=== PATIENT | male | born 1960 | race Caucasian/White ===

== ENCOUNTER 2016-01-12 11:00 | Inpatient (IN) | payer BC ==
[2015-12-30 11:18] VITALS: BP 154/82
--- NOTE | 2016-01-07 15:38 | HPE ---
DATE OF ADMISSION: 01/12/2016 CHIEF COMPLAINT: Left hip pain. HISTORY OF PRESENT ILLNESS: This is a pleasant 55-year-old male with progressively worsening left hip pain and stiffness. He has failed to improve with conservative treatment. He has elected for surgery for his continued symptoms. He has pain with weightbearing activities and his activities of daily living. X-rays of his hip are notable for advanced osteoarthritis of the left hip joint. He has consented for a left total hip arthroplasty by Dr. Macho Acosta. Medical optimization was performed by Dr. Wooten. ALLERGIES: No known allergies. CURRENT MEDICATIONS: Metformin, duloxetine, atorvastatin, bisoprolol, chlorthalidone, telmisartan, omeprazole, and Lantus. PAST MEDICAL HISTORY: Includes: 1. Diabetes. 2. Hypertension. 3. High cholesterol. 4. History of a heart attack. 5. Anxiety and depression. PAST SURGICAL HISTORY: Includes a right total hip arthroplasty with revision in 2014. 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 He does not smoke or drink alcohol. FAMILY HISTORY: Noncontributory. REVIEW OF SYSTEMS: This patient denies chest pain, heart palpitations, cough, wheezing, difficulty breathing or shortness of breath. He denies abdominal pain, nausea, vomiting, diarrhea or constipation. He denies recent upper respiratory infection or urinary tract infection symptoms. He does complain of persistent pain in his left hip and pain with weightbearing activities in his left hip. PHYSICAL EXAMINATION: GENERAL: He is a well-nourished, well-developed, in no acute distress, adult male. He walks with a moderate limp favoring the left lower extremity. He is not using assistive devices. VITAL SIGNS: He is 5 feet, 10 inches tall, weighs 292 pounds with a temperature of 98.9, blood pressure of 144/76, pulse of 78, and respirations of 20. NECK: Supple without adenopathy or jugular venous distension. There were no carotid bruits appreciated upon auscultation. LUNGS: Clear to auscultation without rales or wheeze. HEART: Regular rate and rhythm. ABDOMEN: Bowel sounds were present. EXTREMITIES: Examination of the hip revealed intact skin. He had decreased range of motion with internal and external rotation on examination secondary to pain and stiffness. The limb was neurovascularly intact. Chest x-ray showed mild cardiomegaly with a stable calcified granuloma, otherwise no acute cardiopulmonary disease processes. EKG showed normal sinus rhythm at 75 beats per minute. LABORATORY DATA: Nasal and sinus culture showed normal brianne. Urine culture showed no growth. CBC showed a red count of 4.22, hemoglobin of 13.0, hematocrit of 36.3, otherwise within normal limits. Sedimentation rate was 18, glucose 153, BUN 27, creatinine 1.44 for a GFR of 53.8. Prothrombin time 12.1, INR 0.89. UA showed 2+ blood and 4 red blood cells, otherwise within normal limits with a specific gravity of 1.017. IMPRESSION: Symptomatic osteoarthritis of the left hip. PLAN: Consented for a left total hip arthroplasty by Dr. Macho Acosta.
[~2016-01-12] VITALS: Ht 177.8 cm; Wt 135.0 kg
[~2016-01-12 11:00] MED LIST: /AMLO25TA PO; /HCTZ25TA PO; /PRAV20TA PO; AMIODIPINE PO; ASPI325T PO; BISO5TAB5 PO; CARV6.25 PO; CHLO25TA PO; COLA100C PO; CORE25TA PO; CYMB1CAP PO; CYMB1CAP4 PO; GLUC500T PO; HYDR50TA2 PO; Hygroton PO; INSUDET SC; INSULANT SC; INSULANT SQ; LIPI80TA PO; METF1000 PO; MICA40TA PO; MICA80TA PO; MILKSUS PO; PERC5TAB6 PO; PRAV80TA2 PO; PRIL40CA PO; SENO8.6T2 PO; TYLE167L PO; TYLE650T30 PO; ZEBE5TAB PO; ZITH500T PO
[2016-02-26] MEDS ORDERED: CHLO25TA PO (14:04)
[2016-02-26] MEDS ORDERED: JANU100T PO (14:04)
[2016-02-26] MEDS ORDERED: GLIP5TAB8 PO (14:04)
--- NOTE | 2016-02-26 16:17 | HPE ---
DATE OF SCHEDULED ADMISSION: 03/01/2016 CHIEF COMPLAINT: Left hip pain. HISTORY OF PRESENT ILLNESS: This is a pleasant 55-year-old male with progressively worsening left hip pain and stiffness. He has failed to improve with conservative treatment. He has elected for surgery for his continued symptoms. He has pain with weightbearing activities and his activities of daily living. X-rays of his hip are notable for advanced osteoarthritis of the left hip joint. He has consented for a left total hip arthroplasty by Dr. Macho Acosta. Medical optimization was performed by Dr. Wooten. ALLERGIES: None. CURRENT MEDICATIONS: - metformin - chlorthalidone - duloxetine - telmisartan - atorvastatin - omeprazole - bisoprolol - Lantus - daily aspirin PAST MEDICAL HISTORY: Includes diabetes, hypertension, high cholesterol, history of heart attack and anxiety or depression. PAST SURGICAL HISTORY: Includes a right total hip arthroplasty. 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 FAMILY HISTORY: Noncontributory. REVIEW OF SYSTEMS: This patient denies chest pain, heart palpitations, cough, wheezing, difficulty breathing and shortness of breath. He denies abdominal pain, nausea, vomiting, diarrhea or constipation. He denies recent upper respiratory infection or urinary tract infection symptoms. He does complain of persistent pain in his left hip and pain with weightbearing activities in his left hip. PHYSICAL EXAMINATION: General: He is a well-nourished, well-developed, in no acute distress, adult male. He walks with a moderate limp favoring his left lower extremity. He is not using assistive devices. Vital signs: He is 69-3/4 inches tall, weighs 291 pounds with a temperature of 98.3, blood pressure 152/78, pulse 66, respirations of 14. Neck was supple without adenopathy or jugular venous distension. There were no carotid bruits appreciated upon auscultation. Lungs were clear to auscultation without rales or wheeze throughout. Heart: Regular rate and rhythm. Abdomen: Bowel sounds were present. Extremities: Examination of the hip revealed intact skin without erythema, edema or ecchymosis. Decreased range of motion with internal and external rotation on exam today secondary to pain and stiffness. The limb is neurovascularly intact. LABORATORY DATA: Chest x-ray showed stable calcified granuloma in the right mid lung field, mild cardiomegaly with left ventricular prominence, unchanged from previous x-ray; otherwise no acute cardiopulmonary disease processes. EKG showed normal sinus rhythm at 75 beats per minute. Nasal and sinus culture showed normal brianne. Urine culture showed no growth. CBC showed a red count of 4.22, hemoglobin of 13.0, hematocrit of 36.3, otherwise within normal limits. Sedimentation rate was 18, glucose 153, BUN 27, creatinine 1.44, GFR of 53.8. Sodium 137, potassium 4.3. Pro time 12.1, INR 0.89. UA showed 2+ blood and 4 red blood cells, otherwise within normal limits with a specific gravity of 1.017. IMPRESSION: Symptomatic osteoarthritis of the left hip joint. PLAN: Consented for a left total hip arthroplasty by Dr. Macho Acosta.
[2016-03-01] MEDS ORDERED: ceFAZolin 2 GM/D5W 50 ML IV BAG (J0690) As Ordered ONE (11:31)
[2016-03-01] MEDS ORDERED: LR 1,000 ML IV SCH ×4 (11:45→16:30)
[2016-03-01] MEDS ORDERED: COUM1TAB17 PO (12:00)
[2016-03-01] MEDS ORDERED: BENZ100C5 PO (12:03)
[2016-03-01] MEDS ORDERED: ASPIRIN 325 MG TAB As Ordered ONE (12:26)
[2016-03-01] MEDS ORDERED: ASPIRIN 325 MG TAB PO ONE (12:45)
[2016-03-01] MEDS ORDERED: HumaLOG INSULIN (NovoLOG) PER UNIT As Ordered ONE (13:13)
[2016-03-01] MEDS ORDERED: TRANEXAMIC ACID 100 MG/ML 10ML VIAL As Ordered ONE (13:23)
[2016-03-01] MEDS ORDERED: ceFAZolin 1GM INJ (J0690) As Ordered ONE (13:23)
[2016-03-01] MEDS ORDERED: BUPIVACAINE HCL 0.25% 30 ML VIAL As Ordered ONE (13:23)
[2016-03-01] MEDS ORDERED: BUPIVACAINE HCL 0.5% 10 ML VIAL As Ordered ONE (13:23)
[2016-03-01] MEDS ORDERED: EPINEPHrine INJ 1 MG/ML 1ML VIAL/AMP As Ordered ONE (13:24)
[2016-03-01] MEDS ORDERED: HumaLOG INSULIN (NovoLOG) PER UNIT SC ONE (13:30)
[2016-03-01] MEDS ORDERED: fentaNYL 100 MCG/2 ML INJECTION (J3010) As Ordered ONE ×2 (13:35→14:02)
[2016-03-01] MEDS ORDERED: LIDOCAINE 2% INJ 100 MG/5 ML SDV (FOR ANES.) As Ordered ONE (14:02)
[2016-03-01] MEDS ORDERED: PHENYLephrine HCL 500 MCG/5 ML (100MCG/ML) SYRINGE (J2370) As Ordered ONE ×2 (14:02→15:41)
[2016-03-01] MEDS ORDERED: MIDAZOLAM INJ 2 MG/2 ML VIAL (J2250) As Ordered ONE (14:02)
[2016-03-01] MEDS ORDERED: PROPOFOL 200 MG/20 ML VIAL As Ordered ONE (14:02)
[2016-03-01] MEDS ORDERED: fentaNYL 100 MCG/2 ML INJECTION (J3010) XX ONE (14:27)
[2016-03-01] MEDS ORDERED: ceFAZolin 1GM INJ (J0690) IR ONE (14:27)
[2016-03-01] MEDS ORDERED: TRANEXAMIC ACID 100 MG/ML 10ML VIAL XX ONE (14:27)
[2016-03-01] MEDS ORDERED: BUPIVACAINE HCL 0.25% 30 ML VIAL XX ONE (14:27)
[2016-03-01] MEDS ORDERED: BUPIVACAINE HCL 0.5% 10 ML VIAL XX ONE (14:27)
[2016-03-01] MEDS ORDERED: EPINEPHrine INJ 1 MG/ML 1ML VIAL/AMP XX ONE (14:27)
[2016-03-01] MEDS ORDERED: MORPHINE PCA 1MG/ML 100ML CADD As Ordered ONE (15:22)
[2016-03-01] MEDS ORDERED: GLUCOSE 4 GM CHEW TABLET PO PRN (16:30)
[2016-03-01] MEDS ORDERED: DEXTROSE 50% 50 ML SYRINGE IV PRN (16:30)
[2016-03-01] MEDS ORDERED: fentaNYL 100 MCG/2 ML INJECTION (J3010) IV PRN (16:30)
[2016-03-01] MEDS ORDERED: PERCOCET 5MG/325MG TAB PO PRN (16:30)
[2016-03-01] MEDS ORDERED: PHENYLEPHRINE HCL INJ 10 MG in D5W 100 ML IV SCH (16:30)
[2016-03-01] MEDS ORDERED: GLUCAGON FOR INJ 1 MG VIAL (J1610) SC PRN (16:30)
[2016-03-01] MEDS ORDERED: METOCLOPRAMIDE INJ 10MG/2ML VIAL (J2765) IV PRN (16:30)
[2016-03-01] MEDS ORDERED: ONDANSETRON 4MG/2ML VIAL (J2405) IV PRN ×2 (16:30→16:45)
[2016-03-01] MEDS: NS 0.45% 1,000 ML IV SCH ×2 (16:42→22:50)
[2016-03-01] MEDS ORDERED: PATIENT IS CURRENTLY ON AN ON-Q PAIN BUSTER PAIN RELIEF SYSTEM XX SCH (16:45)
[2016-03-01] MEDS ORDERED: EPIDURAL/PCA KEYS XX PRN (16:45)
[2016-03-01] MEDS ORDERED: FLEET ENEMA PR PRN (16:45)
[2016-03-01] MEDS ORDERED: MORPHINE PCA 1MG/ML 100ML CADD IV PRN (16:45)
[2016-03-01] MEDS ORDERED: ACETAMINOPHEN TAB 650MG DOSE (2X325MG) PO PRN (16:45)
[2016-03-01] MEDS ORDERED: NALBUPHINE HCL 10 MG/ML AMP (J2300) IV PRN (16:45)
[2016-03-01] MEDS ORDERED: diphenhydrAMINE INJ 50MG/ML VIAL (J1200) IV PRN (16:45)
[2016-03-01] MEDS ORDERED: NALOXONE INJ 0.4 MG/1 ML VIAL (J2310) IV PRN (16:45)
[2016-03-01] MEDS ORDERED: WARFARIN SOD 5 MG TAB PO SCH (17:00)
[2016-03-01] MEDS: HumaLOG INSULIN (NovoLOG) PER UNIT SC SCH (17:30)
[2016-03-01 18:00] VITALS: BP 125/59
[2016-03-01 18:45] VITALS: BP 134/78
[2016-03-01 19:45] VITALS: BP 143/64
[2016-03-01] MEDS: ATORVASTATIN 20 MG TAB PO SCH (20:43)
[2016-03-01] MEDS: OMEPRAZOLE 20 MG CAP PO SCH (20:43)
--- NOTE | 2016-03-01 20:43 | RO ---
DATE OF PROCEDURE: 03/01/2016 PREOPERATIVE DIAGNOSIS: Left hip osteoarthritis, morbid obesity, diabetes. POSTOPERATIVE DIAGNOSIS: Left hip osteoarthritis, morbid obesity, diabetes. OPERATION PERFORMED: Left total hip replacement. SURGEON: Dr. Macho Acosta OFFICE SERVICE COORDINATOR: EUN Galloway ANESTHESIA: HISTORY: A 55-year-old male who presents with significant arthritis in his hip. The patient understands that he is at increased risk for postoperative complications due to his size and other medical problems. FINDINGS AT SURGERY: Extremely difficult procedure. A very muscular obese man that required a lot of extra effort to manipulate his leg and expose things. The stem was a #7 [place] with an 8.5 head neck combination and the cup was a 60 with a 36 mm head. No intraoperative complications. Blood loss around 150 mL. DESCRIPTION OF PROCEDURE: After spinal anesthetic, a Jim catheter was placed, IV antibiotics were administered. The patient was turned left side up in the [place] and padded appropriately, then prepped and draped. Anterolateral incision utilized on the left hip. IT band divided in line with its fibers. The patient had a large hypertrophied tensor band with very little fascia posteriorly to it. The abductors were reflected anteriorly. The labrum was incised and the hip dislocated. Intramedullary canal reamed for a #7 [place], the neck divided. The acetabulum was exposed, and we reamed up to a 59. At that point, we were at the cotyloid fossa. Bleeders were coagulated. The area was thoroughly irrigated and the cup was inserted. We did have some anterior osteophyte that was trimmed with a rongeur. A 36 plastic cup was installed. Following this, the wound was thoroughly irrigated, the stem was exposed and the broaches utilized in the femoral canal. A 7 trial was performed. Then all trial components were removed. The permanent stem malleted into place and the Sidhu taper engaged with an 8.5 neck on a 36 head and it was reduced. The labrum was closed. The PainBuster catheter was threaded in, the abductors repaired back to the trochanter. The IT band was repaired. Following this, the subcu was closed in layers due to its depth, skin clips were utilized, a dry dressing applied. The PainBuster was primed with 10 mL and the patient was rolled flat. Sequential compression stockings were applied to his operative leg. They had been operating on the down leg during the procedure.
[2016-03-01 20:45] VITALS: BP 164/70
[2016-03-01] MEDS: LEVEMIR (INSULIN DETEMIR) 1 UNITS/0.01ML SC SCH (21:05)
[2016-03-01 21:45] VITALS: BP 173/85
[2016-03-01 22:45] VITALS: BP 178/81
[2016-03-02 02:00] VITALS: BP 146/88
[2016-03-02 06:00] VITALS: BP 150/73
[2016-03-02] MEDS ORDERED: PERCOCET 5MG/325MG TAB PO PRN (06:45)
[2016-03-02 07:01] LABS: MEAN CORPUSCULAR HEMOGLOBIN 30.2 pg (27.0-33.0); MEAN CORPUSCULAR HGB CONC 35.2 g/dl (32.0-36.5); MEAN CORPUSCULAR VOLUME 85.7 fl (80.0-96.0); RED CELL DISTRIBUTION WIDTH 13.4 % (11.5-14.5); WHITE BLOOD COUNT 15.8 K/mm3 (4.0-10.0)
[2016-03-02 07:02] LABS: INR 1.11
--- NOTE | 2016-03-02 07:52 | IPNPDOC ---
Assessment/Plan Date Seen The patient was seen on 03/02/16. Problems Problems: (1) HTN (hypertension) Status: Chronic Problem Text: restart Micardis and Chlorthalidone gradually Continue Bisoprolol (2) Diabetes mellitus type 2, uncontrolled Status: Chronic Problem Text: Continue Insulin and SSI Restart oral agents once eating normally (3) CAD (coronary artery disease) Status: Chronic Response to Treatment: Stable Problem Text: Continue Lipitor Aspirin on hold currently for hip surgery- restart once stable (4) Aftercare following left hip joint replacement surgery Status: Acute Problem Text: PEr ortho Plan / VTE VTE Prophylaxis Ordered?: Yes (Coumadin per Ortho) Disposition Home once stable Subjective Review of Systems CC/HPI The patient is a 55-year-old male admitted with a reason for visit of Arthritis Left Hip. Events since last encounter Nausea and vomiting after taking Percocet this am. Pain poorly controlled. Constitutional: Denies: Chills, Fever Pulmonary: Denies: Cough, Dyspnea Gastrointestinal: Reports: Nausea, Vomiting, Denies: Abdominal Pain, Constipation, Diarrhea Musculoskeletal: Reports: Joint Pain (post-op hip pain) Objective Physical Examination General Exam: Positive: Alert, No Acute Distress Chest Exam: Positive: Clear to auscultation, Normal air movement Heart Exam: Positive: Rate Normal, Negative: Murmurs Abdomen Exam: Positive: Normal bowel sounds, Soft, Negative: Tenderness Extremity Exam: Negative: Edema Vital Signs/I&O Vital Signs Date Time Temp Pulse Resp B/P Pulse Ox O2 Delivery O2 Flow Rate FiO2 03/02/16 06:00 97.3 112 18 150/73 97 Nasal Cannula 2.0 I&O- Last 24 Hours up to 6 AM 03/02/16 06:00 Intake Total 2600 ml Output Total 1075 ml Balance 1525 ml Laboratory Data Labs 24H Laboratory Tests 2 03/01/16 12:38: Bedside Glucose (Misc Panel) 183H 03/01/16 16:20: Bedside Glucose (Misc Panel) 129H 03/01/16 20:27: Bedside Glucose (Misc Panel) 167H 03/02/16 06:18: Bedside Glucose (Misc Panel) 238H 03/02/16 06:44: Prothromb Time International Ratio 1.11, Prothrombin Time 14.4 CBC/BMP Laboratory Tests 03/01/16 11:18 03/02/16 06:44 Red Blood Count 4.05 L, Mean Corpuscular Volume 85.7, Mean Corpuscular Hemoglobin 30.2, Mean Corpuscular Hemoglobin Concent 35.2, Red Cell Distribution Width 13.4 FSBS Laboratory Tests Test 03/01/16 12:38 03/01/16 16:20 03/01/16 20:27 03/02/16 06:18 Range/Units Bedside Glucose (Misc Panel) 183 129 167 238 70-105 MG/DL BAO BECKER PA-C Mar 02, 2016 07:52
[2016-03-02] MEDS: HumaLOG INSULIN (NovoLOG) PER UNIT SC SCH ×3 (08:10→17:33)
[2016-03-02] MEDS: MIRALAX *UNIT DOSE* 17GM PACKET PO SCH (08:11)
[2016-03-02] MEDS: MOM 30ML SUSPENSION UDC PO SCH (08:11)
[2016-03-02] MEDS: NS 0.45% 1,000 ML IV SCH ×2 (08:11→15:09)
[2016-03-02] MEDS: DULoxetine 20 MG CAP (CYMBALTA) PO SCH (08:12)
[2016-03-02] MEDS: OMEPRAZOLE 20 MG CAP PO SCH ×2 (08:12→21:30)
[2016-03-02] MEDS: BISOPROLOL FUMARATE 5 MG TAB PO SCH (08:12)
[2016-03-02] MEDS: PERCOCET 5MG/325MG TAB PO PRN ×4 (08:12→21:50)
[2016-03-02] MEDS: SENOKOT S TAB PO SCH ×2 (08:13→21:30)
[2016-03-02] MEDS: LEVEMIR (INSULIN DETEMIR) 1 UNITS/0.01ML SC SCH ×2 (08:13→21:29)
[2016-03-02] MEDS: ONDANSETRON 4 MG TAB (S0181) PO PRN ×3 (08:15→21:49)
[2016-03-02 08:20] LABS: ALBUMIN 3.2 GM/DL (3.2-5.2); ALBUMIN/GLOBULIN RATIO 0.86 (1.00-1.93); BILIRUBIN,TOTAL 0.3 MG/DL (0.2-1.0); CALCIUM LEVEL 8.4 MG/DL (8.5-10.1); CREATININE FOR GFR 2.04 MG/DL (0.70-1.30); POTASSIUM SERUM 5.1 MEQ/L (3.5-5.1); TOTAL PROTEIN 6.9 GM/DL (6.4-8.2)
[2016-03-02] MEDS ORDERED: TELMISARTAN 20 MG TAB PO SCH (09:00)
[2016-03-02 10:00] VITALS: BP 143/88
[2016-03-02 14:00] VITALS: BP 146/65
--- NOTE | 2016-03-02 15:24 | REP ---
Left hip series to include AP and 2 cross table lateral views of left hip Indication re check prosthesis placement Comparison made with prior CT abdomen pelvis 07/02/2013 performed at [facility] only Findings: The patient is status post left total hip arthroplasty with acetabular, femoral head, neck, and proximal femoral shaft prosthetic components. The alignment is anatomic. There is no visualized fracture. Visualized portions of the left rah pelvis are intact. Impression : Status post left total hip arthroplasty with normal appearance of the prosthesis and the left hip. There is no fracture or displacement. Signed by Roselyn Chavarria MD 03/02/2016 03:16 P
[2016-03-02] MEDS ORDERED: WARFARIN SOD 5 MG TAB PO ONE (17:00)
[2016-03-02] MEDS: ATORVASTATIN 20 MG TAB PO SCH (21:30)
[2016-03-02 22:00] VITALS: BP 137/65
[2016-03-03] MEDS: NS 0.45% 1,000 ML IV SCH (00:45)
[2016-03-03 06:00] VITALS: BP 144/81
[2016-03-03] MEDS: PERCOCET 5MG/325MG TAB PO PRN ×4 (06:31→21:59)
[2016-03-03 06:47] LABS: MEAN CORPUSCULAR HEMOGLOBIN 30.1 pg (27.0-33.0); MEAN CORPUSCULAR HGB CONC 34.5 g/dl (32.0-36.5); MEAN CORPUSCULAR VOLUME 87.2 fl (80.0-96.0); RED CELL DISTRIBUTION WIDTH 12.4 % (11.5-14.5); WHITE BLOOD COUNT 12.9 K/mm3 (4.0-10.0)
[2016-03-03 06:49] LABS: INR 1.23
[2016-03-03 06:58] LABS: ALBUMIN 2.8 GM/DL (3.2-5.2); ALBUMIN/GLOBULIN RATIO 0.72 (1.00-1.93); BILIRUBIN,TOTAL 0.6 MG/DL (0.2-1.0); CALCIUM LEVEL 8.7 MG/DL (8.5-10.1); CREATININE FOR GFR 2.15 MG/DL (0.70-1.30); GLOMERULAR FILTRATION RATE 33.9 (>56); POTASSIUM SERUM 4.4 MEQ/L (3.5-5.1); TOTAL PROTEIN 6.7 GM/DL (6.4-8.2)
[2016-03-03] MEDS ORDERED: NS 0.45% 1,000 ML IV SCH (07:45)
--- NOTE | 2016-03-03 08:20 | IPN ---
DATE: 03/03/2016 Marco Antonio is seen in [address] [place] [address]. He is two days postoperative from left total hip replacement. He feels well. No chest pain, shortness of breath. He has not had a bowel movement yet. He has developed some acute renal failure, which will be addressed below. PHYSICAL EXAMINATION: 144/81, pulse is 70, respiratory rate 15, 99% oxygen saturation. He is resting comfortably, no distress. No jugular venous distention (JVD). LUNGS: Expiratory wheezes but at the bases. HEART: Regular rate and rhythm. No murmur. ABDOMEN: Soft, obese, nontender. NEUROLOGIC: Exam nonfocal. LABORATORY DATA: BUN is 41 and creatinine is 2.1. Glucose 218, sodium 135, potassium 4.4, hemoglobin is 10.9. IMPRESSION: 1. Acute kidney injury. I think he is still a bit volume depleted. I am going to increase his intravenous rate. I am stopping his Micardis. His chlorthalidone is on hold. 2. Hypertension. Stop Micardis in the face of acute renal failure. Continue bisoprolol. 3. Hyperlipidemia. Continue atorvastatin 80 mg daily. 4. Diabetes type 2. He is on Levemir and sliding scale. Based upon fingerstick blood sugars and blood sugars are acceptable in the 200 range. Restart some of his oral agents once he is taking orally better. 5. Coronary artery disease. Aspirin is on hold. Continue beta dequan. Continue atorvastatin. If his renal function does not improve with increasing the IV rate and holding the Micardis, I will get a renal ultrasound tomorrow and consider renal consultation.
[2016-03-03] MEDS: MOM 30ML SUSPENSION UDC PO SCH (08:41)
[2016-03-03] MEDS: BISOPROLOL FUMARATE 5 MG TAB PO SCH (08:42)
[2016-03-03] MEDS: DULoxetine 20 MG CAP (CYMBALTA) PO SCH (08:42)
[2016-03-03] MEDS: OMEPRAZOLE 20 MG CAP PO SCH ×2 (08:42→22:00)
[2016-03-03] MEDS: SENOKOT S TAB PO SCH ×2 (08:42→21:59)
[2016-03-03] MEDS: HumaLOG INSULIN (NovoLOG) PER UNIT SC SCH ×3 (08:43→17:22)
[2016-03-03] MEDS: LEVEMIR (INSULIN DETEMIR) 1 UNITS/0.01ML SC SCH ×2 (08:43→21:58)
[2016-03-03] MEDS: MIRALAX *UNIT DOSE* 17GM PACKET PO SCH (08:43)
[2016-03-03 14:00] VITALS: BP 136/63
[2016-03-03] MEDS ORDERED: WARFARIN SOD 10 MG TAB PO ONE (17:00)
[2016-03-03] MEDS: ATORVASTATIN 20 MG TAB PO SCH (21:59)
[2016-03-03 22:00] VITALS: BP 135/60
[2016-03-04] MEDS: PERCOCET 5MG/325MG TAB PO PRN ×2 (05:27→10:19)
[2016-03-04 06:00] VITALS: BP 149/66
[2016-03-04 07:10] LABS: INR 1.3
[2016-03-04] MEDS ORDERED: MAGNESIUM CITRATE 300 ML BTL PO ONE (07:30)
[2016-03-04] MEDS ORDERED: COUM2.5T11 PO (08:00)
[2016-03-04] MEDS ORDERED: PERC5TAB6 PO (08:00)
[2016-03-04] MEDS: MIRALAX *UNIT DOSE* 17GM PACKET PO SCH (08:19)
[2016-03-04] MEDS: SENOKOT S TAB PO SCH (08:19)
[2016-03-04] MEDS: MOM 30ML SUSPENSION UDC PO SCH (08:19)
[2016-03-04] MEDS: OMEPRAZOLE 20 MG CAP PO SCH (08:19)
[2016-03-04 08:20] VITALS: BP 149/66
[2016-03-04] MEDS: DULoxetine 20 MG CAP (CYMBALTA) PO SCH (08:20)
[2016-03-04] MEDS: BISOPROLOL FUMARATE 5 MG TAB PO SCH (08:20)
[2016-03-04] MEDS: LEVEMIR (INSULIN DETEMIR) 1 UNITS/0.01ML SC SCH (08:21)
[2016-03-04] MEDS: HumaLOG INSULIN (NovoLOG) PER UNIT SC SCH ×2 (08:21→12:26)
[2016-03-04] MEDS ORDERED: ENOXAPARIN 40 MG/0.4 ML SYRINGE (J1650) SC SCH (09:00)
[2016-03-04] MEDS ORDERED: MAGNESIUM CITRATE 300 ML BTL PO PRN (10:00)
--- NOTE | 2016-03-04 10:50 | IPN ---
DATE OF SERVICE: 03/04/2016 Marco Antonio is seen in 5 rm. I had ordered some intravenous (IV) fluids yesterday, but apparently they were not hung. He is being discharged by orthopedics. His blood pressure remains well controlled. I stopped his Micardis yesterday. He has developed some mild renal insufficiency. Nursing staff notes that his urine output has been very good today, and I think he is probably recovering from some mild acute kidney injury. Apparently, he did not have any laboratories ordered for today. He is already set to go. I think with his good urine output, we can safely discharge him with plans to see him in the office next week. Will get a med profile at that time. His medications on discharge are: - aspirin 325 mg daily - atorvastatin 80 mg daily - Zebeta 5 mg daily - chlortalidone 25 mg daily - Cymbalta 20 mg daily - glipizide 5 mg daily - Lantus insulin 65 units twice a day - metformin 1000 mg twice a day - omeprazole 40 mg twice a day - Januvia 100 mg daily - warfarin 2.5 mg daily or as directed by orthopedics - We are holding his Micardis. Orthopedics has ordered Percocet 5/325 one to two every 4 hours as needed, warfarin actually 2.5 mg tablets three tablets daily or as directed by orthopedics. Activity per orthopedics. He will followup in our office in a week. He will need a basic metabolic profile (BMP) at that time.
== END 2016-03-04 13:35 | disposition home or self-care (01) | DRG 301 ==
LOC: M OR 03-01 11:07 → M MS5PR 03-01 18:05
PROVIDERS: ADMIT Orthopaedic Surgery; ATTEND Orthopaedic Surgery
PROC: 0SRB0JA Replacement of Left Hip Joint with Synthetic Substitute, Uncemented, Open Approach (ICD-10-PCS; principal; 2016-03-01 13:00)
DX: M16.12 Unilateral primary osteoarthritis, left hip (principal); N17.9 Acute kidney failure, unspecified; Z96.641 Presence of right artificial hip joint; E11.9 Type 2 diabetes mellitus without complications; I10 Essential (primary) hypertension; I25.2 Old myocardial infarction; Z79.82 Long term (current) use of aspirin; Z79.4 Long term (current) use of insulin; E78.5 Hyperlipidemia, unspecified; Z79.899 Other long term (current) drug therapy

== ENCOUNTER → 2016-03-09 | Outpatient (REF) | payer BC ==
[~2016-03-09] MED LIST changes: +BENZ100C5 PO; +COUM1TAB17 PO; +COUM2.5T11 PO; +GLIP5TAB8 PO; +JANU100T PO
[2016-03-09 13:12] LABS: ALBUMIN 3.1 GM/DL (3.2-5.2); ALBUMIN/GLOBULIN RATIO 0.78 (1.00-1.93); BILIRUBIN,TOTAL 0.6 MG/DL (0.2-1.0); CALCIUM LEVEL 9.2 MG/DL (8.5-10.1); CREATININE FOR GFR 1.35 MG/DL (0.70-1.30); POTASSIUM SERUM 4.4 MEQ/L (3.5-5.1); TOTAL PROTEIN 7.1 GM/DL (6.4-8.2); URIC ACID 5.4 MG/DL (3.5-7.2)
== END ==
LOC: M SFHCADAM 09:34
PROVIDERS: ATTEND Family Medicine
DX: E11.65 Type 2 diabetes mellitus with hyperglycemia (principal); M10.9 Gout, unspecified; E55.9 Vitamin D deficiency, unspecified

== ENCOUNTER → 2016-03-09 | Outpatient (REF) | payer BC ==
[2016-03-09 12:44] LABS: INR 1.54
== END ==
LOC: M SHH 12:10
PROVIDERS: ATTEND Nurse Practitioner Family
DX: Z51.81 Encounter for therapeutic drug level monitoring (principal); Z79.01 Long term (current) use of anticoagulants

== ENCOUNTER → 2016-03-11 | Outpatient (REF) | payer BC ==
[2016-03-11 10:19] LABS: INR 1.6
== END ==
LOC: M LAB REF 09:58
PROVIDERS: ATTEND Nurse Practitioner Family
DX: Z51.81 Encounter for therapeutic drug level monitoring (principal); Z79.01 Long term (current) use of anticoagulants

== ENCOUNTER 2016-03-15 19:32 | Emergency (ER) | payer BC ==
[2016-03-15 21:17] LABS: BASO % 0.3 % (0.0-1.0); EOS # 0.3 K/mm3 (0.0-0.50); EOS % 3.5 % (0.0-3.0); LARGE UNSTAINED CELL # 0.1 K/mm3 (0.0-0.4); LARGE UNSTAINED CELL % 0.6 % (0.0-4.0); LYMPH # 1.9 K/mm3 (1.5-4.5); LYMPH % 19.5 % (24.0-44.0); MEAN CORPUSCULAR HEMOGLOBIN 29.4 pg (27.0-33.0); MEAN CORPUSCULAR HGB CONC 34.7 g/dl (32.0-36.5); MEAN CORPUSCULAR VOLUME 84.9 fl (80.0-96.0); MONO # 0.4 K/mm3 (0.0-0.8); MONO % 3.7 % (0.0-5.0); NEUTROPHILS # 6.9 K/mm3 (1.8-7.7); NEUTROPHILS % 72.4 % (36.0-66.0); PLATELET COUNT, AUTOMATED 398 k/mm3 (150-450); RED CELL DISTRIBUTION WIDTH 12.8 % (11.5-14.5); WHITE BLOOD COUNT 9.5 K/mm3 (4.0-10.0)
[2016-03-15 21:29] LABS: INR 2.43
[2016-03-15 21:42] LABS: ALBUMIN 2.9 GM/DL (3.2-5.2); ALBUMIN/GLOBULIN RATIO 0.76 (1.00-1.93); ALKALINE PHOSPHATASE 116 U/L (45-117); ALT/SGPT 19 U/L (12-78); ANION GAP 9 MEQ/L (8-16); AST/SGOT 15 U/L (15-37); BILIRUBIN,DIRECT < 0.1 MG/DL (0.0-0.2); BILIRUBIN,TOTAL 0.2 MG/DL (0.2-1.0); BLOOD UREA NITROGEN 34 MG/DL (7-18); CARBON DIOXIDE LEVEL 27 MEQ/L (21-32); CHLORIDE LEVEL 102 MEQ/L (98-107); CREATININE FOR GFR 1.61 MG/DL (0.70-1.30); GLOMERULAR FILTRATION RATE 47.3 (>56); GLUCOSE, FASTING 225 MG/DL (70-105); POTASSIUM SERUM 4.4 MEQ/L (3.5-5.1); SODIUM LEVEL 138 MEQ/L (136-145); TOTAL PROTEIN 6.7 GM/DL (6.4-8.2)
[2016-03-15] MEDS ORDERED: GASTROGRAFIN SOLUTION 30ML (Q9963) As Ordered ONE (22:42)
--- NOTE | 2016-03-16 00:50 | REPUSA ---
CT of the abdomen and pelvis without contrast Clinical statement: Pain. Technique: Multiple axial CT images were obtained from the base of the lungs to the floor of the pelv is utilizing 5 mm axial slices following administration of oral contrast. Coronal and sagittal recons tructions were also obtained. Comparison: 07/02/2013. Findings: Chest: The visualized lung bases are clear. Abdomen: The kidneys are normal in size bilaterally. There is no evidence of hydronephrosis. There is a 1 cm stone in the inferior left renal collecting system. Layering densities are seen in the gallbl adder. The liver, spleen, pancreas, and adrenal glands are unremarkable. The aorta demonstrates noe l caliber and contour. There is no abdominal lymphadenopathy or ascites. Pelvis: The bowel is unremarkable, with no obstructive or inflammatory changes. The appendix is noe l. The urinary bladder is within normal limits. There is no pelvic lymphadenopathy or ascites. The ot her pelvic structures appear unremarkable. Bones: There are no suspicious osseous abnormalities seen. Moderate degenerative disc disease at L5/S 1 is appreciated. Bilateral hip arthroplasties are intact. Impression: 1. Stable 1 cm nonobstructing stone in the inferior left renal collecting system. No evidence of hydr onephrosis. 2. No obstructive or inflammatory bowel changes. 3. Densities in the gallbladder either represent small gallstones or gallbladder sludge. No evidence of acute cholecystitis.
[2016-03-16] MEDS ORDERED: DERMABOND TOPICAL SKIN ADHESIVE As Ordered ONE (01:41)
--- NOTE | 2016-03-16 02:04 | EDDOCDS ---
Nurse's Notes [facility] Name: Kyle Alva Age: 55 yrs Sex: Male : 1960 Arrival Date: 03/15/2016 Time: 19:32 Bed 10 Private MD: Hemant Wooten MD Diagnosis: Other specified noninfective gastroenteritis and colitis Presentation: 03/15 19:37 Presenting complaint: Patient states: that he had a stomachache today, which lead to ms18 diarrhea, and then bright red blood appeared when he used the rest room. Pt was able to eat dinner at approx 1800. Pt also states that he had nicky removed from a L hip surgery today and that was bleeding as well. Adult Sepsis Screening: The patient does not have new or worsening altered mentation. Patient's respiratory rate is less than 22. Systolic blood pressure is greater than 100. Patient has a qSOFA score of 0- Negative Sepsis Screen. Suicide/Homicide risk assessment- the patient denies having any suicidal and/or homicidal ideations and does not present with any other emotional, behavioral or mental health complaints. Status: Patient is not a sales service assistant or dependent. Transition of care: patient was not received from another setting of care. 19:37 Acuity: LISA Level 3 ms18 19:37 Method Of Arrival: Walkin/Carried/Asstd ms18 Triage Assessment: 19:42 General: Appears in no apparent distress, comfortable, Behavior is appropriate for age, ms18 cooperative. Pain: Location: epigastric area Pain currently is 4 out of 10 on a pain scale. HIV screening NA for this visit Offered previously. Neurological: Level of Consciousness is awake, alert, obeys commands, Oriented to person, place, time. Respiratory: Airway is patent Respiratory effort is even, unlabored. Derm: Skin is pink, warm & dry. Historical: - Allergies: no known allergies; - Home Meds: 1. atorvastatin 80 mg oral tab 1 tab nightly 2. chlorthalidone 25 mg Oral tab 0.5 tabs nightly 3. bisoprolol fumarate 5 mg oral tab 1 tab nightly 4. omeprazole 40 mg Oral cpDR 1 cap 2 times per day 5. Januvia 100 mg oral tab 1 tab once daily 6. duloxetine 20 mg oral cpDR 1 cap 7. metformin 1,000 mg Oral tab 1 tab 2 times per day pt's doctor currently has stopped pt from taking this med 8. warfarin 2.5 mg Oral tab 1 tab once daily amount varies upon lab work (Last dose: 03/14/2016) 9. Lantus 100 unit/mL Sub-Q soln 60 unit twice a day - PMHx: Diabetes - IDDM: controlled; GERD; Hypercholesterolemia; Hypertension; - PSHx: Hip Arthroplasty, Left; - Social history: Smoking status: Patient states was never smoker of tobacco. No barriers to communication noted, The patient speaks fluent Tongan. - Family history: Not pertinent. - : The pt / caregiver states he / she is on anticoagulants: coumadin. Home medication list is obtained from the patient. - Exposure Risk Screening:: None identified. Screenin:38 Screening information is obtained from the patient. Fall risk: At risk due to recent js15 hip surgery. The following interventions are performed due to a positive Fall Risk Screen: side rails up x2, bed in low postion, call light in reach, family at bedside. Assistance ADL's: requires no assistance with activities of daily living. Abuse/DV Screen: The patient / caregiver reports he/she is: not in a situation that causes fear, pain or injury. Nutritional screening: No deficits noted. Advance Directives: There is no active DNR order. home support is adequate. Assessment: 21:00 General: Appears in no apparent distress, comfortable, Behavior is appropriate for age, js15 cooperative. Pain: Denies pain. Neurological: Level of Consciousness is awake, alert, obeys commands, Oriented to person, place, time. Cardiovascular: Capillary refill < 3 seconds. Respiratory: Airway is patent Respiratory effort is even, unlabored, Respiratory pattern is regular, symmetrical, Breath sounds are clear bilaterally. GI: Abdomen is obese, Bowel sounds present X 4 quads. : Reports bloody stools. Derm: Skin is. 22:00 Reassessment: Patient appears in no apparent distress at this time. Pt resting on js15 stretcher, respirations even and unlabored; skin pink, warm, dry. 23:00 Reassessment: Patient appears in no apparent distress at this time. Pt resting js15 comfortably on stretcher, respirations even and unlabored; skin pink, warm, dry. 23:48 General: Patient received from previous shift alert and oriented, resting comfortably, cf2 consumed all oral contrast and awaiting transport to CT scan. Vital Signs: 19:33 BP 185 / 74; Pulse 94; Resp 18 S; Temp 98.3(O); Pulse Ox 100% on R/A; Weight 129.27 kg dd6 (R); Height 5 ft. 10 in. (177.80 cm) (R); 03/16 01:07 BP 148 / 78; Pulse 73; Resp 18; Temp 97.8(O); Pulse Ox 97% on R/A; Pain 0/10; fei 02:02 BP 132 / 78; Pulse 76; Resp 16; Temp 98.0; Pulse Ox 98% on R/A; Pain 3/10; cf2 03/15 19:33 Body Mass Index 40.89 (129.27 kg, 177.80 cm) dd6 Vitals: 03/15 19:33 Log In Time: March 15, 2016 at 19:31. dd6 ED Course: 19:33 Patient visited by Artur Machado PCA. dd6 19:33 Hemant Wooten is Private Physician. dd6 19:33 Patient moved to Waiting dd6 19:34 Patient moved to Pre RCE dd6 19:39 Triage Initiated ms18 20:06 Jadyn Davenport,INGA is Primary Nurse. sls1 20:06 Patient moved to 10 sls1 20:41 [facility] le 20:47 Patient visited by Odette Camacho FNP. le 20:47 Patient visited by Odette Camacho FNP. le 21:09 PTT Sent. js15 21:09 PT/INR Sent. js15 21:10 Basic Metabolic Profile Sent. js15 21:10 CBC with Diff Sent. js15 21:10 Lipase Sent. js15 21:10 Liver Profile Sent. js15 21:28 Inserted saline lock: 20 gauge in left antecubital area and blood collected. The af2 patient tolerated the procedure well. 21:45 Primary Nurse role handed off by Jadyn Davenport,INAG fei 21:50 [facility] Payment Agreement was scanned into [employer] and attached to record. zo 22:32 Patient visited by Pita Baird PCA. fei 23:25 Mavis Chapman,RN is Primary Nurse. cf2 23:25 Patient visited by Mavis Chapman RN. cf2 23:47 Patient visited by Mavis Chapman RN. cf2 03/16 00:09 Patient visited by Mavis Chapman RN. cf2 00:54 Patient visited by Mavis Chapman RN. cf2 00:58 Hemant Wooten is Referral Physician. cs11 00:58 Eliezer Morrow DO is Attending Physician. cs11 01:08 Patient visited by Pita Baird PCA. fei 01:08 CT ABD & PELVIS: Oral Contrast Only Returned. EDMS 01:54 Patient visited by Mavis Chapman RN. cf2 01:55 The patient / caregiver is instructed regarding the plan of care and ED course. Patient cf2 has correct armband on for positive identification. Placed in gown. Bed in low position. Call light in reach. Side rails up X 1. Side rails up X2. Adult w/ patient. Door closed. Noise minimized. Visitors limited. Lights dimmed. Moved to private room. Verbal reassurance given. Warm blanket given. Pillow given. Head of bed elevated. Diet: Patient is NPO. 01:55 Assisted Provider with Wound care with Dermabond and steri-strips to left hip. cf2 Dressings: ABD pad X 3; Steri strips 1/2 " X 1; 4X4s X 2;. Wound care to Surgical incision. Well approximated with moderate amount of serosang drainage noted located on left hip was cleaned with dressed with 4X4s, ABD pads. 02:03 Discontinued lock bleeding controlled, pressure dressing applied, No redness/swelling cf2 at site. Administered Medications: 03/15 21:09 Drug: NS 0.9% 1000 ml [sodium chloride 0.9 % intravenous solution] Route: IV; Rate: js15 bolus; Site: left antecubital; 22:45 Drug: Diatrizoate Meglumine & Sodium 10 ml [diatrizoate meglumine and diat.sodium 66 js15 %-10 % oral solution (10 mL)] Route: PO; 22:56 Drug: NS 0.9% 1000 ml [sodium chloride 0.9 % intravenous solution] Route: IV; Rate: 100 js15 mL/hr; Site: left antecubital; 23:41 Drug: Diatrizoate Meglumine & Sodium 10 ml [diatrizoate meglumine and diat.sodium 66 cf2 %-10 % oral solution (10 mL)] Route: PO; Order Results: Lab Order: Basic Metabolic Profile; SPEC'M 03/15/16 21:09 Test: GLUCOSE, FASTING; Value: 225; Range: 70-105; Abnormal: Above high normal; Units: MG/DL; Status: F Test: BLOOD UREA NITROGEN; Value: 34; Range: 7-18; Abnormal: Above high normal; Units: MG/DL; Status: F Test: CREATININE FOR GFR; Value: 1.61; Range: 0.70-1.30; Abnormal: Above high normal; Units: MG/DL; Status: F Test: GLOMERULAR FILTRATION RATE; Value: 47.3; Range: >56; Abnormal: Below low normal; Status: F Test: SODIUM LEVEL; Value: 138; Range: 136-145; Units: MEQ/L; Status: F Test: POTASSIUM SERUM; Value: 4.4; Range: 3.5-5.1; Units: MEQ/L; Status: F Test: CHLORIDE LEVEL; Value: 102; Range: 98-107; Units: MEQ/L; Status: F Test: CARBON DIOXIDE LEVEL; Value: 27; Range: 21-32; Units: MEQ/L; Status: F Test: ANION GAP; Value: 9; Range: 8-16; Units: MEQ/L; Status: F Test: CALCIUM LEVEL; Value: 9.0; Range: 8.5-10.1; Units: MG/DL; Status: F Test Note: ; Units are mL/min/1.73 m2 Chronic Kidney Disease Staging per NKF: Stage I & II GFR >=60 Normal to Mildly Decreased Stage III GFR 30-59 Moderately Decreased Stage IV GFR 15-29 Severely Decreased Stage V GFR <15 Very Little GFR Left ESRD GFR <15 on BODY BUMPER Lab Order: CBC with Diff; SPEC'03/15/16 21:09 Test: WHITE BLOOD COUNT; Value: 9.5; Range: 4.0-10.0; Units: K/mm3; Status: F Test: RED BLOOD COUNT; Value: 3.67; Range: 4.30-6.10; Abnormal: Below low normal; Units: M/mm3; Status: F Test: HEMOGLOBIN; Value: 10.8; Range: 14.0-18.0; Abnormal: Below low normal; Units: g/dl; Status: F Test: HEMATOCRIT; Value: 31.1; Range: 42.0-52.0; Abnormal: Below low normal; Units: %; Status: F Test: MEAN CORPUSCULAR VOLUME; Value: 84.9; Range: 80.0-96.0; Units: fl; Status: F Test: MEAN CORPUSCULAR HEMOGLOBIN; Value: 29.4; Range: 27.0-33.0; Units: pg; Status: F Test: MEAN CORPUSCULAR HGB CONC; Value: 34.7; Range: 32.0-36.5; Units: g/dl; Status: F Test: RED CELL DISTRIBUTION WIDTH; Value: 12.8; Range: 11.5-14.5; Units: %; Status: F Test: PLATELET COUNT, AUTOMATED; Value: 398; Range: 150-450; Units: k/mm3; Status: F Test: NEUTROPHILS %; Value: 72.4; Range: 36.0-66.0; Abnormal: Above high normal; Units: %; Status: F Test: LYMPH %; Value: 19.5; Range: 24.0-44.0; Abnormal: Below low normal; Units: %; Status: F Test: MONO %; Value: 3.7; Range: 0.0-5.0; Units: %; Status: F Test: EOS %; Value: 3.5; Range: 0.0-3.0; Abnormal: Above high normal; Units: %; Status: F Test: BASO %; Value: 0.3; Range: 0.0-1.0; Units: %; Status: F Test: LARGE UNSTAINED CELL %; Value: 0.6; Range: 0.0-4.0; Units: %; Status: F Test: NEUTROPHILS #; Value: 6.9; Range: 1.8-7.7; Units: K/mm3; Status: F Test: LYMPH #; Value: 1.9; Range: 1.5-4.5; Units: K/mm3; Status: F Test: MONO #; Value: 0.4; Range: 0.0-0.8; Units: K/mm3; Status: F Test: EOS #; Value: 0.3; Range: 0.0-0.50; Units: K/mm3; Status: F Test: BASO #; Value: 0.0; Range: 0.0-0.2; Units: K/mm3; Status: F Test: LARGE UNSTAINED CELL #; Value: 0.1; Range: 0.0-0.4; Units: K/mm3; Status: F Lab Order: Lipase; SPEC'M 03/15/16 21:09 Test: LIPASE; Value: 504; Range: 73-393; Abnormal: Above high normal; Units: U/L; Status: F Lab Order: Liver Profile; SPEC03/15/16 21:09 Test: AST/SGOT; Value: 15; Range: 15-37; Units: U/L; Status: F Test: ALT/SGPT; Value: 19; Range: 12-78; Units: U/L; Status: F Test: ALKALINE PHOSPHATASE; Value: 116; Range: 45-117; Units: U/L; Status: F Test: BILIRUBIN,TOTAL; Value: 0.2; Range: 0.2-1.0; Units: MG/DL; Status: F Test: BILIRUBIN,DIRECT; Value: < 0.1; Range: 0.0-0.2; Units: MG/DL; Status: F Test: TOTAL PROTEIN; Value: 6.7; Range: 6.4-8.2; Units: GM/DL; Status: F Test: ALBUMIN; Value: 2.9; Range: 3.2-5.2; Abnormal: Below low normal; Units: GM/DL; Status: F Test: ALBUMIN/GLOBULIN RATIO; Value: 0.76; Range: 1.00-1.93; Abnormal: Below low normal; Status: F Lab Order: PT/INR; SPEC'03/15/16 21:09 Test: PROTHROMBIN TIME; Value: 26.5; Range: 12.3-14.5; Abnormal: Above high normal; Units: SECONDS; Status: F Test: INR; Value: 2.43; Status: F Test Note: ; THERAPUTIC HUMAN INR VALUES INDICATIONS NORMAL RANGES PROPHYLAXIS/TREATMENT OF: VENOUS THROMBOSIS 2.0-3.0 PULMONARY EMBOLISM 2.0-3.0 PREVENTION OF SYSTEMIC EMBOLISM FROM: TISSUE HEART VALVES 2.0-3.0 ACUTE MYOCARDIAL INFARCTION 2.0-3.0 VALVULAR HEART DISEASE 2.0-3.0 ATRIAL FIBRILLATION 2.0-3.0 MECHANICAL VALVES(HIGH RISK) 2.5-3.5 RECURRENT MYOCARDIAL INFARCTION 2.5-3.5 Lab Order: PTT; SPEC'M 03/15/16 21:09 Test: PARTIAL THROMBOPLASTIN TIME; Value: 36.9; Range: 26.6-37.1; Units: SECONDS; Status: F Lab Order: HEMOGLOBIN; SPEC'M 03/15/16 23:59 Test: HEMOGLOBIN; Value: 10.4; Range: 14.0-18.0; Abnormal: Below low normal; Units: g/dl; Status: F Lab Order: HEMATOCRIT; SPEC'M 03/15/16 23:59 Test: HEMATOCRIT; Value: 29.9; Range: 42.0-52.0; Abnormal: Below low normal; Units: %; Status: F Radiology Order: CT ABD & PELVIS: Oral Contrast Only Test: CT ABD & PELVIS: Oral Contrast Only REASON FOR EXAMINATION: abd pain with BRBPR; ; CT of the abdomen and pelvis without contrast; Clinical statement: Pain.; Technique: Multiple axial CT images were obtained from the base of the lungs to the floor of the pelv; is utilizing 5 mm axial slices following administration of oral contrast. Coronal and sagittal recons; tructions were also obtained.; Comparison: 07/02/2013.; Findings:; Chest: The visualized lung bases are clear.; Abdomen: The kidneys are normal in size bilaterally. There is no evidence of hydronephrosis. There is; a 1 cm stone in the inferior left renal collecting system. Layering densities are seen in the gallbl; adder. The liver, spleen, pancreas, and adrenal glands are unremarkable. The aorta demonstrates noe; l caliber and contour. There is no abdominal lymphadenopathy or ascites.; Pelvis: The bowel is unremarkable, with no obstructive or inflammatory changes. The appendix is noe; l. The urinary bladder is within normal limits. There is no pelvic lymphadenopathy or ascites. The ot; her pelvic structures appear unremarkable.; Bones: There are no suspicious osseous abnormalities seen. Moderate degenerative disc disease at L5/S; 1 is appreciated. Bilateral hip arthroplasties are intact.; Impression:; 1. Stable 1 cm nonobstructing stone in the inferior left renal collecting system. No evidence of hydr; onephrosis.; 2. No obstructive or inflammatory bowel changes.; 3. Densities in the gallbladder either represent small gallstones or gallbladder sludge. No evidence; of acute cholecystitis.; ; Outcome: 03/16 00:58 Discharge ordered by Provider. cs11 01:55 Discharge Assessment: Patient awake, alert and oriented x 3. No cognitive and/or cf2 functional deficits noted. Patient verbalized understanding of disposition instructions. Patient awake and alert. Oriented to person, place and time. Patient verbalized understanding of disposition instructions. Patient has no functional deficits. patient administered narcotics - no. The following High Risk Discharge criteria are identified: None. Discharged to home ambulatory, with significant other, with walker. Condition: stable Condition: improved. Discharge instructions given to patient, significant other, Instructed on discharge instructions, follow up and referral plans. wound care, Demonstrated understanding of instructions, Dressing and wound care. CT Study completed. Property :Personal belongings accompany Pt. 02:03 Patient left the ED. cf2 Signatures: Dispatcher [employer] EDMS Polo Myrick Lisa, ARTIFICIAL INSEMINATION TECHNICIAN ARTIFICIAL INSEMINATION TECHNICIAN Artur Young, DESIGNER/WRITER DESIGNER/WRITER dd6 Pita Baird, DESIGNER/WRITER DESIGNER/WRITER fei Mirian Cardozo, RN RN sls1 Eliezer Morrow, DO cs11 Shirin Goldberg RN RN ms18 Jennifer Caba,RN RN af2 Bekah Murray,RN RN js15 Mavis Chapman,RN RN cf2 MTDD
--- NOTE | 2016-03-16 02:04 | EDDOCDS ---
Physician Documentation [facility] Name: Kyle Alva Age: 55 yrs Sex: Male : 1960 Arrival Date: 03/15/2016 Time: 19:32 Bed 10 Private MD: Hemant Wooten MD Disposition: 03/16/16 00:58 Discharged to Home/Self Care. Impression: Other specified noninfective gastroenteritis and colitis. - Condition is Stable. - Discharge Instructions: Clear Liquid Diet. - Medication Reconciliation, Local Pharmacy Hours form. - Follow up: Hemant Wooten; When: 1 - 2 days; Reason: Recheck today's complaints. - Problem is new. - Symptoms have improved. Historical: - Allergies: no known allergies; - Home Meds: 1. atorvastatin 80 mg oral tab 1 tab nightly 2. chlorthalidone 25 mg Oral tab 0.5 tabs nightly 3. bisoprolol fumarate 5 mg oral tab 1 tab nightly 4. omeprazole 40 mg Oral cpDR 1 cap 2 times per day 5. Januvia 100 mg oral tab 1 tab once daily 6. duloxetine 20 mg oral cpDR 1 cap 7. metformin 1,000 mg Oral tab 1 tab 2 times per day pt's doctor currently has stopped pt from taking this med 8. warfarin 2.5 mg Oral tab 1 tab once daily amount varies upon lab work (Last dose: 03/14/2016) 9. Lantus 100 unit/mL Sub-Q soln 60 unit twice a day - PMHx: Diabetes - IDDM: controlled; GERD; Hypercholesterolemia; Hypertension; - PSHx: Hip Arthroplasty, Left; - Social history: Smoking status: Patient states was never smoker of tobacco. No barriers to communication noted, The patient speaks fluent Palauan. - Family history: Not pertinent. - : The pt / caregiver states he / she is on anticoagulants: coumadin. Home medication list is obtained from the patient. - Exposure Risk Screening:: None identified. Vital Signs: 03/15 19:33 BP 185 / 74; Pulse 94; Resp 18 S; Temp 98.3(O); Pulse Ox 100% on R/A; Weight 129.27 kg dd6 / 284.99 lbs (R); Height 5 ft. 10 in. (177.80 cm) (R); 03/16 01:07 BP 148 / 78; Pulse 73; Resp 18; Temp 97.8(O); Pulse Ox 97% on R/A; Pain 0/10; fei 02:02 BP 132 / 78; Pulse 76; Resp 16; Temp 98.0; Pulse Ox 98% on R/A; Pain 3/10; cf2 03/15 19:33 Body Mass Index 40.89 (129.27 kg, 177.80 cm) dd6 MDM: 03/15 20:46 NS 0.9% 1000 ml IV at bolus once ordered. le 20:46 NS 0.9% 1000 ml IV at 100 mL/hr continuous ordered. le 20:46 IV Saline Lock ordered. le 20:46 Undress patient appropriately for examination ordered. le 20:47 Basic Metabolic Profile Ordered. EDMS 20:47 CBC with Diff Ordered. EDMS 20:47 Lipase Ordered. EDMS 20:47 Liver Profile Ordered. EDMS 20:47 PT/INR Ordered. EDMS 20:47 PTT Ordered. EDMS 20:47 NOTHING BY MOUTH+DIET ordered. EDMS 21:50 Financial registration complete. zo 21:50 [facility] [place] was scanned into [employer] and attached to record. zo 22:01 Basic Metabolic Profile Reviewed. le 22:01 CBC with Diff Reviewed. le 22:01 Lipase Reviewed. le 22:01 Liver Profile Reviewed. le 22:01 PT/INR Reviewed. le 22:01 PTT Reviewed. le 22:50 CT ABD & PELVIS: Oral Contrast Only Ordered. EDMS 22:56 Diatrizoate Meglumine & Sodium Liquid 10 ml PO once; mix in 290cc of water ordered. js15 22:56 Diatrizoate Meglumine & Sodium Liquid 10 ml PO once; mix in 290cc of water ordered. js15 23:45 Redraw Labs ordered. le 23:47 Redraw Labs complete. cf2 23:51 HEMOGLOBIN Ordered. EDMS 23:51 HEMATOCRIT Ordered. EDMS 03/16 00:55 HEMOGLOBIN Reviewed. cs11 00:55 HEMATOCRIT Reviewed. cs11 Administered Medications: 03/15 21:09 Drug: NS 0.9% 1000 ml [sodium chloride 0.9 % intravenous solution] Route: IV; Rate: js15 bolus; Site: left antecubital; 22:45 Drug: Diatrizoate Meglumine & Sodium 10 ml [diatrizoate meglumine and diat.sodium 66 js15 %-10 % oral solution (10 mL)] Route: PO; 22:56 Drug: NS 0.9% 1000 ml [sodium chloride 0.9 % intravenous solution] Route: IV; Rate: 100 js15 mL/hr; Site: left antecubital; 23:41 Drug: Diatrizoate Meglumine & Sodium 10 ml [diatrizoate meglumine and diat.sodium 66 cf2 %-10 % oral solution (10 mL)] Route: PO; Signatures: Dispatcher [employer] EDMS Polo Myrick Lisa, PAPER CONE MACHINE TENDER PAPER CONE MACHINE TENDER Eliezer Clark DO DO cs11 Shirin Goldberg RN RN ms18 Bekah Murray,RN RN js15 Mavis Chapman,RN RN cf2 The chart was reviewed and I authenticate all verbal orders and agree with the evaluation and treatment provided.Corrections: (The following items were deleted from the chart) 23:07 22:07 CT ABD & PELVIS WITH CONTRAST+CT ordered. EDMS EDMS Attachments: 21:50 [facility] [place] zo MTDD
--- NOTE | 2016-03-18 03:05 | EDDOCDS ---
Physician Documentation [facility] Name: Kyle Alva Age: 55 yrs Sex: Male : 1960 Arrival Date: 03/15/2016 Time: 19:32 Bed 10 Private MD: Hemant Wooten MD Disposition: 03/16/16 00:58 Discharged to Home/Self Care. Impression: Other specified noninfective gastroenteritis and colitis. - Condition is Stable. - Discharge Instructions: Clear Liquid Diet. - Medication Reconciliation, Local Pharmacy Hours form. - Follow up: Hemant Wooten; When: 1 - 2 days; Reason: Recheck today's complaints. - Problem is new. - Symptoms have improved. Historical: - Allergies: no known allergies; - Home Meds: 1. atorvastatin 80 mg oral tab 1 tab nightly 2. chlorthalidone 25 mg Oral tab 0.5 tabs nightly 3. bisoprolol fumarate 5 mg oral tab 1 tab nightly 4. omeprazole 40 mg Oral cpDR 1 cap 2 times per day 5. Januvia 100 mg oral tab 1 tab once daily 6. duloxetine 20 mg oral cpDR 1 cap 7. metformin 1,000 mg Oral tab 1 tab 2 times per day pt's doctor currently has stopped pt from taking this med 8. warfarin 2.5 mg Oral tab 1 tab once daily amount varies upon lab work (Last dose: 03/14/2016) 9. Lantus 100 unit/mL Sub-Q soln 60 unit twice a day - PMHx: Diabetes - IDDM: controlled; GERD; Hypercholesterolemia; Hypertension; - PSHx: Hip Arthroplasty, Left; - Social history: Smoking status: Patient states was never smoker of tobacco. No barriers to communication noted, The patient speaks fluent Urdu. - Family history: Not pertinent. - : The pt / caregiver states he / she is on anticoagulants: coumadin. Home medication list is obtained from the patient. - Exposure Risk Screening:: None identified. Vital Signs: 03/15 19:33 BP 185 / 74; Pulse 94; Resp 18 S; Temp 98.3(O); Pulse Ox 100% on R/A; Weight 129.27 kg dd6 / 284.99 lbs (R); Height 5 ft. 10 in. (177.80 cm) (R); 03/16 01:07 BP 148 / 78; Pulse 73; Resp 18; Temp 97.8(O); Pulse Ox 97% on R/A; Pain 0/10; fei 02:02 BP 132 / 78; Pulse 76; Resp 16; Temp 98.0; Pulse Ox 98% on R/A; Pain 3/10; cf2 03/15 19:33 Body Mass Index 40.89 (129.27 kg, 177.80 cm) dd6 MDM: 03/15 20:46 NS 0.9% 1000 ml IV at bolus once ordered. le 20:46 NS 0.9% 1000 ml IV at 100 mL/hr continuous ordered. le 20:46 IV Saline Lock ordered. le 20:46 Undress patient appropriately for examination ordered. le 20:47 Basic Metabolic Profile Ordered. EDMS 20:47 CBC with Diff Ordered. EDMS 20:47 Lipase Ordered. EDMS 20:47 Liver Profile Ordered. EDMS 20:47 PT/INR Ordered. EDMS 20:47 PTT Ordered. EDMS 20:47 NOTHING BY MOUTH+DIET ordered. EDMS 21:50 Financial registration complete. zo 21:50 [facility] [place] Payment Agreement was scanned into [employer] and attached to record. zo 22:01 Basic Metabolic Profile Reviewed. le 22:01 CBC with Diff Reviewed. le 22:01 Lipase Reviewed. le 22:01 Liver Profile Reviewed. le 22:01 PT/INR Reviewed. le 22:01 PTT Reviewed. le 22:50 CT ABD & PELVIS: Oral Contrast Only Ordered. EDMS 22:56 Diatrizoate Meglumine & Sodium Liquid 10 ml PO once; mix in 290cc of water ordered. js15 22:56 Diatrizoate Meglumine & Sodium Liquid 10 ml PO once; mix in 290cc of water ordered. js15 23:45 Redraw Labs ordered. le 23:47 Redraw Labs complete. cf2 23:51 HEMOGLOBIN Ordered. EDMS 23:51 HEMATOCRIT Ordered. EDMS 03/16 00:55 HEMOGLOBIN Reviewed. cs11 00:55 HEMATOCRIT Reviewed. cs11 11:50 T-Sheet-- Draft Copy was scanned into [employer] and attached to record. gb 11:50 Radiology Report was scanned into [employer] and attached to record. gb Administered Medications: 03/15 21:09 Drug: NS 0.9% 1000 ml [sodium chloride 0.9 % intravenous solution] Route: IV; Rate: js15 bolus; Site: left antecubital; 22:45 Drug: Diatrizoate Meglumine & Sodium 10 ml [diatrizoate meglumine and diat.sodium 66 js15 %-10 % oral solution (10 mL)] Route: PO; 22:56 Drug: NS 0.9% 1000 ml [sodium chloride 0.9 % intravenous solution] Route: IV; Rate: 100 js15 mL/hr; Site: left antecubital; 23:41 Drug: Diatrizoate Meglumine & Sodium 10 ml [diatrizoate meglumine and diat.sodium 66 cf2 %-10 % oral solution (10 mL)] Route: PO; Signatures: Dispatcher [employer] EDMS Brandi Wagner, Reg Reg gb Polo Myrick Lisa, WELT BEATER WELT BEATER Eliezer Clark, DO cs11 Shirin Goldberg RN RN ms18 Bekah Murray,RN RN js15 Mavis Chapman,RN RN cf2 The chart was reviewed and I authenticate all verbal orders and agree with the evaluation and treatment provided.Corrections: (The following items were deleted from the chart) 23:07 22:07 CT ABD & PELVIS WITH CONTRAST+CT ordered. EDMS EDMS Attachments: 21:50 [facility] Payment Agreement zo 03/16 11:50 T-Sheet-- Draft Copy gb Chart Complete MTDD
--- NOTE | 2016-03-18 03:05 | EDDOCDS ---
Physician Documentation [facility] Name: Kyle Alva Age: 55 yrs Sex: Male : 1960 Arrival Date: 03/15/2016 Time: 19:32 Bed 10 Private MD: Hemant Wooten MD Disposition: 03/16/16 00:58 Discharged to Home/Self Care. Impression: Other specified noninfective gastroenteritis and colitis. - Condition is Stable. - Discharge Instructions: Clear Liquid Diet. - Medication Reconciliation, Local Pharmacy Hours form. - Follow up: Hemant Wooten; When: 1 - 2 days; Reason: Recheck today's complaints. - Problem is new. - Symptoms have improved. Historical: - Allergies: no known allergies; - Home Meds: 1. atorvastatin 80 mg oral tab 1 tab nightly 2. chlorthalidone 25 mg Oral tab 0.5 tabs nightly 3. bisoprolol fumarate 5 mg oral tab 1 tab nightly 4. omeprazole 40 mg Oral cpDR 1 cap 2 times per day 5. Januvia 100 mg oral tab 1 tab once daily 6. duloxetine 20 mg oral cpDR 1 cap 7. metformin 1,000 mg Oral tab 1 tab 2 times per day pt's doctor currently has stopped pt from taking this med 8. warfarin 2.5 mg Oral tab 1 tab once daily amount varies upon lab work (Last dose: 03/14/2016) 9. Lantus 100 unit/mL Sub-Q soln 60 unit twice a day - PMHx: Diabetes - IDDM: controlled; GERD; Hypercholesterolemia; Hypertension; - PSHx: Hip Arthroplasty, Left; - Social history: Smoking status: Patient states was never smoker of tobacco. No barriers to communication noted, The patient speaks fluent Georgian. - Family history: Not pertinent. - : The pt / caregiver states he / she is on anticoagulants: coumadin. Home medication list is obtained from the patient. - Exposure Risk Screening:: None identified. Vital Signs: 03/15 19:33 BP 185 / 74; Pulse 94; Resp 18 S; Temp 98.3(O); Pulse Ox 100% on R/A; Weight 129.27 kg dd6 / 284.99 lbs (R); Height 5 ft. 10 in. (177.80 cm) (R); 03/16 01:07 BP 148 / 78; Pulse 73; Resp 18; Temp 97.8(O); Pulse Ox 97% on R/A; Pain 0/10; fei 02:02 BP 132 / 78; Pulse 76; Resp 16; Temp 98.0; Pulse Ox 98% on R/A; Pain 3/10; cf2 03/15 19:33 Body Mass Index 40.89 (129.27 kg, 177.80 cm) dd6 MDM: 03/15 20:46 NS 0.9% 1000 ml IV at bolus once ordered. le 20:46 NS 0.9% 1000 ml IV at 100 mL/hr continuous ordered. le 20:46 IV Saline Lock ordered. le 20:46 Undress patient appropriately for examination ordered. le 20:47 Basic Metabolic Profile Ordered. EDMS 20:47 CBC with Diff Ordered. EDMS 20:47 Lipase Ordered. EDMS 20:47 Liver Profile Ordered. EDMS 20:47 PT/INR Ordered. EDMS 20:47 PTT Ordered. EDMS 20:47 NOTHING BY MOUTH+DIET ordered. EDMS 21:50 Financial registration complete. zo 21:50 [facility] Agreement was scanned into [employer] and attached to record. zo 22:01 Basic Metabolic Profile Reviewed. le 22:01 CBC with Diff Reviewed. le 22:01 Lipase Reviewed. le 22:01 Liver Profile Reviewed. le 22:01 PT/INR Reviewed. le 22:01 PTT Reviewed. le 22:50 CT ABD & PELVIS: Oral Contrast Only Ordered. EDMS 22:56 Diatrizoate Meglumine & Sodium Liquid 10 ml PO once; mix in 290cc of water ordered. js15 22:56 Diatrizoate Meglumine & Sodium Liquid 10 ml PO once; mix in 290cc of water ordered. js15 23:45 Redraw Labs ordered. le 23:47 Redraw Labs complete. cf2 23:51 HEMOGLOBIN Ordered. EDMS 23:51 HEMATOCRIT Ordered. EDMS 03/16 00:55 HEMOGLOBIN Reviewed. cs11 00:55 HEMATOCRIT Reviewed. cs11 11:50 T-Sheet-- Draft Copy was scanned into [employer] and attached to record. gb 11:50 Radiology Report was scanned into [employer] and attached to record. gb Administered Medications: 03/15 21:09 Drug: NS 0.9% 1000 ml [sodium chloride 0.9 % intravenous solution] Route: IV; Rate: js15 bolus; Site: left antecubital; 22:45 Drug: Diatrizoate Meglumine & Sodium 10 ml [diatrizoate meglumine and diat.sodium 66 js15 %-10 % oral solution (10 mL)] Route: PO; 22:56 Drug: NS 0.9% 1000 ml [sodium chloride 0.9 % intravenous solution] Route: IV; Rate: 100 js15 mL/hr; Site: left antecubital; 23:41 Drug: Diatrizoate Meglumine & Sodium 10 ml [diatrizoate meglumine and diat.sodium 66 cf2 %-10 % oral solution (10 mL)] Route: PO; Signatures: Dispatcher [employer] EDMS Brandi Wagner, Reg Reg gb Polo Myrick Lisa, ENGINEER SYSTEM ADMINISTRATOR ENGINEER SYSTEM ADMINISTRATOR Eliezer Clark, DO cs11 Shirin Goldberg RN RN ms18 Bekah Murray,RN RN js15 Mavis Chapman,RN RN cf2 The chart was reviewed and I authenticate all verbal orders and agree with the evaluation and treatment provided.Corrections: (The following items were deleted from the chart) 23:07 22:07 CT ABD & PELVIS WITH CONTRAST+CT ordered. EDMS EDMS Attachments: 21:50 [facility] [place] Agreement zo 03/16 11:50 T-Sheet-- Draft Copy gb Chart Complete MTDD
--- NOTE | 2016-03-18 03:05 | EDDOCDS ---
Nurse's Notes [facility] Name: Kyle Alva Age: 55 yrs Sex: Male : 1960 Arrival Date: 03/15/2016 Time: 19:32 Bed 10 Private MD: Hemant Wooten MD Diagnosis: Other specified noninfective gastroenteritis and colitis Presentation: 03/15 19:37 Presenting complaint: Patient states: that he had a stomachache today, which lead to ms18 diarrhea, and then bright red blood appeared when he used the rest room. Pt was able to eat dinner at approx 1800. Pt also states that he had nicky removed from a L hip surgery today and that was bleeding as well. Adult Sepsis Screening: The patient does not have new or worsening altered mentation. Patient's respiratory rate is less than 22. Systolic blood pressure is greater than 100. Patient has a qSOFA score of 0- Negative Sepsis Screen. Suicide/Homicide risk assessment- the patient denies having any suicidal and/or homicidal ideations and does not present with any other emotional, behavioral or mental health complaints. Status: Patient is not a center customer service associate or dependent. Transition of care: patient was not received from another setting of care. 19:37 Acuity: LISA Level 3 ms18 19:37 Method Of Arrival: Walkin/Carried/Asstd ms18 Triage Assessment: 19:42 General: Appears in no apparent distress, comfortable, Behavior is appropriate for age, ms18 cooperative. Pain: Location: epigastric area Pain currently is 4 out of 10 on a pain scale. HIV screening NA for this visit Offered previously. Neurological: Level of Consciousness is awake, alert, obeys commands, Oriented to person, place, time. Respiratory: Airway is patent Respiratory effort is even, unlabored. Derm: Skin is pink, warm & dry. Historical: - Allergies: no known allergies; - Home Meds: 1. atorvastatin 80 mg oral tab 1 tab nightly 2. chlorthalidone 25 mg Oral tab 0.5 tabs nightly 3. bisoprolol fumarate 5 mg oral tab 1 tab nightly 4. omeprazole 40 mg Oral cpDR 1 cap 2 times per day 5. Januvia 100 mg oral tab 1 tab once daily 6. duloxetine 20 mg oral cpDR 1 cap 7. metformin 1,000 mg Oral tab 1 tab 2 times per day pt's doctor currently has stopped pt from taking this med 8. warfarin 2.5 mg Oral tab 1 tab once daily amount varies upon lab work (Last dose: 03/14/2016) 9. Lantus 100 unit/mL Sub-Q soln 60 unit twice a day - PMHx: Diabetes - IDDM: controlled; GERD; Hypercholesterolemia; Hypertension; - PSHx: Hip Arthroplasty, Left; - Social history: Smoking status: Patient states was never smoker of tobacco. No barriers to communication noted, The patient speaks fluent Nicaraguan. - Family history: Not pertinent. - : The pt / caregiver states he / she is on anticoagulants: coumadin. Home medication list is obtained from the patient. - Exposure Risk Screening:: None identified. Screenin:38 Screening information is obtained from the patient. Fall risk: At risk due to recent js15 hip surgery. The following interventions are performed due to a positive Fall Risk Screen: side rails up x2, bed in low postion, call light in reach, family at bedside. Assistance ADL's: requires no assistance with activities of daily living. Abuse/DV Screen: The patient / caregiver reports he/she is: not in a situation that causes fear, pain or injury. Nutritional screening: No deficits noted. Advance Directives: There is no active DNR order. home support is adequate. Assessment: 21:00 General: Appears in no apparent distress, comfortable, Behavior is appropriate for age, js15 cooperative. Pain: Denies pain. Neurological: Level of Consciousness is awake, alert, obeys commands, Oriented to person, place, time. Cardiovascular: Capillary refill < 3 seconds. Respiratory: Airway is patent Respiratory effort is even, unlabored, Respiratory pattern is regular, symmetrical, Breath sounds are clear bilaterally. GI: Abdomen is obese, Bowel sounds present X 4 quads. : Reports bloody stools. Derm: Skin is. 22:00 Reassessment: Patient appears in no apparent distress at this time. Pt resting on js15 stretcher, respirations even and unlabored; skin pink, warm, dry. 23:00 Reassessment: Patient appears in no apparent distress at this time. Pt resting js15 comfortably on stretcher, respirations even and unlabored; skin pink, warm, dry. 23:48 General: Patient received from previous shift alert and oriented, resting comfortably, cf2 consumed all oral contrast and awaiting transport to CT scan. Vital Signs: 19:33 BP 185 / 74; Pulse 94; Resp 18 S; Temp 98.3(O); Pulse Ox 100% on R/A; Weight 129.27 kg dd6 (R); Height 5 ft. 10 in. (177.80 cm) (R); 03/16 01:07 BP 148 / 78; Pulse 73; Resp 18; Temp 97.8(O); Pulse Ox 97% on R/A; Pain 0/10; fei 02:02 BP 132 / 78; Pulse 76; Resp 16; Temp 98.0; Pulse Ox 98% on R/A; Pain 3/10; cf2 03/15 19:33 Body Mass Index 40.89 (129.27 kg, 177.80 cm) dd6 Vitals: 03/15 19:33 Log In Time: March 15, 2016 at 19:31. dd6 ED Course: 19:33 Patient visited by Artur Machado PCA. dd6 19:33 Hemant Wooten is Private Physician. dd6 19:33 Patient moved to Waiting dd6 19:34 Patient moved to Pre RCE dd6 19:39 Triage Initiated ms18 20:06 Jadyn Davenport,INGA is Primary Nurse. sls1 20:06 Patient moved to 10 sls1 20:41 Odette Camacho FNP is [facility]. le 20:47 Patient visited by Odette Camacho FNP. le 20:47 Patient visited by Odette Camacho FNP. le 21:09 PTT Sent. js15 21:09 PT/INR Sent. js15 21:10 Basic Metabolic Profile Sent. js15 21:10 CBC with Diff Sent. js15 21:10 Lipase Sent. js15 21:10 Liver Profile Sent. js15 21:28 Inserted saline lock: 20 gauge in left antecubital area and blood collected. The af2 patient tolerated the procedure well. 21:45 Primary Nurse role handed off by Jadyn Davenport,INGA fei 21:50 [facility] Payment Agreement was scanned into [employer] and attached to record. zo 22:32 Patient visited by Pita Baird PCA. fei 23:25 Mavis Chapman,RN is Primary Nurse. cf2 23:25 Patient visited by Mavis Chapman RN. cf2 23:47 Patient visited by Mavis Chapman RN. cf2 03/16 00:09 Patient visited by Mavis Chapman RN. cf2 00:54 Patient visited by Mavis Chapman RN. cf2 00:58 Hemant Wooten is Referral Physician. cs11 00:58 Eliezer Morrow DO is Attending Physician. cs11 01:08 Patient visited by Pita Baird PCA. fei 01:08 CT ABD & PELVIS: Oral Contrast Only Returned. EDMS 01:54 Patient visited by Mavis Chapman RN. cf2 01:55 The patient / caregiver is instructed regarding the plan of care and ED course. Patient cf2 has correct armband on for positive identification. Placed in gown. Bed in low position. Call light in reach. Side rails up X 1. Side rails up X2. Adult w/ patient. Door closed. Noise minimized. Visitors limited. Lights dimmed. Moved to private room. Verbal reassurance given. Warm blanket given. Pillow given. Head of bed elevated. Diet: Patient is NPO. 01:55 Assisted Provider with Wound care with Dermabond and steri-strips to left hip. cf2 Dressings: ABD pad X 3; Steri strips 1/2 " X 1; 4X4s X 2;. Wound care to Surgical incision. Well approximated with moderate amount of serosang drainage noted located on left hip was cleaned with dressed with 4X4s, ABD pads. 02:03 Discontinued lock bleeding controlled, pressure dressing applied, No redness/swelling cf2 at site. 11:50 T-Sheet-- Draft Copy was scanned into [employer] and attached to record. gb 11:50 Radiology Report was scanned into [employer] and attached to record. gb Administered Medications: 03/15 21:09 Drug: NS 0.9% 1000 ml [sodium chloride 0.9 % intravenous solution] Route: IV; Rate: js15 bolus; Site: left antecubital; 22:45 Drug: Diatrizoate Meglumine & Sodium 10 ml [diatrizoate meglumine and diat.sodium 66 js15 %-10 % oral solution (10 mL)] Route: PO; 22:56 Drug: NS 0.9% 1000 ml [sodium chloride 0.9 % intravenous solution] Route: IV; Rate: 100 js15 mL/hr; Site: left antecubital; 23:41 Drug: Diatrizoate Meglumine & Sodium 10 ml [diatrizoate meglumine and diat.sodium 66 cf2 %-10 % oral solution (10 mL)] Route: PO; Order Results: Lab Order: Basic Metabolic Profile; SPEC'M 03/15/16 21:09 Test: GLUCOSE, FASTING; Value: 225; Range: 70-105; Abnormal: Above high normal; Units: MG/DL; Status: F Test: BLOOD UREA NITROGEN; Value: 34; Range: 7-18; Abnormal: Above high normal; Units: MG/DL; Status: F Test: CREATININE FOR GFR; Value: 1.61; Range: 0.70-1.30; Abnormal: Above high normal; Units: MG/DL; Status: F Test: GLOMERULAR FILTRATION RATE; Value: 47.3; Range: >56; Abnormal: Below low normal; Status: F Test: SODIUM LEVEL; Value: 138; Range: 136-145; Units: MEQ/L; Status: F Test: POTASSIUM SERUM; Value: 4.4; Range: 3.5-5.1; Units: MEQ/L; Status: F Test: CHLORIDE LEVEL; Value: 102; Range: 98-107; Units: MEQ/L; Status: F Test: CARBON DIOXIDE LEVEL; Value: 27; Range: 21-32; Units: MEQ/L; Status: F Test: ANION GAP; Value: 9; Range: 8-16; Units: MEQ/L; Status: F Test: CALCIUM LEVEL; Value: 9.0; Range: 8.5-10.1; Units: MG/DL; Status: F Test Note: ; Units are mL/min/1.73 m2 Chronic Kidney Disease Staging per NKF: Stage I & II GFR >=60 Normal to Mildly Decreased Stage III GFR 30-59 Moderately Decreased Stage IV GFR 15-29 Severely Decreased Stage V GFR <15 Very Little GFR Left ESRD GFR <15 on ASSOCIATE PROFESSOR OF [employer]IMINAL JUSTICE Lab Order: CBC with Diff; SPEC'M 03/15/16 21:09 Test: WHITE BLOOD COUNT; Value: 9.5; Range: 4.0-10.0; Units: K/mm3; Status: F Test: RED BLOOD COUNT; Value: 3.67; Range: 4.30-6.10; Abnormal: Below low normal; Units: M/mm3; Status: F Test: HEMOGLOBIN; Value: 10.8; Range: 14.0-18.0; Abnormal: Below low normal; Units: g/dl; Status: F Test: HEMATOCRIT; Value: 31.1; Range: 42.0-52.0; Abnormal: Below low normal; Units: %; Status: F Test: MEAN CORPUSCULAR VOLUME; Value: 84.9; Range: 80.0-96.0; Units: fl; Status: F Test: MEAN CORPUSCULAR HEMOGLOBIN; Value: 29.4; Range: 27.0-33.0; Units: pg; Status: F Test: MEAN CORPUSCULAR HGB CONC; Value: 34.7; Range: 32.0-36.5; Units: g/dl; Status: F Test: RED CELL DISTRIBUTION WIDTH; Value: 12.8; Range: 11.5-14.5; Units: %; Status: F Test: PLATELET COUNT, AUTOMATED; Value: 398; Range: 150-450; Units: k/mm3; Status: F Test: NEUTROPHILS %; Value: 72.4; Range: 36.0-66.0; Abnormal: Above high normal; Units: %; Status: F Test: LYMPH %; Value: 19.5; Range: 24.0-44.0; Abnormal: Below low normal; Units: %; Status: F Test: MONO %; Value: 3.7; Range: 0.0-5.0; Units: %; Status: F Test: EOS %; Value: 3.5; Range: 0.0-3.0; Abnormal: Above high normal; Units: %; Status: F Test: BASO %; Value: 0.3; Range: 0.0-1.0; Units: %; Status: F Test: LARGE UNSTAINED CELL %; Value: 0.6; Range: 0.0-4.0; Units: %; Status: F Test: NEUTROPHILS #; Value: 6.9; Range: 1.8-7.7; Units: K/mm3; Status: F Test: LYMPH #; Value: 1.9; Range: 1.5-4.5; Units: K/mm3; Status: F Test: MONO #; Value: 0.4; Range: 0.0-0.8; Units: K/mm3; Status: F Test: EOS #; Value: 0.3; Range: 0.0-0.50; Units: K/mm3; Status: F Test: BASO #; Value: 0.0; Range: 0.0-0.2; Units: K/mm3; Status: F Test: LARGE UNSTAINED CELL #; Value: 0.1; Range: 0.0-0.4; Units: K/mm3; Status: F Lab Order: Lipase; [facility]' 03/15/16 21:09 Test: LIPASE; Value: 504; Range: 73-393; Abnormal: Above high normal; Units: U/L; Status: F Lab Order: Liver Profile; [facility] 03/15/16 21:09 Test: AST/SGOT; Value: 15; Range: 15-37; Units: U/L; Status: F Test: ALT/SGPT; Value: 19; Range: 12-78; Units: U/L; Status: F Test: ALKALINE PHOSPHATASE; Value: 116; Range: 45-117; Units: U/L; Status: F Test: BILIRUBIN,TOTAL; Value: 0.2; Range: 0.2-1.0; Units: MG/DL; Status: F Test: BILIRUBIN,DIRECT; Value: < 0.1; Range: 0.0-0.2; Units: MG/DL; Status: F Test: TOTAL PROTEIN; Value: 6.7; Range: 6.4-8.2; Units: GM/DL; Status: F Test: ALBUMIN; Value: 2.9; Range: 3.2-5.2; Abnormal: Below low normal; Units: GM/DL; Status: F Test: ALBUMIN/GLOBULIN RATIO; Value: 0.76; Range: 1.00-1.93; Abnormal: Below low normal; Status: F Lab Order: PT/INR; [facility] 03/15/16 21:09 Test: PROTHROMBIN TIME; Value: 26.5; Range: 12.3-14.5; Abnormal: Above high normal; Units: SECONDS; Status: F Test: INR; Value: 2.43; Status: F Test Note: ; THERAPUTIC HUMAN INR VALUES INDICATIONS NORMAL RANGES PROPHYLAXIS/TREATMENT OF: VENOUS THROMBOSIS 2.0-3.0 PULMONARY EMBOLISM 2.0-3.0 PREVENTION OF SYSTEMIC EMBOLISM FROM: TISSUE HEART VALVES 2.0-3.0 ACUTE MYOCARDIAL INFARCTION 2.0-3.0 VALVULAR HEART DISEASE 2.0-3.0 ATRIAL FIBRILLATION 2.0-3.0 MECHANICAL VALVES(HIGH RISK) 2.5-3.5 RECURRENT MYOCARDIAL INFARCTION 2.5-3.5 Lab Order: PTT; SPEC'M 03/15/16 21:09 Test: PARTIAL THROMBOPLASTIN TIME; Value: 36.9; Range: 26.6-37.1; Units: SECONDS; Status: F Lab Order: HEMOGLOBIN; SPEC'M 03/15/16 23:59 Test: HEMOGLOBIN; Value: 10.4; Range: 14.0-18.0; Abnormal: Below low normal; Units: g/dl; Status: F Lab Order: HEMATOCRIT; SPEC' 03/15/16 23:59 Test: HEMATOCRIT; Value: 29.9; Range: 42.0-52.0; Abnormal: Below low normal; Units: %; Status: F Radiology Order: CT ABD & PELVIS: Oral Contrast Only Test: CT ABD & PELVIS: Oral Contrast Only REASON FOR EXAMINATION: abd pain with BRBPR; ; CT of the abdomen and pelvis without contrast; Clinical statement: Pain.; Technique: Multiple axial CT images were obtained from the base of the lungs to the floor of the pelv; is utilizing 5 mm axial slices following administration of oral contrast. Coronal and sagittal recons; tructions were also obtained.; Comparison: 07/02/2013.; Findings:; Chest: The visualized lung bases are clear.; Abdomen: The kidneys are normal in size bilaterally. There is no evidence of hydronephrosis. There is; a 1 cm stone in the inferior left renal collecting system. Layering densities are seen in the gallbl; adder. The liver, spleen, pancreas, and adrenal glands are unremarkable. The aorta demonstrates noe; l caliber and contour. There is no abdominal lymphadenopathy or ascites.; Pelvis: The bowel is unremarkable, with no obstructive or inflammatory changes. The appendix is noe; l. The urinary bladder is within normal limits. There is no pelvic lymphadenopathy or ascites. The ot; her pelvic structures appear unremarkable.; Bones: There are no suspicious osseous abnormalities seen. Moderate degenerative disc disease at L5/S; 1 is appreciated. Bilateral hip arthroplasties are intact.; Impression:; 1. Stable 1 cm nonobstructing stone in the inferior left renal collecting system. No evidence of hydr; onephrosis.; 2. No obstructive or inflammatory bowel changes.; 3. Densities in the gallbladder either represent small gallstones or gallbladder sludge. No evidence; of acute cholecystitis.; ; Outcome: 03/16 00:58 Discharge ordered by Provider. cs11 01:55 Discharge Assessment: Patient awake, alert and oriented x 3. No cognitive and/or cf2 functional deficits noted. Patient verbalized understanding of disposition instructions. Patient awake and alert. Oriented to person, place and time. Patient verbalized understanding of disposition instructions. Patient has no functional deficits. patient administered narcotics - no. The following High Risk Discharge criteria are identified: None. Discharged to home ambulatory, with significant other, with walker. Condition: stable Condition: improved. Discharge instructions given to patient, significant other, Instructed on discharge instructions, follow up and referral plans. wound care, Demonstrated understanding of instructions, Dressing and wound care. CT Study completed. Property :Personal belongings accompany Pt. 02:03 Patient left the ED. cf2 Signatures: Dispatcher [employer] EDMS Brandi Wagner, Holger Reg gb Polo Myrick Lisa, SHAREPOINT DEVELOPER SHAREPOINT DEVELOPER Artur Young, INSIGHTS ANALYST INSIGHTS ANALYST dd6 Pita Baird, INSIGHTS ANALYST INSIGHTS ANALYST Miiran Jones, RN RN sls1 Eliezer Morrow DO DO cs11 Shirin Goldberg RN RN ms18 Jennifer Caba,RN RN af2 Bekah Murray,RN RN js15 Mavis Chapman,RN RN cf2 Chart Complete MTDD
== END 2016-03-16 02:03 | disposition home or self-care (01) ==
LOC: M ED 19:32
DX: K52.9 Noninfective gastroenteritis and colitis, unspecified (principal); N20.0 Calculus of kidney; E11.9 Type 2 diabetes mellitus without complications; K21.9 Gastro-esophageal reflux disease without esophagitis; E78.00 Pure hypercholesterolemia, unspecified; I10 Essential (primary) hypertension; Z96.642 Presence of left artificial hip joint; Z79.01 Long term (current) use of anticoagulants; Z79.4 Long term (current) use of insulin; Z79.899 Other long term (current) drug therapy
CPT/HCPCS: 36415; 74176; 80048; 80076; 83690; 85014; 85018; 85025; 85610; 85730; 99284; Q9963

== ENCOUNTER → 2016-03-15 | Outpatient (REF) | payer BC ==
[2016-03-15 14:22] LABS: INR 2.15
== END ==
LOC: M LABDRAW1 13:05
PROVIDERS: ATTEND Orthopaedic Surgery
DX: Z47.1 Aftercare following joint replacement surgery (principal)

== ENCOUNTER → 2016-03-18 | Outpatient (REF) | payer BC ==
[2016-03-18 12:36] LABS: INR 1.42
== END ==
LOC: M SHH 12:09
PROVIDERS: ATTEND Nurse Practitioner Family
DX: Z51.81 Encounter for therapeutic drug level monitoring (principal); Z79.01 Long term (current) use of anticoagulants

== ENCOUNTER → 2016-03-22 | Outpatient (REF) | payer BC ==
[2016-03-22 14:00] LABS: INR 1.5
== END ==
LOC: M SHH 12:54
PROVIDERS: ATTEND Nurse Practitioner Family
DX: Z51.81 Encounter for therapeutic drug level monitoring (principal); Z79.01 Long term (current) use of anticoagulants

== ENCOUNTER → 2016-03-25 | Outpatient (REF) | payer BC ==
[2016-03-25 13:05] LABS: INR 1.69
== END ==
LOC: M SHH 12:46
PROVIDERS: ATTEND Nurse Practitioner Family
DX: Z51.81 Encounter for therapeutic drug level monitoring (principal); Z79.01 Long term (current) use of anticoagulants

== ENCOUNTER → 2016-03-26 | Outpatient (REF) | payer BC ==
[2016-03-26 16:25] LABS: ALBUMIN 3.4 GM/DL (3.2-5.2); ALBUMIN/GLOBULIN RATIO 0.85 (1.00-1.93); BILIRUBIN,TOTAL 0.2 MG/DL (0.2-1.0); CREATININE FOR GFR 1.56 MG/DL (0.70-1.30); GLOMERULAR FILTRATION RATE 49.1 (>56); POTASSIUM SERUM 4.5 MEQ/L (3.5-5.1); TOTAL PROTEIN 7.4 GM/DL (6.4-8.2)
== END ==
LOC: M SFHCPLAZ 12:50
PROVIDERS: ATTEND Nurse Practitioner Family
DX: E11.65 Type 2 diabetes mellitus with hyperglycemia (principal); N17.9 Acute kidney failure, unspecified

== ENCOUNTER → 2016-03-29 | Outpatient (REF) | payer BC ==
[2016-03-29 15:24] LABS: INR 2.25
== END ==
LOC: M SHH 15:02
PROVIDERS: ATTEND Nurse Practitioner Family
DX: Z51.81 Encounter for therapeutic drug level monitoring (principal); Z79.01 Long term (current) use of anticoagulants

== ENCOUNTER → 2016-05-25 | Outpatient (REF) | payer BC ==
[~2016-05-25] MED LIST changes: +ATOR1TAB18 PO; +CHLO125TA PO; -COLA100C PO; +COLA100C3 PO; +DULO1CAP PO; +FLUT1SPR2 INH; +IPRA6SP INH; +LANTINJ4 SC; +TELM1TAB2 PO
[2016-05-25 19:27] LABS: MEAN CORPUSCULAR HEMOGLOBIN 29.4 pg (27.0-33.0); MEAN CORPUSCULAR VOLUME 86.5 fl (80.0-96.0); RED CELL DISTRIBUTION WIDTH 14.3 % (11.5-14.5)
[2016-05-25 19:40] LABS: ALBUMIN 3.5 GM/DL (3.2-5.2); ALBUMIN/GLOBULIN RATIO 0.85 (1.00-1.93); BILIRUBIN,TOTAL 0.2 MG/DL (0.2-1.0); CALCIUM LEVEL 9.2 MG/DL (8.5-10.1); CREATININE FOR GFR 1.35 MG/DL (0.70-1.30); POTASSIUM SERUM 4.4 MEQ/L (3.5-5.1); TOTAL PROTEIN 7.6 GM/DL (6.4-8.2)
== END ==
LOC: M SFHCADAM 13:42
PROVIDERS: ATTEND Physician Assistant
DX: R06.09 Other forms of dyspnea (principal); R60.0 Localized edema

== ENCOUNTER → 2016-05-25 | Outpatient (CLI) | payer BC ==
--- NOTE | 2016-05-25 14:48 | REP ---
Chest two views HISTORY: Dyspnea Comparison: 12/30/2015 A calcified granuloma is present in the right lower lobe. The left lung is clear. The cardiac silhouette is enlarged. The pulmonary vasculature is normal in appearance. The bony structure is intact. IMPRESSION: 1. Old granulomatous disease. 2. Cardiomegaly. Signed by Shabbir Panda MD 05/25/2016 02:40 P
== END ==
LOC: M ADAMS 13:48
PROVIDERS: ATTEND Physician Assistant
DX: I51.7 Cardiomegaly (principal); D71 Functional disorders of polymorphonuclear neutrophils; R06.09 Other forms of dyspnea; R60.0 Localized edema

== ENCOUNTER → 2016-05-26 | Outpatient (CLI) | payer BC ==
--- NOTE | 2016-05-26 09:33 | REP ---
Duplex extremity venous ultrasound: Right lower extremity. History: Right leg swelling. Findings: The deep veins are anechoic and fully compressible from the groin to the popliteal fossa in the right lower extremity. Color flow imaging is homogeneous. Spectral Doppler interrogation demonstrates intact respiratory variation in flow and normal manual augmentation of flow. There is no evidence of deep vein thrombosis. Impression: Negative right lower extremity duplex venous ultrasound. No evidence of deep vein thrombosis. Signed by Frantz Pierce MD 05/26/2016 09:24 A
== END ==
LOC: M RAD 08:29
PROVIDERS: ATTEND Physician Assistant
DX: I35.0 Nonrheumatic aortic (valve) stenosis (principal)

== ENCOUNTER 2016-05-27 14:07 | Emergency (ER) | payer BC ==
[~2016-05-27] VITALS: Ht 177.8 cm; Wt 135.2 kg
[~2016-05-27 14:07] MED LIST changes: -ATOR1TAB18 PO; -CHLO125TA PO; -DULO1CAP PO; -FLUT1SPR2 INH; -IPRA6SP INH; -LANTINJ4 SC; -TELM1TAB2 PO
[2016-05-27] MEDS ORDERED: ATOR1TAB18 PO (14:21)
[2016-05-27] MEDS ORDERED: LANTINJ4 SC (14:21)
[2016-05-27] MEDS ORDERED: CHLO125TA PO (14:21)
[2016-05-27] MEDS ORDERED: IPRA6SP INH (14:21)
[2016-05-27] MEDS ORDERED: FLUT1SPR2 INH (14:21)
[2016-05-27] MEDS ORDERED: BISO5TAB5 PO (14:21)
[2016-05-27] MEDS ORDERED: TELM1TAB2 PO (14:21)
[2016-05-27] MEDS ORDERED: DULO1CAP PO (14:21)
[2016-05-27] MEDS ORDERED: NS 1,000 ML IV ONE (14:45)
[2016-05-27] MEDS ORDERED: ISOVUE-370 76% 100ML VIAL (Q9967) As Ordered ONE (14:55)
--- NOTE | 2016-05-27 15:33 | ECGEPIP ---
Stationary ECG Study 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 Cannot rule out INFERIOR MYOCARDIAL INFARCTION, OF INDETERMINATE AGE No significant change compared with 12/30/2015. Electronically Signed On 05-27-2016 15:32:52 EDT by Bobby Serra
--- NOTE | 2016-05-27 16:01 | REP ---
CT ANGIOGRAM OF THE CHEST: TECHNIQUE: Axial contrast enhanced images from the thoracic inlet to the upper abdomen using 100 mL Isovue 370 intravenous contrast material with multiplanar reformations. There is no evidence of pulmonary embolism. There is no thoracic aortic aneurysm or dissection. Heart is mildly enlarged. There is no adenopathy in the chest. There is no pleural or pericardial effusion. There is no acute infiltrate. Small calcified lymph node is seen in the right hilum. There is a calcified granuloma in the right lower lobe. There appear to be small stones or some sludge in the gallbladder. A few tiny calcified granulomas are seen in the spleen. IMPRESSION: Evidence of prior granulomatous disease, no evidence of pulmonary embolism. Signed by Silvano Arnett MD 05/27/2016 04:57 P
[2016-05-27 16:47] VITALS: BP 153/74
== END 2016-05-27 16:55 | disposition home or self-care (01) ==
LOC: M ED 15:04
DX: R06.02 Shortness of breath (principal); E11.9 Type 2 diabetes mellitus without complications; I10 Essential (primary) hypertension; E78.5 Hyperlipidemia, unspecified; Z79.82 Long term (current) use of aspirin; Z79.84 Long term (current) use of oral hypoglycemic drugs; Z79.4 Long term (current) use of insulin; Z79.899 Other long term (current) drug therapy; R07.9 Chest pain, unspecified; I25.2 Old myocardial infarction; K21.9 Gastro-esophageal reflux disease without esophagitis; M54.9 Dorsalgia, unspecified; F41.9 Anxiety disorder, unspecified; F32.9 Major depressive disorder, single episode, unspecified; M19.90 Unspecified osteoarthritis, unspecified site
CPT/HCPCS: 36415; 71275; 82550; 82553; 83880; 93005; 96360; 96361; 99283; Q9967

== ENCOUNTER → 2016-06-14 | Outpatient (CLI) | payer BC ==
[~2016-06-14] MED LIST changes: +ATOR1TAB18 PO; +CHLO125TA PO; +DULO1CAP PO; +FLUT1SPR2 INH; +IPRA6SP INH; +LANTINJ4 SC; +TELM1TAB2 PO
--- NOTE | 2016-06-14 20:07 | ECHO ---
DATE OF PROCEDURE: 06/14/2016 AGE: 55 GENDER: Male HEIGHT: 70 inches WEIGHT: 300 pounds BODY SURFACE AREA: 2.48 m2 PATIENT LOCATION: Outpatient. REFERRING PHYSICIAN: EUN Machado INDICATION: Aortic stenosis. 2-D MEASUREMENTS: RV: 4.3 cm LV: 5.0 cm Septum: 1.5 cm Posterior wall: 1.5 cm Aortic root: 3.9 cm LA: 4.2 cm LVEF: 65% DOPPLER MEASUREMENTS: AV: 2.7 m/s LVOT: 0.94 m/s Mean AV gradient: 17 mmHg LVOT diameter: 2.7 cm MV-E: 65, A: 77, EA ratio: 0.8 Early mitral deceleration time: 183 ms E prime: 6, A prime: 10, E/E prime ratio: 10.9 PV: 0.8 m/s Pulmonary artery acceleration time: 85 ms RVSP: 41 mmHg IVC: 1.7 cm COMMENTS: Normal sinus rhythm without intraventricular conduction disturbance. Somewhat technically challenging study in light of the patient's body habitus, but diagnostically useful information was still obtained. Mildly dilated left atrium, but normal left ventricular size. Mildly dilated right heart chambers, but normal inferior vena cava (IVC) size. Left ventricular wall thickness was moderately increased symmetrically, right ventricle (RV) free wall thickness was also increased at 0.8 cm. On real-time imaging from the parasternal and apical projections left ventricular and right ventricular wall motion was symmetrical and hyperkinetic. Slightly thickened mitral annulus, but normal leaflet thickness and excursion with no posterior systolic buckling. Appears to have a bicuspid aortic valve with marked asymmetrical thickening and reduced motion of the anterior cusp commissures, appeared to be at 5-o'clock and 11-o'clock. The posterior cusps still moved reasonably well. Mildly dilated aortic root. No separate intracardiac mass or pericardial effusion. Color flow Doppler study taken from the parasternal and apical projections showed moderate eccentrically directed aortic insufficiency with very mild mitral and mild tricuspid insufficiency. Guided continuous wave Doppler of his aortic valve and pulsed Doppler study of his LV outflow tract taken from the apical long axis and five chamber projection showed an increased peak systolic velocity and mean gradient with dimensionless index of 0.36 - in keeping with mild aortic stenosis. Pulsed and continuous wave Doppler of his LV inflow tract taken from the apical four-chamber projection showed normal diastolic filling velocities against mitral stenosis. There was more prominent late diastolic/atrial dependent filling pattern. A degree of LV diastolic dysfunction was confirmed by tissue Doppler of his mitral annulus. Current estimated mean left atrial pressure was upper limits of normal. Pulsed and continuous wave Doppler of his pulmonary trunk showed a normal peak systolic velocity against RV outflow tract obstruction. His pulmonary artery acceleration time was abbreviated consistent with an elevated pulmonary vascular resistance. Guided continuous wave Doppler of his tricuspid valve allowed our estimation of his right ventricular systolic pressure (moderately increased). His inferior vena cava was of normal size with normal respiratory collapse against an elevated central venous pressure at this time. CONCLUSIONS: Suspected bicuspid aortic valve with marked asymmetrical thickening of the anterior component with mild aortic stenosis and moderate eccentric insufficiency. Mildly dilated aortic root. Slightly thickened mitral annulus without functional valvular abnormality. Moderate concentric left ventricle hypertrophy with hyperkinetic wall motion. Mildly dilated left atrium with Doppler evidence of an impairment of LV diastolic function, but currently estimated mean left atrial pressure upper limits of normal. Mildly dilated right heart chambers with Doppler evidence of moderate pulmonary hypertension. Normal IVC size and collapse against an elevated central venous pressure at this time. A followup study would be suggested in 2 years time. MTDD
== END ==
LOC: M CARPUL 08:58
PROVIDERS: ATTEND Physician Assistant
DX: I35.0 Nonrheumatic aortic (valve) stenosis (principal)

== ENCOUNTER → 2016-06-22 | Outpatient (REF) | payer BC ==
[2016-06-22 14:10] LABS: ALBUMIN 3.5 GM/DL (3.2-5.2); ALBUMIN/GLOBULIN RATIO 0.9 (1.00-1.93); BILIRUBIN,TOTAL 0.4 MG/DL (0.2-1.0); CALCIUM LEVEL 8.9 MG/DL (8.5-10.1); CREATININE FOR GFR 1.47 MG/DL (0.70-1.30); GLOMERULAR FILTRATION RATE 52.6 (>56); POTASSIUM SERUM 4.2 MEQ/L (3.5-5.1); TOTAL PROTEIN 7.4 GM/DL (6.4-8.2)
== END ==
LOC: M SFHCADAM 07:56
PROVIDERS: ATTEND Nurse Practitioner Family
DX: E11.65 Type 2 diabetes mellitus with hyperglycemia (principal); E55.9 Vitamin D deficiency, unspecified

== ENCOUNTER 2016-08-03 18:17 | Emergency (ER) | payer BC ==
[~2016-08-03] VITALS: Ht 177.8 cm; Wt 136.7 kg
[2016-08-03] MEDS ORDERED: FURO10EL PO (18:32)
[2016-08-03] MEDS ORDERED: TELM1TAB2 PO (18:32)
[2016-08-03] MEDS ORDERED: ALLO15TA GT (18:32)
[2016-08-03] MEDS ORDERED: FUROSEMIDE 40 MG/4 ML VIAL (J1940) IV ONE (19:30)
[2016-08-03] MEDS ORDERED: IPRATROPIUM 0.5MG/ALBUTEROL 2.5MG INH SOL UD 3ML (DUONEB)(J7620) NEB ONE (19:30)
[2016-08-03 19:58] LABS: BASO % 0.3 % (0.0-1.0); EOS # 0.4 K/mm3 (0.0-0.50); EOS % 5.7 % (0.0-3.0); LARGE UNSTAINED CELL # 0.1 K/mm3 (0.0-0.4); LARGE UNSTAINED CELL % 1.5 % (0.0-4.0); LYMPH % 25.3 % (24.0-44.0); MEAN CORPUSCULAR HEMOGLOBIN 29.4 pg (27.0-33.0); MEAN CORPUSCULAR HGB CONC 34.4 g/dl (32.0-36.5); MEAN CORPUSCULAR VOLUME 85.5 fl (80.0-96.0); MONO # 0.4 K/mm3 (0.0-0.8); NEUTROPHILS # 4.7 K/mm3 (1.8-7.7); NEUTROPHILS % 62.2 % (36.0-66.0); PLATELET COUNT, AUTOMATED 183 k/mm3 (150-450); RED CELL DISTRIBUTION WIDTH 14.6 % (11.5-14.5); WHITE BLOOD COUNT 7.5 K/mm3 (4.0-10.0)
[2016-08-03 20:13] LABS: CALCIUM LEVEL 8.7 MG/DL (8.5-10.1); CREATININE FOR GFR 1.51 MG/DL (0.70-1.30); POTASSIUM SERUM 4.4 MEQ/L (3.5-5.1)
[2016-08-03] MEDS ORDERED: ASPIRIN 81 MG CHEW TABLET PO ONE (23:15)
[2016-08-03 23:16] VITALS: BP 146/74
--- NOTE | 2016-08-04 01:09 | REP ---
Clinical: Dyspnea and cough . Comparison: 05/25/2016 . Technique: PA and lateral. Findings: The mediastinum and cardiac silhouette are stable, and cardiomegaly is again suggested. Chronic stable interstitial changes noted. The lung faust are otherwise clear and without acute consolidation, effusion, or pneumothorax. The skeletal structures are intact and normal. Impression: 1. Cardiomegaly. 2. Chronic stable changes. Signed by Jose Armando Sanchez MD 08/04/2016 01:01 A
--- NOTE | 2016-08-04 16:18 | ECGEPIP ---
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
--- NOTE | 2016-08-04 16:23 | ECGEPIP ---
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
== END 2016-08-03 23:19 | disposition home or self-care (01) ==
LOC: M ED 18:46
DX: R06.02 Shortness of breath (principal); R07.9 Chest pain, unspecified; R22.41 Localized swelling, mass and lump, right lower limb; E11.9 Type 2 diabetes mellitus without complications; F41.9 Anxiety disorder, unspecified; F33.9 Major depressive disorder, recurrent, unspecified; I25.2 Old myocardial infarction; Z95.5 Presence of coronary angioplasty implant and graft; Z79.4 Long term (current) use of insulin; Z79.01 Long term (current) use of anticoagulants
CPT/HCPCS: 36415; 71020; 80048; 82550; 82553; 83880; 85025; 93005; 93041; 94640; 94760; 96374; 99285; J1940

== ENCOUNTER → 2016-08-18 | Outpatient (REF) | payer BC ==
[~2016-08-18] MED LIST changes: +ALLO15TA GT; -ATOR1TAB18 PO; +ATOR80TA59 PO; -COLA100C3 PO; +COLA100C5 PO; -COUM2.5T11 PO; +COUM2.5T17 PO; +FURO10EL PO; +METF10004 PO; +PERC5TAB12 PO; -PERC5TAB6 PO; -SENO8.6T2 PO; +SENO8.6T5 PO
[2016-08-18 14:03] LABS: CALCIUM LEVEL 9.1 MG/DL (8.5-10.1); CREATININE FOR GFR 1.68 MG/DL (0.70-1.30); FREE T4 1.03 NG/DL (0.76-1.46); GLOMERULAR FILTRATION RATE 45.1 (>56)
== END ==
LOC: M SFHCADAM 08:46
PROVIDERS: ATTEND Physician Assistant
DX: F41.9 Anxiety disorder, unspecified (principal); I50.32 Chronic diastolic (congestive) heart failure; Z12.5 Encounter for screening for malignant neoplasm of prostate
CPT/HCPCS: 80048; 84439; 84443; G0103

== ENCOUNTER → 2016-09-23 | Outpatient (REF) | payer BC ==
[2016-09-23 13:03] LABS: MEAN CORPUSCULAR HEMOGLOBIN 30.5 pg (27.0-33.0); MEAN CORPUSCULAR HGB CONC 35.1 g/dl (32.0-36.5); WHITE BLOOD COUNT 9.8 K/mm3 (4.0-10.0)
== END ==
LOC: M SFHCADAM 10:51
PROVIDERS: ATTEND Physician Assistant
DX: E11.65 Type 2 diabetes mellitus with hyperglycemia (principal); I50.32 Chronic diastolic (congestive) heart failure

== ENCOUNTER → 2016-12-30 | Outpatient (REF) | payer BC | LOC: M SFHCADAM 09:39 | PROVIDERS: ATTEND Family Medicine | DX: R06.09 Other forms of dyspnea (principal); R06.2 Wheezing; E11.65 Type 2 diabetes mellitus with hyperglycemia; E78.2 Mixed hyperlipidemia; M10.9 Gout, unspecified; Z68.41 Body mass index [BMI] 40.0-44.9, adult; I50.32 Chronic diastolic (congestive) heart failure ==

== ENCOUNTER → 2016-12-30 | Outpatient (REF) | payer BC ==
[2016-12-30 13:49] LABS: MEAN CORPUSCULAR HEMOGLOBIN 30.2 pg (27.0-33.0); MEAN CORPUSCULAR HGB CONC 33.4 g/dl (32.0-36.5); MEAN CORPUSCULAR VOLUME 90.5 fl (80.0-96.0); PLATELET COUNT, AUTOMATED 187 10^3/uL (150-450); RED CELL DISTRIBUTION WIDTH 13.6 % (11.5-14.5); WHITE BLOOD COUNT 7.9 10^3/uL (4.0-10.0)
[2016-12-30 14:06] LABS: ALBUMIN 3.6 GM/DL (3.2-5.2); ALBUMIN/GLOBULIN RATIO 0.97 (1.00-1.93); BILIRUBIN,TOTAL 0.4 MG/DL (0.2-1.0); CALCIUM LEVEL 9.5 MG/DL (8.5-10.1); CREATININE FOR GFR 1.42 MG/DL (0.70-1.30); FREE T4 1.04 NG/DL (0.76-1.46); GLOMERULAR FILTRATION RATE 54.5 (>56); POTASSIUM SERUM 4.7 MEQ/L (3.5-5.1); TOTAL PROTEIN 7.3 GM/DL (6.4-8.2); URIC ACID 5.8 MG/DL (3.5-7.2)
== END ==
LOC: M SFHCADAM 13:25
PROVIDERS: ATTEND Family Medicine
DX: R06.09 Other forms of dyspnea (principal); E11.65 Type 2 diabetes mellitus with hyperglycemia; E78.2 Mixed hyperlipidemia; M10.9 Gout, unspecified; Z68.41 Body mass index [BMI] 40.0-44.9, adult; I50.32 Chronic diastolic (congestive) heart failure

== ENCOUNTER 2017-01-30 16:54 | Observation (INO) | payer BC ==
[~2017-01-30] VITALS: Ht 177.8 cm; Wt 133.1 kg
[2017-01-30] MEDS ORDERED: duoneb INH (17:15)
[2017-01-30] MEDS ORDERED: methylPREDNISolone INJ 125 MG/2 ML VIAL (J2930) IV ONE (17:30)
[2017-01-30] MEDS ORDERED: IPRATROPIUM 0.5MG/ALBUTEROL 2.5MG INH SOL UD 3ML (DUONEB)(J7620) NEB ONE (17:30)
[2017-01-30] MEDS ORDERED: ALBUTEROL SULFATE 2.5 MG/0.5 ML INH NEB SOLN INH ONE (17:30)
[2017-01-30 17:53] LABS: BASO # 0.1 10^3/uL (0.0-0.2); BASO % 0.5 % (0.0-1.0); EOS # 0.6 10^3/uL (0.0-0.50); EOS % 5.3 % (0.0-3.0); IMMATURE GRANULOCYTE % 1.3 % (0-0); MEAN CORPUSCULAR HGB CONC 33.9 g/dl (32.0-36.5); MEAN CORPUSCULAR VOLUME 88.6 fl (80.0-96.0); MONO # 0.7 10^3/uL (0.0-0.8); MONO % 6.7 % (0.0-5.0); NEUTROPHILS # 7.5 10^3/uL (1.8-7.7); NEUTROPHILS % 68.2 % (36.0-66.0); PLATELET COUNT, AUTOMATED 235 10^3/uL (150-450); RED CELL DISTRIBUTION WIDTH 13.1 % (11.5-14.5)
[2017-01-30 18:47] LABS: ALBUMIN 3.3 GM/DL (3.2-5.2); ALKALINE PHOSPHATASE 126 U/L (45-117); ALT/SGPT 40 U/L (12-78); AST/SGOT 55 U/L (7-37); BILIRUBIN,DIRECT < 0.1 MG/DL (0.0-0.2); BILIRUBIN,TOTAL 0.2 MG/DL (0.2-1.0); BLOOD UREA NITROGEN 35 MG/DL (7-18); CALCIUM LEVEL 8.5 MG/DL (8.5-10.1); CARBON DIOXIDE LEVEL 24 MEQ/L (21-32); CHLORIDE LEVEL 104 MEQ/L (98-107); CREATININE FOR GFR 1.64 MG/DL (0.70-1.30); GLUCOSE, FASTING 209 MG/DL (70-105); POTASSIUM SERUM 4.4 MEQ/L (3.5-5.1); SODIUM LEVEL 140 MEQ/L (136-145); TOTAL PROTEIN 7.6 GM/DL (6.4-8.2)
[2017-01-30 19:03] LABS: ALBUMIN/GLOBULIN RATIO 0.77 (1.00-1.93); ANION GAP 12 MEQ/L (8-16)
[2017-01-30] MEDS ORDERED: IPRASOL4 INH (19:48)
[2017-01-30] MEDS ORDERED: FURO20TA2 PO (19:48)
[2017-01-30] MEDS ORDERED: LANTINJ4 SC (19:48)
[2017-01-30] MEDS ORDERED: ZYLO300T4 PO (19:48)
[2017-01-30] MEDS ORDERED: DEXTROSE 50% 50 ML SYRINGE IV PRN (20:45)
[2017-01-30] MEDS ORDERED: ONDANSETRON 4MG/2ML VIAL (J2405) IV PRN (20:45)
[2017-01-30] MEDS ORDERED: ACETAMINOPHEN TAB 650MG DOSE (2X325MG) PO PRN (20:45)
[2017-01-30] MEDS ORDERED: GLUCAGON FOR INJ 1 MG VIAL (J1610) SC PRN (20:45)
[2017-01-30] MEDS ORDERED: GLUCOSE 4 GM CHEW TABLET PO PRN (20:45)
[2017-01-30] MEDS ORDERED: OMEPRAZOLE 20 MG CAP PO SCH (21:00)
[2017-01-30] MEDS ORDERED: BISOPROLOL FUMARATE 5 MG TAB PO SCH (21:00)
[2017-01-30] MEDS ORDERED: DULoxetine 20 MG CAP (CYMBALTA) PO SCH (21:00)
[2017-01-30] MEDS ORDERED: IPRATROPIUM 0.5MG/ALBUTEROL 2.5MG INH SOL UD 3ML (DUONEB)(J7620) NEB PRN (21:00)
[2017-01-30] MEDS ORDERED: TELMISARTAN 20 MG TAB PO SCH (21:00)
[2017-01-30] MEDS ORDERED: ALLOPURINOL 300 MG TAB PO SCH (21:00)
[2017-01-30] MEDS ORDERED: AZITHROMYCIN INJ 500 MG, VIAL MATE ADAPTER 1 EACH in D5W 250 ML IV SCH (21:00)
[2017-01-30] MEDS ORDERED: HumaLOG INSULIN (NovoLOG) PER UNIT SC SCH (21:00)
[2017-01-30] MEDS ORDERED: ASPIRIN 325 MG TAB PO SCH (21:00)
[2017-01-30] MEDS ORDERED: ATORVASTATIN 20 MG TAB PO SCH (21:00)
--- NOTE | 2017-01-30 22:41 | HPE ---
DATE OF ADMISSION: 01/30/2017 PRIMARY CARE PROVIDER: Samantha Wooten. HISTORY OF PRESENT ILLNESS: This patient is a 56-year-old male with past medical history significant for diabetes, hypertension, hypercholesterolemia, coronary artery disease (CAD) status post stent in 2003, anxiety/depression, who presented to [facility] on 01/30/2017, for acute respiratory distress. The patient stated in the last day or so, the patient had worsening shortness of breath with wheeze, and patient also noted to have greenish and yellowish sputum production. Denies any fever or chills during the severe cough. The patient also notes did have a chest wall pressure type of discomfort and only present during severe cough. The patient also noted to have wheezes that started in the last few days, and the patient started on the nebulizer treatment previously. The patient does have significant recent sick contact. The patient's and the daughter have been coughing in the house, and the patient's daughter was recently diagnosed with bronchitis. PAST MEDICAL HISTORY: 1. Diabetes. 2. Hypertension. 3. Hypercholesterolemia. 4. CAD status post cardiac stent in 2003. 5. Anxiety/depression. PAST SURGICAL HISTORY: Right total knee replacement. SOCIAL HISTORY: The patient denies smoking, denies alcohol use, denies recreational drug use. 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 HOME MEDICATIONS: - allopurinol 300 mg by mouth at bedtime - aspirin 325 mg by mouth at bedtime - atorvastatin 80 mg by mouth at bedtime - bisoprolol 5 mg by mouth at bedtime - duloxetine 20 mg by mouth at bedtime - Lasix 60 mg by mouth daily - glipizide 5 mg by mouth daily - Lantus 60 units subcutaneous at bedtime - Lantus 66 units subcutaneous daily - metformin 1000 mg by mouth twice a day - omeprazole 40 mg by mouth at bedtime - Januvia 100 mg by mouth at bedtime - telmisartan 80 mg by mouth at bedtime REVIEW OF SYSTEMS: GENERAL: No fever, no chills. HEENT: No vision change. No auditory changes. CARDIOVASCULAR: There is chest kind of pressure discomfort during severe cough. Denied any palpitations. The patient does have a history of coronary artery disease status post stent in 2003. RESPIRATORY: The patient started to have wheezes approximately three days ago. Started having cough with yellowish and greenish sputum production in the last 24 hours. GASTROINTESTINAL (GI): No nausea, no vomiting, no abdominal pain, no diarrhea. MUSCULOSKELETAL: Denies any muscle pain or joint pain. NEUROLOGIC: Denies any numbness or tingling. PHYSICAL EXAMINATION: VITAL SIGNS: Temperature 98.2, pulse is 95, respirations 17, blood pressure 155/71, pulse oximetry 96% on room air. GENERAL: No sign of acute distress. Alert and oriented times three. HEENT: Normocephalic, atraumatic. Extraocular motor grossly intact. CARDIOVASCULAR: Positive systolic murmur throughout. Positive S1, S2. Regular rate. LUNGS: Positive wheezes bilaterally throughout. No significant crackles appreciated. ABDOMEN: Soft, nontender, nondistended. Bowel sounds present. EXTREMITIES: No edema. No cyanosis. NEUROLOGIC: Sensation to fine touch grossly intact. Muscle strength 5/5. LABORATORY DATA: WBC is 11, hemoglobin 12.6, hematocrit 37.2, platelet count 235. Sodium is 140, potassium 4.4, chloride 104, carbon dioxide 24, BUN is 35, creatinine 1.64, GFR is 209, calcium is 8.5. Total bilirubin 0.2, direct bilirubin less than 0.1, AST 55, ALT 40, alkaline phosphatase 126. Total CK is 1461, troponin I 0.03. Total protein is 7.6, albumin 3.3. TSH 1.76. ASSESSMENT AND PLAN: 1. Acute respiratory distress. The patient is admitted to the medical/surgical floor under inpatient status. Followup with respiratory panel and sputum cultures. The patient received high dose of Solu-Medrol in the emergency room. I will continue azithromycin. The patient will have DuoNeb breathing treatment every four hours as needed. 2. Hypertension. Continue home medications. 3. History of coronary artery disease status post stent. The patient is on aspirin, atorvastatin, beta dequan, and angiotensin receptor dequan (ARB). 4. Diabetes. Continue Levemir. Continue sliding scale. Continue consistent carbohydrate diet. Follow with A1c tomorrow. 5. Gout. Currently patient is on allopurinol. 6. Chronic kidney disease. Currently the patient's renal function is around his baseline. Will continue to monitor. 7. Anxiety/depression. Continue home medications. 8. Deep venous thrombosis (DVT) prophylaxis on heparin.
[2017-01-30 22:55] VITALS: BP 141/76
[2017-01-30] MEDS: LEVEMIR (INSULIN DETEMIR) 1 UNITS/0.01ML SC SCH (23:25)
[2017-01-30] MEDS: HEPARIN SOD (PORCINE) 5000 UNITS/ML VIAL SC SCH (23:25)
[2017-01-30 23:27] VITALS: BP 141/76
[2017-01-30] MEDS: NS 1,000 ML IV SCH (23:27)
[2017-01-31] MEDS: OSELTAMIVIR PHOSPHATE 30MG CAPSULE PO SCH ×2 (01:11→07:54)
[2017-01-31 06:00] VITALS: BP 127/54
[2017-01-31] MEDS: HEPARIN SOD (PORCINE) 5000 UNITS/ML VIAL SC SCH ×2 (06:02→14:11)
[2017-01-31] MEDS: NS 1,000 ML IV SCH (06:36)
[2017-01-31 06:40] LABS: MEAN CORPUSCULAR HEMOGLOBIN 29.5 pg (27.0-33.0); MEAN CORPUSCULAR HGB CONC 33.3 g/dl (32.0-36.5); MEAN CORPUSCULAR VOLUME 88.6 fl (80.0-96.0); PLATELET COUNT, AUTOMATED 219 10^3/uL (150-450); RED CELL DISTRIBUTION WIDTH 12.8 % (11.5-14.5); WHITE BLOOD COUNT 8.9 10^3/uL (4.0-10.0)
[2017-01-31 07:14] LABS: ALBUMIN/GLOBULIN RATIO 0.64 (1.00-1.93); BILIRUBIN,TOTAL 0.3 MG/DL (0.2-1.0); CALCIUM LEVEL 8.7 MG/DL (8.5-10.1); CREATININE FOR GFR 1.71 MG/DL (0.70-1.30); MAGNESIUM LEVEL 1.8 MG/DL (1.8-2.4); POTASSIUM SERUM 4.6 MEQ/L (3.5-5.1); TOTAL PROTEIN 7.7 GM/DL (6.4-8.2)
--- NOTE | 2017-01-31 07:17 | ECGEPIP ---
Stationary ECG Study [facility] - ED Test Date: 2017-01-30 Pat Name: FELICIA OLIVA Department: Room: - Gender: M Review Assistant: veronica : 1960 Requested By: TERELL MAHAN Order Number: [id number] Reading MD: Alexsander Dill Measurements Intervals [place] Rate: 88 P: -35 MT: 167 QRS: 41 QRSD: 103 T: -59 QT: 350 QTc: 426 Interpretive Statements SINUS RHYTHM LEFT VENTRICULAR HYPERTROPHY AND ST-T CHANGE POSSIBLE PRIOR INFERIOR INFARCT SIMILAR TO 08/03/16 Electronically Signed On 01-31-2017 7:17:17 EST by Alexsander Dill
--- NOTE | 2017-01-31 07:24 | REP ---
PA and lateral chest: Comparison is 2016. Lung faust are clear. Cardiac size is enlarged, unchanged. The yaakov, mediastinum, and bony thorax are unremarkable. Impression: Chronic cardiomegaly. Otherwise, negative PA and lateral chest. Sign taking Signed by Silvano Alexander MD 01/31/2017 07:15 A
[2017-01-31] MEDS: HumaLOG INSULIN (NovoLOG) PER UNIT SC SCH ×2 (07:52→12:35)
[2017-01-31] MEDS: LEVEMIR (INSULIN DETEMIR) 1 UNITS/0.01ML SC SCH (07:52)
[2017-01-31] MEDS ORDERED: OSEL30CA PO (08:59)
[2017-01-31] MEDS ORDERED: FUROSEMIDE 20 MG TAB PO SCH (09:00)
--- NOTE | 2017-01-31 16:04 | DSES ---
DATE OF ADMISSION: 01/30/2017 DATE OF DISCHARGE: 01/31/2017 PRIMARY CARE PROVIDER: Dr. Hemant Wooten ATTENDING PHYSICIAN TODAY: Dr. Wooten HISTORY: This is a 56-year-old morbidly obese, diabetic male who presented to [facility] Emergency Room with increasing shortness of breath, wheeze as well as failure to improve with nebulizer treatment. During his hospitalization, he has remained medically stable. His daughter and have been home sick as well with similar symptoms. He presented because he had some chest pain associated with his cough. His cardiac evaluation has been negative since his arrival to the hospital. He was admitted and given a dose of Solu-Medrol. Respiratory panel was obtained and tested positive for influenza. Overnight, he has remained medically stable. He is eager to return home today. He has not had any oxygen requirement since his stay as well. He was started on Tamiflu which is renally dosed. DISCHARGE DIAGNOSES: Include: 1. Influenza A. 2. Acute respiratory failure. 3. Hypertension. 4. Diabetes. 5. Chronic kidney disease. DISCHARGE MEDICATIONS: Include: - Tamiflu 30 mg by mouth twice a day times four additional days - albuterol ipratropium nebulizer every six hours as needed for shortness of breath - allopurinol 300 mg before bed - aspirin 325 mg daily - atorvastatin 80 mg daily - bisoprolol 5 mg daily - duloxetine 20 mg daily - furosemide 60 mg daily - glipizide 5 mg daily - Lantus 66 units daily and 60 units before bed - metformin 1000 mg by mouth twice a day - Prilosec 40 mg daily - Januvia 100 mg by mouth before bed - telmisartan 80 mg daily DISCHARGE PLAN: Followup up with EUN Machado as scheduled on 02/01/2017. His activity should be as tolerated. His diet should be no-added salt, consistent-carbohydrate.
== END 2017-01-31 14:35 | disposition home or self-care (01) ==
LOC: M ED 16:54 → M ED INP 20:36 → M MS5PR 22:40
PROVIDERS: ADMIT Internal Medicine; ATTEND Family Medicine
DX: J09.X2 Influenza due to identified novel influenza A virus with other respiratory manifestations (principal); J96.00 Acute respiratory failure, unspecified whether with hypoxia or hypercapnia; E11.22 Type 2 diabetes mellitus with diabetic chronic kidney disease; I12.9 Hypertensive chronic kidney disease with stage 1 through stage 4 chronic kidney disease, or unspecified chronic kidney disease; N18.9 Chronic kidney disease, unspecified; E78.00 Pure hypercholesterolemia, unspecified; I25.10 Atherosclerotic heart disease of native coronary artery without angina pectoris; M10.9 Gout, unspecified; F41.9 Anxiety disorder, unspecified; F32.9 Major depressive disorder, single episode, unspecified; Z98.61 Coronary angioplasty status; Z79.82 Long term (current) use of aspirin; Z79.899 Other long term (current) drug therapy; Z79.4 Long term (current) use of insulin; Z79.84 Long term (current) use of oral hypoglycemic drugs
CPT/HCPCS: 36415; 71020; 80048; 80053; 80076; 82550; 82553; 83036; 83735; 83880; 84443; 85025; 85027; 87486; 87581; 87633; 87798; 93005; 93041; 94640; 94760; 96365; 96366; 96375; 99285; J0456; J2930

== ENCOUNTER 2017-02-02 00:51 | Emergency (ER) | payer BC ==
[~2017-02-02] VITALS: Ht 177.8 cm; Wt 135.0 kg
[~2017-02-02 00:51] MED LIST changes: +FURO20TA2 PO; +IPRASOL4 INH; +OSEL30CA PO; +ZYLO300T4 PO; +duoneb INH
[2017-02-02] MEDS ORDERED: OSEL75CA PO (01:02)
[2017-02-02] MEDS ORDERED: methylPREDNISolone INJ 125 MG/2 ML VIAL (J2930) IV ONE (01:15)
[2017-02-02] MEDS: IPRATROPIUM 0.5MG/ALBUTEROL 2.5MG INH SOL UD 3ML (DUONEB)(J7620) NEB PRN ×3 (01:19→01:21)
[2017-02-02 01:24] LABS: BASO # 0.1 10^3/uL (0.0-0.2); BASO % 0.6 % (0.0-1.0); EOS # 0.7 10^3/uL (0.0-0.50); EOS % 5.6 % (0.0-3.0); IMMATURE GRANULOCYTE % 1.3 % (0-0); LYMPH % 32.3 % (24.0-44.0); MEAN CORPUSCULAR HGB CONC 33.8 g/dl (32.0-36.5); MEAN CORPUSCULAR VOLUME 88.7 fl (80.0-96.0); MONO # 0.9 10^3/uL (0.0-0.8); NEUTROPHILS # 6.6 10^3/uL (1.8-7.7); NEUTROPHILS % 53.2 % (36.0-66.0); PLATELET COUNT, AUTOMATED 283 10^3/uL (150-450); WHITE BLOOD COUNT 12.4 10^3/uL (4.0-10.0)
[2017-02-02 01:38] LABS: BLOOD UREA NITROGEN 36 MG/DL (7-18); CALCIUM LEVEL 9.3 MG/DL (8.5-10.1); CHLORIDE LEVEL 101 MEQ/L (98-107); CREATININE FOR GFR 1.39 MG/DL (0.70-1.30); GLUCOSE, FASTING 123 MG/DL (70-105); POTASSIUM SERUM 3.8 MEQ/L (3.5-5.1); SODIUM LEVEL 139 MEQ/L (136-145)
[2017-02-02 01:45] LABS: VENOUS BASE EXCESS -2.2 (-2.0-2.0); VENOUS O2 SATURATION 89.5 % (60.0-80.0); VENOUS PARTIAL PRESSURE CO2 45.6 mmHg (38.0-50.0); VENOUS PARTIAL PRESSURE O2 61.5 mmHg (30.0-50.0); VENOUS STANDARD HCO3 22.5 MEQ/L; VENOUS TOTAL CO2 25.2 MEQ/L (24.0-28.0)
[2017-02-02 02:13] LABS: ANION GAP 10 MEQ/L (8-16); CARBON DIOXIDE LEVEL 28 MEQ/L (21-32)
[2017-02-02] MEDS ORDERED: PRED20TA PO (05:03)
[2017-02-02 05:21] VITALS: BP 156/72
--- NOTE | 2017-02-02 07:54 | REP ---
PA and lateral chest: Is 01/30/2017. Lung faust are clear. Cardiac size is enlarged, unchanged. The yaakov, mediastinum, and bony thorax are unremarkable and unchanged. Impression: Cardiomegaly. Otherwise, negative chest. No interval change. No Signed by Silvano Alexander MD 02/02/2017 07:45 A
--- NOTE | 2017-02-03 04:31 | ECGEPIP ---
Stationary ECG Study [facility] - ED Test Date: 2017-02-02 Pat Name: FELICIA OLIVA Department: Room: - Gender: M Color Repairer: GUERLINE : 1960 Requested By: MARY Giron Order Number: [id number] Reading MD: Alexsander Dill Measurements Intervals [place] Rate: 88 P: -39 [place]: 170 QRS: 42 QRSD: 114 T: -18 QT: 355 QTc: 431 Interpretive Statements SINUS RHYTHM LEFT VENTRICULAR HYPERTROPHY AND ST-T CHANGE POSSIBLE PRIOR INFERIOR INFARCT SIMILAR TO 01/30/17 Electronically Signed On 02-03-2017 4:31:36 EST by Alexsander Dill
== END 2017-02-02 05:28 | disposition home or self-care (01) ==
LOC: M ED 00:51
DX: J09.X2 Influenza due to identified novel influenza A virus with other respiratory manifestations (principal); J45.909 Unspecified asthma, uncomplicated; R79.89 Other specified abnormal findings of blood chemistry; Z79.82 Long term (current) use of aspirin; Z79.4 Long term (current) use of insulin; Z79.899 Other long term (current) drug therapy
CPT/HCPCS: 36415; 71020; 80048; 82550; 82553; 82803; 83880; 85025; 87040; 93005; 93041; 94640; 96374; 99285; J2930

== ENCOUNTER 2017-02-12 18:13 | Emergency (ER) | payer BC ==
[~2017-02-12] VITALS: Ht 177.8 cm; Wt 135.0 kg
[~2017-02-12 18:13] MED LIST changes: +OSEL75CA PO; +PRED20TA PO
[2017-02-12] MEDS ORDERED: IPRATROPIUM 0.5MG/ALBUTEROL 2.5MG INH SOL UD 3ML (DUONEB)(J7620) NEB ONE (19:00)
[2017-02-12] MEDS ORDERED: ALBUTEROL SULFATE 2.5 MG/0.5 ML INH NEB SOLN NEB ONE (19:00)
[2017-02-12] MEDS ORDERED: predniSONE 20 MG TAB PO ONE (19:00)
--- NOTE | 2017-02-12 19:29 | REP ---
Clinical: Cough and shortness of breath. Technique: PA and lateral. Comparison: 02/02/2017. Findings: Mediastinum and cardiac silhouette are stable and mild cardiomegaly is again suggested. No focal consolidation, effusion, or pneumothorax. Evidence of prior granulomatous disease unchanged compared to 2013. Skeletal structures are intact. Impression: Chronic stable changes. No acute cardiopulmonary process appreciated. Signed by Jose Armando Sanchez MD 02/12/2017 07:20 P
[2017-02-12] MEDS ORDERED: PRED10TA2 PO (20:00)
[2017-02-12] MEDS ORDERED: ZITHTAB PO (20:00)
[2017-02-12 20:09] VITALS: BP 132/68
[2017-02-12] MEDS ORDERED: AZITHROMYCIN 250 MG TAB PO ONE (20:15)
== END 2017-02-12 20:11 | disposition home or self-care (01) ==
LOC: M ED 18:13
DX: J45.901 Unspecified asthma with (acute) exacerbation (principal); J20.9 Acute bronchitis, unspecified; I25.10 Atherosclerotic heart disease of native coronary artery without angina pectoris; I25.2 Old myocardial infarction; I10 Essential (primary) hypertension; E11.9 Type 2 diabetes mellitus without complications; K21.9 Gastro-esophageal reflux disease without esophagitis; Z79.82 Long term (current) use of aspirin; Z79.4 Long term (current) use of insulin; Z79.899 Other long term (current) drug therapy

== ENCOUNTER → 2017-05-16 | Outpatient (REF) | payer BC ==
[2017-05-16 12:35] LABS: HEMATOCRIT 35.4 % (42.0-52.0); HEMOGLOBIN 11.9 g/dl (14.0-18.0); MEAN CORPUSCULAR HEMOGLOBIN 29.8 pg (27.0-33.0); MEAN CORPUSCULAR HGB CONC 33.6 g/dl (32.0-36.5); MEAN CORPUSCULAR VOLUME 88.7 fl (80.0-96.0); PLATELET COUNT, AUTOMATED 175 10^3/uL (150-450); RED BLOOD COUNT 3.99 10^6/uL (4.30-6.10); RED CELL DISTRIBUTION WIDTH 13.9 % (11.5-14.5); WHITE BLOOD COUNT 8.1 10^3/uL (4.0-10.0)
[2017-05-16 13:04] LABS: ANION GAP 5 MEQ/L (8-16); BLOOD UREA NITROGEN 25 MG/DL (7-18); CARBON DIOXIDE LEVEL 30 MEQ/L (21-32); CHLORIDE LEVEL 104 MEQ/L (98-107); CREATININE FOR GFR 1.34 MG/DL (0.70-1.30); FERRITIN 125 NG/ML (26-388); GLOMERULAR FILTRATION RATE 58.3 (>56); GLUCOSE, FASTING 148 MG/DL (70-100); IRON (FE) 81 UG/DL (65-175); PERCENT SATURATION 29.8 % (19.7-50.0); POTASSIUM SERUM 4.3 MEQ/L (3.5-5.1); SODIUM LEVEL 139 MEQ/L (136-145); TOTAL IRON BINDING CAPACITY 272 UG/DL (250-450)
[2017-05-16 15:05] LABS: ESTIMATED AVERAGE GLUCOSE 212 MG/DL (60-110)
== END ==
LOC: M SFHCADAM 08:05
DX: D64.9 Anemia, unspecified (principal); E11.65 Type 2 diabetes mellitus with hyperglycemia; N18.3 Chronic kidney disease, stage 3 (moderate)
CPT/HCPCS: 83550

== ENCOUNTER → 2017-09-05 | Outpatient (REF) | payer BC, MEDICARE ==
[2017-09-05 17:37] LABS: INR 2.69; PROTHROMBIN TIME 29.1 SECONDS (12.1-14.4)
== END ==
LOC: M LAB REF 16:49
DX: I48.0 Paroxysmal atrial fibrillation (principal)
CPT/HCPCS: 85610

== ENCOUNTER → 2017-10-26 | Outpatient (CLI) | payer MEDICARE, BC | LOC: M ADAMS 14:55 | DX: R06.09 Other forms of dyspnea (principal); N18.3 Chronic kidney disease, stage 3 (moderate); E11.65 Type 2 diabetes mellitus with hyperglycemia; E11.22 Type 2 diabetes mellitus with diabetic chronic kidney disease; E78.2 Mixed hyperlipidemia; I48.0 Paroxysmal atrial fibrillation | CPT/HCPCS: 84443 ==

== ENCOUNTER → 2017-11-08 | Outpatient (REF) | payer BC, MEDICARE ==
[2017-11-08 19:40] LABS: HEMATOCRIT 38.6 % (42.0-52.0); HEMOGLOBIN 12.5 g/dl (13.5-17.5); MEAN CORPUSCULAR HEMOGLOBIN 28.2 pg (27.0-33.0); MEAN CORPUSCULAR HGB CONC 32.4 g/dl (32.0-36.5); MEAN CORPUSCULAR VOLUME 86.9 fl (80.0-96.0); PLATELET COUNT, AUTOMATED 262 10^3/uL (150-450); RED BLOOD COUNT 4.44 10^6/uL (4.30-6.10); RED CELL DISTRIBUTION WIDTH 13.9 % (11.5-14.5)
[2017-11-08 19:55] LABS: ANION GAP 11 MEQ/L (8-16); BLOOD UREA NITROGEN 31 MG/DL (7-18); CALCIUM LEVEL 9.5 MG/DL (8.5-10.1); CARBON DIOXIDE LEVEL 25 MEQ/L (21-32); CHLORIDE LEVEL 103 MEQ/L (98-107); CREATININE FOR GFR 1.64 MG/DL (0.70-1.30); GLOMERULAR FILTRATION RATE 46.2 (>56); GLUCOSE, FASTING 295 MG/DL (70-100); POTASSIUM SERUM 4.1 MEQ/L (3.5-5.1); SODIUM LEVEL 139 MEQ/L (136-145)
== END ==
LOC: M SFHCADAM 13:49
DX: D64.9 Anemia, unspecified (principal); E11.65 Type 2 diabetes mellitus with hyperglycemia
CPT/HCPCS: 80048

== ENCOUNTER 2017-11-13 16:04 | Emergency (ER) | payer MEDICARE, BC ==
[2017-11-13 16:35] LABS: VENOUS BASE EXCESS 0.9 (-2.0-2.0); VENOUS HCO3 27.3 MEQ/L (23.0-27.0); VENOUS PARTIAL PRESSURE O2 47.8 mmHg (30.0-50.0); VENOUS PH 7.355 UNITS (7.330-7.430); VENOUS STANDARD HCO3 24.9 MEQ/L; VENOUS TOTAL CO2 28.8 MEQ/L (24.0-28.0)
[2017-11-13 16:40] LABS: VENOUS O2 SATURATION 90.5 % (60.0-80.0)
[2017-11-13 16:42] LABS: BASO % 0.5 % (0.0-1.0); EOS # 0.2 10^3/uL (0.0-0.50); EOS % 3.7 % (0.0-3.0); HEMATOCRIT 36.1 % (42.0-52.0); HEMOGLOBIN 11.8 g/dl (13.5-17.5); IMMATURE GRANULOCYTE % 0.5 % (0-3.0); LYMPH # 1.4 10^3/uL (1.5-4.5); MEAN CORPUSCULAR HEMOGLOBIN 28.1 pg (27.0-33.0); MEAN CORPUSCULAR HGB CONC 32.7 g/dl (32.0-36.5); MONO # 0.5 10^3/uL (0.0-0.8); MONO % 7.6 % (0.0-5.0); NEUTROPHILS # 4.4 10^3/uL (1.8-7.7); NEUTROPHILS % 66.7 % (36.0-66.0); PLATELET COUNT, AUTOMATED 226 10^3/uL (150-450); RED CELL DISTRIBUTION WIDTH 13.6 % (11.5-14.5); WHITE BLOOD COUNT 6.6 10^3/uL (4.0-10.0)
[2017-11-13 17:02] LABS: LACTIC ACID SEPSIS PROTOCOL 1.4 MMOL/L (0.4-2.0)
[2017-11-13 17:10] LABS: ALBUMIN 3.4 GM/DL (3.2-5.2); ALBUMIN/GLOBULIN RATIO 0.79 (1.00-1.93); ALKALINE PHOSPHATASE 124 U/L (45-117); ALT/SGPT 35 U/L (12-78); ANION GAP 8 MEQ/L (8-16); AST/SGOT 32 U/L (7-37); BILIRUBIN,DIRECT < 0.1 MG/DL (0.0-0.2); BILIRUBIN,TOTAL 0.4 MG/DL (0.2-1.0); BLOOD UREA NITROGEN 29 MG/DL (7-18); CALCIUM LEVEL 8.6 MG/DL (8.5-10.1); CARBON DIOXIDE LEVEL 28 MEQ/L (21-32); CHLORIDE LEVEL 101 MEQ/L (98-107); CPK CREATINE PHOSPHOKINASE 644 U/L (39-308); CREATININE FOR GFR 1.79 MG/DL (0.70-1.30); GLOMERULAR FILTRATION RATE 41.6 (>56); GLUCOSE, FASTING 377 MG/DL (70-100); MB/CK RELATIVE INDEX 1.83 (< OR =4); NT-PRO BNP 416 PG/ML (<125); POTASSIUM SERUM 4.4 MEQ/L (3.5-5.1); SODIUM LEVEL 137 MEQ/L (136-145); TOTAL PROTEIN 7.7 GM/DL (6.4-8.2); TROPONIN I 0.03 NG/ML (< 0.10)
[2017-11-13 17:11] LABS: INR 1.84; PROTHROMBIN TIME 21.6 SECONDS (12.1-14.4)
[2017-11-13] MEDS: ALBUTEROL SULFATE 2.5 MG/0.5 ML INH NEB SOLN NEB (18:10)
[2017-11-13] MEDS ORDERED: CEFUROXIME 500 MG TAB PO (20:00)
[2017-11-13] MEDS: CEFDINIR 300 MG CAP (OMNICEF) PO (20:24)
== END 2017-11-13 20:40 | disposition home or self-care (01) ==
LOC: M ED 16:04
DX: J18.9 Pneumonia, unspecified organism (principal); I25.10 Atherosclerotic heart disease of native coronary artery without angina pectoris; I48.91 Unspecified atrial fibrillation; E78.5 Hyperlipidemia, unspecified; N18.9 Chronic kidney disease, unspecified; E11.22 Type 2 diabetes mellitus with diabetic chronic kidney disease; G47.30 Sleep apnea, unspecified; Z95.1 Presence of aortocoronary bypass graft; Z88.1 Allergy status to other antibiotic agents; Z79.899 Other long term (current) drug therapy; Z79.82 Long term (current) use of aspirin; Z79.4 Long term (current) use of insulin

== ENCOUNTER 2017-11-14 18:58 | Inpatient (IN) | payer MEDICARE, BC ==
[2017-11-14 19:46] LABS: BASO % 0.6 % (0.0-1.0); EOS # 0.4 10^3/uL (0.0-0.50); EOS % 4.9 % (0.0-3.0); HEMOGLOBIN 11.7 g/dl (13.5-17.5); IMMATURE GRANULOCYTE % 0.4 % (0-3.0); LYMPH # 1.5 10^3/uL (1.5-4.5); LYMPH % 20.7 % (24.0-44.0); MEAN CORPUSCULAR HEMOGLOBIN 28.4 pg (27.0-33.0); MEAN CORPUSCULAR HGB CONC 33.4 g/dl (32.0-36.5); MONO # 0.5 10^3/uL (0.0-0.8); MONO % 7.4 % (0.0-5.0); NEUTROPHILS # 4.8 10^3/uL (1.8-7.7); PLATELET COUNT, AUTOMATED 215 10^3/uL (150-450); RED BLOOD COUNT 4.12 10^6/uL (4.30-6.10); RED CELL DISTRIBUTION WIDTH 13.5 % (11.5-14.5); WHITE BLOOD COUNT 7.2 10^3/uL (4.0-10.0)
[2017-11-14 19:55] LABS: INR 1.42; PROTHROMBIN TIME 17.6 SECONDS (12.1-14.4)
[2017-11-14 19:56] LABS: PARTIAL THROMBOPLASTIN TIME 27.4 SECONDS (25.4-37.6)
[2017-11-14] MEDS: cefTRIAXone SOD 1 GM in D5W MINI-BAG PLUS 50 ML IV (19:56)
[2017-11-14] MEDS: methylPREDNISolone INJ 125 MG/2 ML VIAL (J2930) IV (19:58)
[2017-11-14] MEDS: IPRATROPIUM 0.5MG/ALBUTEROL 2.5MG INH SOL UD 3ML (DUONEB)(J7620) NEB ×3 (20:06→20:21)
[2017-11-14 20:25] LABS: ANION GAP 8 MEQ/L (8-16); BLOOD UREA NITROGEN 20 MG/DL (7-18); CALCIUM LEVEL 8.7 MG/DL (8.5-10.1); CARBON DIOXIDE LEVEL 26 MEQ/L (21-32); CHLORIDE LEVEL 101 MEQ/L (98-107); CPK CREATINE PHOSPHOKINASE 600 U/L (39-308); CREATININE FOR GFR 1.43 MG/DL (0.70-1.30); GLOMERULAR FILTRATION RATE 53.9 (>56); GLUCOSE, FASTING 382 MG/DL (70-100); MB/CK RELATIVE INDEX 1.87 (< OR =4); NT-PRO BNP 580 PG/ML (<125); POTASSIUM SERUM 4.2 MEQ/L (3.5-5.1); SODIUM LEVEL 135 MEQ/L (136-145); TROPONIN I 0.04 NG/ML (< 0.10)
[2017-11-14 20:27] LABS: ABG BASE EXCESS 2.3 (-2.0-2.0); ABG HCO3 27.4 MEQ/L (22.0-26.0); ABG O2 SATURATION 98.9 % (95.0-99.0); ABG PARTIAL PRESSURE CO2 44.3 mmHg (35.0-45.0); ABG PARTIAL PRESSURE O2 139.5 mmHg (75.0-100.0); ABG STANDARD HCO3 26.6 MEQ/L (22.0-26.0); ABG TOTAL CO2 28.7 MEQ/L (22.0-29.0); ABG pH (ARTERIAL) 7.409 UNITS (7.350-7.450)
[2017-11-14 22:13] LABS: LACTIC ACID SEPSIS PROTOCOL 1.7 MMOL/L (0.4-2.0)
[2017-11-14] MEDS ORDERED: GLUCAGON FOR INJ 1 MG VIAL (J1610) SC (22:45)
[2017-11-14] MEDS ORDERED: ACETAMINOPHEN TAB 650MG DOSE (2X325MG) PO (22:45)
[2017-11-14] MEDS ORDERED: IPRATROPIUM 0.5MG/ALBUTEROL 2.5MG INH SOL UD 3ML (DUONEB)(J7620) NEB (22:45)
[2017-11-14] MEDS ORDERED: GLUCOSE 4 GM CHEW TABLET PO (22:45)
[2017-11-14] MEDS ORDERED: DEXTROSE 50% 50 ML SYRINGE IV (22:45)
[2017-11-15] MEDS: METOPROLOL TART 50 MG TAB PO ×4 (00:14→20:50)
[2017-11-15] MEDS: AZITHROMYCIN INJ 500 MG, VIAL MATE ADAPTER 1 EACH in D5W 250 ML IV (00:15)
[2017-11-15] MEDS: OMEPRAZOLE 20 MG CAP PO ×2 (00:15→20:50)
[2017-11-15] MEDS: LEVEMIR (INSULIN DETEMIR) 1 UNITS/0.01ML SC ×3 (00:15→20:51)
[2017-11-15] MEDS: ATORVASTATIN 20 MG TAB PO ×2 (00:15→20:51)
[2017-11-15 00:29] LABS: BEDSIDE GLUCOSE 332 MG/DL (70-105)
[2017-11-15 01:52] LABS: TROPONIN I 0.02 NG/ML (< 0.10)
[2017-11-15] MEDS ORDERED: DEXTROSE 50% 50 ML SYRINGE IV (03:30)
[2017-11-15] MEDS ORDERED: GLUCAGON FOR INJ 1 MG VIAL (J1610) SC (03:30)
[2017-11-15] MEDS ORDERED: GLUCOSE 4 GM CHEW TABLET PO (03:30)
[2017-11-15 06:05] LABS: HEMATOCRIT 36.8 % (42.0-52.0); HEMOGLOBIN 12.2 g/dl (13.5-17.5); MEAN CORPUSCULAR HEMOGLOBIN 28.2 pg (27.0-33.0); MEAN CORPUSCULAR HGB CONC 33.2 g/dl (32.0-36.5); PLATELET COUNT, AUTOMATED 215 10^3/uL (150-450); RED BLOOD COUNT 4.33 10^6/uL (4.30-6.10); RED CELL DISTRIBUTION WIDTH 13.5 % (11.5-14.5); WHITE BLOOD COUNT 6.5 10^3/uL (4.0-10.0)
[2017-11-15 06:15] LABS: INR 1.36
[2017-11-15 06:19] LABS: ANION GAP 9 MEQ/L (8-16); BLOOD UREA NITROGEN 23 MG/DL (7-18); CALCIUM LEVEL 9.3 MG/DL (8.5-10.1); CARBON DIOXIDE LEVEL 27 MEQ/L (21-32); CHLORIDE LEVEL 101 MEQ/L (98-107); GLOMERULAR FILTRATION RATE 55.2 (>56); GLUCOSE, FASTING 301 MG/DL (70-100); POTASSIUM SERUM 4.5 MEQ/L (3.5-5.1); SODIUM LEVEL 137 MEQ/L (136-145)
[2017-11-15] MEDS ORDERED: HumaLOG INSULIN (NovoLOG) PER UNIT SC (07:30)
[2017-11-15] MEDS: DULoxetine 30 MG CAP (CYMBALTA) PO (07:57)
[2017-11-15] MEDS: LOSARTAN 50 MG TAB PO (07:57)
[2017-11-15] MEDS: ASPIRIN 81 MG ENTERIC TAB PO (07:57)
[2017-11-15] MEDS: HumaLOG INSULIN (NovoLOG) PER UNIT SC ×4 (07:57→20:52)
[2017-11-15] MEDS: FUROSEMIDE 40 MG TAB PO (07:57)
[2017-11-15] MEDS: amLODIPine 5 MG TAB PO (07:58)
[2017-11-15] MEDS ORDERED: WARFARIN SOD 2.5 MG TAB PO (09:00)
[2017-11-15 11:49] LABS: BEDSIDE GLUCOSE 321 MG/DL (70-105)
[2017-11-15] MEDS: methylPREDNISolone INJ 125 MG/2 ML VIAL (J2930) IV ×2 (11:57→20:50)
[2017-11-15] MEDS: PERCOCET 5MG/325MG TAB PO (14:39)
[2017-11-15 16:42] LABS: BEDSIDE GLUCOSE 428 MG/DL (70-105)
[2017-11-15] MEDS: WARFARIN SOD 5 MG TAB PO (17:27)
[2017-11-15] MEDS: CEFEPIME HCL 2 GM in D5W MINI-BAG PLUS 50 ML IV (17:29)
[2017-11-15] MEDS ORDERED: cefTRIAXone SOD 1 GM in D5W MINI-BAG PLUS 50 ML IV (20:00)
[2017-11-15 20:08] LABS: BEDSIDE GLUCOSE 367 MG/DL (70-105)
[2017-11-16] MEDS: CEFEPIME HCL 2 GM in D5W MINI-BAG PLUS 50 ML IV ×3 (01:12→17:13)
[2017-11-16] MEDS: methylPREDNISolone INJ 125 MG/2 ML VIAL (J2930) IV (03:59)
[2017-11-16 05:56] LABS: HEMATOCRIT 34.2 % (42.0-52.0); HEMOGLOBIN 11.3 g/dl (13.5-17.5); MEAN CORPUSCULAR HEMOGLOBIN 28.5 pg (27.0-33.0); MEAN CORPUSCULAR VOLUME 86.1 fl (80.0-96.0); PLATELET COUNT, AUTOMATED 217 10^3/uL (150-450); RED BLOOD COUNT 3.97 10^6/uL (4.30-6.10); RED CELL DISTRIBUTION WIDTH 13.6 % (11.5-14.5)
[2017-11-16 06:11] LABS: INR 1.45; PROTHROMBIN TIME 17.9 SECONDS (12.1-14.4)
[2017-11-16 06:29] LABS: ANION GAP 11 MEQ/L (8-16); BLOOD UREA NITROGEN 36 MG/DL (7-18); CARBON DIOXIDE LEVEL 26 MEQ/L (21-32); CHLORIDE LEVEL 100 MEQ/L (98-107); CREATININE FOR GFR 1.42 MG/DL (0.70-1.30); GLOMERULAR FILTRATION RATE 54.3 (>56); GLUCOSE, FASTING 343 MG/DL (70-100); POTASSIUM SERUM 4.5 MEQ/L (3.5-5.1); SODIUM LEVEL 137 MEQ/L (136-145)
[2017-11-16] MEDS: LOSARTAN 50 MG TAB PO (08:02)
[2017-11-16] MEDS: ASPIRIN 81 MG ENTERIC TAB PO (08:03)
[2017-11-16] MEDS: METOPROLOL TART 50 MG TAB PO ×3 (08:03→21:18)
[2017-11-16] MEDS: amLODIPine 5 MG TAB PO (08:03)
[2017-11-16] MEDS: predniSONE 20 MG TAB PO (08:04)
[2017-11-16] MEDS: LEVEMIR (INSULIN DETEMIR) 1 UNITS/0.01ML SC ×2 (08:04→21:15)
[2017-11-16] MEDS: DULoxetine 30 MG CAP (CYMBALTA) PO (08:04)
[2017-11-16] MEDS: FUROSEMIDE 40 MG TAB PO (08:04)
[2017-11-16] MEDS: AMIODARONE 200 MG TAB (PACERONE) PO (08:04)
[2017-11-16] MEDS: HumaLOG INSULIN (NovoLOG) PER UNIT SC ×4 (08:05→21:16)
[2017-11-16 11:36] LABS: BEDSIDE GLUCOSE 411 MG/DL (70-105)
[2017-11-16 16:51] LABS: BEDSIDE GLUCOSE 403 MG/DL (70-105)
[2017-11-16] MEDS: WARFARIN SOD 5 MG TAB PO (17:15)
[2017-11-16 21:15] LABS: BEDSIDE GLUCOSE 401 MG/DL (70-105)
[2017-11-16] MEDS: ATORVASTATIN 20 MG TAB PO (21:16)
[2017-11-16] MEDS: OMEPRAZOLE 20 MG CAP PO (21:16)
[2017-11-17] MEDS: CEFEPIME HCL 2 GM in D5W MINI-BAG PLUS 50 ML IV ×2 (01:11→08:08)
[2017-11-17 06:02] LABS: HEMATOCRIT 34.6 % (42.0-52.0); HEMOGLOBIN 11.6 g/dl (13.5-17.5); MEAN CORPUSCULAR HEMOGLOBIN 28.6 pg (27.0-33.0); MEAN CORPUSCULAR HGB CONC 33.5 g/dl (32.0-36.5); MEAN CORPUSCULAR VOLUME 85.4 fl (80.0-96.0); PLATELET COUNT, AUTOMATED 203 10^3/uL (150-450); RED BLOOD COUNT 4.05 10^6/uL (4.30-6.10); RED CELL DISTRIBUTION WIDTH 13.7 % (11.5-14.5)
[2017-11-17 06:12] LABS: INR 1.61; PROTHROMBIN TIME 19.4 SECONDS (12.1-14.4)
[2017-11-17 06:26] LABS: ANION GAP 6 MEQ/L (8-16); BLOOD UREA NITROGEN 35 MG/DL (7-18); CALCIUM LEVEL 8.4 MG/DL (8.5-10.1); CARBON DIOXIDE LEVEL 29 MEQ/L (21-32); CHLORIDE LEVEL 102 MEQ/L (98-107); CREATININE FOR GFR 1.34 MG/DL (0.70-1.30); GLOMERULAR FILTRATION RATE 58.1 (>56); GLUCOSE, FASTING 204 MG/DL (70-100); POTASSIUM SERUM 3.8 MEQ/L (3.5-5.1); SODIUM LEVEL 137 MEQ/L (136-145)
[2017-11-17] MEDS: HumaLOG INSULIN (NovoLOG) PER UNIT SC (08:09)
[2017-11-17] MEDS: DULoxetine 30 MG CAP (CYMBALTA) PO (08:10)
[2017-11-17] MEDS: amLODIPine 5 MG TAB PO (08:12)
[2017-11-17] MEDS: predniSONE 20 MG TAB PO (08:12)
[2017-11-17] MEDS: FUROSEMIDE 40 MG TAB PO (08:13)
[2017-11-17] MEDS: LOSARTAN 50 MG TAB PO (08:13)
[2017-11-17] MEDS: METOPROLOL TART 50 MG TAB PO (08:13)
[2017-11-17] MEDS: ASPIRIN 81 MG ENTERIC TAB PO (08:13)
[2017-11-17] MEDS: LEVEMIR (INSULIN DETEMIR) 1 UNITS/0.01ML SC (08:14)
== END 2017-11-17 10:17 | disposition home or self-care (01) | DRG 193 ==
LOC: M ED 18:58 → M ED INP 22:46 → M MSPAV 11-15 12:45
DX: J18.9 Pneumonia, unspecified organism (principal); J96.01 Acute respiratory failure with hypoxia; E11.22 Type 2 diabetes mellitus with diabetic chronic kidney disease; I12.9 Hypertensive chronic kidney disease with stage 1 through stage 4 chronic kidney disease, or unspecified chronic kidney disease; E78.5 Hyperlipidemia, unspecified; M54.9 Dorsalgia, unspecified; K21.9 Gastro-esophageal reflux disease without esophagitis; G89.29 Other chronic pain; M25.569 Pain in unspecified knee; N18.2 Chronic kidney disease, stage 2 (mild); I25.10 Atherosclerotic heart disease of native coronary artery without angina pectoris; F41.9 Anxiety disorder, unspecified; F32.9 Major depressive disorder, single episode, unspecified; I48.0 Paroxysmal atrial fibrillation; Z79.82 Long term (current) use of aspirin; Z95.1 Presence of aortocoronary bypass graft; Z79.4 Long term (current) use of insulin; Z79.01 Long term (current) use of anticoagulants; Z88.1 Allergy status to other antibiotic agents; Z79.899 Other long term (current) drug therapy

== ENCOUNTER 2017-11-30 13:10 | Emergency (ER) | payer BC, MEDICARE ==
[2017-11-30 14:16] LABS: BASO % 0.4 % (0.0-1.0); EOS # 0.5 10^3/uL (0.0-0.50); EOS % 5.6 % (0.0-3.0); HEMATOCRIT 38.1 % (42.0-52.0); HEMOGLOBIN 12.6 g/dl (13.5-17.5); LYMPH # 2.1 10^3/uL (1.5-4.5); LYMPH % 22.6 % (24.0-44.0); MEAN CORPUSCULAR HEMOGLOBIN 28.3 pg (27.0-33.0); MEAN CORPUSCULAR HGB CONC 33.1 g/dl (32.0-36.5); MEAN CORPUSCULAR VOLUME 85.6 fl (80.0-96.0); MONO # 0.7 10^3/uL (0.0-0.8); MONO % 7.3 % (0.0-5.0); NEUTROPHILS # 5.9 10^3/uL (1.8-7.7); NEUTROPHILS % 63.1 % (36.0-66.0); PLATELET COUNT, AUTOMATED 145 10^3/uL (150-450); RED BLOOD COUNT 4.45 10^6/uL (4.30-6.10); WHITE BLOOD COUNT 9.3 10^3/uL (4.0-10.0)
[2017-11-30 14:32] LABS: INR 2.75; PARTIAL THROMBOPLASTIN TIME 32.5 SECONDS (25.4-37.6); PROTHROMBIN TIME 29.7 SECONDS (12.1-14.4)
[2017-11-30 14:51] LABS: LACTIC ACID SEPSIS PROTOCOL 1.8 MMOL/L (0.4-2.0)
[2017-11-30 14:53] LABS: ALBUMIN 3.2 GM/DL (3.2-5.2); ALBUMIN/GLOBULIN RATIO 0.86 (1.00-1.93); ALKALINE PHOSPHATASE 108 U/L (45-117); ALT/SGPT 29 U/L (12-78); ANION GAP 11 MEQ/L (8-16); AST/SGOT 26 U/L (7-37); BILIRUBIN,DIRECT < 0.1 MG/DL (0.0-0.2); BILIRUBIN,TOTAL 0.3 MG/DL (0.2-1.0); BLOOD UREA NITROGEN 33 MG/DL (7-18); CALCIUM LEVEL 8.1 MG/DL (8.5-10.1); CARBON DIOXIDE LEVEL 27 MEQ/L (21-32); CHLORIDE LEVEL 101 MEQ/L (98-107); CPK CREATINE PHOSPHOKINASE 503 U/L (39-308); CREATININE FOR GFR 1.83 MG/DL (0.70-1.30); GLOMERULAR FILTRATION RATE 40.5 (>56); GLUCOSE, FASTING 133 MG/DL (70-100); MB/CK RELATIVE INDEX 2.05 (< OR =4); NT-PRO BNP 127 PG/ML (<125); POTASSIUM SERUM 3.8 MEQ/L (3.5-5.1); SODIUM LEVEL 139 MEQ/L (136-145); TOTAL PROTEIN 6.9 GM/DL (6.4-8.2); TROPONIN I < 0.02 NG/ML (< 0.10)
[2017-11-30] MEDS: METOCLOPRAMIDE INJ 10MG/2ML VIAL (J2765) IV ×2 (19:30)
== END 2017-11-30 20:27 | disposition home or self-care (01) ==
LOC: M ED 13:10
DX: E11.43 Type 2 diabetes mellitus with diabetic autonomic (poly)neuropathy (principal); I12.9 Hypertensive chronic kidney disease with stage 1 through stage 4 chronic kidney disease, or unspecified chronic kidney disease; N18.3 Chronic kidney disease, stage 3 (moderate); M10.9 Gout, unspecified; I48.91 Unspecified atrial fibrillation; K21.9 Gastro-esophageal reflux disease without esophagitis; Z95.1 Presence of aortocoronary bypass graft; Z79.899 Other long term (current) drug therapy; Z79.84 Long term (current) use of oral hypoglycemic drugs; Z79.82 Long term (current) use of aspirin; Z79.01 Long term (current) use of anticoagulants; Z88.0 Allergy status to penicillin; Z88.8 Allergy status to other drugs, medicaments and biological substances
CPT/HCPCS: J2765

== ENCOUNTER 2017-12-01 02:04 | Emergency (ER) | payer BC, MEDICARE ==
[2017-12-01 04:30] LABS: ABG BASE EXCESS 1.8 (-2.0-2.0); ABG HCO3 26.8 MEQ/L (22.0-26.0); ABG PARTIAL PRESSURE CO2 43.1 mmHg (35.0-45.0); ABG PARTIAL PRESSURE O2 75.6 mmHg (75.0-100.0); ABG TOTAL CO2 28.1 MEQ/L (22.0-29.0); ABG pH (ARTERIAL) 7.411 UNITS (7.350-7.450)
[2017-12-01 04:44] LABS: BASO % 0.3 % (0.0-1.0); EOS # 0.6 10^3/uL (0.0-0.50); EOS % 5.6 % (0.0-3.0); HEMATOCRIT 39.9 % (42.0-52.0); HEMOGLOBIN 12.9 g/dl (13.5-17.5); IMMATURE GRANULOCYTE % 0.7 % (0-3.0); LYMPH # 1.6 10^3/uL (1.5-4.5); LYMPH % 14.2 % (24.0-44.0); MEAN CORPUSCULAR HEMOGLOBIN 27.9 pg (27.0-33.0); MEAN CORPUSCULAR HGB CONC 32.3 g/dl (32.0-36.5); MEAN CORPUSCULAR VOLUME 86.2 fl (80.0-96.0); MONO # 0.6 10^3/uL (0.0-0.8); MONO % 5.8 % (0.0-5.0); NEUTROPHILS # 8.1 10^3/uL (1.8-7.7); NEUTROPHILS % 73.4 % (36.0-66.0); PLATELET COUNT, AUTOMATED 146 10^3/uL (150-450); RED BLOOD COUNT 4.63 10^6/uL (4.30-6.10)
[2017-12-01 05:14] LABS: LACTIC ACID SEPSIS PROTOCOL 2.4 MMOL/L (0.4-2.0)
[2017-12-01 05:17] LABS: ANION GAP 10 MEQ/L (8-16); BLOOD UREA NITROGEN 31 MG/DL (7-18); CALCIUM LEVEL 8.6 MG/DL (8.5-10.1); CARBON DIOXIDE LEVEL 29 MEQ/L (21-32); CHLORIDE LEVEL 101 MEQ/L (98-107); CPK CREATINE PHOSPHOKINASE 498 U/L (39-308); GLOMERULAR FILTRATION RATE 44.1 (>56); GLUCOSE, FASTING 231 MG/DL (70-100); MB/CK RELATIVE INDEX 2.07 (< OR =4); NT-PRO BNP 116 PG/ML (<125); POTASSIUM SERUM 4.1 MEQ/L (3.5-5.1); SODIUM LEVEL 140 MEQ/L (136-145); TROPONIN I < 0.02 NG/ML (< 0.10)
[2017-12-01] MEDS: ALPRAZolam 0.5 MG TAB PO ×2 (05:45)
[2017-12-01 11:28] LABS: BEDSIDE GLUCOSE 252 MG/DL (70-105)
== END 2017-12-01 06:26 | disposition home or self-care (01) ==
LOC: M ED 02:04
DX: F41.9 Anxiety disorder, unspecified (principal); E11.43 Type 2 diabetes mellitus with diabetic autonomic (poly)neuropathy; I10 Essential (primary) hypertension; I48.91 Unspecified atrial fibrillation; I25.10 Atherosclerotic heart disease of native coronary artery without angina pectoris; F33.9 Major depressive disorder, recurrent, unspecified; Z95.1 Presence of aortocoronary bypass graft; Z79.899 Other long term (current) drug therapy; Z79.4 Long term (current) use of insulin; Z79.82 Long term (current) use of aspirin; Z79.01 Long term (current) use of anticoagulants; Z88.0 Allergy status to penicillin; Z88.8 Allergy status to other drugs, medicaments and biological substances
CPT/HCPCS: 71250

== ENCOUNTER 2017-12-08 17:20 | Inpatient (IN) | payer MEDICARE, BC ==
[2017-12-08 18:03] LABS: BEDSIDE GLUCOSE 67 MG/DL (70-105)
[2017-12-08 18:07] LABS: BASO % 0.4 % (0.0-1.0); EOS # 1.4 10^3/uL (0.0-0.50); EOS % 13.2 % (0.0-3.0); HEMOGLOBIN 12.3 g/dl (13.5-17.5); IMMATURE GRANULOCYTE % 0.7 % (0-3.0); LYMPH # 2.6 10^3/uL (1.5-4.5); MEAN CORPUSCULAR HEMOGLOBIN 28.3 pg (27.0-33.0); MEAN CORPUSCULAR HGB CONC 33.2 g/dl (32.0-36.5); MEAN CORPUSCULAR VOLUME 85.3 fl (80.0-96.0); MONO # 0.6 10^3/uL (0.0-0.8); MONO % 6.1 % (0.0-5.0); NEUTROPHILS # 5.6 10^3/uL (1.8-7.7); NEUTROPHILS % 54.6 % (36.0-66.0); PLATELET COUNT, AUTOMATED 207 10^3/uL (150-450); RED BLOOD COUNT 4.34 10^6/uL (4.30-6.10); RED CELL DISTRIBUTION WIDTH 14.1 % (11.5-14.5); WHITE BLOOD COUNT 10.3 10^3/uL (4.0-10.0)
[2017-12-08 18:23] LABS: INR 3.04; PROTHROMBIN TIME 32.1 SECONDS (12.1-14.4)
[2017-12-08 18:38] LABS: LACTIC ACID SEPSIS PROTOCOL 1.7 MMOL/L (0.4-2.0)
[2017-12-08 18:44] LABS: ALT/SGPT 30 U/L (12-78); ANION GAP 7 MEQ/L (8-16); AST/SGOT 38 U/L (7-37); BLOOD UREA NITROGEN 25 MG/DL (7-18); CALCIUM LEVEL 8.8 MG/DL (8.5-10.1); CARBON DIOXIDE LEVEL 30 MEQ/L (21-32); CHLORIDE LEVEL 104 MEQ/L (98-107); CREATININE FOR GFR 1.37 MG/DL (0.70-1.30); GLOMERULAR FILTRATION RATE 56.6 (>56); GLUCOSE, FASTING 69 MG/DL (70-100); POTASSIUM SERUM 3.7 MEQ/L (3.5-5.1); SODIUM LEVEL 141 MEQ/L (136-145)
[2017-12-08 18:45] LABS: ALBUMIN 3.7 GM/DL (3.2-5.2); ALBUMIN/GLOBULIN RATIO 1.09 (1.00-1.93); ALKALINE PHOSPHATASE 97 U/L (45-117); BILIRUBIN,DIRECT 0.1 MG/DL (0.0-0.2); BILIRUBIN,TOTAL 0.4 MG/DL (0.2-1.0); C REACTIVE PROTEIN QUANTITATIV < 0.30 MG/DL (0.00-0.30); CPK CREATINE PHOSPHOKINASE 754 U/L (39-308); NT-PRO BNP 233 PG/ML (<125); TOTAL PROTEIN 7.1 GM/DL (6.4-8.2); TROPONIN I < 0.02 NG/ML (< 0.10)
[2017-12-08] MEDS: ALBUTEROL SULFATE 2.5 MG/0.5 ML INH NEB SOLN INH ×3 (19:16→19:21)
[2017-12-08 19:17] LABS: ABG BASE EXCESS 2.6 (-2.0-2.0); ABG HCO3 28.1 MEQ/L (22.0-26.0); ABG O2 SATURATION 93.8 % (95.0-99.0); ABG PARTIAL PRESSURE CO2 47.2 mmHg (35.0-45.0); ABG STANDARD HCO3 26.7 MEQ/L (22.0-26.0); ABG TOTAL CO2 29.6 MEQ/L (22.0-29.0); ABG pH (ARTERIAL) 7.393 UNITS (7.350-7.450)
[2017-12-08] MEDS: dexameTHASONE 20 MG/5 ML VIAL (J1100) IV (20:24)
[2017-12-08 20:41] LABS: BEDSIDE GLUCOSE 88 MG/DL (70-105)
[2017-12-08] MEDS: HumaLOG INSULIN (NovoLOG) PER UNIT SC (21:00)
[2017-12-08] MEDS ORDERED: GLUCAGON FOR INJ 1 MG VIAL (J1610) SC (23:00)
[2017-12-08] MEDS ORDERED: GLUCOSE 4 GM CHEW TABLET PO (23:00)
[2017-12-08] MEDS ORDERED: IPRATROPIUM 0.5MG/ALBUTEROL 2.5MG INH SOL UD 3ML (DUONEB)(J7620) NEB (23:00)
[2017-12-08] MEDS ORDERED: DEXTROSE 50% 50 ML SYRINGE IV (23:00)
[2017-12-09] MEDS ORDERED: ALBUTEROL 90 MCG/ACT 8GM HFA INHALER INH (00:15)
[2017-12-09] MEDS ORDERED: ACETAMINOPHEN 325 MG TAB PO (00:15)
[2017-12-09] MEDS ORDERED: PERCOCET 5MG/325MG TAB PO (00:15)
[2017-12-09] MEDS: LOSARTAN 50 MG TAB PO ×2 (01:03→20:55)
[2017-12-09] MEDS: DULoxetine 30 MG CAP (CYMBALTA) PO ×2 (01:03→20:56)
[2017-12-09 01:04] LABS: BEDSIDE GLUCOSE 126 MG/DL (70-105)
[2017-12-09] MEDS: amLODIPine 5 MG TAB PO ×2 (01:04→20:56)
[2017-12-09] MEDS: OMEPRAZOLE 20 MG CAP PO ×2 (01:05→20:54)
[2017-12-09] MEDS: ATORVASTATIN 20 MG TAB PO ×2 (01:05→20:54)
[2017-12-09] MEDS: METOPROLOL TART 50 MG TAB PO ×4 (01:05→20:55)
[2017-12-09] MEDS: ASPIRIN 81 MG ENTERIC TAB PO ×2 (01:05→20:56)
[2017-12-09] MEDS: FUROSEMIDE 40 MG TAB PO ×2 (01:06→20:54)
[2017-12-09] MEDS: LEVEMIR (INSULIN DETEMIR) 1 UNITS/0.01ML SC ×3 (01:13→20:57)
[2017-12-09] MEDS: SITagliptin 50 MG TAB (JANUVIA) PO ×2 (01:13→20:56)
[2017-12-09 07:13] LABS: BASO % 0.2 % (0.0-1.0); EOS % 0.2 % (0.0-3.0); HEMATOCRIT 36.8 % (42.0-52.0); HEMOGLOBIN 11.9 g/dl (13.5-17.5); IMMATURE GRANULOCYTE % 0.9 % (0-3.0); LYMPH # 0.7 10^3/uL (1.5-4.5); LYMPH % 12.9 % (24.0-44.0); MEAN CORPUSCULAR HEMOGLOBIN 27.6 pg (27.0-33.0); MEAN CORPUSCULAR HGB CONC 32.3 g/dl (32.0-36.5); MEAN CORPUSCULAR VOLUME 85.4 fl (80.0-96.0); MONO # 0.1 10^3/uL (0.0-0.8); MONO % 1.3 % (0.0-5.0); NEUTROPHILS # 4.6 10^3/uL (1.8-7.7); NEUTROPHILS % 84.5 % (36.0-66.0); PLATELET COUNT, AUTOMATED 192 10^3/uL (150-450); RED BLOOD COUNT 4.31 10^6/uL (4.30-6.10); WHITE BLOOD COUNT 5.4 10^3/uL (4.0-10.0)
[2017-12-09 07:23] LABS: INR 2.67
[2017-12-09 07:45] LABS: ANION GAP 7 MEQ/L (8-16); BLOOD UREA NITROGEN 23 MG/DL (7-18); CALCIUM LEVEL 8.8 MG/DL (8.5-10.1); CARBON DIOXIDE LEVEL 29 MEQ/L (21-32); CHLORIDE LEVEL 102 MEQ/L (98-107); CREATININE FOR GFR 1.29 MG/DL (0.70-1.30); GLOMERULAR FILTRATION RATE > 60.0 (>56); GLUCOSE, FASTING 196 MG/DL (70-100); POTASSIUM SERUM 4.6 MEQ/L (3.5-5.1); SODIUM LEVEL 138 MEQ/L (136-145)
[2017-12-09] MEDS: HumaLOG INSULIN (NovoLOG) PER UNIT SC ×4 (08:09→20:57)
[2017-12-09] MEDS: SYMBICORT 160/4.5MCG INHALER 6GM INH ×2 (08:25→20:11)
[2017-12-09] MEDS: DOCUSATE SODIUM 100 MG CAP PO ×2 (08:41→20:54)
[2017-12-09] MEDS: predniSONE 10 MG TAB PO (08:41)
[2017-12-09 11:42] LABS: BEDSIDE GLUCOSE 220 MG/DL (70-105)
[2017-12-09 16:30] LABS: BEDSIDE GLUCOSE 304 MG/DL (70-105)
[2017-12-09] MEDS: WARFARIN SOD 5 MG TAB PO (17:20)
[2017-12-09 20:37] LABS: BEDSIDE GLUCOSE 281 MG/DL (70-105)
[2017-12-09] MEDS: AMIODARONE 200 MG TAB (PACERONE) PO (20:56)
[2017-12-10] MEDS: SYMBICORT 160/4.5MCG INHALER 6GM INH ×2 (07:12→20:36)
[2017-12-10 07:13] LABS: HEMATOCRIT 37.7 % (42.0-52.0); HEMOGLOBIN 12.7 g/dl (13.5-17.5); MEAN CORPUSCULAR HEMOGLOBIN 28.5 pg (27.0-33.0); MEAN CORPUSCULAR HGB CONC 33.7 g/dl (32.0-36.5); MEAN CORPUSCULAR VOLUME 84.7 fl (80.0-96.0); PLATELET COUNT, AUTOMATED 232 10^3/uL (150-450); RED BLOOD COUNT 4.45 10^6/uL (4.30-6.10); RED CELL DISTRIBUTION WIDTH 14.2 % (11.5-14.5); WHITE BLOOD COUNT 10.7 10^3/uL (4.0-10.0)
[2017-12-10 07:28] LABS: INR 2.37; PROTHROMBIN TIME 26.3 SECONDS (12.1-14.4)
[2017-12-10 07:32] LABS: ALBUMIN 3.1 GM/DL (3.2-5.2); ANION GAP 9 MEQ/L (8-16); BLOOD UREA NITROGEN 29 MG/DL (7-18); CALCIUM LEVEL 8.5 MG/DL (8.5-10.1); CARBON DIOXIDE LEVEL 31 MEQ/L (21-32); CHLORIDE LEVEL 100 MEQ/L (98-107); GLOMERULAR FILTRATION RATE > 60.0 (>56); GLUCOSE, FASTING 201 MG/DL (70-100); PHOSPHORUS LEVEL 3.1 MG/DL (2.5-4.9); POTASSIUM SERUM 4.1 MEQ/L (3.5-5.1); SODIUM LEVEL 140 MEQ/L (136-145)
[2017-12-10] MEDS: DOCUSATE SODIUM 100 MG CAP PO ×2 (08:23→21:45)
[2017-12-10] MEDS: LEVEMIR (INSULIN DETEMIR) 1 UNITS/0.01ML SC ×2 (08:23→21:46)
[2017-12-10] MEDS: predniSONE 10 MG TAB PO (08:24)
[2017-12-10] MEDS: HumaLOG INSULIN (NovoLOG) PER UNIT SC ×4 (08:24→21:47)
[2017-12-10] MEDS: METOPROLOL TART 50 MG TAB PO (08:24)
[2017-12-10 16:52] LABS: BEDSIDE GLUCOSE 347 MG/DL (70-105)
[2017-12-10] MEDS: WARFARIN SOD 5 MG TAB PO (17:16)
[2017-12-10 19:40] LABS: BEDSIDE GLUCOSE 256 MG/DL (70-105)
[2017-12-10] MEDS: ASPIRIN 81 MG ENTERIC TAB PO (21:44)
[2017-12-10] MEDS: DULoxetine 30 MG CAP (CYMBALTA) PO (21:44)
[2017-12-10] MEDS: SITagliptin 50 MG TAB (JANUVIA) PO (21:45)
[2017-12-10] MEDS: LOSARTAN 50 MG TAB PO (21:45)
[2017-12-10] MEDS: FUROSEMIDE 40 MG TAB PO (21:45)
[2017-12-10] MEDS: OMEPRAZOLE 20 MG CAP PO (21:45)
[2017-12-10] MEDS: ATORVASTATIN 20 MG TAB PO (21:45)
[2017-12-10] MEDS: amLODIPine 5 MG TAB PO (21:46)
[2017-12-11 07:07] LABS: BEDSIDE GLUCOSE 205 MG/DL (70-105)
[2017-12-11] MEDS: SYMBICORT 160/4.5MCG INHALER 6GM INH ×2 (07:20→20:22)
[2017-12-11 07:21] LABS: INR 2.37; PROTHROMBIN TIME 26.4 SECONDS (12.1-14.4)
[2017-12-11] MEDS: LEVEMIR (INSULIN DETEMIR) 1 UNITS/0.01ML SC ×2 (09:09→21:34)
[2017-12-11] MEDS: BISOPROLOL FUMARATE 10 MG TAB PO (09:09)
[2017-12-11] MEDS: DOCUSATE SODIUM 100 MG CAP PO ×2 (09:09→21:36)
[2017-12-11] MEDS: predniSONE 20 MG TAB PO (09:09)
[2017-12-11] MEDS: HumaLOG INSULIN (NovoLOG) PER UNIT SC ×4 (09:10→21:34)
[2017-12-11 11:24] LABS: BEDSIDE GLUCOSE 241 MG/DL (70-105)
[2017-12-11 17:30] LABS: BEDSIDE GLUCOSE 339 MG/DL (70-105)
[2017-12-11 17:40] LABS: BEDSIDE GLUCOSE 308 MG/DL (70-105)
[2017-12-11] MEDS: WARFARIN SOD 5 MG TAB PO (17:43)
[2017-12-11 20:59] LABS: BEDSIDE GLUCOSE 347 MG/DL (70-105)
[2017-12-11] MEDS: LOSARTAN 50 MG TAB PO (21:35)
[2017-12-11] MEDS: ASPIRIN 81 MG ENTERIC TAB PO (21:35)
[2017-12-11] MEDS: ATORVASTATIN 20 MG TAB PO (21:35)
[2017-12-11] MEDS: amLODIPine 5 MG TAB PO (21:35)
[2017-12-11] MEDS: AMIODARONE 200 MG TAB (PACERONE) PO (21:36)
[2017-12-11] MEDS: DULoxetine 30 MG CAP (CYMBALTA) PO (21:36)
[2017-12-11] MEDS: FUROSEMIDE 40 MG TAB PO (21:36)
[2017-12-11] MEDS: OMEPRAZOLE 20 MG CAP PO (21:36)
[2017-12-11] MEDS: SITagliptin 50 MG TAB (JANUVIA) PO (21:36)
[2017-12-12 07:02] LABS: INR 2.29; PROTHROMBIN TIME 25.7 SECONDS (12.1-14.4)
[2017-12-12] MEDS: SYMBICORT 160/4.5MCG INHALER 6GM INH (07:36)
[2017-12-12 08:36] LABS: BEDSIDE GLUCOSE 212 MG/DL (70-105)
[2017-12-12] MEDS: HumaLOG INSULIN (NovoLOG) PER UNIT SC (08:40)
[2017-12-12] MEDS: predniSONE 20 MG TAB PO (08:41)
[2017-12-12] MEDS: LEVEMIR (INSULIN DETEMIR) 1 UNITS/0.01ML SC (08:41)
[2017-12-12] MEDS: DOCUSATE SODIUM 100 MG CAP PO (08:45)
[2017-12-12] MEDS: BISOPROLOL FUMARATE 10 MG TAB PO (08:45)
[2017-12-13] MEDS ORDERED: predniSONE 10 MG TAB PO (09:00)
== END 2017-12-12 11:10 | disposition home or self-care (01) | DRG 920 ==
LOC: M MS5PR 23:40 → M ED 17:20 → M MS5PR 12-09 21:43 → M ED INP 22:39
PROVIDERS: Hospitalist
DX: J95.72 Accidental puncture and laceration of a respiratory system organ or structure during other procedure (principal); I13.0 Hypertensive heart and chronic kidney disease with heart failure and stage 1 through stage 4 chronic kidney disease, or unspecified chronic kidney disease; Z68.41 Body mass index [BMI] 40.0-44.9, adult; I50.32 Chronic diastolic (congestive) heart failure; E11.22 Type 2 diabetes mellitus with diabetic chronic kidney disease; R06.00 Dyspnea, unspecified; E78.5 Hyperlipidemia, unspecified; N18.3 Chronic kidney disease, stage 3 (moderate); E66.01 Morbid (severe) obesity due to excess calories; I25.10 Atherosclerotic heart disease of native coronary artery without angina pectoris; F32.9 Major depressive disorder, single episode, unspecified; M10.9 Gout, unspecified; E55.9 Vitamin D deficiency, unspecified; F41.9 Anxiety disorder, unspecified; I48.91 Unspecified atrial fibrillation; Z79.82 Long term (current) use of aspirin; Z79.4 Long term (current) use of insulin; Z79.01 Long term (current) use of anticoagulants; Z95.1 Presence of aortocoronary bypass graft; Z79.899 Other long term (current) drug therapy; Z79.51 Long term (current) use of inhaled steroids; Z88.1 Allergy status to other antibiotic agents; Z95.2 Presence of prosthetic heart valve; Z96.641 Presence of right artificial hip joint

== ENCOUNTER 2017-12-26 08:12 | Outpatient (RCR) | payer MEDICARE, BC | END 2018-01-20 | LOC: M CR 08:12 | DX: Z95.1 Presence of aortocoronary bypass graft (principal) | CPT/HCPCS: 93798 ==

== ENCOUNTER → 2018-01-03 | Outpatient (CLI) | payer MEDICARE, BC ==
[~2018-01-03] MED LIST changes: -/AMLO25TA PO; -/HCTZ25TA PO; -/PRAV20TA PO; -ALLO15TA GT; -AMIODIPINE PO; -ASPI325T PO; -ATOR80TA59 PO; -BENZ100C5 PO; -BISO5TAB5 PO; -CARV6.25 PO; -CHLO125TA PO; -CHLO25TA PO; -COLA100C5 PO; -CORE25TA PO; -COUM1TAB17 PO; -COUM2.5T17 PO; -CYMB1CAP PO; -CYMB1CAP4 PO; -DULO1CAP PO; +E-Z-GAS II EFFERVESCENT PACKET (SODIUM BICARB./CITRIC ACID/SIMETHICONE) As Ordered; +E-Z-HD 98% w/w 340GM SUSP BTL As Ordered; +E-Z-PAQUE 96% w/w SUSP 176GM BTL As Ordered; -FLUT1SPR2 INH; -FURO10EL PO; -FURO20TA2 PO; -GLIP5TAB8 PO; -GLUC500T PO; -HYDR50TA2 PO; -Hygroton PO; -INSUDET SC; -INSULANT SC; -INSULANT SQ; -IPRA6SP INH; -IPRASOL4 INH; -JANU100T PO; -LANTINJ4 SC; -LIPI80TA PO; -METF1000 PO; -METF10004 PO; -MICA40TA PO; -MICA80TA PO; -MILKSUS PO; -OSEL30CA PO; -OSEL75CA PO; -PERC5TAB12 PO; -PRAV80TA2 PO; -PRED20TA PO; -PRIL40CA PO; -SENO8.6T5 PO; -TELM1TAB2 PO; -TYLE167L PO; -TYLE650T30 PO; -ZEBE5TAB PO; -ZITH500T PO; -ZYLO300T4 PO; -duoneb INH
== END ==
LOC: M RAD 08:59
DX: K31.84 Gastroparesis (principal); K21.9 Gastro-esophageal reflux disease without esophagitis; K57.10 Diverticulosis of small intestine without perforation or abscess without bleeding
CPT/HCPCS: 74245

== ENCOUNTER → 2018-01-23 | Outpatient (REF) | payer MEDICARE, BC ==
[~2018-01-23] MED LIST changes: +/AMLO25TA PO; +/HCTZ25TA PO; +/PRAV20TA PO; +ALBU17IN2 INH; +ALLO15TA GT; +AMIO200T PO; +AMIODIPINE PO; +AMLO5TAB6 PO; +ASPI1TAB PO; +ASPI325T PO; +ASPI81TAEC PO; +ATOR80TA59 PO; +BENZ-18 PO; +BISO10TA PO; +BISO5TAB5 PO; +CARV6.25 PO; +CEFD1CAP8 PO; +CEFD300CAP PO; +CHLO125TA PO; +CHLO25TA PO; +COLA100C5 PO; +CORE25TA PO; +COUM1TAB17 PO; +COUM2.5T17 PO; +CYMB1CAP PO; +CYMB1CAP4 PO; +DOCU100C16 PO; +DOCU100C27 PO; +DULO1CAP PO; +DULO1CAP2 PO; -E-Z-GAS II EFFERVESCENT PACKET (SODIUM BICARB./CITRIC ACID/SIMETHICONE) As Ordered; -E-Z-HD 98% w/w 340GM SUSP BTL As Ordered; -E-Z-PAQUE 96% w/w SUSP 176GM BTL As Ordered; +FLUT1SPR2 INH; +FURO10EL PO; +FURO20TA2 PO; +GLIP5TAB8 PO; +GLUC500T PO; +HYDR50TA2 PO; +Hygroton PO; +INSUDET SC; +INSULANT SC; +INSULANT SQ; +IPRA0.00 INH; +IPRA0.00 NEB; +IPRA6SP INH; +JANU100T; +JANU100T PO; +KEFL250C11 PO; +LANTINJ4 SC; +LASI40TA9 PO; +LIPI80TA PO; +LOSA50TA88 PO; +MAPA325T3 PO; +METF1000 PO; +METF10004; +METF10004 PO; +METO50TA7 PO; +MICA40TA PO; +MICA80TA PO; +MILK120011 PO; +OMEP40CA2 PO; +OSEL30CA PO; +OSEL75CA PO; +OXYC1TAB23 PO; +PERC5TAB12 PO; +PRAV80TA2 PO; +PRED10TA2 PO; +PRED20TA PO; +PRIL40CA PO; +REGL5TAB2 PO; +SENO8.6T5 PO; +SYMB16INH INH; +TELM1TAB37 PO; +TRAM50TA2 PO; +TYLE167L PO; +TYLE650T30 PO; +VENTAER INH; +VITA100066 PO; +WARF-18 PO; +WARF-23 PO; +ZEBE5TAB PO; +ZITH500T PO; +ZITHTAB PO; +ZYLO300T6 PO; +duoneb INH
[2018-01-23 14:19] LABS: CREATININE FOR GFR 1.43 MG/DL (0.70-1.30); GLOMERULAR FILTRATION RATE 53.9 (>56)
[2018-01-23 14:58] LABS: HEMOGLOBIN A1c 8.6 %
== END ==
LOC: M SFHCADAM 10:10
PROVIDERS: ATTEND Family Medicine
DX: E11.65 Type 2 diabetes mellitus with hyperglycemia (principal); N18.3 Chronic kidney disease, stage 3 (moderate)

== ENCOUNTER 2018-02-16 14:56 | Outpatient (RCR) | payer MEDICARE, BC ==
--- NOTE | 2018-02-15 08:33 | CARECAPL ---
Assessment Account #s: Re-Assessment II General Diagnoses: CABG, AVR Date of event: Jul 25, 2017 Physician: Amber Jimenez MD Allergies: Coded Allergies: Piperacillin (Verified Allergy, Intermediate, RASH/HIVES, 10/30/17) Tazobactam (Verified Allergy, Intermediate, RASH/HIVES, 10/30/17) Date Entered Program: Dec 26, 2017 Risk strat for cardiac event: Moderate Exercise Date: Feb 15, 2018 Assessment: Re-Assessment II Exercise Prescription Modalities initiated: Treadmill, Nustep, Arm Aerometer, Dumbells, Recumbent Bike Frequency: 2-3 Duration (Minutes) minutes total exercise a day. work intervals in minutes. rest intervals in minutes. Functional Capacity Goal Sustained Metabolic Equivalent of a task (MET) goal of for minutes. Intensity: 3-Moderate Progression (METS) Increase by: METS every: sessions Angina with ex: No Resistance Training: Yes Weight (pounds): 4 Reps: 8-12 Medications Scheduled Amiodarone HCl (Amiodarone HCl), 200 MG PO Q2D, (Reported) Amlodipine Besylate (Amlodipine Besylate), 5 MG PO QHS, (Reported) Aspirin (Aspirin EC), 81 MG PO QHS, (Reported) Atorvastatin Calcium (Atorvastatin Calcium), 80 MG PO QHS, (Reported) Bisoprolol Fumarate (Zebeta), 10 MG PO DAILY Budesonide/Formoterol (Symbicort 160-4.5 Mcg/Act), 2 PUFF INH BID, (Reported) Docusate Sodium (Docusate Sodium), 100 MG PO BID, (Reported) Duloxetine Hcl (Duloxetine HCl), 30 MG PO QHS, (Reported) Furosemide (Lasix), 40 MG PO QHS, (Reported) Insulin Glargine (Lantus Solostar), 70 UNIT SC BID, (Reported) Losartan Potassium (Losartan Potassium), 50 MG PO QHS, (Reported) Metformin Hydrochloride (Metformin HCl), 1,000 MG PO BID, (Reported) Omeprazole (Omeprazole), 40 MG PO QHS, (Reported) Sitagliptin Phosphate (Januvia), 100 MG PO QHS, (Reported) Warfarin Sod (Warfarin Sodium), 5 MG PO QHS, (Reported) Scheduled PRN Acetaminophen (Mapap), 975 MG PO Q6H PRN for PAIN, (Reported) Albuterol Sulfate (Ventolin Hfa), 2 PUFFS INH Q4H PRN for SHORTNESS OF BREATH, (Reported) Oxycodone/Acetaminophen (Oxycodone/Acetaminophen 5-325 mg), 1 TAB PO Q4HP PRN for PAIN OR FEVER, (Reported) Current BP 142/80 Med Change: No Intervention Home exercise: Type (walking, hand weights, join local gym), Frequency (5-7 x a week), Duration (30-60 minutes) Resistance Training: Yes Education: Self pulse, Ex safety, S/S to report, Low NA diet, BP medication, RPE Scale, Equipment orientation, warm up/cool down, Understand BP, Physical Active Education Goals Met: Yes Target Goals Individual exercise Rx (1) BP 140/90 or 130/80 if DM or CKD (1) Aerobic active 30+min 5 days per week (1) Nutrition Date: Feb 15, 2018 Assessment: Re-Assessment II Med Change: No Medication Change: No Current Weight (pounds): 299 Weight Goal smaller portions better choices Education Eating Healthy Target goal LDL-C<100 if triglycerides are >200 Non-HDL-C should be <130 (1) LDL-C<70 for high risk patients (4) HbA1c<7% (1) BMI<25 Waist cir<40in M/<35in F (1) Education Date: Feb 15, 2018 Assessment: Re-Assessment II Intervention Attended education classes: Yes Education: CAD, Risk factors, med compliance, cardiac A&P, Angina S/S Education Goals Met: Yes Target Goals Complete cessation of tobacco use (1). Psychosocial Date: Feb 15, 2018 Assessment: Re-Assessment II Stress Management Class: Yes Uses Stress Management Skills: Yes Education Education: Coping Techniques, S/S depression, Relaxation Techniques Target Goal Assess presence or absence of depression using a valid screening tool (1). Maximize coping skills (2). Positive support system (2). Provider Assessment Session Number: 11 Provider Assessment: No changes Ele Coyle RN Feb 15, 2018 08:33
[~2018-02-16 14:56] MED LIST changes: +AMLO5TAB4 PO; -AMLO5TAB6 PO; +LASI40TA PO; -LASI40TA9 PO; +LOSA50TA73 PO; -LOSA50TA88 PO; -MILK120011 PO; +MILK12002 PO; -TRAM50TA2 PO
== END 2018-02-20 ==
LOC: M CR 14:56
PROVIDERS: ATTEND Internal Medicine Cardiovascular Disease
DX: Z95.1 Presence of aortocoronary bypass graft (principal)

== ENCOUNTER 2018-03-20 10:30 | Outpatient (RCR) | payer MEDICARE, BC ==
--- NOTE | 2018-03-16 11:13 | CARECAPL ---
Assessment Account #s: Re-Assessment II General Diagnoses: CABG, AVR Date of event: Jul 25, 2017 Physician: Amber Jimenez MD Allergies: Coded Allergies: Piperacillin (Verified Allergy, Intermediate, RASH/HIVES, 10/30/17) Tazobactam (Verified Allergy, Intermediate, RASH/HIVES, 10/30/17) Date Entered Program: Dec 26, 2017 Risk strat for cardiac event: Moderate Exercise Date: Mar 16, 2018 Assessment: Followup/Discharge Exercise Prescription Plan TO EDUCATE AND BUILD ENDURANCE THROUGH MONITORED EXERCISE Modalities initiated: Treadmill (METS=3.17/RPE=3), Nustep (METS=2.9/RPE=3), Arm Aerometer (METS=2.5/RPE=3), Dumbells (5#/RPE=3), Recumbent Bike (METS=3.4/RPE=3) Frequency: 3 Duration (Minutes) 30-60 minutes total exercise a day. 10-15 work intervals in minutes. 5 MIN PRN rest intervals in minutes. Functional Capacity Goal Sustained Metabolic Equivalent of a task (MET) goal of 4.0-4.75 for 15-20 minutes. Intensity: 3-Moderate Progression (METS) Increase by: 0.5 METS every: 5 sessions TOLERATED Angina with ex: No Target Heart Rate +35-40 BASED ON BETA NICOLAS THERAPY Resistance Training: Yes Weight (pounds): 5 Reps: 12-15 Hypertension controlled with: Medication Resting 150/80 Peak Exercise BP 160/90 Medications Scheduled Amiodarone HCl (Amiodarone HCl), 200 MG PO Q2D, (Reported) Amlodipine Besylate (Amlodipine Besylate), 5 MG PO QHS, (Reported) Aspirin (Aspirin EC), 81 MG PO QHS, (Reported) Atorvastatin Calcium (Atorvastatin Calcium), 80 MG PO QHS, (Reported) Bisoprolol Fumarate (Zebeta), 10 MG PO DAILY Budesonide/Formoterol (Symbicort 160-4.5 Mcg/Act), 2 PUFF INH BID, (Reported) Docusate Sodium (Docusate Sodium), 100 MG PO BID, (Reported) Duloxetine Hcl (Duloxetine HCl), 30 MG PO QHS, (Reported) Furosemide (Lasix), 40 MG PO QHS, (Reported) Insulin Glargine (Lantus Solostar), 70 UNIT SC BID, (Reported) Losartan Potassium (Losartan Potassium), 50 MG PO QHS, (Reported) Metformin Hydrochloride (Metformin HCl), 1,000 MG PO BID, (Reported) Omeprazole (Omeprazole), 40 MG PO QHS, (Reported) Sitagliptin Phosphate (Januvia), 100 MG PO QHS, (Reported) Warfarin Sod (Warfarin Sodium), 5 MG PO QHS, (Reported) Scheduled PRN Acetaminophen (Mapap), 975 MG PO Q6H PRN for PAIN, (Reported) Albuterol Sulfate (Ventolin Hfa), 2 PUFFS INH Q4H PRN for SHORTNESS OF BREATH, (Reported) Oxycodone/Acetaminophen (Oxycodone/Acetaminophen 5-325 mg), 1 TAB PO Q4HP PRN for PAIN OR FEVER, (Reported) Current BP 140/76 Med Change: No Intervention Home exercise: Type (WALKING), Frequency (ENCOURAGE 3-5 X /WEEK), Duration (30- 60 MINUTES) Resistance Training: Yes Education: Self pulse, Ex safety, S/S to report, Low NA diet, BP medication, RPE Scale, Equipment orientation, warm up/cool down, Understand BP, Physical Active Education Goals Met: Yes Target Goals Individual exercise Rx (1) BP 140/90 or 130/80 if DM or CKD (1) Aerobic active 30+min 5 days per week (1) Nutrition Date: Mar 16, 2018 Assessment: Followup/Discharge Lipid- med/supplement ATORVASTATIN Med Change: No Diabetes Diabetes: Yes Fasting Blood Sugar: 128 Diabetes medication METFORMIN/JANUVIA Monitor Blood Sugar at home: Yes Medication Change: No Blood sugar in range: Yes Weight Management Weight (lbs): 300 Special Diet: low salt, low-fat Current Weight (pounds): 300 Intervention Icu Registered Nurse Consult: No Nurse/patient discussion: Yes Dietary Goals SMALLER PORTIONS/HEART HEALTHY CHOICES Diet Class: Yes Referral to Diabetes education: No Referral to lipid clinic: No Referral to weight mangement p: No Education S&S hypo/hyper glycemia, Relate Diabetes in CAD, Eating Healthy Education Goals Met: Yes Target goal LDL-C<100 if triglycerides are >200 Non-HDL-C should be <130 (1) LDL-C<70 for high risk patients (4) HbA1c<7% (1) BMI<25 Waist cir<40in M/<35in F (1) Education Date: Mar 16, 2018 Assessment: Followup/Discharge Learning Barriers: ready Family Support: Yes Tobacco use: No Tobacco Use Smokeless tobacco: No Intervention Referral to smoking cessation: No Individual education and couns: No Tobacco Adjunct: No Education class schedule given: No Attended education classes: No Education: CAD, Risk factors, med compliance, cardiac A&P, Angina S/S, Sexuality Education Goals Met: Yes Target Goals Complete cessation of tobacco use (1). Psychosocial Date: Mar 16, 2018 Assessment: Followup/Discharge Intervention Physician Consult: No Physician Referral: No Med Change: No Uses Stress Management Skills: Yes Education Education: Coping Techniques, S/S depression, Relaxation Techniques Education Goals Met: Yes Target Goal Assess presence or absence of depression using a valid screening tool (1). Maximize coping skills (2). Positive support system (2). Patient/Program Goal Preventative Medication: Yes Aspirin, Yes Beta blockade, Yes Statin/OTR lipid Lowering Fall Risk Assess: Yes Provider Assessment Session Number: 16 Jay Meyers RN Mar 16, 2018 11:13
--- NOTE | 2018-03-20 09:39 | CARECAPL ---
General Diagnoses: CABG Date of event: Jul 25, 2017 Physician: KENYA JAMA MD Allergies: Coded Allergies: Piperacillin (Verified Allergy, Intermediate, RASH/HIVES, 10/30/17) Tazobactam (Verified Allergy, Intermediate, RASH/HIVES, 10/30/17) Date Entered Program: Jan 05, 2018 Risk strat for cardiac event: Low Exercise Date: Mar 20, 2018 Assessment: Followup/Discharge Exercise Prescription Modalities initiated: Treadmill (mets 3.17 RPE 3), Nustep (mets 3.9 RPE 3), Arm Aerometer (mets 2.1 RPE 3), Dumbells (5lbs RPE 3), Recumbent Bike (Mets 3.7 RPE 3) Frequency: 2 Duration (Minutes) 30-60 minutes total exercise a day. 15-20 work intervals in minutes. prn rest intervals in minutes. Functional Capacity Goal Sustained Metabolic Equivalent of a task (MET) goal of 4.0-4.75 for 15-20 minutes. Intensity: 3-Moderate Progression (METS) Increase by: 0.5 METS every: 3-5 sessions Angina with ex: No Target Heart Rate Rest + 35-40 Resistance Training: Yes Weight (pounds): 5 Reps: 12-15 Hypertension: No Hypertension controlled with: Medication Resting 124/70 Peak Exercise BP 160/90 Meds bisoprolol, amiodarone, losartan Medications Scheduled Amiodarone HCl (Amiodarone HCl), 200 MG PO Q2D, (Reported) Amlodipine Besylate (Amlodipine Besylate), 5 MG PO QHS, (Reported) Aspirin (Aspirin EC), 81 MG PO QHS, (Reported) Atorvastatin Calcium (Atorvastatin Calcium), 80 MG PO QHS, (Reported) Bisoprolol Fumarate (Zebeta), 10 MG PO DAILY Budesonide/Formoterol (Symbicort 160-4.5 Mcg/Act), 2 PUFF INH BID, (Reported) Docusate Sodium (Docusate Sodium), 100 MG PO BID, (Reported) Duloxetine Hcl (Duloxetine HCl), 30 MG PO QHS, (Reported) Furosemide (Lasix), 40 MG PO QHS, (Reported) Insulin Glargine (Lantus Solostar), 70 UNIT SC BID, (Reported) Losartan Potassium (Losartan Potassium), 50 MG PO QHS, (Reported) Metformin Hydrochloride (Metformin HCl), 1,000 MG PO BID, (Reported) Omeprazole (Omeprazole), 40 MG PO QHS, (Reported) Sitagliptin Phosphate (Januvia), 100 MG PO QHS, (Reported) Warfarin Sod (Warfarin Sodium), 5 MG PO QHS, (Reported) Scheduled PRN Acetaminophen (Mapap), 975 MG PO Q6H PRN for PAIN, (Reported) Albuterol Sulfate (Ventolin Hfa), 2 PUFFS INH Q4H PRN for SHORTNESS OF BREATH, (Reported) Oxycodone/Acetaminophen (Oxycodone/Acetaminophen 5-325 mg), 1 TAB PO Q4HP PRN for PAIN OR FEVER, (Reported) Intervention Education: Self pulse, Ex safety, S/S to report, Low NA diet, BP medication, RPE Scale, Equipment orientation, warm up/cool down, Understand BP, Physical Active Target Goals Individual exercise Rx (1) BP 140/90 or 130/80 if DM or CKD (1) Aerobic active 30+min 5 days per week (1) Nutrition Date: Mar 20, 2018 Assessment: Followup/Discharge Lipid- med/supplement lipitor Med Change: No Diabetes Diabetes: No Fasting Blood Sugar: 106 Medication Change: No Weight Management Weight (lbs): 300 Height (inches): 70.5 Waist Circumference (Inches): 54 BMI: 43.04 Diet Access Tool: Rate your plate (not completed) Intervention Diet Class: Yes Referral to Diabetes education: No Referral to lipid clinic: No Referral to weight mangement p: No Education S&S hypo/hyper glycemia, Relate Diabetes in CAD, Eating Healthy Education Goals Met: Yes Target goal LDL-C<100 if triglycerides are >200 Non-HDL-C should be <130 (1) LDL-C<70 for high risk patients (4) HbA1c<7% (1) BMI<25 Waist cir<40in M/<35in F (1) Education Date: Mar 20, 2018 Assessment: Followup/Discharge Learning Barriers: cognitive (age related) Knowledge Test Score: 9 Family Support: Yes Tobacco use: No Intervention Education: tobacco triggers, CAD, Risk factors, med compliance, cardiac A&P, Angina S/S, Sexuality Education Goals Met: Yes Target Goals Complete cessation of tobacco use (1). Psychosocial Date: Mar 20, 2018 Psych Test (Initial/Discharge) Tool Used: CESD Score: 14 Intervention Physician Consult: No Physician Referral: No Med Change: No Stress Management Class: Yes Uses Stress Management Skills: Yes Education Education: Coping Techniques, S/S depression, Relaxation Techniques Education Goals Met: Yes Target Goal Assess presence or absence of depression using a valid screening tool (1). Maximize coping skills (2). Positive support system (2). Patient/Program Goal Preventative Medication: Yes Aspirin, Yes Beta blockade, Yes Statin/OTR lipid Lowering Fall Risk Assess: No Provider Assessment Session Number: 17 Provider Assessment: No changes Sri Doyle RN Mar 20, 2018 09:39
[~2018-03-20 10:30] MED LIST changes: -AMLO5TAB4 PO; +AMLO5TAB6 PO; -LASI40TA PO; +LASI40TA9 PO; -LOSA50TA73 PO; +LOSA50TA88 PO; +MILK120011 PO; -MILK12002 PO
== END 2018-03-23 ==
LOC: M CR 10:30
PROVIDERS: ATTEND Internal Medicine Cardiovascular Disease
DX: Z95.1 Presence of aortocoronary bypass graft (principal)

== ENCOUNTER 2018-03-29 13:55 | Outpatient (RCR) | payer SELFPAY ==
[2018-04-04] MEDS ORDERED: TRAM50TA2 PO (21:43)
== END 2018-04-20 ==
LOC: M CR 13:55
PROVIDERS: ATTEND Internal Medicine Cardiovascular Disease
DX: Z95.1 Presence of aortocoronary bypass graft (principal)

== ENCOUNTER 2018-04-04 20:56 | Emergency (ER) | payer MEDICARE, BC ==
[~2018-04-04] VITALS: Ht 177.8 cm; Wt 136.4 kg
[2018-04-04 21:16] VITALS: BP 154/81
[2018-04-04] MEDS ORDERED: TRAM50TA2 PO (21:43)
[2018-04-04] MEDS ORDERED: traMADol 50 MG TAB PO ONE (21:45)
--- NOTE | 2018-04-05 07:45 | REP ---
Right shoulder three views: There is no fracture or dislocation. There is an osteophyte along the inferior margin of the distal clavicle, the acromioclavicular joint is otherwise unremarkable. The acromioclavicular joint is unremarkable. There are no calcifications or foreign bodies. Impression: No fracture or dislocation. Osteophyte of the distal clavicle at its inferior margin. Electronically Signed by Silvano Alexander MD 04/05/2018 07:36 A
== END 2018-04-04 22:20 | disposition home or self-care (01) ==
LOC: M ED 20:56
DX: S46.811A Strain of other muscles, fascia and tendons at shoulder and upper arm level, right arm, initial encounter (principal); W00.0XXA Fall on same level due to ice and snow, initial encounter; Y92.019 Unspecified place in single-family (private) house as the place of occurrence of the external cause

== ENCOUNTER 2018-04-14 12:25 | Day surgery (SDC) | payer MEDICARE, BC ==
[~2018-04-14] VITALS: Ht 177.8 cm; Wt 137.9 kg
[~2018-04-14 12:25] MED LIST changes: +LIDOCAINE 2% INJ 100 MG/5 ML SDV (FOR ANES.) As Ordered ONE; +NS 1,000 ML IV ONE; +PROPOFOL 200 MG/20 ML VIAL As Ordered ONE; +TRAM50TA2 PO
--- NOTE | 2018-04-14 14:47 | ROOR ---
Patient Name: Kyle Alva Procedure Date: 04/14/2018 2:30 PM Date of : 1960 Age: 57 Room: [facility] Gender: Male Note Status: Finalized Procedure: Upper GI endoscopy Indications: Surveillance for malignancy due to personal history of Mattson's esophagus, Heartburn, Suspected gastroparesis Providers: Bobby CASE MD Referring MD: Hemant Wooten MD Requesting Provider: Medicines: Monitored Anesthesia Care Complications: No immediate complications. Procedure: Pre-Anesthesia Assessment: - The heart rate, respiratory rate, oxygen saturations, blood pressure, adequacy of pulmonary ventilation, and response to care were monitored throughout the procedure. The Endoscope was introduced through the mouth, and advanced to the second part of duodenum. The upper GI endoscopy was accomplished without difficulty. The patient tolerated the procedure well. Findings: The Z-line was irregular and was found 39 cm from the incisors. This was biopsied with a cold forceps for evaluation to rule out Mattson's Esophagus. The exam of the esophagus was otherwise normal. The entire examined stomach was normal. (large volume, compliant) The examined duodenum was normal. Impression: - Z-line irregular, 39 cm from the incisors (Short segment <1 cm barretts esophagus). Biopsied. - Esophagus is otherwise normal. - Normal stomach. - Normal examined duodenum. Recommendation: - Use Prilosec (omeprazole) 20 mg PO BID indefinitely. - Repeat upper endoscopy for surveillance based on pathology results. - Repeat upper endoscopy in 3 years for surveillance. - Gastroparesis diet: - Eat smaller, more frequent meals throughout the day. - Low fat diet. - Liquid/soft foods are tolerated better than solid foods. - Low fiber/well cooked vegetables are tolerated better than high fiber/fibrous foods/raw vegetables. - Avoid medications that inhibit gastric/intestinal motility such as narcotic medications. - Resume Coumadin (warfarin) at prior dose today. Refer to managing physician for further adjustment of therapy. Bobby Case MD Bobby CASE MD 04/14/2018 2:46:39 PM This report has been signed electronically. Number of Addenda: 0 Note Initiated On: 04/14/2018 2:30 PM Estimated Blood Loss: Estimated blood loss: none.
[2018-04-14 15:20] VITALS: BP 143/88
== END 2018-04-14 15:22 | disposition home or self-care (01) ==
LOC: M OPP 12:25
PROVIDERS: ATTEND Internal Medicine Gastroenterology
DX: K22.70 Barrett's esophagus without dysplasia (principal); R12 Heartburn; K22.8 Other specified diseases of esophagus

== ENCOUNTER → 2018-04-24 | Outpatient (REF) | payer BC ==
[~2018-04-24] MED LIST changes: -LIDOCAINE 2% INJ 100 MG/5 ML SDV (FOR ANES.) As Ordered ONE; -NS 1,000 ML IV ONE; -PROPOFOL 200 MG/20 ML VIAL As Ordered ONE
[2018-04-24 12:36] LABS: HEMOGLOBIN 12.4 g/dl (13.5-17.5); MEAN CORPUSCULAR HEMOGLOBIN 28.9 pg (27.0-33.0); MEAN CORPUSCULAR HGB CONC 33.5 g/dl (32.0-36.5); MEAN CORPUSCULAR VOLUME 86.2 fl (80.0-96.0); PLATELET COUNT, AUTOMATED 169 10^3/uL (150-450); RED BLOOD COUNT 4.29 10^6/uL (4.30-6.10); WHITE BLOOD COUNT 7.4 10^3/uL (4.0-10.0)
[2018-04-24 12:50] LABS: ALBUMIN 3.5 GM/DL (3.2-5.2); BILIRUBIN,TOTAL 0.5 MG/DL (0.2-1.0); CALCIUM LEVEL 8.5 MG/DL (8.5-10.1); CHOLESTEROL RISK RATIO 3.742 (<5); CREATININE FOR GFR 1.48 MG/DL (0.70-1.30); GLOMERULAR FILTRATION RATE 51.8 (>56); POTASSIUM SERUM 4.3 MEQ/L (3.5-5.1); TOTAL PROTEIN 7.2 GM/DL (6.4-8.2); URIC ACID 7.5 MG/DL (3.5-7.2)
[2018-04-24 12:56] LABS: HEMOGLOBIN A1c 8.5 %
[2018-04-24 13:06] LABS: MALB URINE SIEMENS 32.1 MG/L
== END ==
LOC: M SFHCADAM 07:23
PROVIDERS: ATTEND Family Medicine
DX: N18.3 Chronic kidney disease, stage 3 (moderate) (principal); E11.65 Type 2 diabetes mellitus with hyperglycemia; E78.2 Mixed hyperlipidemia; M10.9 Gout, unspecified

== ENCOUNTER 2018-06-15 19:20 | Emergency (ER) | payer MEDICARE, BC ==
[~2018-06-15] VITALS: Ht 177.8 cm; Wt 138.6 kg
[~2018-06-15 19:20] MED LIST changes: -/AMLO25TA PO; -/HCTZ25TA PO; -/PRAV20TA PO; -ALLO15TA GT; +ALLO300T2 GT; +ASPI-1 PO; -ASPI1TAB PO; +ASPI81TA26 PO; -BISO10TA PO; +BISO10TA13 PO; +HYDR-3644 PO; +NORV2TAB PO; +PRAV1TAB39 PO
[2018-06-15 21:49] VITALS: BP 130/65
--- NOTE | 2018-06-16 08:50 | REP ---
RIGHT KNEE SERIES: Four views right knee performed. Metallic internal fixation is seen in the femur. No acute fracture or dislocation is seen. There is diffuse joint space narrowing with mild subchondral sclerosis and spurring. IMPRESSION: No fracture or dislocation. Electronically Signed by Silvano Arnett MD 06/16/2018 12:40 P
--- NOTE | 2018-06-16 08:53 | REP ---
RIGHT FEMUR: AP and lateral views of the right femur were performed. There is a right hi prosthesis with an intramedullary mirian extending into the mid shaft of the femur. A metallic and cerclage wire is seen in the intertrochanteric region. Another metallic plate with multiple metallic screws and cerclage wiring are seen in the mid to distal femur. Heterotopic calcifications are seen in the region of the hip joint. I see no acute fracture or dislocation. IMPRESSION: Metallic internal fixation with no acute fracture or dislocation. Electronically Signed by Silvano Arnett MD 06/16/2018 12:41 P
== END 2018-06-15 22:03 | disposition home or self-care (01) ==
LOC: M ED 19:20
DX: S70.11XA Contusion of right thigh, initial encounter (principal); W22.8XXA Striking against or struck by other objects, initial encounter; Y92.89 Other specified places as the place of occurrence of the external cause; Y99.0 Civilian activity done for income or pay; Z96.641 Presence of right artificial hip joint; I51.9 Heart disease, unspecified; Z95.1 Presence of aortocoronary bypass graft; Z88.8 Allergy status to other drugs, medicaments and biological substances; Z88.1 Allergy status to other antibiotic agents; Z79.899 Other long term (current) drug therapy; Z79.4 Long term (current) use of insulin; Z79.82 Long term (current) use of aspirin; Z79.01 Long term (current) use of anticoagulants

== ENCOUNTER → 2018-08-28 | Outpatient (REF) | payer BC ==
[~2018-08-28] MED LIST changes: -DULO1CAP PO; -DULO1CAP2 PO; +DULO1CAP4 PO; +DULO1CAP5 PO
[2018-08-28 12:42] LABS: HEMATOCRIT 37.7 % (42.0-52.0); HEMOGLOBIN 12.7 g/dl (13.5-17.5); MEAN CORPUSCULAR HEMOGLOBIN 30.2 pg (27.0-33.0); MEAN CORPUSCULAR HGB CONC 33.7 g/dl (32.0-36.5); MEAN CORPUSCULAR VOLUME 89.8 fl (80.0-96.0); PLATELET COUNT, AUTOMATED 163 10^3/uL (150-450); WHITE BLOOD COUNT 7.1 10^3/uL (4.0-10.0)
[2018-08-28 12:51] LABS: ALBUMIN 3.4 GM/DL (3.2-5.2); BILIRUBIN,TOTAL 0.4 MG/DL (0.2-1.0); CALCIUM LEVEL 9.4 MG/DL (8.5-10.1); CHOLESTEROL RISK RATIO 3.611 (<5); CREATININE FOR GFR 1.46 MG/DL (0.70-1.30); GLOMERULAR FILTRATION RATE 52.6 (>56); POTASSIUM SERUM 4.5 MEQ/L (3.5-5.1); TOTAL PROTEIN 6.9 GM/DL (6.4-8.2); URIC ACID 4.7 MG/DL (3.5-7.2)
[2018-08-28 14:08] LABS: HEMOGLOBIN A1c 9.8 %
== END ==
LOC: M SFHCADAM 08:04
PROVIDERS: ATTEND Family Medicine
DX: N18.3 Chronic kidney disease, stage 3 (moderate) (principal); E11.65 Type 2 diabetes mellitus with hyperglycemia; E78.2 Mixed hyperlipidemia; M10.9 Gout, unspecified

== ENCOUNTER → 2018-11-30 | Outpatient (REF) | payer MEDICARE, BC ==
[~2018-11-30] MED LIST changes: -ALBU17IN2 INH; -BISO5TAB5 PO; +BISO5TAB9 PO; -OMEP40CA2 PO; +OMEP40CA97 PO; +PROV108A INH
[2018-11-30 13:24] LABS: CALCIUM LEVEL 9.2 MG/DL (8.8-10.2); CREATININE FOR GFR 1.57 MG/DL (0.70-1.30); GLOMERULAR FILTRATION RATE 48.2 (>49); POTASSIUM SERUM 4.7 MEQ/L (3.5-5.1)
[2018-11-30 14:10] LABS: HEMOGLOBIN A1c 9.3 %
== END ==
LOC: M SFHCADAM 09:39
PROVIDERS: ATTEND Physician Assistant
DX: E11.65 Type 2 diabetes mellitus with hyperglycemia (principal)
CPT/HCPCS: 80048; 83036; 90732; G0009; G0463

== ENCOUNTER → 2018-12-22 | Outpatient (REF) | payer MEDICARE, BC ==
[2018-12-22 16:03] LABS: CALCIUM LEVEL 9.2 MG/DL (8.8-10.2); CREATININE FOR GFR 1.65 MG/DL (0.70-1.30); GLOMERULAR FILTRATION RATE 45.5 (>49); POTASSIUM SERUM 4.4 MEQ/L (3.5-5.1)
== END ==
LOC: M SFHCADAM 14:12
PROVIDERS: ATTEND Physician Assistant
DX: E11.65 Type 2 diabetes mellitus with hyperglycemia (principal); I11.0 Hypertensive heart disease with heart failure; E06.1 Subacute thyroiditis; N18.3 Chronic kidney disease, stage 3 (moderate)
CPT/HCPCS: 80048; G0463

== ENCOUNTER → 2019-02-20 | Outpatient (CLI) | payer MEDICARE, BC ==
[2019-02-20 10:05] LABS: HEMATOCRIT 38.1 % (42.0-52.0); HEMOGLOBIN 12.4 g/dl (13.5-17.5); MEAN CORPUSCULAR HEMOGLOBIN 30.2 pg (27.0-33.0); MEAN CORPUSCULAR HGB CONC 32.5 g/dl (32.0-36.5); MEAN CORPUSCULAR VOLUME 92.7 fl (80.0-96.0); PLATELET COUNT, AUTOMATED 182 10^3/uL (150-450); RED BLOOD COUNT 4.11 10^6/uL (4.30-6.10); WHITE BLOOD COUNT 8.5 10^3/uL (4.0-10.0)
[2019-02-20 10:26] LABS: CREATININE FOR GFR 1.76 MG/DL (0.70-1.30)
[2019-02-20 10:27] LABS: ALBUMIN 3.7 GM/DL (3.2-5.2); BILIRUBIN,TOTAL 0.3 MG/DL (0.2-1.0); CALCIUM LEVEL 9.1 MG/DL (8.8-10.2); GLOMERULAR FILTRATION RATE 42.3 (>49); TOTAL PROTEIN 7.2 GM/DL (6.4-8.2)
[2019-02-20 11:07] LABS: HEMOGLOBIN A1c 8.2 %
== END ==
LOC: M PLALAB 07:58
PROVIDERS: ATTEND Physician Assistant
DX: E11.65 Type 2 diabetes mellitus with hyperglycemia (principal); I10 Essential (primary) hypertension; N18.3 Chronic kidney disease, stage 3 (moderate)

== ENCOUNTER → 2019-05-21 | Outpatient (REF) | payer MEDICARE, BC ==
[~2019-05-21] MED LIST changes: +BISO5TAB14 PO; -BISO5TAB9 PO
[2019-05-21 10:42] LABS: HEMATOCRIT 37.7 % (42.0-52.0); HEMOGLOBIN 12.6 g/dl (13.5-17.5); MEAN CORPUSCULAR HGB CONC 33.4 g/dl (32.0-36.5); MEAN CORPUSCULAR VOLUME 92.9 fl (80.0-96.0); PLATELET COUNT, AUTOMATED 205 10^3/uL (150-450); RED BLOOD COUNT 4.06 10^6/uL (4.30-6.10); WHITE BLOOD COUNT 8.4 10^3/uL (4.0-10.0)
[2019-05-21 11:05] LABS: ALBUMIN 3.7 GM/DL (3.2-5.2); BILIRUBIN,TOTAL 0.3 MG/DL (0.2-1.0); CALCIUM LEVEL 9.1 MG/DL (8.8-10.2); CREATININE FOR GFR 1.74 MG/DL (0.70-1.30); GLOMERULAR FILTRATION RATE 42.8 (>49); POTASSIUM SERUM 4.8 MEQ/L (3.5-5.1); TOTAL PROTEIN 7.5 GM/DL (6.4-8.2)
[2019-05-21 11:07] LABS: HEMOGLOBIN A1c 7.9 %
== END ==
LOC: M SFHCADAM 08:07
PROVIDERS: ATTEND Physician Assistant
DX: E11.65 Type 2 diabetes mellitus with hyperglycemia (principal); N18.3 Chronic kidney disease, stage 3 (moderate)

== ENCOUNTER 2019-09-05 11:18 | Inpatient (IN) | payer MEDICARE, BC ==
[~2019-09-05] VITALS: Ht 177.8 cm; Wt 142.3 kg
[~2019-09-05 11:18] MED LIST changes: +ACET325T42 PO; -MAPA325T3 PO
[2019-09-05] MEDS ORDERED: ZYLO300T6 PO (12:02)
[2019-09-05] MEDS ORDERED: SPIR-10 PO (12:02)
[2019-09-05 12:18] LABS: BASO % 0.4 % (0.0-1.0); EOS # 0.2 10^3/uL (0.0-0.5); EOS % 2.8 % (0.0-3.0); HEMATOCRIT 35.7 % (42.0-52.0); HEMOGLOBIN 12.2 g/dl (13.5-17.5); LYMPH # 1.7 10^3/uL (1.5-5.0); LYMPH % 20.8 % (24.0-44.0); MEAN CORPUSCULAR HEMOGLOBIN 31.2 pg (27.0-33.0); MEAN CORPUSCULAR HGB CONC 34.2 g/dl (32.0-36.5); MEAN CORPUSCULAR VOLUME 91.3 fl (80.0-96.0); MONO # 0.5 10^3/uL (0.0-0.8); MONO % 6.5 % (0.0-5.0); NEUTROPHILS # 5.7 10^3/uL (1.5-8.5); NEUTROPHILS % 68.3 % (36.0-66.0); PLATELET COUNT, AUTOMATED 166 10^3/uL (150-450); RED BLOOD COUNT 3.91 10^6/uL (4.30-6.10); WHITE BLOOD COUNT 8.3 10^3/uL (4.0-10.0)
[2019-09-05 12:29] LABS: INR 2.8; PROTHROMBIN TIME 29.4 SECONDS (11.8-14.0)
[2019-09-05 12:30] LABS: PARTIAL THROMBOPLASTIN TIME 33.4 SECONDS (25.0-38.4)
[2019-09-05 13:07] LABS: BLOOD UREA NITROGEN 46 MG/DL (7-18); CALCIUM LEVEL 9.1 MG/DL (8.8-10.2); CARBON DIOXIDE LEVEL 24 MEQ/L (21-32); CHLORIDE LEVEL 106 MEQ/L (98-107); CK-MB VALUE MASS 22.3 NG/ML (<3.6); CPK CREATINE PHOSPHOKINASE 1129 U/L (39-308); GLOMERULAR FILTRATION RATE 36.5 (>49); GLUCOSE, FASTING 208 MG/DL (70-100); MB/CK RELATIVE INDEX 1.98 (< OR =4); POTASSIUM SERUM 5.2 MEQ/L (3.5-5.1); SODIUM LEVEL 137 MEQ/L (136-145); TROPONIN I < 0.02 NG/ML (< 0.10)
[2019-09-05] MEDS ORDERED: NS 1,000 ML IV SCH (13:33)
[2019-09-05] MEDS ORDERED: ASPIRIN 81 MG CHEW TABLET PO ONE (14:00)
[2019-09-05] MEDS ORDERED: BISO10TA14 PO (14:11)
[2019-09-05] MEDS ORDERED: OMEP1CAP73 PO (14:11)
[2019-09-05] MEDS ORDERED: LANTINJ4 SC (14:11)
[2019-09-05] MEDS ORDERED: LORazepam 2 MG/ML VIAL IV STA (14:13)
[2019-09-05] MEDS ORDERED: GLUCOSE 4GM CHEW TABLET PO PRN (14:15)
[2019-09-05] MEDS ORDERED: DEXTROSE 50% 50 ML SYRINGE IV PRN (14:15)
[2019-09-05] MEDS ORDERED: GLUCAGON INJ 1MG VIAL SC PRN (14:15)
[2019-09-05] MEDS ORDERED: FURO40TA2 PO (14:22)
[2019-09-05] MEDS ORDERED: VITAD1000T PO (14:22)
--- NOTE | 2019-09-05 14:32 | HPEPDOC ---
General Date of Admission 09/05/19 Date of Service: Sep 05, 2019 Chief Complaint The patient is a 58-year-old male admitted with a reason for visit of Vision Changes. Source: Patient Timing/Duration: 4-6 hours Severity: Moderate Associated Symptoms: Dizziness History of Present Illness Patient is 58 years old male with past medical history of coronary artery diseases, morbid obesity, diabetes presented to the hospital with diplopia. Patient stated that 4-6 hours ago he developed sweating with diplopia. Patient stated that when he was outside working in his garden he developed double vision. He denied any lightheadedness, fever or chills. He stated that he never had these symptoms before. He denied any weakness or numbness. In emergency room CT head didn't show any abnormal findings. Creatinine was elevated to 2.0, CPK 1100, potassium 5.2, patient does not have any leukocytosis. EKG did not show an y acute ischemic changes. During my interview patient continues to have diplopia. Home Medications Scheduled Allopurinol (Zyloprim) 300 Mg Tablet, 300 MG PO DAILY, (Reported) Amiodarone HCl (Amiodarone HCl) 200 Mg Tab, 200 MG PO DAILY, (Reported) Amlodipine Besylate (Amlodipine Besylate) 5 Mg Tab, 5 MG PO QHS, (Reported) UNABLE TO VERIFY THIS MEDICATION WITH PHARMACY. WAITING FOR CALL BACK FROM DR. JAMA OFFICE. Aspirin (Aspirin EC) 81 Mg Tabec, 81 MG PO QHS, (Reported) Atorvastatin Calcium (Atorvastatin Calcium) 80 Mg Tab, 80 MG PO QHS, (Reported) Bisoprolol Fumarate (Bisoprolol Fumarate) 10 Mg Tablet, 10 MG PO DAILY, (Reported) Cholecalciferol (Vitamin D3) (Vitamin D3) 1,000 Unit Tablet, 2,000 UNITS PO QHS, (Reported) Duloxetine Hcl (Duloxetine HCl) 30 Mg Cap, 30 MG PO QHS, (Reported) Furosemide (Furosemide) 40 Mg Tablet, 40 MG PO DAILY, (Reported) Insulin Glargine,Hum.rec.anlog (Lantus Solostar) 100 Unit/Ml Inj, 70 UNIT SC QHS, (Reported) Insulin Glargine,Hum.rec.anlog (Lantus Solostar) 100 Unit/1 Ml Insuln.pen, 80 UNITS SC QAM, (Reported) Losartan Potassium (Losartan Potassium) 50 Mg Tab, 50 MG PO QHS, (Reported) Metformin HCl (Metformin HCl) 1,000 Mg Tab, 1,000 MG PO BID, (Reported) Omeprazole (Omeprazole) 20 Mg Capsule.dr, 20 MG PO BID, (Reported) Sitagliptin Phosphate (Januvia) 100 Mg Tab, 100 MG PO DAILY, (Reported) Spironolactone (Spironolactone) 25 Mg Tablet, 25 MG PO DAILY, (Reported) Warfarin Sodium (Warfarin Sodium) 2.5 Mg Tab, 5 MG PO QHS, (Reported) Scheduled PRN Docusate Sodium (Docusate Sodium) 100 Mg Cap, 100 MG PO BID PRN for CONSTIPATION, (Reported) Allergies Coded Allergies: lovastatin (Verified Allergy, Unknown, 09/05/19) piperacillin (Verified Allergy, Unknown, 09/05/19) ramipril (Verified Allergy, Unknown, 09/05/19) tazobactam (Verified Allergy, Unknown, 09/05/19) Past Medical History Medical History CAD--PTCA/STENT RCA 05/25; NST104/01, 04/04: FIXED INFERIOR DEFECT, CAD--PTCA/STENT RCA 05/25; NST104/01, 04/04: FIXED INFERIOR DEFECT, EF 67%; 01/04 NST FIXED INF DEFECT, EF 64%, NO CHANGE 2011; NST 02/01: EF 57%, NO REVERSIBILITY; 02/05 STRESS SPECT - LOW RISK, LV SIZE HAS INCREASED C/W 2013, BUT MYOCARDIAL PERFUSION IS UNCHANGED; CARDIAC CATH 08/08 75% LCX, 80% RCA, 90% DX, 80% DISTAL LAD CABG X 3 [facility] 08/08 (WHEELER TO LAD, JERRY TO OBTUSE MARGINAL; SVG PDA TYPE 2 DM VITAMIN D DEFICIENCY GERD/BARRETTS ESOPHAGUS MORBID OBESITY HYPERLIPIDEMIA NON-COMPLIANCE AO STENOSIS--BICUSPID AV-LAST ECHO 04/04--EF 70%, MILD , LVH; ECHO 08/04: INC BENIGNO, INC AORTIC OUTFLOW OBSTRUCTION; ECHO 05/2016 -BICUSPID AORTIC VALVE, MILD AORTIC STENOSIS. MODERATE INSUFF, EF = 65%; BIOPROSTHETIC AORTIC VALVE REPLACEMENT 08/08 [facility] MAGNS EASE 27 MM; ECHO 12/08 EF 70%, LAE 44 MM, NL BIOPROSTHETIC AV FXN; ECHO 12/09: EF 70%, NL BIOPROSTHETIC VALVE FXN GOUT RT SCIATICA PERIODIC LIMB MOVEMENT DISORDER TUBULAR ADENOMA COLON POLYP 06/30 SHEN'S ESOPHAGUS PER EGD 07/2013, 04/11 CKD STAGE 3 - FOLLOWED BY DR. IVORY NEPHROLOGY LICA 50-69% 08/08 PARALYZED LEFT HEMIDIAPHRAGM S/P CABG Surgical History R HIP REPLACEMENT 03/2007 R KNEE - ARTHROSCOPIC 1999 PTCA/STENT RCA 05/25 COLONOSCOPY--TUBULAR ADENOMA 06/30 ROTATER CUFF 2012 EGD - SEVERE REFLUX ESOPHAGITIS - BIOPSY CONFIRMS BARRETTS ESOPHAGUS/COLONOSCOPY - NON-BLEEDING INTERNAL HEMORRHOIDS 07/2013 REVISION RT HIP REPLACEMENT AFTER FALL/FX OF PROSTHESIS MANUELA 05/05 LEFT HIP REPLACEMENT 03/01/16 CABG X 3, BIOPROSTHETIC AVR MAGNA EASE 27 MM 07/25/17 Family History FATHER: 72 YRS, UNKNOWN, OLD AGE MOTHER: 48 YRS, CANCER, UNSURE TYPE SIBLINGS: ALIVE DAUGHTER(S): ALIVE, NO KNOWN MEDICAL PROBLEMS Social History * Smoker: Denies Alcohol: Denies Drugs: denies A-FIB/CHADSVASC A-FIB History Current/History of A-Fib/PAF?: No Current PO Anticoag Therapy: No Review of Systems Constitutional: Denies: Chills, Fever Eyes: Reports: Vision change (diplopia); Denies: Pain ENT: Denies: Head Aches Skin: Denies: Rash Pulmonary: Denies: Dyspnea, Cough Cardiovascular: Denies: Chest Pain Gastrointestinal: Denies: Nausea, Vomiting Genitourinary: Denies: Dysuria Hematologic: Denies: Bruising Endocrine: Denies: Polydipsia Musculoskeletal: Denies: Neck Pain, Back Pain Neurological: Reports: Other Symptoms (diplopia); Denies: Weakness, Numbness Psych: Reports: Mood Normal Physical Examination General Exam: Positive: Alert, Cooperative Eye Exam: Positive: PERRLA, Conjunctiva & lids normal ENT Exam: Positive: Atraumatic Neck Exam: Positive: Supple; Negative: JVD Chest Exam: Positive: Clear to auscultation Heart Exam: Positive: Rate Normal Telemetry: Positive: No significant arrhythmia Abdomen Exam: Positive: Normal bowel sounds Extremity Exam: Negative: Clubbing Skin Exam: Positive: Nl turgor and temperature Neuro Exam: Positive: Strength at 5/5 X4 ext, Cranial Nerves 3-12 NL, Other (diplopia b/l) Psych Exam: Positive: Mental status NL Vital Signs Vital Signs Date Time Temp Pulse Resp B/P (MAP) Pulse Ox O2 Delivery O2 Flow Rate FiO2 09/05/19 12:45 67 17 159/67 (97) 96 Room Air 09/05/19 11:19 97.2 Laboratory Data Labs 24H Laboratory Tests 2 09/05/19 12:03: Immature Granulocyte % (Auto) 1.2, Neutrophils (%) (Auto) 68.3H, Lymphocytes (%) (Auto) 20.8L, Monocytes (%) (Auto) 6.5H, Eosinophils (%) (Auto) 2.8, Basophils (%) (Auto) 0.4, Neutrophils # (Auto) 5.7, Lymphocytes # (Auto) 1.7, Monocytes # (Auto) 0.5, Eosinophils # (Auto) 0.2, Basophils # (Auto) 0.0, Nucleated Red Blood Cells % (auto) 0.0, Prothrombin Time 29.4H, Prothromb Time International Ratio 2.80, Activated Partial Thromboplast Time 33.4, Anion Gap 7L, Glomerular Filtration Rate 36.5L, Calcium Level 9.1, Total Creatine Kinase 1129H, Creatine Kinase MB 22.3H, Creatine Kinase MB Relative Index 1.98, Troponin I < 0.02 CBC/BMP Laboratory Tests 09/05/19 12:03 Assessment/Plan Patient is 58 years old male with past medical history of coronary artery diseases, morbid obesity, diabetes presented to the hospital with diplopia. Patient stated that 4-6 hours ago he developed sweating with diplopia. Patient stated that when he was outside working in his garden he developed double vision. He denied any lightheadedness, fever or chills. He stated that he never had these symptoms before. He denied any weakness or numbness. In emergency room CT head didn't show any abnormal findings. Creatinine was elevated to 2.0, CPK 1100, potassium 5.2, patient does not have any leukocytosis. EKG did not show any acute ischemic changes. During my interview patient continues to have diplopia. Problems (1) Diplopia Status: Acute Problem Text: Unknown etiology Binocular diplopia, patient doesn't have nystagmus, convergence intact, PERRLA, EOMI Differential diagnosis includes thyroid associated ophthalmopathy, neoplasm, diabetic neuropathy, vascular malformation, posterior stroke, neuro degenerative diseases, medication side effect We'll proceed with MRI and MRA We will check TSH I talked to neurologist Dr Melgar, he recommended MRI and MRA (2) Rhabdomyolysis Status: Acute Problem Text: Most likely secondary to dehydration IV fluid Urine analysis for myoglobin (3) Diabetes Status: Chronic Problem Text: Insulin sliding scale Detemir twice a day Diabetes diet (4) ANNABEL (acute kidney injury) Status: Acute Problem Text: Most likely prerenal due to dehydration Continue IV fluid Continue to monitor (5) Hyperkalemia Status: Acute Problem Text: We will hold spironolactone and lisinopril for now We'll repeat BMP Plan / VTE VTE Prophylaxis Ordered?: Yes RAQUEL REBOLLEDO DO Sep 05, 2019 14:32
[2019-09-05] MEDS ORDERED: DOCUSATE SODIUM 100 MG CAP PO PRN (14:45)
--- NOTE | 2019-09-05 15:58 | REP ---
REASON: Stroke-like symptoms. The latest prior for comparison, 12/08/2018. The technique utilized in obtaining the radiograph has magnified the cardiac silhouette and accentuated the interstitial markings. Once again, there has been previous median sternotomy, status quo. Once again, there is cardiomegaly accentuated by technique. There is no significant change in appearance of the lung faust. No acute patchy parenchymal opacities or pleural effusions have developed. There is no significant change in appearance of the osseous structures. IMPRESSION: Stable-appearing chronic changes. There is no evidence of acute cardiopulmonary disease. Electronically Signed by Gaurav Evans DO 09/05/2019 04:11 P
--- NOTE | 2019-09-05 15:58 | REPVR ---
PROCEDURE INFORMATION: Exam: MR Head Without Contrast Exam date and time: 09/05/2019 3:15 PM Age: 58 years old Clinical indication: Other: Diplopa; Additional info: Diplopia TECHNIQUE: Imaging protocol: MR of the head without contrast. COMPARISON: CT Head without contrast 09/05/2019 12:18 PM FINDINGS: Brain: No acute infarct identified on the diffusion-weighted imaging. No parenchymal hemorrhage. No evidence of brain parenchymal edema or intracranial mass effect. No significant white matter disease. Ventricles: No ventriculomegaly. Bones/joints: Unremarkable. Sinuses: Normal as visualized. No acute sinusitis. Mastoid air cells: Normal as visualized. No mastoid effusion. Orbits: Unremarkable. Soft tissues: A right suboccipital nodule could represent a complex sebaceous cyst or lymph node, this measures approximately 12 x 9 mm. IMPRESSION: No acute findings. Electronically signed by: Nohemy Allred On 09/05/2019 15:57:49 PM
--- NOTE | 2019-09-05 16:01 | REP ---
REASON: Stroke-like symptoms. PRIORS: None. TECHNIQUE: 4.5 mm contiguous transaxial sections were obtained from the skull base to the cerebral convexities with thin cuts through the posterior fossa without the administration of intravenous contrast. FINDINGS: The ventricles and sulci are consistent with the patient's age. There are no extra-axial fluid collections. There is no mass effect. The deep cerebral white matter is consistent with the patient's age. The orbital and petrous structures, cerebellopontine angles, and posterior fossa are unremarkable. The sella turcica, cavernous, and paracavernous structures are essentially unremarkable. The visualized portions of the paranasal sinuses and mastoid air cells are clear. Images of the skull base show no gross abnormality. IMPRESSION: Essentially unremarkable CT examination of the brain. Electronically Signed by Gaurav Evans DO 09/05/2019 04:11 P
--- NOTE | 2019-09-05 16:02 | REPVR ---
PROCEDURE INFORMATION: Exam: MR Angiogram Head Without Contrast, Arteries Exam date and time: 09/05/2019 3:15 PM Age: 58 years old Clinical indication: Other: Diplopa; Additional info: Diplopia TECHNIQUE: Imaging protocol: MR angiogram head without contrast. Exam focused on the arteries. 3D rendering: MIP and/or 3D reconstructed images were created by the technologist. COMPARISON: CT Head without contrast 09/05/2019 12:18 PM FINDINGS: Anterior cerebral arteries: Intracranial segment is patent with no significant stenosis. No aneurysm. Right internal carotid artery: Intracranial segment is patent with no significant stenosis. No aneurysm. Right middle cerebral artery: No occlusion or significant stenosis. No aneurysm. Right posterior cerebral artery: origin. No occlusion or significant stenosis. No aneurysm. Right vertebral artery: Dominant. No occlusion or significant stenosis. No aneurysm. Left internal carotid artery: Intracranial segment is patent with no significant stenosis. No aneurysm. Left middle cerebral artery: No occlusion or significant stenosis. No aneurysm. Left posterior cerebral artery: No occlusion or significant stenosis. No aneurysm. Left vertebral artery: Hypoplastic. No occlusion or significant stenosis. No aneurysm. Basilar artery: No occlusion or significant stenosis. No aneurysm. IMPRESSION: No stenosis, occlusion or aneurysm. Electronically signed by: Nohemy Allred On 09/05/2019 16:02:15 PM
--- NOTE | 2019-09-05 16:11 | REP ---
CAROTID ULTRASOUND: Real-time ultrasound evaluation and duplex Doppler interrogation of the extracranial carotid vasculature is performed. There is mild plaquing and narrowing in both carotid bulbs extending into the internal and external carotid arteries. Luminal narrowing is less than 50%. There is no evidence of hemodynamically significant stenosis of either internal carotid artery. Normal flow velocities are seen. The vertebral arteries are not visualized bilaterally. RIGHT LEFT Peak systolic velocity ICA 61.5 cm/s 87.3 cm/s End diastolic velocity ICA 19.9 cm/s 23.1 cm/s Peak systolic velocity CCA 90 cm/s 86.2 cm/s Peak systolic velocity ECA 119.9 cm/s 95.7 cm/s ICA/CCA ratio 0.68 1.01 IMPRESSION: Bilateral luminal narrowing of the internal carotid arteries less than 50%. No evidence of hemodynamically significant stenosis. Electronically Signed by Silvano Arnett MD 09/05/2019 04:02 P
[2019-09-05 16:50] VITALS: BP 153/84
[2019-09-05 17:40] VITALS: BP 154/83
[2019-09-05] MEDS: HumaLOG INSULIN (NovoLOG) PER UNIT SC SCH ×2 (17:48→20:15)
--- NOTE | 2019-09-05 17:51 | ECGEPIP ---
[facility] - ED Test Date: 2019-09-05 Pat Name: FELICIA OLIVA Department: Room: [place] [address] Gender: Male Emt Intermediate: yaz : 1960 Requested By: RODRI Brothers Order Number: [id number] Reading MD: Lorenza Patel Measurements Intervals [place] Rate: 68 P: -22 CO: 223 QRS: 30 QRSD: 103 T: 45 QT: 402 QTc: 428 Interpretive Statements SINUS RHYTHM WITH FIRST DEGREE AV BLOCK MODERATE VOLTAGE CRITERIA FOR LVH, CONSIDER NORMAL VARIANT INFERIOR MYOCARDIAL INFARCTION, PROBABLY OLD DECREASED RATE 12/08/17 Electronically Signed on 09-05-2019 17:51:35 EDT by Lorenza Patel
[2019-09-05] MEDS: NS 1,000 ML IV SCH (18:16)
[2019-09-05 18:25] LABS: CALCIUM LEVEL 8.9 MG/DL (8.8-10.2); CREATININE FOR GFR 1.72 MG/DL (0.70-1.30); GLOMERULAR FILTRATION RATE 43.4 (>49); POTASSIUM SERUM 4.6 MEQ/L (3.5-5.1)
[2019-09-05] MEDS: ATORVASTATIN 20 MG TAB PO SCH (20:14)
[2019-09-05] MEDS: DULoxetine 30 MG CAP (CYMBALTA) PO SCH (20:14)
[2019-09-05] MEDS: WARFARIN SOD 5MG TAB PO SCH (20:14)
[2019-09-05] MEDS: OMEPRAZOLE 20 MG CAP PO SCH (20:14)
[2019-09-05] MEDS: VITAMIN D 1,000 INTERNATIONAL UNITS TABLET PO SCH (20:14)
[2019-09-05] MEDS: HEPARIN SOD (PORCINE) 5000UNITS/ML VIAL (J1644 PER 1000UNITS) SC SCH (20:15)
[2019-09-05 22:00] VITALS: BP 160/80
[2019-09-06] MEDS: NS 1,000 ML IV SCH ×3 (01:41→21:01)
[2019-09-06 06:00] VITALS: BP 149/78
[2019-09-06 06:09] LABS: HEMATOCRIT 34.4 % (42.0-52.0); HEMOGLOBIN 11.5 g/dl (13.5-17.5); MEAN CORPUSCULAR HEMOGLOBIN 30.5 pg (27.0-33.0); MEAN CORPUSCULAR HGB CONC 33.4 g/dl (32.0-36.5); MEAN CORPUSCULAR VOLUME 91.2 fl (80.0-96.0); PLATELET COUNT, AUTOMATED 149 10^3/uL (150-450); RED BLOOD COUNT 3.77 10^6/uL (4.30-6.10)
[2019-09-06 06:32] LABS: CALCIUM LEVEL 8.7 MG/DL (8.8-10.2); CREATININE FOR GFR 1.57 MG/DL (0.70-1.30); GLOMERULAR FILTRATION RATE 48.2 (>49); MAGNESIUM LEVEL 1.8 MG/DL (1.8-2.4); POTASSIUM SERUM 4.3 MEQ/L (3.5-5.1)
[2019-09-06] MEDS: HumaLOG INSULIN (NovoLOG) PER UNIT SC SCH ×4 (08:53→21:01)
[2019-09-06] MEDS: OMEPRAZOLE 20 MG CAP PO SCH ×2 (08:53→21:01)
[2019-09-06] MEDS: allopurinoL 300 MG TAB PO SCH (08:53)
[2019-09-06] MEDS: FUROSEMIDE 40 MG TAB PO SCH (08:53)
[2019-09-06] MEDS: HEPARIN SOD (PORCINE) 5000UNITS/ML VIAL (J1644 PER 1000UNITS) SC SCH (08:53)
[2019-09-06] MEDS: bisoproloL fumarate 10 MG TAB PO SCH (08:58)
--- NOTE | 2019-09-06 11:28 | IPNPDOC ---
Text Note Date of Service The patient was seen on 09/06/19. NOTE Patient was seen and examined this morning by me. He denies any overnight hernnado nts. States that his vision has completely normalized. No headaches. PHYSICAL EXAMINATION: General: The patient is awake, alert, oriented x3, sitting up in the bed in no apparent distress. Head and Neck Exam: Extraocular muscles intact. Pupils equally round and yary ctive to light. Mucous membranes are moist. Neck is supple. There is no jugular venous distention (JVD). Cardiovascular: S1 and S2, regular rate. Trace edema of the bilateral lower extremities. Respiratory: Clear auscultation bilaterally Abdomen: Soft. Positive bowel sounds. Nontender. No organomegaly. Musculoskeletal: Clubbing of the fingernails, no cyanosis was noted. Central Nervous System (INFORMATION SYSTEMS SECURITY SPECIALIST): No focal deficit. Power is 5/5 in all extremities. The patient has equal and round pupil, extraocular muscle movement is normal. The field of vision is normal. Convergence and light reflex are normal. No meningeal signs Patient is 58 years old male with past medical history of morbid obesity, diabetes presented to the hospital with diplopia which is describes as double vision, not getting corrected by obligating the vision on one eye. Patient stated that he developed sweating as he was working outside and then this symptomatology started He denied any lightheadedness, any muscle weakness but states that he did feel that he was losing balance. In emergency room CT head didn't show any abnormal findings. Creatinine was elevated to 2.0, CPK 1100, potassium 5.2, likely secondary to rhabdo.. He states that he came to his room in the hospital and the symptoms continued until late night but when he woke up this morning. The symptoms had already gone. He denies any headaches. He denied any fevers, rigors, chills. MRA, MRI, CTA and CT had all have been negative. Neurology has been consulted and we're awaiting their opinion. He does carry a history of diabetes and this could be related to his diabetic neuropathy, especially with optic nerve involvement. We will await neurological recommendations. He'll be continued on telemetry. TIA also will be ruled out and 2-D echo will be ordered today. (1) Diplopia: Not getting corrected by obligating vision on one eye. MRI, MRA, CTA has been all negative. Neurology has been consulted. We will continue to follow with their recommendations. The patient also might need an ophthalmology follow-up as outpatient if there is no neurological cause to it. On my examination, the patient has equal and round pupil, extraocular muscle movement is normal. The field of vision is normal. Convergence and light reflex are normal. No meningeal signs. , TSH, HbA1c will be done, for workup for possible myasthenia gravis. If all other etiologies have been ruled out. (2) Rhabdomyolysis: Likely because of heat exhaustion. We will repeat CK and continue IV fluids. Renal function has been improving. (3) Diabetes: We will get A1c and continue sliding scale insulin. Diabetic diet. (4) ANNABEL (acute kidney injury). Lightly secondary to rhabdo and dehydration. Continue IV fluids. The renal function has been improving. The patient was also slightly hypokalemic, which has resolved. Currently, patient on Lipitor and his Toprol both are on hold. In my opinion the patient does not require to be on Aldactone. She would require reevaluation of his medications on discharge. Disposition. Unknown at this time until neurology sees the patient. VS,Fishbone, I+O VS, Fishbone, I+O Laboratory Tests 09/05/19 12:03 09/05/19 17:46 09/06/19 05:50 Vital Signs Date Time Temp Pulse Resp B/P (MAP) Pulse Ox O2 Delivery O2 Flow Rate FiO2 09/06/19 08:58 67 118/67 09/06/19 06:00 97.4 18 97 Room Air I&O- Last 24 Hours up to 6 AM 09/06/19 05:59 Intake Total 864 ml Output Total 1100 ml Balance -236 ml BRI MURO MD Sep 06, 2019 11:28
[2019-09-06 13:05] LABS: THYROID STIMULATING HORMONE 2.51 uIU/ML (0.358-3.740)
[2019-09-06 14:00] VITALS: BP 120/67
[2019-09-06 15:27] LABS: HEMOGLOBIN A1c 8.2 %
[2019-09-06] MEDS ORDERED: ASPIRIN 81 MG ENTERIC TAB PO SCH (21:00)
[2019-09-06] MEDS: ATORVASTATIN 20 MG TAB PO SCH (21:00)
[2019-09-06] MEDS: DULoxetine 30 MG CAP (CYMBALTA) PO SCH (21:00)
[2019-09-06] MEDS: WARFARIN SOD 5MG TAB PO SCH (21:00)
[2019-09-06] MEDS: VITAMIN D 1,000 INTERNATIONAL UNITS TABLET PO SCH (21:01)
[2019-09-06 22:00] VITALS: BP 121/66
[2019-09-07 06:00] VITALS: BP 164/78
[2019-09-07 06:19] LABS: BASO % 0.5 % (0.0-1.0); EOS # 0.2 10^3/uL (0.0-0.5); EOS % 3.4 % (0.0-3.0); HEMATOCRIT 34.6 % (42.0-52.0); HEMOGLOBIN 11.7 g/dl (13.5-17.5); LYMPH # 1.6 10^3/uL (1.5-5.0); LYMPH % 25.4 % (24.0-44.0); MEAN CORPUSCULAR HEMOGLOBIN 30.8 pg (27.0-33.0); MEAN CORPUSCULAR HGB CONC 33.8 g/dl (32.0-36.5); MEAN CORPUSCULAR VOLUME 91.1 fl (80.0-96.0); MONO # 0.5 10^3/uL (0.0-0.8); MONO % 7.2 % (0.0-5.0); NEUTROPHILS % 62.1 % (36.0-66.0); PLATELET COUNT, AUTOMATED 159 10^3/uL (150-450); WHITE BLOOD COUNT 6.4 10^3/uL (4.0-10.0)
[2019-09-07 06:54] LABS: BILIRUBIN,TOTAL 0.4 MG/DL (0.2-1.0); CALCIUM LEVEL 8.4 MG/DL (8.8-10.2); CREATININE FOR GFR 1.44 MG/DL (0.70-1.30); GLOMERULAR FILTRATION RATE 53.3 (>49); POTASSIUM SERUM 4.4 MEQ/L (3.5-5.1); TOTAL PROTEIN 6.7 GM/DL (6.4-8.2)
[2019-09-07] MEDS ORDERED: AMIODARONE 200 MG TAB (PACERONE) PO SCH (09:00)
[2019-09-07 09:36] VITALS: BP 135/69
[2019-09-07] MEDS: bisoproloL fumarate 10 MG TAB PO SCH (09:36)
[2019-09-07] MEDS: FUROSEMIDE 40 MG TAB PO SCH (09:36)
[2019-09-07] MEDS: allopurinoL 300 MG TAB PO SCH (09:36)
[2019-09-07] MEDS: OMEPRAZOLE 20 MG CAP PO SCH (09:37)
[2019-09-07] MEDS: HumaLOG INSULIN (NovoLOG) PER UNIT SC SCH ×2 (09:37→13:27)
[2019-09-07] MEDS: NS 1,000 ML IV SCH (09:38)
[2019-09-07 09:47] LABS: INR 2.6; PROTHROMBIN TIME 27.7 SECONDS (11.8-14.0)
--- NOTE | 2019-09-07 16:23 | IPN ---
DATE: 09/07/2019 SUBJECTIVE: Patient denies any more changes in vision, diplopia. No blurred vision. MRI of the brain was negative. Awaiting echocardiogram. No other issues per nursing overnight. OBJECTIVE: PHYSICAL EXAMINATION: VITAL SIGNS: Temperature 997.8, pulse 57, respiratory rate 18, blood pressure 164/78, repeat 135/69, 97% on room air. GENERAL: Patient is awake, alert, oriented to person, place, and time. Poor dentition with missing teeth and dental caries. No jugular venous distention (JVD) or thyromegaly. Face is symmetric. Tongue is midline. No jugular venous distention (JVD), thyromegaly, or cervical lymphadenopathy. Thick neck. No carotid bruits noted. Anicteric. No jaundice. No use of respiratory accessory muscles. LUNGS: Clear to auscultation. No wheezes, rales, or rhonchi. HEART: S1, S2, sinus rhythm. No murmurs, rubs, or gallops. ABDOMEN: Obese, Soft, nontender, nondistended. Positive bowel sounds times four quadrants. No rebound. No guarding. EXTREMITIES: Trace edema bilaterally. LABORATORY DATA: White count 6.4, hemoglobin 11, hematocrit 34, platelet count 159. Sodium 137, potassium 4.4, chloride 105, bicarbonate 26, BUN 27, creatinine 1.44, glucose 193. INR of 2.6. PT 27.7. IMAGING STUDIES: MRI of the brain 09/05/2019: No acute findings. MRA of the brain: No stenosis, occlusion, or aneurysm. Carotid Dopplers: Less than 50% bilateral luminal narrowing of internal carotid arteries. No hemodynamically significant stenosis. 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 Imaging studies have been negative, including MRI/MRA of the brain, which have all been negative. ACTIVE ISSUES: 1. Diplopia and dizziness. CVA has been ruled out. Both MRI and MRA of the brain are negative. Neurologist has been consulted. He is resumed on his home dose of aspirin, atorvastatin, and warfarin. 2. Aortic valve replacement, on chronic warfarin, therapeutic. Target is 2.5- 3.5, which is adequate coverage. 3. History of CAD. No acute ischemic changes. Repeat echo has been ordered in order to further evaluate patient's vertigo, rule out transient ischemic attacks (TIA). At this time, patient's symptoms have resolved. 4. Morbid obesity, body mass index (BMI) of 45, complicating care. Possible obstructive sleep apnea (JOSUÉ), currently medically stable and may be discharged home. 5. Type 2 diabetes, on consistent-carbohydrate diet, sliding scale with coverage, and fingersticks every 6 hours.. Appears to be stable. 6. Rhabdomyolysis, most likely due to heat exhaustion. Status post IV fluids and resolved currently. 7. Acute kidney injury, improved to 1.44 today. Resumed on home dose of Lasix. Off of IV fluids. DISPOSITION: Cleared by physical therapy (PT). An echo has been performed. Patient may be discharged home with outpatient followup with his automation architect and neurology. AHSAN
--- NOTE | 2019-09-08 06:14 | ECHO ---
DATE OF PROCEDURE: 09/07/2019 DATE OF : 1960 REFERRING PROVIDER: Dr. Rivera PATIENT LOCATION: Room 4232 REASON FOR STUDY: Transient ischemic attack (TIA). 2-D MEASUREMENTS: IVS: 1.4 cm LV: 4.3 cm LVPW: 1.4 cm LA: 4.9 cm Aorta: 3.9 cm IVC: 2.2 cm DOPPLER MEASUREMENTS: Peak velocity across the aortic valve: 2.0 m/s Peak velocity across the LVOT: 0.7 m/s Peak gradient across the aortic valve: 17 mmHg Mean gradient across the aortic valve: 8 mmHg Mitral E: 0.7 Mitral A: 0.8 Ratio: 0.9 2-D COMMENTS: 1. Mildly increased left ventricular wall thickness with normal left ventricular size and normal global left ventricular systolic function. The estimated left ventricular systolic ejection fraction is 60-65%. 2. Mildly enlarged left atrium. Normal right atrium and right ventricle. 3. The atrial septum appeared to be normal without evidence of defect or shunt. 4. Mildly dilated aortic root at 3.9 cm. 5. No pericardial effusion seen. 6. Mildly calcified aortic valve with mildly restricted leaflet motion. Mildly calcified mitral annulus with normal anterior mitral valve leaflet motion. Normal tricuspid valve. The pulmonic valve and proximal pulmonary artery branches were not well visualized. 7. The inferior vena cava was mildly enlarged, central venous pressure might be elevated. DOPPLER: No significant valvular abnormalities detected. Abnormal relaxation pattern was noted across the mitral valve leaflets as well as the mitral valve annulus consistent with features of grade 1 left ventricular diastolic dysfunction. IMPRESSIONS: 1. Normal global left ventricular systolic function with mild concentric left ventricular hypertrophy. There are some features of grade 1 left ventricular diastolic dysfunction manifested by abnormal relaxation. 2. Aortic valve sclerosis with mild aortic stenosis. No aortic regurgitation. 3. Mitral annulus calcification. A mildly enlarged left atrium was noted at 4.9 cm without evidence of mitral regurgitation or stenosis. 4. Mildly dilated ascending aorta at 3.9 cm. 5. There are some features of elevated central venous pressure, the inferior vena cava was mildly enlarged.
--- NOTE | 2019-09-10 16:24 | DSES ---
DATE OF ADMISSION: 09/05/2019 DATE OF DISCHARGE: 09/07/2019 PRIMARY DISCHARGE DIAGNOSIS: 1. Diplopia and dizziness, cerebrovascular accident (CVA) ruled out on MRI. 2. Aortic valve replacement, on chronic warfarin. 3. History of coronary artery disease. 4. Morbid obesity, body mass index (BMI) of 45. 5. Type 2 diabetes. 6. Rhabdomyolysis, most likely due to heat exhaustion. 7. Acute kidney injury secondary to acute rhabdomyolysis. DISCHARGE MEDICATIONS: - allopurinol 300 mg daily - amiodarone 200 mg by mouth every 2 days - aspirin 81 mg nightly - atorvastatin 80 mg nightly - bisoprolol 10 mg daily - vitamin D3 2000 units nightly - Colace 100 mg twice a day as needed for constipation - duloxetine 30 mg nightly - Lasix 40 mg daily - Lantus insulin 70 units subcu nightly, 80 units every morning - losartan 50 mg nightly - metformin 1 gram twice a day - Prilosec 20 mg twice a day - sitagliptin/Januvia 100 mg daily - spironolactone 25 mg daily - warfarin 5 mg nightly HOSPITAL COURSE: This is a 58-year-old morbidly obese male with BMI of 45, probable obstructive sleep apnea (JOSUÉ), metabolic syndrome, coronary artery disease, morbid obesity, diabetes, hypertension, dyslipidemia, coronary artery disease, stent in the right coronary artery, reflux and Mattson's esophagus, bicuspid aortic valve, left ventricular hypertrophy (LVH), ejection fraction (EF) of 70%, bioprosthetic aortic valve, on chronic warfarin, chronic kidney disease stage III, paralyzed left diaphragm, status post coronary artery bypass graft (CABG), presented to the emergency room (ER) on 09/05/2019, complaints of dizziness and diplopia, which has resolved spontaneously. Patient was not orthostatic when he came in. MRI/MRA of the brain were ordered. He was kept on telemetry. MRI of the brain showed no acute findings, right suboccipital nodule, could represent a complex subcutaneous cyst or lymph node measures 12 x 9 mm. MRA of the brain: No stenosis, occlusion or aneurysm. Carotid Dopplers showed less than 50% bilateral luminal narrowing of the internal carotid arteries. No evidence of hemodynamic significant stenosis. Chest x-ray was stable appearing chronic changes. No evidence of acute cardiopulmonary disease. CT of the head on admission 09/05/[address] of the brain. Patient passed a home safety evaluation, was subsequently discharged home. Vital signs were stable. He had acute kidney injury secondary to rhabdomyolysis with presenting total CK of 1129, discharged CK of 577 with acute kidney injury on chronic kidney disease, presenting creatinine of 2 and discharge creatinine of 1.44. Patient was medically stable. PHYSICAL EXAM ON DISCHARGE. Temperature 97.8, pulse 57, respiratory rate 18, blood pressure 164/78, repeat blood pressure 135/69, 97% on room air. Generally, awake, alert, oriented to person, place and time, poor dentition, missing teeth and dental caries. No jugular venous distention (JVD). Appears disheveled. No thyromegaly. Face is symmetric. Tongue is midline. No JVD, thyromegaly, cervical lymphadenopathy. No carotid bruits. Anicteric sclerae. No stridor. No jaundice. No use of respiratory accessory muscles. Able to speak in full sentences. Lungs are clear to auscultation. No wheezing, rales or rhonchi. Heart: S1, S2, sinus rhythm. Abdomen is obese, soft, distended, positive bowel sounds times four quadrants. No rebound or guarding. No abdominal bruits. Extremities: Trace edema bilateral lower extremities. LABS ON DISCHARGE: White count 6.4, hemoglobin 11, hematocrit 34, platelet count 159. Sodium 137, potassium 4.4, chloride 105, bicarbonate 26, BUN 27, creatinine 1.44, glucose of 193, INR of 2.6, PT 27.7. IMAGING STUDIES: MRI of the brain: No acute intracranial pathology. MRA of the brain: No stenosis, occlusion or aneurysm. Carotid Doppler: Less than 50% bilateral luminary narrowing of internal carotid arteries. No hemodynamically significant stenosis. TIME SPENT ON DISCHARGE: 30 minutes. [facility]
== END 2019-09-07 13:48 | disposition home or self-care (01) | DRG 683 ==
LOC: M ED 11:18 → M ED INP 13:53 → ENRESERV 14:19 → M MSPAV 16:58
PROVIDERS: ADMIT Internal Medicine; ATTEND General Practice
DX: N17.9 Acute kidney failure, unspecified (principal); M62.82 Rhabdomyolysis; Z68.42 Body mass index [BMI] 45.0-49.9, adult; H53.2 Diplopia; E87.5 Hyperkalemia; E66.01 Morbid (severe) obesity due to excess calories; N18.3 Chronic kidney disease, stage 3 (moderate); I25.10 Atherosclerotic heart disease of native coronary artery without angina pectoris; E11.9 Type 2 diabetes mellitus without complications; Z79.899 Other long term (current) drug therapy; Z88.8 Allergy status to other drugs, medicaments and biological substances; E55.9 Vitamin D deficiency, unspecified; M10.9 Gout, unspecified; Z91.19 Patient's noncompliance with other medical treatment and regimen; K21.9 Gastro-esophageal reflux disease without esophagitis; K22.70 Barrett's esophagus without dysplasia; E78.5 Hyperlipidemia, unspecified; Z96.641 Presence of right artificial hip joint; Z96.642 Presence of left artificial hip joint

== ENCOUNTER 2019-10-21 11:41 | Emergency (ER) | payer MEDICARE, BC ==
[~2019-10-21] VITALS: Ht 177.8 cm; Wt 140.9 kg
[~2019-10-21 11:41] MED LIST changes: -AMIO200T PO; +AMIO200T3 PO; +AMLO1TAB24 PO; -AMLO5TAB6 PO; +BISO10TA14 PO; +D31000TA2 PO; +FURO40TA2 PO; +OMEP1CAP73 PO; +SPIR-10 PO
[2019-10-21 12:25] LABS: VENOUS PARTIAL PRESSURE O2 224.4 mmHg (30.0-50.0)
[2019-10-21 12:26] LABS: VENOUS BASE EXCESS -3.2 (-2.0-2.0); VENOUS HCO3 20.1 MEQ/L (23.0-27.0); VENOUS O2 SATURATION 99.4 % (60.0-80.0); VENOUS STANDARD HCO3 21.9 MEQ/L; VENOUS TOTAL CO2 21.1 MEQ/L (24.0-28.0)
[2019-10-21 12:30] LABS: BASO % 0.3 % (0.0-1.0); EOS # 0.2 10^3/uL (0.0-0.5); HEMATOCRIT 36.4 % (42.0-52.0); HEMOGLOBIN 12.3 g/dl (13.5-17.5); LYMPH # 1.4 10^3/uL (1.5-5.0); LYMPH % 18.5 % (24.0-44.0); MEAN CORPUSCULAR HEMOGLOBIN 30.6 pg (27.0-33.0); MEAN CORPUSCULAR HGB CONC 33.8 g/dl (32.0-36.5); MEAN CORPUSCULAR VOLUME 90.5 fl (80.0-96.0); MONO # 0.5 10^3/uL (0.0-0.8); MONO % 6.1 % (0.0-5.0); NEUTROPHILS # 5.5 10^3/uL (1.5-8.5); NEUTROPHILS % 72.2 % (36.0-66.0); PLATELET COUNT, AUTOMATED 177 10^3/uL (150-450); RED BLOOD COUNT 4.02 10^6/uL (4.30-6.10); WHITE BLOOD COUNT 7.6 10^3/uL (4.0-10.0)
[2019-10-21 13:04] LABS: ALBUMIN 3.5 GM/DL (3.2-5.2); ALT/SGPT 46 U/L (12-78); BILIRUBIN,DIRECT 0.1 MG/DL (0.0-0.2); BILIRUBIN,TOTAL 0.5 MG/DL (0.2-1.0); BLOOD UREA NITROGEN 39 MG/DL (7-18); CALCIUM LEVEL 8.7 MG/DL (8.8-10.2); CARBON DIOXIDE LEVEL 22 MEQ/L (21-32); CHLORIDE LEVEL 107 MEQ/L (98-107); CPK CREATINE PHOSPHOKINASE 1048 U/L (39-308); CREATININE FOR GFR 1.81 MG/DL (0.70-1.30); GLOMERULAR FILTRATION RATE 40.9 (>49); GLUCOSE, FASTING 315 MG/DL (70-100); MB/CK RELATIVE INDEX 1.53 (< OR =4); NT-PRO BNP 87 PG/ML (<125); POTASSIUM SERUM 5.1 MEQ/L (3.5-5.1); SODIUM LEVEL 136 MEQ/L (136-145); TOTAL PROTEIN 7.4 GM/DL (6.4-8.2); TROPONIN I < 0.02 NG/ML (< 0.10)
[2019-10-21 13:44] LABS: INR 2.1
[2019-10-21 13:45] LABS: PARTIAL THROMBOPLASTIN TIME 32.7 SECONDS (25.0-38.4)
[2019-10-21] MEDS ORDERED: NS 1,000 ML IV ONE (14:00)
[2019-10-21 16:27] VITALS: BP 133/75
--- NOTE | 2019-11-04 07:32 | ECGEPIP ---
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
--- NOTE | 2019-11-19 10:08 | REP ---
CHEST X-RAY CLINICAL: Shortness of breath. COMPARISON: 09/05/2019. FINDINGS: Mediastinum and cardiac silhouette normal. Evidence for prior sternotomy. Lung faust are clear. No consolidation, effusion, or pneumothorax. Skeletal structures are intact. IMPRESSION: No acute cardiopulmonary process or focal consolidation. MTDD
--- NOTE | 2019-11-19 10:09 | REP ---
NONCONTRAST CHEST CT CLINICAL: Shortness of breath. COMPARISON: 12/01/2017. TECHNIQUE: Axial noncontrast images from the thoracic inlet to the upper abdomen with coronal and sagittal reformations. FINDINGS: Chronic linear fibroatelectatic changes at the left base are again noted along with 6-mm calcified and noncalcified nodules in the right lower lobe (image 46) and calcified right hilar lymph node suggesting sequela of prior granulomatous disease. Cardiomegaly is appreciated with evidence for prior sternotomy and CABG. No pericardial effusion. Tracheobronchial tree is patent. No acute adenopathy. The lung faust are relatively clear and without effusion or pneumothorax. Limited upper abdomen demonstrates normal bilateral adrenal glands and nonobstructing left renal calculus along with cholelithiasis. Surrounding musculoskeletal structures without acute osseous abnormality. IMPRESSION: * Chronic stable changes as described above. * No acute mediastinal or pleural parenchymal process. * Limited upper abdomen demonstrates a nonobstructing left renal calculus and cholelithiasis. MTDD
== END 2019-10-21 16:44 | disposition home or self-care (01) ==
LOC: M ED 11:41
DX: N17.9 Acute kidney failure, unspecified (principal); T88.7XXA Unspecified adverse effect of drug or medicament, initial encounter; N20.0 Calculus of kidney; K80.20 Calculus of gallbladder without cholecystitis without obstruction; I44.0 Atrioventricular block, first degree; I25.10 Atherosclerotic heart disease of native coronary artery without angina pectoris; E11.9 Type 2 diabetes mellitus without complications; E78.5 Hyperlipidemia, unspecified; N18.3 Chronic kidney disease, stage 3 (moderate); G47.33 Obstructive sleep apnea (adult) (pediatric); M10.9 Gout, unspecified; Z95.1 Presence of aortocoronary bypass graft; Z95.2 Presence of prosthetic heart valve; Z79.82 Long term (current) use of aspirin; Z79.4 Long term (current) use of insulin; Z79.01 Long term (current) use of anticoagulants; Z79.899 Other long term (current) drug therapy; Z88.8 Allergy status to other drugs, medicaments and biological substances

== ENCOUNTER → 2019-11-26 | Outpatient (REF) | payer MEDICARE, BC ==
[2019-11-26 15:51] LABS: ALBUMIN 3.3 GM/DL (3.2-5.2); BILIRUBIN,TOTAL 0.4 MG/DL (0.2-1.0); CALCIUM LEVEL 9.1 MG/DL (8.8-10.2); CHOLESTEROL RISK RATIO 3.676 (<5); CREATININE FOR GFR 1.53 MG/DL (0.70-1.30); GLOMERULAR FILTRATION RATE 49.5 (>49); POTASSIUM SERUM 4.9 MEQ/L (3.5-5.1); TOTAL PROTEIN 6.8 GM/DL (6.4-8.2)
== END ==
LOC: M SFHCADAM 08:01
PROVIDERS: ATTEND Physician Assistant
DX: R74.8 Abnormal levels of other serum enzymes (principal)

== ENCOUNTER → 2020-01-01 | Outpatient (REF) | payer MEDICARE, BC | LOC: M SFHCADAM 17:00 | PROVIDERS: ATTEND Physician Assistant | DX: J40 Bronchitis, not specified as acute or chronic (principal); Z20.828 Contact with and (suspected) exposure to other viral communicable diseases | CPT/HCPCS: G0463; U0003 ==

== ENCOUNTER → 2020-01-23 | Outpatient (REF) | payer MEDICARE, BC | LOC: M SFHCADAM 08:02 | PROVIDERS: ATTEND Physician Assistant | DX: R74.8 Abnormal levels of other serum enzymes (principal) ==

== ENCOUNTER → 2020-01-31 | Outpatient (REF) | payer MEDICARE, BC ==
[2020-01-31 13:20] LABS: ALBUMIN 3.7 GM/DL (3.2-5.2); BILIRUBIN,TOTAL 0.4 MG/DL (0.2-1.0); CALCIUM LEVEL 9.3 MG/DL (8.8-10.2); CREATININE FOR GFR 1.85 MG/DL (0.70-1.30); GLOMERULAR FILTRATION RATE 39.8 (>49); POTASSIUM SERUM 4.9 MEQ/L (3.5-5.1); TOTAL PROTEIN 7.2 GM/DL (6.4-8.2)
[2020-01-31 13:39] LABS: HEMOGLOBIN A1c 8.3 %
== END ==
LOC: M SFHCADAM 08:07
PROVIDERS: ATTEND Physician Assistant
DX: E11.21 Type 2 diabetes mellitus with diabetic nephropathy (principal)

== ENCOUNTER → 2020-02-12 | Outpatient (REF) | payer MEDICARE, BC ==
[2020-02-12 13:12] LABS: CREATININE FOR GFR 1.6 MG/DL (0.70-1.30); POTASSIUM SERUM 4.9 MEQ/L (3.5-5.1)
== END ==
LOC: M SFHCADAM 08:33
PROVIDERS: ATTEND Family Medicine
DX: M62.82 Rhabdomyolysis (principal); N18.30 Chronic kidney disease, stage 3 unspecified

== ENCOUNTER 2020-02-17 14:48 | Emergency (ER) | payer MEDICARE, BC ==
[~2020-02-17] VITALS: Ht 185.4 cm; Wt 140.2 kg
[2020-02-17 15:50] LABS: BASO % 0.3 % (0.0-1.0); EOS # 0.1 10^3/uL (0.0-0.5); EOS % 0.9 % (0.0-3.0); HEMATOCRIT 38.4 % (42.0-52.0); HEMOGLOBIN 12.6 g/dl (13.5-17.5); LYMPH # 2.2 10^3/uL (1.5-5.0); MEAN CORPUSCULAR HEMOGLOBIN 29.3 pg (27.0-33.0); MEAN CORPUSCULAR HGB CONC 32.8 g/dl (32.0-36.5); MEAN CORPUSCULAR VOLUME 89.3 fl (80.0-96.0); MONO # 0.6 10^3/uL (0.0-0.8); MONO % 5.7 % (0.0-5.0); NEUTROPHILS # 7.7 10^3/uL (1.5-8.5); NEUTROPHILS % 71.7 % (36.0-66.0); PLATELET COUNT, AUTOMATED 221 10^3/uL (150-450); WHITE BLOOD COUNT 10.8 10^3/uL (4.0-10.0)
--- NOTE | 2020-02-17 16:02 | REP ---
INDICATION: DYSPNEA/COUGH COMPARISON: 10/21/2019 TECHNIQUE: Portable AP view of the chest FINDINGS: The mediastinum and cardiac silhouette are stable and within normal limits for portable technique. Evidence for prior sternotomy and CABG. The lung faust are clear without acute consolidation, effusion, or pneumothorax. Skeletal structures are intact. IMPRESSION: No acute cardiopulmonary process appreciated. <Electronically signed by Jose Armando Sanchez > 02/17/20 [id number]
[2020-02-17 16:45] LABS: BLOOD UREA NITROGEN 31 MG/DL (7-18); CALCIUM LEVEL 8.9 MG/DL (8.8-10.2); CARBON DIOXIDE LEVEL 25 MEQ/L (21-32); CHLORIDE LEVEL 106 MEQ/L (98-107); CPK CREATINE PHOSPHOKINASE 1162 U/L (39-308); CREATININE FOR GFR 1.51 MG/DL (0.70-1.30); GLOMERULAR FILTRATION RATE 50.3 (>49); GLUCOSE, FASTING 145 MG/DL (70-100); MB/CK RELATIVE INDEX 2.41 (< OR =4); NT-PRO BNP 98 PG/ML (<125); POTASSIUM SERUM 4.7 MEQ/L (3.5-5.1); SODIUM LEVEL 138 MEQ/L (136-145); TROPONIN I < 0.02 NG/ML (< 0.10)
[2020-02-17 16:55] VITALS: BP 119/61
[2020-02-17] MEDS ORDERED: DOXY-350 PO (17:20)
[2020-02-17] MEDS ORDERED: VENTAER INH (17:33)
--- NOTE | 2020-02-17 17:54 | ECGEPIP ---
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
== END 2020-02-17 17:53 | disposition home or self-care (01) ==
LOC: M ED 14:48
DX: R05 Cough (principal); F43.20 Adjustment disorder, unspecified; E11.9 Type 2 diabetes mellitus without complications; I25.10 Atherosclerotic heart disease of native coronary artery without angina pectoris; I10 Essential (primary) hypertension; E78.5 Hyperlipidemia, unspecified; K21.9 Gastro-esophageal reflux disease without esophagitis; K22.70 Barrett's esophagus without dysplasia; N18.30 Chronic kidney disease, stage 3 unspecified; Z95.5 Presence of coronary angioplasty implant and graft; Z79.82 Long term (current) use of aspirin; Z79.4 Long term (current) use of insulin; Z79.899 Other long term (current) drug therapy; Z79.01 Long term (current) use of anticoagulants; Z88.8 Allergy status to other drugs, medicaments and biological substances

== ENCOUNTER → 2020-05-19 | Outpatient (REF) | payer MEDICARE, BC ==
[~2020-05-19] MED LIST changes: +ASPI-569 PO; -ASPI81TAEC PO; +DOXY-350 PO
[2020-05-19 12:43] LABS: CREATININE FOR GFR 1.65 MG/DL (0.70-1.30); GLOMERULAR FILTRATION RATE 45.4 (>49); POTASSIUM SERUM 4.8 MEQ/L (3.5-5.1)
[2020-05-19 13:20] LABS: HEMOGLOBIN A1c 7.4 %
== END ==
LOC: M PLALAB 09:37
PROVIDERS: ATTEND Family Medicine
DX: E11.65 Type 2 diabetes mellitus with hyperglycemia (principal)

== ENCOUNTER → 2020-10-16 | Outpatient (REF) | payer MEDICARE, BC ==
[~2020-10-16] MED LIST changes: +OMEP40CA4 PO; -OMEP40CA97 PO
[2020-10-16 13:22] LABS: HEMATOCRIT 37.6 % (42.0-52.0); HEMOGLOBIN 12.5 g/dl (13.5-17.5); MEAN CORPUSCULAR HEMOGLOBIN 30.4 pg (27.0-33.0); MEAN CORPUSCULAR HGB CONC 33.2 g/dl (32.0-36.5); MEAN CORPUSCULAR VOLUME 91.5 fl (80.0-96.0); PLATELET COUNT, AUTOMATED 177 10^3/uL (150-450); RED BLOOD COUNT 4.11 10^6/uL (4.30-6.10); WHITE BLOOD COUNT 9.4 10^3/uL (4.0-10.0)
[2020-10-16 16:05] LABS: ALBUMIN 3.3 GM/DL (3.2-5.2); BILIRUBIN,TOTAL 0.3 MG/DL (0.2-1.0); CALCIUM LEVEL 9.2 MG/DL (8.8-10.2); CREATININE FOR GFR 1.96 MG/DL (0.70-1.30); GLOMERULAR FILTRATION RATE 37.2 (>49); POTASSIUM SERUM 4.7 MEQ/L (3.5-5.1); TOTAL PROTEIN 7.2 GM/DL (6.4-8.2)
[2020-10-16 17:32] LABS: HEMOGLOBIN A1c 8.8 %
== END ==
LOC: M SFHCADAM 08:06
PROVIDERS: ATTEND Family Medicine
DX: E11.21 Type 2 diabetes mellitus with diabetic nephropathy (principal); N18.31 Chronic kidney disease, stage 3a; I10 Essential (primary) hypertension; M54.32 Sciatica, left side

== ENCOUNTER → 2020-10-22 | Outpatient (CLI) | payer MEDICARE, BC ==
--- NOTE | 2020-10-22 10:20 | REP ---
INDICATION: COUGH. COMPARISON: Comparison chest x-ray 02/17/2020. TECHNIQUE: Two views.. FINDINGS: Patient is status post median sternotomy and aortic valve replacement. Heart is mildly enlarged. Cardiothoracic ratio measures 54.3%. Pulmonary vasculature is not increased. Cardiomediastinal silhouette is unchanged. Pleural angles are sharp. There are degenerative changes in the thoracic spine. Lungs are well inflated and clear. IMPRESSION: Mild cardiomegaly status post aortic valve replacement unchanged. Otherwise no acute disease. <Electronically signed by Yassine Pierce > 10/22/20 [id number]
== END ==
LOC: M ADAMS 09:53
PROVIDERS: ATTEND Family Medicine
DX: I51.7 Cardiomegaly (principal); R05 Cough; Z95.2 Presence of prosthetic heart valve
CPT/HCPCS: 71046; G0463

== ENCOUNTER 2020-12-31 08:50 | Emergency (ER) | payer MEDICARE, BC ==
[~2020-12-31] VITALS: Ht 177.8 cm; Wt 143.2 kg
[2020-12-31 08:51] VITALS: BP 144/68
--- OUTSIDE RECORDS SUMMARY | 2020-12-31 08:59 | CCD ---
Author Author [facility] Organization [facility] Address Unknown Phone Unavailable Care Team Providers Care Warehouse Specialist Name Role Phone Hemant Wooten Unavailable PROBLEMS Type Condition ICD9-CM Code [id number] Code Onset Dates Condition S tatus W/U Status Risk SNOMED Code Notes Problem Mixed hyperlipidemia E78.2 Active confirmed 212507501 Problem Chronic diastolic (congestive) heart failure I50.3 2 Active confirmed 908527446 Problem Atherosclerotic heart diseas e of [place] coronary artery without angina pectoris I25.10 Active confirmed 409327660302572 Problem Hypertensive heart disease with heart failure I11. 0 Active confirmed 47827960 Problem Vitamin D deficiency, unspecified E55.9 Active con firmed 79809073 Problem Encounter for screening for malignant neoplasm of prostate Z12.5 Active confirmed 089475414 Problem Morbid (severe) obesity due to excess calories E66 .01 Active confirmed 241700900 Problem Type 2 diabetes mellitus with diabetic autonomic (poly)neuropathy E11.43 Active confirmed 316090207 Problem BMI 40.0-44.9, adult Z68.41 Active confirmed 982186569 Problem Encounter for therapeutic drug level monitoring Z5 1.81 Active confirmed 013509867 Problem Type 2 diabetes mellitus with hyperglycemia E11.65 Active confirmed 019342971926667 Problem Gout, unspecified M10.9 Active confirmed 90 972395 Problem Anxiety F41.9 Active confirmed 44074385 Problem Daytime somnolence R40.0 Active confirmed 1 96229582784 Problem History of coronary artery bypass graft x 3 Z95.1 Active confirmed 556769536 Problem Anemia, unspecified type D64.9 Active confirmed 883216235 Problem PAF (paroxysmal atrial fibrillation) I48.0 Act jesus confirmed 98316726 Problem History of aortic valve replacement with bioprosthetic carlo ve Z95.3 Active confirmed 936679035 Problem 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 Z79.01 A ctive confirmed 869814180 Problem 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 Active confirmed 38482385 Problem Gastroparesis K31.84 Active confirmed 931645 006 Problem De Quervain thyroiditis E06.1 Active confirmed 584117859 Problem Non-traumatic rhabdomyolysis M62.82 Active confirme d 526425953 Problem Left sided sciatica M54.32 Active confirmed 88189287 Problem Depression F32.9 Active confirmed 226833312 Problem Chronic kidney disease, stage 3b N18.32 Active confirmed 736892612 Problem Mattson's esophagus without dysplasia K22.70 Ac tive confirmed 277398993 Problem Status post left hip replacement Z96.642 Active confirmed 563014516 Problem shelter (current) use of insulin Z79.4 Activ e confirmed 060699257 Problem Type 2 diabetes mellitus with diabetic nephropathy E11.21 Active confirmed 133388195 Problem Essential (primary) hypertension I10 Active conf irmed 30240798 Problem Medicare annual wellness visit, subsequent Z00.00 Active confirmed 786997838 ALLERGIES Allergen (clinical drug ingredient) Drug/Non Drug Allergy do cumented on EMR Reaction Allergy Type Onset Date Status Altace 5 Cough Drug Allergy Active lovastatin Lovastatin([facility] Code:[address]-58) Increased CPK Drug Guy rgy Active metoprolol/beta blockers wheezing (admitted 12/08) Non Ronny g Allergy Active Crestor rhabdo (02/09) Non Drug Allergy Acti ve Statins (for Allergy Use Only) rhabdomyolysis Drug Allergy Active Zosyn hives Drug Allergy Active ENCOUNTERS from 1960 to 2020-11-11 Encounter Location Date Provider Diagnosis [facility] [address] [place] [id number] Oct, 2020 Hemant Wooten IMMUNIZATIONS Vaccine Route Administration Date Status Influenza Pharmacy Given Unknown Nov 22, 2018 Adminis tered Influenza 18 yrs & older Flublok IM Intramuscular Nov 30, 2019 Administered Influenza 18 yrs & older Flublok IM Intramuscular Dec 16, 2017 Administered Pneumococcal Adult 0.5mL Pneumovax 23 IM Intramuscular Nov 30 019 Administered Influenza 6mo & up Fluzone Unknown Dec 08, 2015 Refus ed SOCIAL HISTORY Tobacco Use: Social History Observation Description Date Details (start date - stop date) Never Smoker Sex Assigned At : Social History Observation Description Sex Assigned At Unknown Education: Question Answer Notes Level of Education: Finished High School Audit Question Answer Notes Total Score: 0 Interpretation: Alcohol Education Voodoo: Question Answer Notes Voodoo 33 None Drug and Alcohol Question Answer Notes Total Score: 0 Interpretation: No problems reported Alcohol Screening: Question Answer Notes Did you have a drink containing alcohol in the past year? No Points 0 Interpretation Negative BMI Care Goal Follow-Up Question Answer Notes Above Normal BMI Follow-Up Lifestyle education regarding t Tobacco Use: Question Answer Notes Are you a: never smoker never smoker REASON FOR REFERRAL No Information VITAL SIGNS No information MEDICATIONS Medication SIG (Take, Route, Frequency, Duration) Notes Start Da te End Date Status Furosemide 40 MG 1 tablet Orally Tuesday, Tuesday, Tuesday Active Amiodarone HCl 400 MG 1 tablet Orally every other day Active Bisoprolol Fumarate 10 MG 1 tablet Orally Once a day Active One touch ultra blue as directed subcutaneously DX: E11.65 d aily for 30 day(s) June, Active Pen [place] 1/2" 29G X 12MM 1 needle Subcutaneous DX : E11.65 Daily w/Lantus pen for 90 day(s) Active metFORMIN HCl 1000 mg 1 tablet with meals Orally Twice a day for 90 Active Glucometer as directed _ E11.65 for 99 days Nov, Active Doxycycline Hyclate 100 MG 1 capsule Orally bid for 10 day(s) Jan, Not-Taking Lantus SoloStar 100 UNIT/ML as directed Subcutaneous 8 0 units in am, 74 units in pm for 90 day(s) Active Aspirin 81 MG 1 tablet Orally Once a day Active Baby Aspirin Active Coumadin 2.5 MG 5 tablet Orally Once a day for parox at fib post-op CABG; dose managed [facility] Active Vitamin D (Cholecalciferol) 1000 UNIT 2 capsule Orally twice bri ly Nov, Not-Taking Pain Reliever 325 MG 1 tablet as needed Orally every 4 hrs Active Lancets - as directed _ Daily for 30 days Nov, Active Januvia 100MG 1 tablet Orally Once a day Active Omeprazole 20 MG 1 capsule Orally bid for 90 day(s) Active Losartan Potassium 50 MG 1 tablet Orally Once a day Active Cymbalta 30MG 1 capsule Orally Once a day for 90 Active Allopurinol 300 MG TAKE 1 TABLET BY MOUTH ONCE DAILY Orally Once a day for 90 days Active Aldactone 25 mg 1 tablet Orally daily for 90 Active PROCEDURES No Information RESULTS No Results REASON FOR VISIT refill MEDICAL (GENERAL) HISTORY Type Description Date Medical History CAD--PTCA/stent RCA 05/25; NS T104/01, 04/04: fixed inferior defect, EF 67%; 01/04 NST fixed inf defect, EF 64%, no change 2011; NST 02/01: EF 57%, no reversibility; 02/05 Stress SPECT - low risk, LV size has increased c/w 2013, but myocardial perfusion is unchanged; cardiac cath 08/08 75% LCx, 80% RCA, 90% Dx, 80% distal LAD CABG x 3 [facility] 08/08 (WHEELER to LAD, JERRY to obtuse marginal; SVG PDA Medical History Type 2 DM Medical History Vitamin D deficiency Medical History GERD/Barretts Esophagus Medical History morbid obesity Medical History hyperlipidemia-- rhabdo on statins Medical History non-compliance Medical History Ao stenosis--bicuspid AV-las t echo 04/04--EF 70%, mild , LVH; echo 08/04: inc BENIGNO, inc aortic outflow obstruction; Echo 05/2016 -Bicuspid aortic valve, mild aortic stenosis. Moderate insuff, EF = 65%; bioprosthetic aortic valve replacement 08/08 [facility] Magns Ease 27 MM; echo 12/08 EF 70%, LAE 44 mm, nl bioprosthetic AV fxn; echo 12/09: EF 70%, nl bioprosthetic valve fxn Medical History gout Medical History rt sciatica Medical History periodic limb movement disorder Medical History tubular adenoma colon polyp 06/30 Medical History Mattson's Esophagus per EGD 07/2013, 04/11 Medical History CKD stage 3 - followed by Dr. Byrd Nep hrology Medical History LICA 50-69% 08/08 Medical History Paralyzed LEft Hemidiaphragm s/p CABG Medical History Rhabdomyolysis on Statins (see note 11/22 020, 02/09) Surgical History R hip replacement 03/2007 Surgical History R knee - arthroscopic 1999 Surgical History PTCA/stent RCA 05/25 Surgical History colonoscopy--tubular adenoma 06/30 Surgical History Rotater cuff 2012 Surgical History EGD - Severe Reflux Esophagi tis - biopsy confirms Barretts Esophagus/Colonoscopy - non-bleeding internal hemorrhoids 07/2013 Surgical History revision rt hip replacement after fall/f x of prosthesis MANUELA 05/05 Surgical History left hip replacement 03/01/16 Surgical History CABG x 3, bioprosthetic AVR Magna Ease 2 7 mm 07/25/17 Hospitalization History influenza 01/30/17 Hospitalization History Pneumonia 10/2017 Hospitalization History COPD exacerbation 12/15/17 Hospitalization History dehydration 08/2019 Goals Section No Information Health Concerns No Information MEDICAL EQUIPMENT No Information MENTAL STATUS No Information FUNCTIONAL STATUS No Information ASSESSMENTS No Information PLAN OF TREATMENT Medication Medication Name Sig Start Date Stop Date Lantus SoloStar 100 UNIT/ML as directed Subcutaneous 8 0 units in am, 74 units in pm for 90 day(s) Cymbalta 30MG 1 capsule Orally Once a day for 90 Next Appt Details Provider Name:Hemant Sugar, 2021-01 10:30:00 AM, [address], , [place], [address], Insurance Providers Payer Name Payer Address Payer Phone Insured Name Patient Relati onship to Insured Coverage Start Date Coverage End Date MEDICARE Part A and B [address] [facility] [phone] [phone] FELICIA ALVA BS [place] [facility] [address] [facility] [id number] [phone] FELICIA ALVA
--- OUTSIDE RECORDS SUMMARY | 2020-12-31 08:59 | CCD | Continuity of Care Document ---
Author Author Kyle TOUSSAINT ANP Organization Unknown Address [address] [facility] [address] [place] [address] Phone [phone] Care Team Providers Care Civil Cadd Technician Name Role Phone Samantha Wooten P.A.-C. AUTM [phone] Hemant Wooten M.D. AUTM [phone] Problems Active Problems Provider Date Obstructive sleep apnea syndrome JUSTINA Mohr Onset: 11/26/2019 Dyspnea JUSTINA Mohr Onset: 11/26/2019 Disorder of diaphragm JUSTINA Mohr Onset: 11/26/2019 Social History Type Date Description Comments Sex Unknown ETOH Use Never used alcohol Tobacco Use Start: Unknown Non Smoker Smoking Status Reviewed: 11/26/20 Non Smoker Allergies and adverse reactions Active Allergies Criticality Reaction | Severity Comments Date Lovastatin Unable to assess criticality 03/09/2018 Zosyn Unable to assess criticality 03/09/2018 Altace Unable to assess criticality 03/09/2018 Medications Active Medications SIG Qnty Indications Ordering Provide r Date Albuterol Sulfate HFA 108(90Base) mcg/Act Aerosol Inhale 2 Puffs By Mouth Four Times Daily as Needed 25.5gm JUSTINA Mohr 11/26/2020 Aspir-[address] 1 by mouth every day Bobby Case MD 03/09/[address] take 1 capsule twice a day for barretts esophagus 60caps Bobby Case MD 03/09/2018 Atorvastatin Calcium 80mg Tablets 1 by mouth every day Unknown Metformin HCL 1000mg Tablets 1 tab by mouth twice a day Unknown Januvia 100mg Tablets Unknown Lantus 100Unit/ML Solution every night at bedtime Unknown Losartan Potassium 50mg Tablets Unknown Furosemide 40mg Tablets 1 by mouth every day Unknown Bisoprolol Fumarate 10mg Tablets 1 by mouth every day Unknown Duloxetine HCL 30mg Caps DR Part Unknown Amiodarone HCL 200mg Tablets 1 by mouth every day Unknown Warfarin Sodium 5mg Tablets 1 tab by mouth every day as directed Unknown CPAP Device 13cm JUSTINA Blankenship Immunizations Description No Information Available Vital Signs Date Vital Result Comment 11/26/2020 10:50am BP Systolic 138 mmHg BP Diastolic 74 mmHg Heart Rate 64 /min O2 % BldC Oximetry 96 % Height 70 inches 5'10" Weight 316.00 lb BMI (Body Mass Index) 45.3 kg/m2 [place] Body Weight 166 lb Weight 143.338 kg BSA (Body Surface Area) 2.54 m2 11/26/2019 2:19pm BP Systolic 132 mmHg BP Diastolic 84 mmHg Heart Rate 78 /min O2 % BldC Oximetry 96 % Body Temperature 97.2 F Height 70 inches 5'10" Weight 313.00 lb BMI (Body Mass Index) 44.9 kg/m2 [place] Body Weight 166 lb Weight 141.977 kg BSA (Body Surface Area) 2.52 m2 Results Description No Information Available Procedures Description No Information Available Medical Devices Description No Information Available Encounters Description No Information Available Assessments Date Code Description Provider 11/26/2020 G47.33 Obstructive sleep apnea (adult) (pediatric) JUSTINA Mohr 11/26/2020 R06.02 Shortness of breath JUSTINA Mohr 11/26/2020 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
--- OUTSIDE RECORDS SUMMARY | 2020-12-31 08:59 | CCD ---
Author Author [facility] Organization [facility] Address Unknown Phone Unavailable Care Team Providers Care Rig Manager Name Role Phone Hemant Wooten Unavailable PROBLEMS Type Condition ICD9-CM Code IZH28-IA Code Onset Dates Condition S tatus W/U Status Risk SNOMED Code Notes Problem Mixed hyperlipidemia E78.2 Active confirmed 601415497 Problem Chronic diastolic (congestive) heart failure I50.3 2 Active confirmed 839757371 Problem Atherosclerotic heart diseas e of [place] coronary artery without angina pectoris I25.10 Active confirmed 632244714292559 Problem Hypertensive heart disease with heart failure I11. 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.43 Active confirmed 447326450 Problem BMI 40.0-44.9, adult Z68.41 Active confirmed 457688760 Problem Encounter for therapeutic drug level monitoring Z5 1.81 Active confirmed 540310542 Problem Type 2 diabetes mellitus with hyperglycemia E11.65 Active confirmed 527029849911393 Problem Gout, unspecified M10.9 Active confirmed 90 118848 Problem Anxiety F41.9 Active confirmed 59774433 Problem Daytime somnolence R40.0 Active confirmed 1 87563095473 Problem History of coronary artery bypass graft x 3 Z95.1 Active confirmed 995237280 Problem Anemia, unspecified type D64.9 Active confirmed 688983473 Problem PAF (paroxysmal atrial fibrillation) I48.0 Act jesus confirmed 93128962 Problem History of aortic valve replacement with bioprosthetic carlo ve Z95.3 Active confirmed 115133832 Problem terminal makeup operator current use of anticoagulant Z79.01 A ctive confirmed 525262701 Problem 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 Active confirmed 89038147 Problem Gastroparesis K31.84 Active confirmed 932015 006 Problem De Quervain thyroiditis E06.1 Active confirmed 033438648 Problem Non-traumatic rhabdomyolysis M62.82 Active confirme d 332803683 Problem Left sided sciatica M54.32 Active confirmed 79608473 Problem Depression F32.9 Active confirmed 345576760 Problem Chronic kidney disease, stage 3b N18.32 Active confirmed 145973964 Problem Mattson's esophagus without dysplasia K22.70 Ac tive confirmed 901997047 Problem Status post left hip replacement Z96.642 Active confirmed 360547278 Problem USP (current) use of insulin Z79.4 Activ e confirmed 414132394 Problem Type 2 diabetes mellitus with diabetic nephropathy E11.21 Active confirmed 573826451 Problem Essential (primary) hypertension I10 Active conf irmed 28044732 Problem Medicare annual wellness visit, subsequent Z00.00 Active confirmed 129319075 ALLERGIES Allergen (clinical drug ingredient) Drug/Non Drug Allergy do cumented on EMR Reaction Allergy Type Onset Date Status Altace 5 Cough Drug Allergy Active lovastatin Lovastatin(ND Code:[address]-63) Increased CPK Drug Guy rgy Active metoprolol/beta blockers wheezing (admitted 12/08) Non Ronny g Allergy Active Crestor rhabdo (02/09) Non Drug Allergy Acti ve Statins (for Allergy Use Only) rhabdomyolysis Drug Allergy Active piperacillin / tazobactam Zosyn(ND Code:[address]-60) hives Dr ug Allergy Active ENCOUNTERS from 1960 to 2020-11-14 Encounter Location Date Provider Diagnosis [address] [place] [address] Oct, Hemant Wooten IMMUNIZATIONS Vaccine Route Administration Date Status Influenza Pharmacy Given Unknown Nov 22, 2018 Adminis tered Influenza 18 yrs & older Flublok IM Intramuscular Nov 30, 2019 Administered Influenza 18 yrs & older Flublok IM Intramuscular Dec 16, 2017 Administered Pneumococcal Adult 0.5mL Pneumovax 23 IM Intramuscular Nov 30, 2 019 Administered Influenza 6mo & up Fluzone Unknown Dec 08, 2015 Refus ed SOCIAL HISTORY Tobacco Use: Social History Observation Description Date Details (start date - stop date) Never Smoker Sex Assigned At : Social History Observation Description Sex Assigned At Unknown Education: Question Answer Notes Level of Education: Finished High School Audit Question Answer Notes Total Score: 0 Interpretation: Alcohol Education Islam: Question Answer Notes Islam 33 None Drug and Alcohol Question Answer [...] aily for 30 day(s) June, Active Pen [place] 1/2" 29G X 12MM 1 needle Subcutaneous [...] parox at fib post-op CABG; dose managed [facility] Active Vitamin D (Cholecalciferol) 1000 UNIT 2 [...] Dx, 80% distal LAD CABG x 3 [facility] 08/08 (WHEELER to LAD, JERRY to obtuse [...] = 65%; bioprosthetic aortic valve replacement 08/08 [facility] Magns Ease 27 MM; echo 12/08 EF [...] for 90 Next Appt Details Provider Name:Hemant Marielabrooklynntessa, 2021-01 10:30:00 AM, [address] , , [place], [address], Insurance Providers Payer Name Payer Address Payer Phone Insured Name Patient Relati onship to Insured Coverage Start Date Coverage End Date BS [place] [facility] [address] [facility] [id number] [phone] FELICIA ALVA MEDICARE Part A and B [address] [facility] [phone] FELICIA ALVA self
--- OUTSIDE RECORDS SUMMARY | 2020-12-31 08:59 | CCD ---
Author Author [facility] Organization [facility] Address Unknown Phone Unavailable Care Team Providers Care Fruit And Vegetable Inspector Name Role Phone Hemant Wooten Unavailable PROBLEMS Type Condition ICD9-CM Code [id number] Code Onset Dates Condition S tatus W/U Status Risk SNOMED Code Notes Problem Mixed hyperlipidemia E78.2 Active confirmed 051117201 Problem Chronic diastolic (congestive) heart failure I50.3 2 Active confirmed 399673684 Problem Atherosclerotic heart diseas e of [place] coronary artery without angina pectoris I25.10 Active confirmed 977591868656357 Problem Hypertensive heart disease with heart failure I11. 0 Active confirmed 25287318 Problem Vitamin D deficiency, unspecified E55.9 Active con firmed 07677100 Problem Encounter for screening for malignant neoplasm of prostate Z12.5 Active confirmed 222572215 Problem Morbid (severe) obesity due to excess calories E66 .01 Active confirmed 173298252 Problem Type 2 diabetes mellitus with diabetic autonomic (poly)neuropathy E11.43 Active confirmed 788609767 Problem BMI 40.0-44.9, adult Z68.41 Active confirmed 952707800 Problem Encounter for therapeutic drug level monitoring Z5 1.81 Active confirmed 634645158 Problem Type 2 diabetes mellitus with hyperglycemia E11.65 Active confirmed 175909774231786 Problem Gout, unspecified M10.9 Active confirmed 90 481871 Problem Anxiety F41.9 Active confirmed 66085007 Problem Daytime somnolence R40.0 Active confirmed 1 84513970583 Problem History of coronary artery bypass graft x 3 Z95.1 Active confirmed 127621989 Problem Anemia, unspecified type D64.9 Active confirmed 485909709 Problem PAF (paroxysmal atrial fibrillation) I48.0 Act jesus confirmed 18305925 Problem History of aortic valve replacement with bioprosthetic carlo ve Z95.3 Active confirmed 464537521 Problem field sales agent current use of anticoagulant Z79.01 A ctive confirmed 947346853 Problem 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 Active confirmed 52508679 Problem Gastroparesis K31.84 Active confirmed 068974 006 Problem De Quervain thyroiditis E06.1 Active confirmed 911927825 Problem Non-traumatic rhabdomyolysis M62.82 Active confirme d 374417428 Problem Left sided sciatica M54.32 Active confirmed 44409164 Problem Depression F32.9 Active confirmed 006223004 Problem Chronic kidney disease, stage 3b N18.32 Active confirmed 380432578 Problem Mattson's esophagus without dysplasia K22.70 Ac tive confirmed 256732180 Problem Status post left hip replacement Z96.642 Active confirmed 279136766 Problem custodial (current) use of insulin Z79.4 Activ e confirmed 224928891 Problem Type 2 diabetes mellitus with diabetic nephropathy E11.21 Active confirmed 334305686 Problem Essential (primary) hypertension I10 Active conf irmed 71694259 Problem Medicare annual wellness visit, subsequent Z00.00 Active confirmed 778889713 ALLERGIES Allergen (clinical drug ingredient) Drug/Non Drug Allergy do cumented on EMR Reaction Allergy Type Onset Date Status Altace 5 Cough Drug Allergy Active lovastatin Lovastatin(NDC Code:[address]-11) Increased CPK Drug Guy rgy Active metoprolol/beta blockers wheezing (admitted 12/08) Non Ronny g Allergy Active Crestor rhabdo (02/09) Non Drug Allergy Acti ve Statins (for Allergy Use Only) rhabdomyolysis Drug Allergy Active piperacillin / tazobactam Zosyn(ND Code:[address]-84) hives Dr ug Allergy Active ENCOUNTERS from 1958 to 2020-11-26 Encounter Location Date Provider Diagnosis [address] [place] [address] Oct, Hemant Sugar Cough R05 ; Type 2 diabetes mellitus wit h hyperglycemia E11.65 ; Atherosclerotic heart disease of [place] coronary artery without angina pectoris I25.10 ; Mixed hyperlipidemia E78.2 ; Hypertensive heart disease with heart failure I11.0 ; Chronic diastolic (congestive) heart failure I50.32 ; Morbid (severe) obesity due to excess calories E66.01 ; History of aortic valve replacement with bioprosthetic valve Z95.3 ; History of coronary artery bypass graft x 3 Z95.1 ; PAF (paroxysmal atrial fibrillation) I48.0 ; custodial current use of anticoagulant Z79.01 ; Type 2 diabetes mellitus with diabetic nephropathy E11.21 and Chronic kidney disease, stage 3b N18.32 IMMUNIZATIONS Vaccine Route Administration Date Status Influenza [...] Notes Total Score: 0 Interpretation: Alcohol Education Confucianist: Question Answer Notes Confucianist 33 None Drug and Alcohol Question Answer [...] REASON FOR REFERRAL No Information VITAL SIGNS Weight 316 lbs Oct, Height 70 in Oct, BMI 45.34 kg/m2 Oct, Heart Rate 72 /min Oct, Respiratory Rate 18 /min Oct, Temperature 97.6 degrees Fahrenheit Oct, Oximetry 98 Oct, Blood pressure systolic 140 mm Hg Oct, Blood pressure diastolic 78 mm Hg Oct, MEDICATIONS Medication SIG (Take, Route, Frequency, Duration) Notes Start Da te End Date Status Furosemide 40 MG 1 tablet Orally Tuesday, Tuesday, Tuesday Active Amiodarone HCl 400 MG 1 tablet Orally every other day Active Bisoprolol Fumarate 10 MG 1 tablet Orally Once a day Active One touch ultra blue as directed subcutaneously DX: E11.65 d aily for 30 day(s) June, Active Pen [place] 1/2" 29G X 12MM 1 needle Subcutaneous [...] parox at fib post-op CABG; dose managed [facility] Active Vitamin D (Cholecalciferol) 1000 UNIT [...] Information RESULTS No Results REASON FOR VISIT 6month, should he be takinmg atorvastain , not on med list, taking zetia MEDICAL (GENERAL) HISTORY Type Description Date Medical [...] Dx, 80% distal LAD CABG x 3 [facility] 08/08 (WHEELER to LAD, JERRY to obtuse [...] = 65%; bioprosthetic aortic valve replacement 08/08 [facility] Magns Ease 27 MM; echo 12/08 EF [...] No Information FUNCTIONAL STATUS No Information ASSESSMENTS Encounter Date Diagnosis Assessment Notes Treatment Notes Treatm ent Clinical Notes Oct, Cough (ICD-10 - R05) Oct, Type 2 diabetes mellitus with hyperglycemia (ICD -10 - E11.65) Oct, Atherosclerotic heart diseas e of [place] coronary artery without angina pectoris (ICD-10 - I25.10) Oct, Mixed hyperlipidemia (ICD-10 - E78.2) Oct, Hypertensive heart disease with heart failure (I CD-10 - I11.0) Oct, Chronic diastolic (congestive) heart failure (IC D-10 - I50.32) Oct, Morbid (severe) obesity due to excess calories ( ICD-10 - E66.01) Oct, History of aortic valve repl acement with bioprosthetic valve (ICD- 10 - Z95.3) Oct, History of coronary artery bypass graft x 3 (ICD -10 - Z95.1) Oct, PAF (paroxysmal atrial fibrillation) (ICD-10 - I 48.0) Oct, field sales agent current use of anticoagulant (ICD-10 - Z79.01) Oct, Type 2 diabetes mellitus wit h diabetic nephropathy (ICD-10 - E11.21) Oct, Chronic kidney disease, stage 3b (ICD-10 - N18.3 2) PLAN OF TREATMENT Medication Medication Name Sig Start Date Stop Date Lantus SoloStar 100 UNIT/ML as directed Subcutaneous 8 0 units in am, 74 units in pm for 90 day(s) Cymbalta 30MG 1 capsule Orally Once a day for 90 Treatment Notes Test Name Order Date Chest X-ray PA and lateral 2020-10-22 Future Test Test Name Order Date Comprehensive Metabolic Profile (CMP) 20210121 HEMOGLOBIN A1c 20210121 LIPID PANEL (CARDIAC RISK) 20210121 CBC - Complete Blood Count 20210121 Next Appt Details 3 Months Reason: Provider Name:Hemant Wooten, 2021-01 10:30:00 AM, [address], , [place], [address], Insurance Providers Payer Name Payer Address Payer Phone Insured Name Patient Relati onship to Insured Coverage Start Date Coverage End Date BS [place] [employer] [address] [facility] [id number] FELICIA ALVA self MEDICARE Part A and B [address] [facility] [address] [phone] FELICIA ALVA
--- OUTSIDE RECORDS SUMMARY | 2020-12-31 08:59 | CCD | Continuity of Care Document ---
Author Author Kyle TOUSSAINT ANP Organization Unknown Address [address] [facility] [address] [place] [address] Phone [phone] Care Team Providers Care Mortar Mixer Operator Name Role Phone Samantha Wooten P.A.-C. AUTM [phone] Hemant Wooten M.D. AUTM [phone] Problems Active Problems Provider Date Obstructive sleep [...] lb BMI (Body Mass Index) 45.3 kg/m2 [place] Body Weight 166 lb Weight 143.338 kg BSA (Body Surface Area) 2.54 m2 11/26/2019 2:19pm BP Systolic 132 mmHg BP Diastolic 84 mmHg Heart Rate 78 /min O2 % BldC Oximetry 96 % Body Temperature 97.2 F Height 70 inches 5'10" Weight 313.00 lb BMI (Body Mass Index) 44.9 kg/m2 [place] Body Weight 166 lb Weight 141.977 kg [...] 01/22/2021 10:30 am - JUSTINA Mohr at [facility] Pulmonary/Thoracic 11/26/2020 - JUSTINA Mohr* G47.33 Obstructive sleep apnea (adult) (pediatric) * R06.02 Shortness of breath * 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
--- OUTSIDE RECORDS SUMMARY | 2020-12-31 08:59 | CCD | Continuity of Care Document ---
Author Author Kyle TOUSSAINT ANP Organization Unknown Address [address] [facility] [address] [place] [address] Phone [phone] Care Team Providers Care Gritting Machine Operator Name Role Phone Samantha Wooten P.A.-C. AUTM [phone] Hemant Wooten M.D. AUTM [phone] Problems Active Problems Provider Date Obstructive sleep [...] Four Times Daily as Needed 25.5gm JUSTINA Mhor 11/26/[address] Aspir-[address] 1 by [...] lb BMI (Body Mass Index) 45.3 kg/m2 [place] Body Weight 166 lb Weight 143.338 kg BSA (Body Surface Area) 2.54 m2 11/26/2019 2:19pm BP Systolic 132 mmHg BP Diastolic 84 mmHg Heart Rate 78 /min O2 % BldC Oximetry 96 % Body Temperature 97.2 F Height 70 inches 5'10" Weight 313.00 lb BMI (Body Mass Index) 44.9 kg/m2 [place] Body Weight 166 lb Weight 141.977 kg BSA (Body Surface Area) 2.52 m2 Results Description No Information Available Procedures Description No Information Available Medical Devices Description No Information Available Encounters Description No Information Available Assessments Date Code Description Provider 11/26/2020 G47.33 Obstructive sleep apnea (adult) (pediatric) JUSTINA Mohr 11/26/2020 R06.02 Shortness of breath JUSTINA Mohr 11/26/2020 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
--- OUTSIDE RECORDS SUMMARY | 2020-12-31 08:59 | CCD | Continuity of Care Document ---
Author Author Kyle TOUSSAINT ANP Organization Unknown Address [address] [facility] [address] [place] [address] Phone [phone] Care Team Providers Care Salesperson [employer] Name Role Phone Samantha Wooten P.A.-C. AUTM [phone] Hemant Wooten M.D. AUTM [phone] Problems Active Problems Provider Date Obstructive sleep [...] lb BMI (Body Mass Index) 45.3 kg/m2 [place] Body Weight 166 lb Weight 143.338 kg BSA (Body Surface Area) 2.54 m2 11/26/2019 2:19pm BP Systolic 132 mmHg BP Diastolic 84 mmHg Heart Rate 78 /min O2 % BldC Oximetry 96 % Body Temperature 97.2 F Height 70 inches 5'10" Weight 313.00 lb BMI (Body Mass Index) 44.9 kg/m2 [place] Body Weight 166 lb Weight 141.977 kg BSA (Body Surface Area) 2.52 m2 Results Description No Information Available Procedures Date Code Description Status 11/26/2020 64488 Office/Outpatient Established Mo d MDM 30-39 Min Completed Medical Devices Description No Information Available Encounters Type Date Location Provider Dx Diagnosis Office Visit 11/26/2020 11:00a [facility] Pulmonary/Thoracic JUSTINA Junior G47.33 Obstructive sleep apnea (adult) (pediatr ic) R06.02 Shortness of breath 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 Assessments Date Code Description Provider 11/26/2020 G47.33 Obstructive sleep apnea (adult) (pediatric) JUSTINA Mohr 11/26/2020 R06.02 Shortness of breath JUSTINA Mohr 11/26/2020 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
--- OUTSIDE RECORDS SUMMARY | 2020-12-31 08:59 | CCD | Continuity of Care Document ---
Author Author Kyle TOUSSAINT ANP Organization Unknown Address [address] [facility] [address] [place] [address] Phone [phone] Care Team Providers Care Legal Researcher Name Role Phone Samantha Wooten P.A.-C. AUTM [phone] Hemant Wooten M.D. AUTM [phone] Problems Active Problems Provider Date Obstructive sleep [...] lb BMI (Body Mass Index) 45.3 kg/m2 [place] Body Weight 166 lb Weight 143.338 kg BSA (Body Surface Area) 2.54 m2 11/26/2019 2:19pm BP Systolic 132 mmHg BP Diastolic 84 mmHg Heart Rate 78 /min O2 % BldC Oximetry 96 % Body Temperature 97.2 F Height 70 inches 5'10" Weight 313.00 lb BMI (Body Mass Index) 44.9 kg/m2 [place] Body Weight 166 lb Weight 141.977 kg [...] 01/22/2021 10:30 am - JUSTINA Mohr at [facility] Pulmonary/Thoracic 11/26/2020 - JUSTINA Mohr* G47.33 Obstructive sleep apnea (adult) (pediatric) * R06.02 Shortness of breath * 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
--- OUTSIDE RECORDS SUMMARY | 2020-12-31 08:59 | CCD | Continuity of Care Document ---
Author Author Kyle TOUSSAINT ANP Organization Unknown Address [address] [facility] [address] [place] [address] Phone [phone] Care Team Providers Care Manager Production Name Role Phone Samantha Wooten P.A.-C. AUTM [phone] Hemant Wooten M.D. AUTM [phone] Problems Active Problems Provider Date Obstructive sleep [...] lb BMI (Body Mass Index) 45.3 kg/m2 [place] Body Weight 166 lb Weight 143.338 kg BSA (Body Surface Area) 2.54 m2 11/26/2019 2:19pm BP Systolic 132 mmHg BP Diastolic 84 mmHg Heart Rate 78 /min O2 % BldC Oximetry 96 % Body Temperature 97.2 F Height 70 inches 5'10" Weight 313.00 lb BMI (Body Mass Index) 44.9 kg/m2 [place] Body Weight 166 lb Weight 141.977 kg [...] 10:30 am - JUSTINA Mohr at [facility] Pulmonary/Thoracic 11/26/2020 - JUSTINA Mohr* G47.33 Obstructive sleep apnea (adult) (pediatric) * R06.02 Shortness of breath * 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
--- OUTSIDE RECORDS SUMMARY | 2020-12-31 09:00 | CCD ---
Author Author [facility] Organization [facility] Address Unknown Phone Unavailable Care Team Providers Care Outside Machinist Name Role Phone Hemant Wooten Unavailable PROBLEMS Type Condition ICD9-CM Code [id number] Code Onset Dates Condition S tatus W/U Status Risk SNOMED Code Notes Problem Mixed hyperlipidemia E78.2 Active confirmed 394503657 Problem Chronic diastolic (congestive) heart failure I50.3 2 Active confirmed 128523636 Problem Atherosclerotic heart diseas e of [place] coronary artery without angina pectoris I25.10 Active confirmed 246006573425356 Problem Hypertensive heart disease with heart failure I11. 0 Active confirmed 77265439 Problem Vitamin D deficiency, unspecified E55.9 Active con firmed 45940160 Problem Encounter for screening for malignant neoplasm of prostate Z12.5 Active confirmed 152966717 Problem Morbid (severe) obesity due to excess calories E66 .01 Active confirmed 309557471 Problem Type 2 diabetes mellitus with diabetic autonomic (poly)neuropathy E11.43 Active confirmed 044041225 Problem BMI 40.0-44.9, adult Z68.41 Active confirmed 292808985 Problem Encounter for therapeutic drug level monitoring Z5 1.81 Active confirmed 288553252 Problem Type 2 diabetes mellitus with hyperglycemia E11.65 Active confirmed 252741612137113 Problem Gout, unspecified M10.9 Active confirmed 90 011663 Problem Anxiety F41.9 Active confirmed 87608389 Problem Daytime somnolence R40.0 Active confirmed 1 37232740572 Problem History of coronary artery bypass graft x 3 Z95.1 Active confirmed 299445059 Problem Anemia, unspecified type D64.9 Active confirmed 300021291 Problem PAF (paroxysmal atrial fibrillation) I48.0 Act jesus confirmed 83590729 Problem History of aortic valve replacement with bioprosthetic carlo ve Z95.3 Active confirmed 879260819 Problem 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 Z79.01 A ctive confirmed 298844178 Problem 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 Active confirmed 28477407 Problem Gastroparesis K31.84 Active confirmed 175275 006 Problem De Quervain thyroiditis E06.1 Active confirmed 698152159 Problem Non-traumatic rhabdomyolysis M62.82 Active confirme d 427212124 Problem Left sided sciatica M54.32 Active confirmed 36258733 Problem Depression F32.9 Active confirmed 124128553 Problem Chronic kidney disease, stage 3b N18.32 Active confirmed 892691050 Problem Mattson's esophagus without dysplasia K22.70 Ac tive confirmed 088827197 Problem Status post left hip replacement Z96.642 Active confirmed 797401496 Problem [facility] (current) use of insulin Z79.4 Activ e confirmed 994828122 Problem Type 2 diabetes mellitus with diabetic nephropathy E11.21 Active confirmed 762379803 Problem Essential (primary) hypertension I10 Active conf irmed 74603045 Problem Medicare annual wellness visit, subsequent Z00.00 Active confirmed 959470491 ALLERGIES Allergen (clinical drug ingredient) Drug/Non Drug Allergy do cumented on EMR Reaction Allergy Type Onset Date Status Altace 5 Cough Drug Allergy Active lovastatin Lovastatin(NDC Code:[address]-62) Increased CPK Drug Guy rgy Active metoprolol/beta blockers wheezing (admitted 12/08) Non Ronny g Allergy Active Crestor rhabdo (02/09) Non Drug Allergy Acti ve Statins (for Allergy Use Only) rhabdomyolysis Drug Allergy Active piperacillin / tazobactam Zosyn(ND Code:[address]-80) hives Dr ug Allergy Active ENCOUNTERS from 1960 to 2020-11-07 Encounter Location Date Provider Diagnosis [address] [place] [address] Oct, 2020 Hemant Wooten Type 2 diabetes mellitus with diabetic n ephropathy E11.21 IMMUNIZATIONS Vaccine Route Administration Date Status Influenza Pharmacy Given Unknown Nov 22, 2018 Adminis tered Influenza 18 yrs & older Flublok IM Intramuscular Nov 30, 2019 Administered Influenza 18 yrs & older Flublok IM Intramuscular Dec 16, 2017 Administered Pneumococcal Adult 0.5mL Pneumovax 23 IM Intramuscular Nov 10, 2 019 Administered Influenza 6mo & up Fluzone Unknown Dec 08, 2015 Refus ed SOCIAL HISTORY Tobacco Use: Social History Observation Description Date Details (start date - stop date) Never Smoker Sex Assigned At : Social History Observation Description Sex Assigned At Unknown Education: Question Answer Notes Level of Education: Finished High School Audit Question Answer Notes Total Score: 0 Interpretation: Alcohol Education Anglican: Question Answer Notes Anglican 33 None Drug and Alcohol Question Answer [...] aily for 30 day(s) June, Active Pen [place] 1/2" 29G X 12MM 1 needle Subcutaneous [...] parox at fib post-op CABG; dose managed [facility] Active Vitamin D (Cholecalciferol) 1000 UNIT 2 [...] = 65%; bioprosthetic aortic valve replacement 08/08 [facility] Magns Ease 27 MM; echo 12/08 EF [...] Treatment Notes Treatm ent Clinical Notes Oct, Type 2 diabetes mellitus wit h diabetic nephropathy (ICD-10 - E11.21) PLAN OF TREATMENT Medication Medication Name Sig Start Date Stop Date Lantus SoloStar 100 UNIT/ML as directed Subcutaneous 8 0 units in am, 74 units in pm for 90 day(s) Cymbalta 30MG 1 capsule Orally Once a day for 90 Next Appt Details Provider Name:Hemant Sugar, 2021-01 10:30:00 AM, [address], , [place], [address], Insurance Providers Payer Name Payer Address Payer Phone Insured Name Patient Relati onship to Insured Coverage Start Date Coverage End Date VISHAL MARINO [facility] [address] [facility] [address] FELICIA ALVA MEDICARE Part A and B [address] [facility] [address] [phone] FELICIA ALVA
--- OUTSIDE RECORDS SUMMARY | 2020-12-31 09:00 | CCD ---
Author Author [facility] Organization [facility] Address Unknown Phone Unavailable Care Team Providers Care Candy Supervisor Name Role Phone Hemant Wooten Unavailable PROBLEMS Type Condition ICD9-CM Code [id number] Code Onset Dates Condition S tatus W/U Status Risk SNOMED Code Notes Problem Atherosclerotic heart diseas e of [place] coronary artery without angina pectoris I25.10 Active confirmed 935187210551730 Problem Vitamin D deficiency, unspecified E55.9 Active con firmed 97014980 Problem Chronic diastolic (congestive) heart failure I50.3 2 Active confirmed 069423144 Problem Morbid (severe) obesity due to excess calories E66 .01 Active confirmed 821149907 Problem Hypertensive heart disease with heart failure I11. 0 Active confirmed 03824733 Problem Mattson's esophagus without dysplasia K22.70 Ac tive confirmed 879302428 Problem Encounter for screening for malignant neoplasm of prostate Z12.5 Active confirmed 329800860 Problem Type 2 diabetes mellitus with diabetic autonomic (poly)neuropathy E11.43 Active confirmed 293944099 Problem Gout, unspecified M10.9 Active confirmed 90 476764 Problem Encounter for therapeutic drug level monitoring Z5 1.81 Active confirmed 965137192 Problem BMI 40.0-44.9, adult Z68.41 Active confirmed 887710440 Problem Mixed hyperlipidemia E78.2 Active confirmed 586069881 Problem Type 2 diabetes mellitus with hyperglycemia E11.65 Active confirmed 496803672858640 Problem Anxiety F41.9 Active confirmed 76396732 Problem Daytime somnolence R40.0 Active confirmed 1 52895609372 Problem History of coronary artery bypass graft x 3 Z95.1 Active confirmed 742520249 Problem Anemia, unspecified type D64.9 Active confirmed 653378321 Problem PAF (paroxysmal atrial fibrillation) I48.0 Act jesus confirmed 97244548 Problem History of aortic valve replacement with bioprosthetic carlo ve Z95.3 Active confirmed 692979607 Problem 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 A ctive confirmed 095639428 Problem 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 Active confirmed 08024578 Problem Gastroparesis K31.84 Active confirmed 600823 006 Problem De Quervain thyroiditis E06.1 Active confirmed 800309254 Problem Non-traumatic rhabdomyolysis M62.82 Active confirme d 989939272 Problem Medicare annual wellness visit, subsequent Z00.00 Active confirmed 785119406 Problem Status post left hip replacement Z96.642 Active confirmed 753554293 Problem Left sided sciatica M54.32 Active confirmed 99774690 Problem Depression F32.9 Active confirmed 106019156 Problem CKD (chronic kidney disease) stage 3, GFR 30-59 ml/min N18.3 Active confirmed 362541741 Problem retirement (current) use of insulin Z79.4 Activ e confirmed 493769297 Problem Type 2 diabetes mellitus with diabetic nephropathy E11.21 Active confirmed 635043320 Problem Essential (primary) hypertension I10 Active conf irmed 52124212 Problem Stage 3a chronic kidney disease N18.31 Active confi rmed 376758284 ALLERGIES Allergen (clinical drug ingredient) Drug/Non Drug Allergy do cumented on EMR Reaction Allergy Type Onset Date Status Altace 5 Cough Drug Allergy Active lovastatin Lovastatin(ND Code:[address]-99) Increased CPK Drug Guy rgy Active metoprolol/beta blockers wheezing (admitted 12/08) Non Ronny g Allergy Active Crestor rhabdo (02/09) Non Drug Allergy Acti ve Statins (for Allergy Use Only) rhabdomyolysis Drug Allergy Active piperacillin / tazobactam Zosyn(ND Code:[address]-21) hives Dr ug Allergy Active ENCOUNTERS from 1960 to 2020-10-21 Encounter Location Date Provider Diagnosis [facility] [address] [place] [address] Sep, Hemant Wooten IMMUNIZATIONS Vaccine Route Administration Date [...] Notes Total Score: 0 Interpretation: Alcohol Education Mu-Ism: Question Answer Notes Mu-Ism 33 None Drug and Alcohol Question Answer [...] Notes Start Da te End Date Status Bisoprolol Fumarate 10 MG 1 tablet Orally Once a day Active Pain Reliever 325 MG 1 tablet as needed Orally every 4 hrs Active Amiodarone HCl 400 MG 1 tablet Orally every other day Active Lantus SoloStar 100 UNIT/ML as directed Subcutaneous 8 0 units in am, 74 units in pm for 90 day(s) Active Omeprazole 20 MG 1 capsule Orally bid for 90 day(s) Active Lancets - as directed _ Daily for 30 days Nov, Active Coumadin 2.5 MG 5 tablet Orally Once a day for parox at fib post-op CABG; dose managed [facility] Active Pen [place] 1/2" 29G X 12MM 1 needle Subcutaneous DX : E11.65 Daily w/Lantus pen for 90 day(s) Active Allopurinol 300 MG TAKE 1 TABLET BY MOUTH ONCE DAILY Orally Once a day for 90 days Active One touch ultra blue as directed subcutaneously DX: E11.65 d aily for 30 day(s) June, Active Doxycycline Hyclate 100 MG 1 capsule Orally bid for 10 day(s) Jan, Active Glucometer as directed _ E11.65 for 99 days Nov, Active Aldactone 25 mg 1 tablet Orally daily for 90 Active Losartan Potassium 50 MG 1 tablet Orally Once a day Active Furosemide 40 MG 1 tablet Orally Tuesday, Tuesday, Tuesday Active Cymbalta 30MG 1 capsule Orally Once a day for 90 Active Januvia 100MG 1 tablet Orally Once a day Active metFORMIN HCl 1000 mg 1 tablet with meals Orally Twice a day for 90 Active Vitamin D (Cholecalciferol) 1000 UNIT 2 capsule Orally twice bri ly 17 Nov, 2015 Active Aspirin 81 MG 1 tablet Orally Once a day Active PROCEDURES No Information RESULTS No Results [...] Dx, 80% distal LAD CABG x 3 [facility] 08/08 (WHEELER to LAD, JERRY to obtuse [...] = 65%; bioprosthetic aortic valve replacement 08/08 [facility] Magns Ease 27 MM; echo 12/08 [...] Medication Name Sig Start Date Stop Date One touch ultra blue as directed subcutaneously DX: E11.65 d aily for 30 day(s) June, metFORMIN HCl 1000 mg 1 tablet with meals Orally Twice a day for 90 Lantus SoloStar 100 UNIT/ML as directed Subcutaneous 8 0 units in am, 74 units in pm for 90 day(s) Allopurinol 300 MG TAKE 1 TABLET BY MOUTH ONCE DAILY Orally Once a day for 90 days Januvia 100MG 1 tablet Orally Once a day Next Appt Details Provider Name:Hemant Wooten, 2020-10 09:30:00 AM, [address], , [place], [address], Insurance Providers Payer Name Payer Address Payer Phone Insured Name Patient Relati onship to Insured Coverage Start Date Coverage End Date MEDICARE Part A and B [address] [facility] [phone] FELICIA ALVA BS [place] [facility] [address] [facility] [address] FELICIA ALVA
--- OUTSIDE RECORDS SUMMARY | 2020-12-31 09:00 | CCD ---
Author Author [facility] Organization [facility] Address Unknown Phone Unavailable Care Team Providers Care Barrel Waterer Name Role Phone Hemant Wooten Unavailable PROBLEMS Type Condition ICD9-CM Code QHH20-RH Code Onset Dates Condition S tatus W/U Status Risk SNOMED Code Notes Problem Mixed hyperlipidemia E78.2 Active confirmed 514754641 Problem Chronic diastolic (congestive) heart failure I50.3 2 Active confirmed 514728768 Problem Atherosclerotic heart diseas e of [place] coronary artery without angina pectoris I25.10 Active confirmed 599326632233732 Problem Hypertensive heart disease with heart failure I11. 0 Active confirmed 74359321 Problem Vitamin D deficiency, unspecified E55.9 Active con firmed 85407999 Problem Encounter for screening for malignant neoplasm of prostate Z12.5 Active confirmed 764551601 Problem Morbid (severe) obesity due to excess calories E66 .01 Active confirmed 641425113 Problem Type 2 diabetes mellitus with diabetic autonomic (poly)neuropathy E11.43 Active confirmed 270195967 Problem BMI 40.0-44.9, adult Z68.41 Active confirmed 204179586 Problem Encounter for therapeutic drug level monitoring Z5 1.81 Active confirmed 550983494 Problem Type 2 diabetes mellitus with hyperglycemia E11.65 Active confirmed 441639099875341 Problem Gout, unspecified M10.9 Active confirmed 90 514855 Problem Anxiety F41.9 Active confirmed 06853154 Problem Daytime somnolence R40.0 Active confirmed 1 43145515810 Problem History of coronary artery bypass graft x 3 Z95.1 Active confirmed 039319411 Problem Anemia, unspecified type D64.9 Active confirmed 338446026 Problem PAF (paroxysmal atrial fibrillation) I48.0 Act jesus confirmed 08835681 Problem History of aortic valve replacement with bioprosthetic carlo ve Z95.3 Active confirmed 714136385 Problem 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 A ctive confirmed 421799045 Problem 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 Active confirmed 23230305 Problem Gastroparesis K31.84 Active confirmed 409428 006 Problem De Quervain thyroiditis E06.1 Active confirmed 878554950 Problem Non-traumatic rhabdomyolysis M62.82 Active confirme d 762748455 Problem Left sided sciatica M54.32 Active confirmed 48423638 Problem Depression F32.9 Active confirmed 495966507 Problem Chronic kidney disease, stage 3b N18.32 Active confirmed 978646541 Problem Mattson's esophagus without dysplasia K22.70 Ac tive confirmed 827172671 Problem Status post left hip replacement Z96.642 Active confirmed 527713954 Problem prison (current) use of insulin Z79.4 Activ e confirmed 465501917 Problem Type 2 diabetes mellitus with diabetic nephropathy E11.21 Active confirmed 178936259 Problem Essential (primary) hypertension I10 Active conf irmed 76169252 Problem Medicare annual wellness visit, subsequent Z00.00 Active confirmed 353045465 ALLERGIES Allergen (clinical drug ingredient) Drug/Non Drug Allergy do cumented on EMR Reaction Allergy Type Onset Date Status Altace 5 Cough Drug Allergy Active lovastatin Lovastatin(NDC Code:[address]-58) Increased CPK Drug Guy rgy Active metoprolol/beta blockers wheezing (admitted 12/08) Non Ronny g Allergy Active Crestor rhabdo (02/09) Non Drug Allergy Acti ve Statins (for Allergy Use Only) rhabdomyolysis Drug Allergy Active piperacillin / tazobactam Zosyn(ND Code:[address]-17) hives Dr ug Allergy Active ENCOUNTERS from 1960 to 2020-11-05 Encounter Location Date Provider Diagnosis [address] [place] [address] 15 Oct, 2020 Hemant Wooten IMMUNIZATIONS Vaccine Route Administration Date Status Influenza Pharmacy Given Unknown Nov 22, 2018 Adminis tered Influenza 18 yrs & older Flublok IM Intramuscular Nov 30, 2019 Administered Influenza 18 yrs & older Flublok IM Intramuscular Dec 16, 2017 Administered Pneumococcal Adult 0.5mL Pneumovax 23 IM Intramuscular Nov 30, 019 Administered Influenza 6mo & up Fluzone Unknown Dec 08, 2015 Refus ed SOCIAL HISTORY Tobacco Use: Social History Observation Description Date Details (start date - stop date) Never Smoker Sex Assigned At : Social History Observation Description Sex Assigned At Unknown Education: Question Answer Notes Level of Education: Finished High School Audit Question Answer Notes Total Score: 0 Interpretation: Alcohol Education Judaism: Question Answer Notes Judaism 33 None Drug and Alcohol Question Answer [...] aily for 30 day(s) June, Active Pen Apex 1/2" 29G X 12MM 1 needle Subcutaneous DX : E11.65 Daily w/Lantus pen for 90 day(s) Active Vitamin D (Cholecalciferol) 1000 UNIT 2 capsule Orally twice bri ly Nov, Not-Taking Glucometer as directed _ E11.65 for 99 days Nov, Active Doxycycline Hyclate 100 MG 1 capsule Orally bid for 10 day(s) Jan, Not-Taking metFORMIN HCl 1000 mg 1 tablet with meals Orally Twice a day for 90 Active Aspirin 81 MG 1 tablet Orally Once a day Active Baby Aspirin Active Coumadin 2.5 MG 5 tablet Orally Once a day for parox at fib post-op CABG; dose managed [facility] Active Allopurinol 300 MG TAKE 1 TABLET BY MOUTH ONCE DAILY Orally Once a day for 90 days Active Pain Reliever 325 MG 1 tablet [...] Orally Once a day for 90 Active Lantus SoloStar 100 UNIT/ML as directed Subcutaneous 8 0 units in am, 74 units in pm for 90 day(s) Active Aldactone 25 mg 1 tablet Orally daily for 90 Active PROCEDURES No Information RESULTS No Results REASON FOR VISIT cymbalta MEDICAL (GENERAL) HISTORY Type Description Date Medical [...] Dx, 80% distal LAD CABG x 3 [facility] 08/08 (WHEELER to LAD, JERRY to [...] = 65%; bioprosthetic aortic valve replacement 08/08 [facility] Magns Ease 27 MM; echo 12/08 [...] Medication Name Sig Start Date Stop Date Cymbalta 30MG 1 capsule Orally Once a day for 90 Next Appt Details Provider Name:Hemant Wooten, 2021-01 10:30:00 AM, [address], , [place], [address], Insurance Providers Payer Name Payer Address Payer Phone Insured Name Patient Relati onship to Insured Coverage Start Date Coverage End Date MEDICARE Part A and B [address] [facility] [id number] FELICIA ALVA BS [place] [facility] [address] [facility] [address] [phone] FELICIA ALVA
--- OUTSIDE RECORDS SUMMARY | 2020-12-31 09:00 | CCD ---
Author Author [facility] Organization [facility] Address Unknown Phone Unavailable Care Team Providers Care Inspector Type Name Role Phone Kocan, J Ethel OUTBOARD MOTOR MECHANIC Unavailable Unavailable Kocan, J Ethel OUTBOARD MOTOR MECHANIC Unavailable Unavailable Kocan, J Ethel OUTBOARD MOTOR MECHANIC Unavailable Unavailable Kocan, J Ethel OUTBOARD MOTOR MECHANIC Unavailable Unavailable Kocan, J Ethel OUTBOARD MOTOR MECHANIC Unavailable Unavailable Kocan, J Ethel OUTBOARD MOTOR MECHANIC Unavailable Unavailable Kocan, J Ethel OUTBOARD MOTOR MECHANIC Unavailable Unavailable Kocan, J Ethel OUTBOARD MOTOR MECHANIC Unavailable Unavailable Kocan, J Ethel OUTBOARD MOTOR MECHANIC Unavailable Unavailable Kocan, J Ethel OUTBOARD MOTOR MECHANIC Unavailable Unavailable Kocan, J Ethel OUTBOARD MOTOR MECHANIC Unavailable Unavailable Kocan, J Ethel OUTBOARD MOTOR MECHANIC Unavailable Unavailable Kocan, J Ethel OUTBOARD MOTOR MECHANIC Unavailable Unavailable Dayana, L Lili GAS FURNACE INSTALLER Unavailable Unavailable Dayana, L Lili GAS FURNACE INSTALLER Unavailable Unavailable Dayana, L Lili GAS FURNACE INSTALLER Unavailable Unavailable Dayana, L Lili GAS FURNACE INSTALLER Unavailable Unavailable Dayana, L Lili GAS FURNACE INSTALLER Unavailable Unavailable Dayana, L Lili GAS FURNACE INSTALLER Unavailable Unavailable Dayana, L Liil GAS FURNACE INSTALLER Unavailable Unavailable Dayana, L Lili GAS FURNACE INSTALLER Unavailable Unavailable Dayana, L Lili GAS FURNACE INSTALLER Unavailable Unavailable Dayana, L Lili GAS FURNACE INSTALLER Unavailable Unavailable Dayana, L Lili GAS FURNACE INSTALLER Unavailable Unavailable Dayana, L Lili GAS FURNACE INSTALLER Unavailable Unavailable Dayana, L Lili GAS FURNACE INSTALLER Unavailable Unavailable Dayana, L Lili GAS FURNACE INSTALLER Unavailable Unavailable Dayana, L Lili GAS FURNACE INSTALLER Unavailable Unavailable Dayana, L Lili GAS FURNACE INSTALLER Unavailable Unavailable Dayana, L Lili GAS FURNACE INSTALLER Unavailable Unavailable Dayana, L Lili GAS FURNACE INSTALLER Unavailable Unavailable Dayana, L Lili GAS FURNACE INSTALLER Unavailable Unavailable Dayana, L Lili GAS FURNACE INSTALLER Unavailable Unavailable Dayana, L Lili GAS FURNACE INSTALLER Unavailable Unavailable Dayana, L Lili GAS FURNACE INSTALLER Unavailable Unavailable Dayana, L Lili GAS FURNACE INSTALLER Unavailable Unavailable Dayana, L Lili GAS FURNACE INSTALLER Unavailable Unavailable Dayana, L Lili GAS FURNACE INSTALLER Unavailable Unavailable EVITA, KENYA ARCHER Unavailable Unavailable EVITA, KENYA ARCHER Unavailable Unavailable EVITA, KENYA ARCHER Unavailable Unavailable EVITA, KENYA ARCHER Unavailable Unavailable EVITA, KENYA ARCHER Unavailable Unavailable EVITA, KENYA ARCHER Unavailable Unavailable EVITA, KENYA ARCHER Unavailable Unavailable EVITA, KENYA ARCHER Unavailable Unavailable EVITA, KENYA ARCHER Unavailable Unavailable EVITA, KENYA ARCHER Unavailable Unavailable EVITA, KENYA ARCHER Unavailable Unavailable EVITA, KENYA ACRHER Unavailable Unavailable EVITA, KENYA ARCHER Unavailable Unavailable EVITA, KENYA ARCHER Unavailable Unavailable EVITA, KENYA ARCHER Unavailable Unavailable EVITA, KENYA ARCHER Unavailable Unavailable EVITA, KENYA ARCHER Unavailable Unavailable EVITA, KENYA ARCHER Unavailable Unavailable EVITA, KENYA ARCHER Unavailable Unavailable EVITA, KENYA ARCHER Unavailable Unavailable EVITA, KENYA ARCHER Unavailable Unavailable EVITA, KENYA ARCHER Unavailable Unavailable EVITA, KENYA ARCHER Unavailable Unavailable EVITA, KENYA ARCHER Unavailable Unavailable EVITA, KENYA ARCHER Unavailable Unavailable EVITA, KENYA ARCHER Unavailable Unavailable EVITA, KENYA ARCHER Unavailable Unavailable EVITA, KENYA ARCHER Unavailable Unavailable EVITA, KENYA ARCHER Unavailable Unavailable EVITA, KENYA ARCHER Unavailable Unavailable EVITA, KENYA ARCHER Unavailable Unavailable EVITA, KENYA ARCHER Unavailable Unavailable EVITA, KENYA ARCHER Unavailable Unavailable EVITA, KENYA ARCHER Unavailable Unavailable EVITA, KENYA ARCHER Unavailable Unavailable EVITA, KENYA ARCHER Unavailable Unavailable EVITA, KENYA ARCHER Unavailable Unavailable EVITA, KENYA ARCHER Unavailable Unavailable EVITA, KENYA ARCHER Unavailable Unavailable EVITA, KENYA ARCHER Unavailable Unavailable EVITA, KENYA ARCHER Unavailable Unavailable EVITA, KENYA ARCHER Unavailable Unavailable EVITA, KENYA ARCHER Unavailable Unavailable EVITA, KENYA ARCHER Unavailable Unavailable EVITA, KENYA ARCHER Unavailable Unavailable EVITA, KENYA ARCHER Unavailable Unavailable EVITA, KENYA ARCHER Unavailable Unavailable EVITA, KENYA ARCHER Unavailable Unavailable EVITA, KENYA ARCHER Unavailable Unavailable EVITA, KENYA ARCHER Unavailable Unavailable EVITA, KENYA ARCHER Unavailable Unavailable EVITA, KENYA ARCHER Unavailable Unavailable EVITA, KENYA ARCHER Unavailable Unavailable EVITA, KENYA ARCHER Unavailable Unavailable EVITA, KENYA ARCHER Unavailable Unavailable Elena Camarena Unavailable Magui French Unavailable Ali, Ryland MD Unavailable Unavailable Ali, Ryland MD Unavailable Unavailable Ali, Ryland MD Unavailable Unavailable Ali, Ryland MD Unavailable Unavailable Ali, Ryland MD Unavailable Unavailable Ali, Ryland MD Unavailable Unavailable Ali, Ryland MD Unavailable Unavailable Ali, Ryland MD Unavailable Unavailable Ali, Ryland MD Unavailable Unavailable Ali, Ryland MD Unavailable Unavailable Ali, Ryland MD Unavailable Unavailable Ali, Ryland MD Unavailable Unavailable Ali, Ryland MD Unavailable Unavailable Ali, Ryland MD Unavailable Unavailable Ali, Ryland MD Unavailable Unavailable Ali, Ryland MD Unavailable Unavailable Ali, Ryland MD Unavailable Unavailable Ali, Ryland MD Unavailable Unavailable Ali, Ryland MD Unavailable Unavailable Ali, Ryland MD Unavailable Unavailable Ali, Ryland MD Unavailable Unavailable Ali, Ryland MD Unavailable Unavailable Ali, Ryland MD Unavailable Unavailable Ali, Ryland MD Unavailable Unavailable Ali, Ryland MD Unavailable Unavailable Ali, Ryland MD Unavailable Unavailable Ali, Ryland MD Unavailable Unavailable Ali, Ryland MD Unavailable Unavailable Ali, Ryland MD Unavailable Unavailable Ali, Ryland MD Unavailable Unavailable Ali, Ryland MD Unavailable Unavailable Ali, Ryland MD Unavailable Unavailable Ali, Ryland MD Unavailable Unavailable Ali, Ryland MD Unavailable Unavailable Ali, Ryland MD Unavailable Unavailable Ali, Ryland MD Unavailable Unavailable Ali, Ryland MD Unavailable Unavailable Ali, Ryland MD Unavailable Unavailable Ali, Ryland MD Unavailable Unavailable Ali, Ryland MD Unavailable Unavailable Ali, Ryland MD Unavailable Unavailable Ali, Ryland MD Unavailable Unavailable Ali, Ryland MD Unavailable Unavailable Ali, Ryland MD Unavailable Unavailable Ali, Ryland MD Unavailable Unavailable Ali, Ryland MD Unavailable Unavailable Ali, Ryland MD Unavailable Unavailable Ali, Ryland MD Unavailable Unavailable Ali, Ryland MD Unavailable Unavailable Ali, Ryland MD Unavailable Unavailable Ali, Ryland MD Unavailable Unavailable Re-disclosure Warning The records that you are about to access may contain information from federally-assisted alcohol or drug abuse programs. If such information is present, then the following federally mandated warning applies: This information has been disclosed to you from records protected by federal confidentiality rules (42 CFR part 2). The federal rules prohibit you from making any further disclosure of this information unless further disclosure is expressly permitted by the written consent of the person to whom it pertains or as otherwise permitted by 42 CFR part 2. A general authorization for the release of medical or other information is NOT sufficient for this purpose. The Federal rules restrict any use of the information to criminally investigate or prosecute any alcohol or drug abuse patient.The records that you are about to access may contain highly sensitive health information, the redisclosure of which is protected by Article 27-F of the [facility] Public Health law. If you continue you may have access to information: Regarding HIV / AIDS; Provided by facilities licensed or operated by the [facility] Office of Mental Health; or Provided by the [facility] Office for People With Developmental Disabilities. If such information is present, then the following [facility] mandated warning applies: This information has been disclosed to you from confidential records which are protected by state law. State law prohibits you from making any further disclosure of this information without the specific written consent of the person to whom it pertains, or as otherwise permitted by law. Any unauthorized further disclosure in violation of state law may result in a fine or fdc sentence or both. A general authorization for the release of medical or other information is NOT sufficient authorization for further disc losure. Family History Family Member Name Family Member Gender Family Member Status Date o f Status Description Data Source(s) Unknown Unknown Problem [facility] ([facility]) Unknown Male Problem [facility] ([facility] () Unknown Female Problem [facility] ([facility]) Unknown Male Problem [facility] Unknown Male Problem [facility] Unknown Male Problem [facility] Encounters Encounter Providers Location Date Indications Data Source(s ) Outpatient ZOHAIB-SJP.VELIA 12/24/2020 12:00:00 AM EDT [facility]/17/2020 12:00:00 AM EDT [facility] Unknown [address] [facility] [place] [address] 12/11/2020 12:00:00 AM EDT eCW1 ([facility]) Outpatient Attender: Ethel SÁNCHEZ ZOHAIB-SJP 2020 08:50:56 AM EDT - 12/03/2020 10:43:[address] [facility] Outpatient Attender: Lili Bhandari/Silvia/Seun/Reindl 11/26/2020 11:00:00 AM EDT [facility] ([facility]) Outpatient CODYVELIA 11/17/2020 12:00:00 AM EDT [facility] Unknown [address] [facility] [place] [address] 11/14/2020 12:00:00 AM EDT eCW1 ([facility]) Unknown [address] [facility] [place] [address] 11/07/2020 12:00:00 AM EDT eCW1 ([facility]) [place] [address] [facility] [place] [address] 11/06/2020 12:00:00 AM EDT eCW1 ([facility]) [place] [address] [facility] [place] [address] 11/06/2020 12:00:00 AM EDT eCW1 ([facility]) Unknown [address] [facility] [place] [address] 11/05/2020 12:00:00 AM EDT eCW1 ([facility]) Outpatient [address] [facility] [place] [address] 10/22/2020 12:00:00 AM EDT eCW1 ([facility]) [place] [address] [facility] [place] [address] 10/20/2020 12:00:00 AM EDT eCW1 ([facility]) Outpatient CODYVELIA 10/17/2020 12:00 :00 AM EDT - 10/17/2020 08:04:10 AM EDT [facility] Outpatient Attender: KENYA COTTO 09:45:33 AM EDT - 09/17/2020 10:12:[address] [facility] Outpatient Attender: Ethel ROSSVELIA 2020 07:56:07 AM EDT - 08/06/2020 09:00:43 AM EDT [facility] Unknown [address] [facility] [place] [address] 07/08/2020 12:00:00 AM EDT eCW1 ([facility]) Outpatient SJP.VELIA-MEAGANP.VELIA 07/02/2020 10:51:21 AM EDT [facility] Outpatient SJP.VELIA-SJP.VELIA 06/18/2020 10:48:16 AM EDT [facility] Outpatient SJP.VELIA-MEAGANP.VELIA 06/11/2020 08:47:11 AM EDT [facility] Unknown [address] [facility] [place] [address] 06/09/2020 12:00:00 AM EDT eCW1 ([facility]) Unknown [address] [facility] [address] 06/05/2020 12:00:00 AM EDT eCW1 ([facility]) Office Visit, Est Pt., Level 4 PC [address] [place] [address] 05/22/2020 12:00:00 AM EDT eCW1 ([facility]) Outpatient [address] [facility] [place] [address] 05/19/2020 12:00:00 AM EDT eCW1 ([facility]) Outpatient SJP.DAVIDP.VELIA 05/07/2020 12:00:00 AM EDT [facility] Unknown [address] [facility] [place] [address] 04/30/2020 12:00:00 AM EST eCW1 ([facility]) Outpatient SJP.DAVIDP.VELIA 04/16/2020 12:00:00 AM EST [facility] Outpatient [address] [facility] [place] [address] 04/16/2020 12:00:00 AM EST eCW1 ([facility]) Extended Individual Psychotherapy - 45 min [facility]15[facility] 10:00:00 AM EST - 04/15/2020 10:00:00 AM EST [facility] ([facility]) Attender: Elena Migue 04/15/2020 12:00:00 AM EST [facility] ([facility]) Outpatient Attender: Ethel SÁNCHEZ PSelamVELIA-SJP.VELIA 2020 12:00:00 AM EST - 04/09/2020 09:04:47 AM EST [facility] Extended Individual Psychotherapy - 45 min Attender: Shelly aEsonoza [facility] Intermediate 03/28/2020 10:00:00 AM EST - 03/28/2020 10:00:00 AM EST [facility] ([facility]) Attender: Elena Camarena 03/28/2020 12:00:00 AM EST [facility] ([facility]) Outpatient P.VELIA-SJP.VELIA 03/19/2020 12:00:00 AM EST [facility] Outpatient [address] [facility] [place] [address] 03/18/2020 12:00:00 AM EST eCW1 ([facility]) Outpatient P.VELIA-SJP.VELIA 03/14/2020 12:00:00 AM EST [facility] Psychiatric Diagnostic Evaluation (Non-Medical) Attender: Huan aguilar Migue [facility] 03/11/2020 09:00:00 AM EST - 03/11/2020 09:00:00 AM EST [facility] ([facility]) Attender: Elena Camarena 03/11/2020 12:00:00 AM EST [facility] ([facility]) Unknown [address] [facility] [place] [address] 03/10/2020 12:00:00 AM EST eCW1 ([facility]) Extended Individual Psychotherapy - 45 min Attender: Jami French [facility] 02/26/2020 09:30:00 AM EST - 02/26/2020 09:30:00 AM EST [facility] ([facility]) Attender: Magui French 02/26/2020 12:00:00 AM EST [facility] ([facility]) Outpatient Attender: KENYA ALMAZAN.VELIA 0 12:00:00 AM EST - 02/20/2020 10:26:[address] [facility] Outpatient SJP.EDIS.VELIA 02/13/2020 09:01:49 AM EST [facility] TeleMedicine Est. Pt. Level [address] [place] [address] 02/13/2020 12:00:00 AM EST eCW1 ([facility]) TeleMedicine Est. Pt. Level [address] [place] [address] 02/12/2020 12:00:00 AM EST eCW1 ([facility]) Unknown [address] [facility] [place] [address] 02/12/2020 12:00:00 AM EST eCW1 ([facility]) Outpatient [address] [facility] [address] 02/07/2020 12:00:00 AM EST eCW1 ([facility]) Unknown [address] [facility] [address] 02/05/2020 12:00:00 AM EST eCW1 ([facility]) Outpatient SJP.EDIS.VELIA 02/01/2020 09:45 :32 AM EST - 02/01/2020 10:36:35 AM EST [facility] Outpatient SJKrystyna.EDIS.VELIA 02/01/2020 12:00:00 AM EST [facility] Office Visit, Est Pt., Level 3 PC [address] [place] [address] 01/25/2020 12:00:00 AM EST [facility] Unknown [address] [facility] [address] 01/24/2020 12:00:00 AM EST [facility]CW1 ([facility]) Unknown [address] [facility] [address] 01/02/2020 12:00:00 AM EST [facility] Outpatient [address] [facility] [address] 01/01/2020 12:00:00 AM EST [facility] Unknown [address] [facility] [address] 01/01/2020 12:00:00 AM EST [facility] Unknown [address] [facility] [address] 12/28/2019 12:00:00 AM EST [facility]1 [facility] Outpatient [address] [facility] [address] 12/25/2019 12:00:00 AM EST [facility]CW1 [facility] Unknown [address] [facility] [address] 12/17/2019 12:00:00 AM EDT [facility]CW1 [facility]) Outpatient Attender: Ethel SÁNCHEZ SJP.VELIA-SJP.VELIA 2019 12:00:00 AM EDT - 12/05/2019 09:07:03 AM EDT [facility] Unknown [address] [facility] [place] [address] 11/30/2019 12:00:00 AM EDT eCW1 ([facility]) Outpatient [address] [facility] [address] 11/30/2019 12:00:00 AM EDT eCW1 ([facility]) Unknown [address] [facility] [address] 11/23/2019 12:00:00 AM EDT eCW1 ([facility]) Unknown [address] [facility] [address] 11/20/2019 12:00:00 AM EDT eCW1 ([facility]) Office Visit Attender: Ryland Kerr MD Main office - [place] 11/16/2019 09:45:00 AM EDT JOHNATHAN ([facility] ) Outpatient SJP.VELIA-SJP.VELIA 11/07/2019 12:00:00 AM EDT [facility] Immunizations Vaccine Date Status Description Data Source(s) COVID-19 VACCINE Moderna 03/26/2020 12:00:00 AM EST completed [facility] Vaccine Series Complete: YESThis Data wa s Submitted to [facility] Via [employer]. COVID-19 VACCINE Moderna 02/27/2020 12:00:00 AM EST completed [place] Vaccine Series Complete: NOThis Data was Submitted to [facility] Via [employer]. influenza, recombinant, quadrIvalent,injectable, prese rvative free 11/30/2019 09:13:00 AM EDT completed eCW1 (Pending sale to [facility]) influenza, recombinant, quadrIvalent,injectable, prese rvative free 11/30/2019 09:13:00 AM EDT completed eCW1 (Pending sale to [facility]) influenza, recombinant, quadrIvalent,injectable, prese rvative free 11/30/2019 09:13:00 AM EDT completed eCW1 (Pending sale to [facility]) influenza, recombinant, quadrIvalent,injectable, prese rvative free 11/30/2019 09:13:00 AM EDT completed eCW1 (Pending sale to [facility]) influenza, recombinant, quadrIvalent,injectable, prese rvative free 11/30/2019 09:13:00 AM EDT completed eCW1 (Pending sale to [facility]) influenza, recombinant, quadrIvalent,injectable, prese rvative free 11/30/2019 09:13:00 AM EDT completed eCW1 (Pending sale to [facility]) influenza, recombinant, quadrIvalent,injectable, prese rvative free 11/30/2019 09:13:00 AM EDT completed eCW1 (Pending sale to [facility]) influenza, recombinant, quadrIvalent,injectable, prese rvative free 11/30/2019 09:13:00 AM EDT completed eCW1 (Pending sale to [facility]) influenza, recombinant, quadrIvalent,injectable, prese rvative free 11/30/2019 09:13:00 AM EDT completed eCW1 (Pending sale to [facility]) influenza, recombinant, quadrIvalent,injectable, prese rvative free 11/30/2019 09:13:00 AM EDT completed eCW1 ([facility]ending [facility] to [facility]) influenza, recombinant, quadrIvalent,injectable, prese rvative free 11/30/2019 09:13:00 AM EDT completed eCW1 (Pending sale to [facility]) influenza, recombinant, quadrIvalent,injectable, prese rvative free 11/30/2019 09:13:00 AM EDT completed eCW1 (Pending sale to [facility]) influenza, recombinant, quadrIvalent,injectable, prese rvative free 11/30/2019 09:13:00 AM EDT completed eCW1 (Pending sale to [facility]) influenza, recombinant, quadrIvalent,injectable, prese rvative free 11/30/2019 09:13:00 AM EDT completed eCW1 ([facility]ending sale to [facility]) influenza, recombinant, quadrIvalent,injectable, prese rvative free 11/30/2019 09:13:00 AM EDT completed eCW1 (Pending sale to [facility]) influenza, recombinant, quadrIvalent,injectable, prese rvative free 11/30/2019 09:13:00 AM EDT completed eCW1 ([facility]ending [facility] to [facility]) influenza, recombinant, quadrIvalent,injectable, prese rvative free 11/30/2019 09:13:00 AM EDT completed eCW1 (Pending sale to [facility]) influenza, recombinant, quadrIvalent,injectable, prese rvative free 11/30/2019 09:13:00 AM EDT completed eCW1 ([facility]ending [facility] to [facility]) influenza, recombinant, quadrIvalent,injectable, prese rvative free 11/30/2019 09:13:00 AM EDT completed eCW1 ([facility]ending [facility] to [facility]) influenza, recombinant, quadrIvalent,injectable, prese rvative free 11/30/2019 09:13:00 AM EDT completed eCW1 ([facility]ending [facility] to [facility]) influenza, recombinant, quadrIvalent,injectable, prese rvative free 11/30/2019 09:13:00 AM EDT completed eCW1 ([facility]ending [facility] to [facility]) influenza, recombinant, quadrIvalent,injectable, prese rvative free 11/30/2019 09:13:00 AM EDT completed eCW1 ([facility] to [facility]) influenza, recombinant, quadrIvalent,injectable, prese rvative free 11/30/2019 09:13:00 AM EDT completed eCW1 ([facility] to [facility]) influenza, recombinant, quadrIvalent,injectable, prese rvative free 11/30/2019 09:13:00 AM EDT completed eCW1 ([facility] to [facility]) influenza, recombinant, quadrIvalent,injectable, prese rvative free 11/30/2019 09:13:00 AM EDT completed eCW1 ([facility] to [facility]) influenza, recombinant, quadrIvalent,injectable, prese rvative free 11/30/2019 09:13:00 AM EDT completed eCW1 ([facility]ending [facility] to [facility]) influenza, recombinant, quadrIvalent,injectable, prese rvative free 11/30/2019 09:13:00 AM EDT completed eCW1 (Pending sale to [facility]) influenza, recombinant, quadrIvalent,injectable, prese rvative free 11/30/2019 09:13:00 AM EDT completed eCW1 (Pending sale to [facility]) influenza, recombinant, quadrIvalent,injectable, prese rvative free 11/30/2019 09:13:00 AM EDT completed eCW1 (Pending sale to [facility]) influenza, recombinant, quadrIvalent,injectable, prese rvative free 11/30/2019 09:13:00 AM EDT completed eCW1 (Pending sale to [facility]) influenza, recombinant, quadrIvalent,injectable, prese rvative free 11/30/2019 09:13:00 AM EDT completed eCW1 (Pending sale to [facility]) influenza, recombinant, quadrIvalent,injectable, prese rvative free 11/30/2019 09:13:00 AM EDT completed eCW1 (Pending sale to [facility]) influenza, recombinant, quadrIvalent,injectable, prese rvative free 11/30/2019 09:13:00 AM EDT completed eCW1 (Pending sale to [facility]) Medications Medication Brand Name Start Date Product Form Dose Route Admi nistrative Instructions Pharmacy Instructions Status Indications Reaction Description Data Source(s) Amiodarone hydrochloride 100 MG Oral Tablet amiodarone (PACERONE) 100 MG tablet amiodarone (PACERONE) 100 MG tablet 12/03/2020 12:00:00 AM EDT active Atrial fibrillation, unspecified type Take 1 tablet by mouth Tuesday, Tuesday, Tuesday [facility] Atrial fibrillation, unspecified type 60 ACTUAT Albuterol 0.09 MG/ACTUAT Metered Dose Inhaler Albu terol Sulfate HFA 11/26/2020 12:00:00 AM EDT RESPIRATORY active MEDENT ([facility], ) ezetimibe 10 MG Oral Tablet ezetimibe (ZETIA) 10 MG ta blet ezetimibe (ZETIA) 10 MG tablet 11/26/2020 12:00:00 AM EDT 10 mg Oral act jesus Hyperlipidemia, unspecified hyperlipidemia type Take 1 tablet (10 mg total) by mouth daily [facility] Hyperlipidemia, unspecified hyperlipidem ia type 3 ML Insulin Glargine 100 UNT/ML Pen Inj milo [Lantus] Lantus SoloStar 100 UNIT/ML SOPN Lantus SoloStar 100 UNIT/ML SOPN 11/07/2020 12:00:00 AM EDT active [facility] ezetimibe 10 MG Oral Tablet ezetimibe (ZETIA) 10 MG ta blet ezetimibe (ZETIA) 10 MG tablet 08/06/2020 12:00:00 AM EDT act jesus Hyperlipidemia, unspecified hyperlipidemia type TAKE 1 TABLET(10 MG) BY MOUT H DAILY [facility] Hyperlipidemia, unspecified hyperlipidem ia type ezetimibe 10 MG Oral Tablet ezetimibe (ZETIA) 10 MG ta blet ezetimibe (ZETIA) 10 MG tablet 08/06/2020 12:00:00 AM EDT 10 mg Oral act jesus Hyperlipidemia, unspecified hyperlipidemia type Take 1 tablet (10 mg total) by mouth daily [facility] Hyperlipidemia, unspecified hyperlipidem ia type 1 ML evolocumab 140 MG/ML Prefilled Syringe [Repatha] Repatha 140 MG/ML SOSY Repatha 140 MG/ML SOSY 07/17/2020 12:00:00 AM EDT aborted Type 2 diabetes mellitus with other circulatory complicationsHyperlipidemia, unspecified hyperlipidemia type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 INJECT 140MG(1 SYRINGE) UNDER THE SKIN EVERY 14 DAYS [facility] Type 2 diabetes mellitus with other circ ulatory complications Hyperlipidemia, unspecified hyperlipidem ia type 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 Warfarin Sodium 5 MG Oral Tablet warfarin (COUMADIN) 5 MG tablet warfarin (COUMADIN) 5 MG tablet 06/11/2020 12:00:00 AM EDT 5 mg Oral active Paroxysmal atrial fibrillation Take 1 tablet (5 mg total) by mouth daily [facility] Paroxysmal atrial fibrillation Warfarin Sodium 2.5 MG Oral Tablet warfarin (COUMADIN) 2.5 MG tablet warfarin (COUMADIN) 2.5 MG tablet 06/06/2020 12:00:00 AM EDT active TAKE 2 TABLETS BY MOUTH EVERY EVENING UNTIL DIRECTED OTHERWISE BY DOCTOR EVITA(MAX DAILY DOSE 7.5MG) [facility] Amiodarone hydrochloride 100 MG Oral Tablet amiodarone (PACERONE) 100 MG tablet amiodarone (PACERONE) 100 MG tablet 04/09/2020 12:00:00 AM EST 100 mg Oral aborted Paroxysmal atrial fibrillation T danielle 1 tablet (100 mg total) by mouth every other day [facility] Paroxysmal atrial fibrillation doxycycline hyclate 100 MG Oral Capsule Doxycycline Hy clate 100 MG Doxycycline Hyclate 100 MG 02/12/2020 12:00:00 AM EST 1.0 {capsule} suspended Doxycycline Hyclate 100 MG eCW1 ([facility]) doxycycline hyclate 100 MG Oral Capsule Doxycycline Hy clate 100 MG Doxycycline Hyclate 100 MG 02/12/2020 12:00:00 AM EST 1.0 {capsule} active Doxycycline Hyclate 100 MG eCW1 ([facility]) doxycycline hyclate 100 MG Oral Capsule Doxycycline Hy clate 100 MG Doxycycline Hyclate 100 MG 02/12/2020 12:00:00 AM EST 1.0 {capsule} active Doxycycline Hyclate 100 MG eCW1 ([facility]) doxycycline hyclate 100 MG Oral Capsule Doxycycline Hy clate 100 MG Doxycycline Hyclate 100 MG 02/12/2020 12:00:00 AM EST 1.0 {capsule} active Doxycycline Hyclate 100 MG eCW1 ([facility]) doxycycline hyclate 100 MG Oral Capsule Doxycycline Hy clate 100 MG Doxycycline Hyclate 100 MG 02/12/2020 12:00:00 AM EST 1.0 {capsule} active Doxycycline Hyclate 100 MG eCW1 ([facility]) doxycycline hyclate 100 MG Oral Capsule Doxycycline Hy clate 100 MG Doxycycline Hyclate 100 MG 02/12/2020 12:00:00 AM EST 1.0 {capsule} suspended Doxycycline Hyclate 100 MG eCW1 ([facility]) doxycycline hyclate 100 MG Oral Capsule Doxycycline Hy clate 100 MG Doxycycline Hyclate 100 MG 02/12/2020 12:00:00 AM EST 1.0 {capsule} active Doxycycline Hyclate 100 MG eCW1 ([facility]) doxycycline hyclate 100 MG Oral Capsule Doxycycline Hy clate 100 MG Doxycycline Hyclate 100 MG 02/12/2020 12:00:00 AM EST 1.0 {capsule} suspended Doxycycline Hyclate 100 MG eCW1 ([facility]) doxycycline hyclate 100 MG Oral Capsule Doxycycline Hy clate 100 MG Doxycycline Hyclate 100 MG 02/12/2020 12:00:00 AM EST 1.0 {capsule} suspended Doxycycline Hyclate 100 MG eCW1 ([facility]) doxycycline hyclate 100 MG Oral Capsule Doxycycline Hy clate 100 MG Doxycycline Hyclate 100 MG 02/12/2020 12:00:00 AM EST 1.0 {capsule} suspended Doxycycline Hyclate 100 MG eCW1 ([facility]) doxycycline hyclate 100 MG Oral Capsule Doxycycline Hy clate 100 MG Doxycycline Hyclate 100 MG 02/12/2020 12:00:00 AM EST 1.0 {capsule} suspended Doxycycline Hyclate 100 MG eCW1 ([facility]) doxycycline hyclate 100 MG Oral Capsule Doxycycline Hy clate 100 MG Doxycycline Hyclate 100 MG 02/12/2020 12:00:00 AM EST 1.0 {capsule} active Doxycycline Hyclate 100 MG eCW1 ([facility]) doxycycline hyclate 100 MG Oral Capsule Doxycycline Hy clate 100 MG Doxycycline Hyclate 100 MG 02/12/2020 12:00:00 AM EST 1.0 {capsule} suspended Doxycycline Hyclate 100 MG eCW1 ([facility]) doxycycline hyclate 100 MG Oral Capsule Doxycycline Hy clate 100 MG Doxycycline Hyclate 100 MG 02/12/2020 12:00:00 AM EST 1.0 {capsule} active Doxycycline Hyclate 100 MG eCW1 ([facility]) doxycycline hyclate 100 MG Oral Capsule Doxycycline Hy clate 100 MG Doxycycline Hyclate 100 MG 02/12/2020 12:00:00 AM EST 1.0 {capsule} suspended Doxycycline Hyclate 100 MG eCW1 ([facility]) doxycycline hyclate 100 MG Oral Capsule Doxycycline Hy clate 100 MG Doxycycline Hyclate 100 MG 02/12/2020 12:00:00 AM EST 1.0 {capsule} suspended Doxycycline Hyclate 100 MG eCW1 ([facility]) doxycycline hyclate 100 MG Oral Capsule Doxycycline Hy clate 100 MG Doxycycline Hyclate 100 MG 02/12/2020 12:00:00 AM EST 1.0 {capsule} suspended Doxycycline Hyclate 100 MG eCW1 ([facility]) doxycycline hyclate 100 MG Oral Capsule Doxycycline Hy clate 100 MG Doxycycline Hyclate 100 MG 02/12/2020 12:00:00 AM EST 1.0 {capsule} suspended Doxycycline Hyclate 100 MG eCW1 ([facility]) doxycycline hyclate 100 MG Oral Capsule Doxycycline Hy clate 100 MG Doxycycline Hyclate 100 MG 02/12/2020 12:00:00 AM EST 1.0 {capsule} active Doxycycline Hyclate 100 MG eCW1 ([facility]) doxycycline hyclate 100 MG Oral Capsule Doxycycline Hy clate 100 MG Doxycycline Hyclate 100 MG 02/12/2020 12:00:00 AM EST 1.0 {capsule} active Doxycycline Hyclate 100 MG eCW1 ([facility]) doxycycline hyclate 100 MG Oral Tablet Doxycycline Hyc late 100 MG Doxycycline Hyclate 100 MG 01/01/2020 12:00:00 AM EST 1.0 {tablet} active Doxycycline Hyclate 100 MG eCW1 ([facility]) doxycycline hyclate 100 MG Oral Tablet Doxycycline Hyc late 100 MG Doxycycline Hyclate 100 MG 01/01/2020 12:00:00 AM EST 1.0 {tablet} active Doxycycline Hyclate 100 MG eCW1 ([facility]) Prednisone 20 MG Oral Tablet PredniSONE 20 MG PredniSONE 20 MG 01/01/2020 12:00:00 AM EST 2.0 {tablets} active P redniSONE 20 MG eCW1 ([facility]) Prednisone 20 MG Oral Tablet PredniSONE 20 MG PredniSONE 20 MG 01/01/2020 12:00:00 AM EST 2.0 {tablets} active P redniSONE 20 MG eCW1 ([facility]) Prednisone 20 MG Oral Tablet PredniSONE 20 MG PredniSONE 20 MG 01/01/2020 12:00:00 AM EST 2.0 {tablets} active P redniSONE 20 MG eCW1 ([facility]) doxycycline hyclate 100 MG Oral Tablet Doxycycline Hyc late 100 MG Doxycycline Hyclate 100 MG 01/01/2020 12:00:00 AM EST 1.0 {tablet} active Doxycycline Hyclate 100 MG eCW1 ([facility]) Furosemide 40 MG Oral Tablet furosemide (LASIX) 40 MG tablet furosemide (LASIX) 40 MG tablet 11/20/2019 12:00:00 AM EDT 40 mg Oral activ e Take 40 mg by mouth daily [facility] Amiodarone hydrochloride 200 MG Oral Tablet amiodarone (PACERONE) 200 MG tablet amiodarone (PACERONE) 200 MG tablet 02/16/2019 12:00:00 AM EST 200 mg Oral aborted Take 200 mg by mouth every o ther day [facility] Losartan Potassium 50 MG Oral Tablet losartan (COZAAR) 50 MG tablet losartan (COZAAR) 50 MG tablet 01/25/2019 12:00:00 AM EST aborted TK 1 T PO BID [facility] Insulin Glargine 100 UNT/ML Injectable S olution insulin glargine (INSULIN GLARGINE) 100 UNIT/ML injection insulin glargine (INSULIN GLARGINE) 100 UNIT/ML injection 08/10/2017 12:00:00 AM EDT 40 U Subcutaneous ab orted Inject 40 Units under the skin 2 (two) times a day [facility] Insurance Providers Payer name Policy type / Coverage type Policy ID Covered democrat ID Covered democrat's relationship to nolan Policy Nolan Plan Information [facility] [id number] Self [id number] [facility] [id number] .[id number] Self [id number] [facility] [id number] Self [id number] [facility] [id number] Self EXCELLUS BCBS [id number] Yumi [id number] EXCELLUS BCBS [id number] xxxxxxxxx 04 BCBS FEDERAL EMPLOYEE PROGRAM [id number] SP [id number] EXCELLUS BCBS [id number] Yumi [id number] EXCELLUS C [id number] Self [id number] BC/BS Federal Commercial [id number] Self BC BS [place] FEDERAL [id number] SP [id number] BS Fed Plan Commercial [id number] Self [id number] BS Fed Plan Commercial .[id number] Self MEDICARE [id number] xxxxxxxxxxx [id number] MEDICARE [id number] Yumi [id number] Q68 MEDICARE [id number] Yumi [id number] Q68 MEDICARE [id number] SP [id number] Medicare - [place] Medicare Primary [id number] Self [id number] Medicare - [place] Medicare Primary [id number] Self [id number] ANSI-Commercial [id number] MEDICARE [id number] SP [id number] A ANSI-Commercial [id number] ANSI-Commercial [id number] SELF PAY ONLY [id number] SP [id number] [facility] Part B [id number] Self [id number] Medicare [place] Medicare Primary [id number] Self [id number] ANSI-Commercial [id number] ANSI-Commercial [id number] ANSI-Commercial [id number] [facility] Part B [id number] Self [id number] [facility] EMPLOYEE PROGRAM [id number] SP [id number] [facility] Hmo Blue (Yop) Health Maintenance Organization (HMO) [id number] Self Y [id number] ANSI-Commercial [id number] [facility] B [id number] S [id number] ANSI-Commercial [id number] ANSI-Commercial [id number] ANSI-Commercial [id number] ANSI-Commercial [id number] ANSI-Commercial [id number]-[id number]-[id number]-[id number] ANSI-Commercial [id number] ANSI-Commercial [id number]-[id number] [id number] ANSI-Commercial [id number] MEDICARE [id number] SP [id number] A ANSI-Commercial [id number] ANSI-Commercial [id number] ANSI-Commercial [id number] ANSI-Commercial [id number]-[id number] ANSI-Commercial [id number] [facility] FEDERAL EMPLOYEE PROGRAM [id number] SP [id number] ANSI-Commercial [id number] ANSI-Commercial [id number]-[id number]-[id number] ANSI-Commercial [id number] ANSI-Commercial [id number] [facility] B [id number] Self [id number] [facility] Part B [id number] Self EXCELLUS [facility] PI PI MEDICARE PI PI EXCELLUS [facility] [id number] SP [id number] EXCELLUS [facility] [id number] SP [id number] EXCELLUS [facility] [id number] SP [id number] [facility] Part B [id number] Self [id number] [facility] EMPLOYEE PROGRAM [id number] SP [id number] Workers Comp (WC) Workers Compensation [id number] Self MEDICARE [id number] SP [id number] MEDICARE C [id number] S [id number] [facility] [place] [facility] [id number] S [id number] [facility] EMPLOYEE PROGRAM [id number] SP [id number] [employer]-Medicare Part B [id number] ANSI-Commercial [id number] ANSI-Commercial [id number] ANSI-Medicare Part B [id number] ANSI-Medicare Part B [id number] ANSI-Commercial [id number] ANSI-Commercial [id number] ANSI-Commercial [id number] ANSI-Commercial [id number] ANSI-Commercial [id number] BS [place] [facility] [id number] Problems, Conditions, and Diagnoses Code Display Name Description Problem Type Effective Dates Data Source(s) I48.91 Unspecified atrial fibrillation Unspecified atri al fibrillation Diagnosis 12/03/2020 08:50:[address] [facility] I48.0 Paroxysmal atrial fibrillation Paroxysmal atrial fibri llation Diagnosis 12/03/2020 08:50:56 AM EDT [facility] E78.5 Hyperlipidemia, unspecified Hyperlipidemia, unspecifie d Diagnosis 12/03/2020 08:50:56 AM EDT [facility] I48.11 Longstanding persistent atrial fibrillat ion Longstanding persistent atrial fibrillat Diagnosis 09/17/2020 12:00:00 AM EDT [facility] E11.59 Type 2 diabetes mellitus with other circ ulatory complications Type 2 diabetes mellitus with other circ Diagnosis 04/09/2020 07:51:38 AM [facility] G47.33 Obstructive sleep apnea (adult) (pediatr ic) Obstructive sleep apnea (adult) (pediatr Diagnosis 04/09/2020 07:51:38 AM EST [facility] K21.9 Gastro-esophageal reflux disease without esophagitis Gastro-esophageal reflux disease without Diagnosis 04/09/2020 07:51:38 AM [facility] N18.9 Chronic kidney disease, unspecified Chronic kidn ey disease, unspecified Diagnosis 04/09/2020 07:51:38 AM [facility] I71.2 Thoracic aortic aneurysm, without ruptur e Thoracic aortic aneurysm, without ruptur Diagnosis 04/09/2020 07:51:38 AM [facility] I35.9 Nonrheumatic aortic valve disorder, unsp ecified Nonrheumatic aortic valve disorder, unsp Diagnosis 04/09/2020 07:51:38 AM [facility] 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 Atherosclerotic heart disease of benton Diagnosis 04/09/2020 07:51:38 AM [facility] R07.89 Other chest pain Other chest pain Diagnosis 02/01/2020 09 :45:32 AM [facility] E78.2 Mixed hyperlipidemia Mixed hyperlipidemia Diagnosis 02/01/2020 09:45:32 AM [facility] I10 Essential (primary) hypertension Essential (primary) h ypertension Diagnosis 02/01/2020 09:45:32 AM [facility] N18.32 [id number] Chronic kidney disease, stage 3b Problem 10/22/2020 12:00:00 AM EDT eCW1 ([facility]) M54.32 [id number] Left sided sciatica Problem 05/22/2020 12:00 :00 AM EDT eCW1 ([facility]) F43.21 Adjustment disorder with depressed mood Adjustment Disorder, With depressed mood Condition 04/15/2020 12:00:00 AM EST [facility] Z00.00 [id number] Medicare annual wellness visit, subsequen t Problem 02/12/2020 12:00:00 AM EST eCW1 ([facility]) I10 Essential hypertension Essential (primary) hypertensio n Problem 01/25/2020 12:00:00 AM EST eCW1 ([facility]) N18.31 [id number] Stage 3a chronic kidney disease Problem 01/25/2020 12:00:00 AM EST eCW1 ([facility]) E11.21 [id number] 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 Problem 11/30/2019 12:00:00 AM EDT eCW1 ([facility]) Z79.4 [id number] 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 Proble m 11/30/2019 12:00:00 AM EDT eCW1 ([facility]) M62.82 [id number] Non-traumatic rhabdomyolysis Problem 11/30/2019 12:00:00 AM EDT eCW1 ([facility]) N18.31 [id number] Chronic kidney disease, stage 3a Problem 11/30/2019 12:00:00 AM EDT eCW1 ([facility]) 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 ) Surgeries/Procedures Procedure Description Date Indications Data Source(s) OFFICE OUTPATIENT VISIT 25 MINUTES 11/26/2020 12:00:00 AM EDT [facility] ([facility], ) BLOOD COUNT COMPLETE AUTO&AUTO DIFRNTL WBC COUNT <td>C BC AND DIFFERENTIAL</td><td>Routine</td><td>09/17/2020</td><td></td><td> </td> 09/17/2020 12:00:00 AM EDT [facility] BASIC METABOLIC PANEL CALCIUM TOTAL <td>BASIC METABOLI C PANEL</td><td>Routine</td><td>09/17/2020</td><td></td><td> </td> 09/17/2020 12:00:00 AM EDT [facility] PROTHROMBIN TIME <td>POCT INR</td><td>Routine </td><td>09/17/2020</td><td> Longstanding persistent atrial fibrillation</td><td> </td> 09/17/2020 12:00:00 AM EDT Longstanding persistent atrial fibrillation [facility] Longstanding persistent atrial fibrillat ion PROTHROMBIN TIME <td>POCT INR</td><td>Routine </td><td>08/06/2020</td><td> Longstanding persistent atrial fibrillation</td><td> </td> 08/06/2020 12:00:00 AM EDT Longstanding persistent atrial fibrillation [facility] Longstanding persistent atrial fibrillat ion HEMOGLOBIN GLYCOSYLATED A1C <td>HEMOGLOBIN A1C</td><td>Routine</td><td>05/19/2020</td><td></td><td> </td> 05/19/2020 12:00:00 AM EDT [facility] BASIC METABOLIC PANEL CALCIUM TOTAL <td>BASIC METABOLI C PANEL</td><td>Routine</td><td>05/19/2020</td><td></td><td> </td> 05/19/2020 12:00:00 AM EDT [facility] Extended Individual Psychotherapy - 45 min 04/15/2020 12:00:00 AM EST - 04/15/2020 12:00:00 AM EST [facility] ([facility]) Extended Individual Psychotherapy - 45 min 12:00:00 AM EST [facility] ([facility]) ECG ROUTINE ECG W/LEAST 12 LDS W/I&R <td>POCT AMB EKG</td><td>Routine</td><td>04/09/2020 9:08 AM EST</td><td> 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 Paroxysmal atrial fibrillation Aortic valve disease</td><td> </td> 04/09/2020 02:08:00 PM EST Aortic valve diseaseParoxysmal atrial fi brillation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 [facility] Aortic valve disease Paroxysmal atrial fibrillation 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 Extended Individual Psychotherapy - 45 min 03/28/2020 12:00:00 AM EST - 03/28/2020 12:00:00 AM EST [facility] ([facility]) Extended Individual Psychotherapy - 45 min 12:00:00 AM EST [facility] ([facility]) Psychiatric Diagnostic Evaluation (Non-Medical) 03/11/2020 12:00:00 AM EST - 03/11/2020 12:00:00 AM EST [facility] ([facility]) Psychiatric Diagnostic Evaluation (Non-Medical) 2020 12:00:00 AM EST [facility] ([facility]) Extended Individual Psychotherapy - 45 min 02/26/2020 12:00:00 AM EST - 02/26/2020 12:00:00 AM EST [facility] ([facility]) Extended Individual Psychotherapy - 45 min 12:00:00 AM EST [facility] ([facility]) Immunization: Flublok Quadrivalent (18 years & older) 0.5mL IM (Influenza) 11/30/2019 12:00:00 AM EDT eCW1 ([facility]) Results ID Date Data Source [id number] 12/17/2020 08:33:51 [facility] Name Date of Age Gend*PT [id number] Felicia Alva 1960 60 years M ---PT Location Admission Date/Time Visit ID Attending Provider --- --- --- --- EPI ID CSN Admitting Provider [id number] ---Addended by: ETHEL JARVIS on: 12/17/2020 08:33 AM Modules accepted: Orders Name Value Range Interpretation Code Description Data Maria Guadalupe rce(s) Supporting Document(s) ID Date Data Source Basic Metabolic Profile (BMP) 02/12/2020 12:00:00 AM EST eCW 1 ([facility]) Name Value Range Interpretation Code Description Data Maria Guadalupe rce(s) Supporting Document(s) 34 7-18 BLOOD UREA NITROGEN eCW1 ([facility]) 1.60 0.70-1.30 CREATININE FOR GFR eCW1 ([facility]) 215 70-100 GLUCOSE, FASTING eCW1 ([facility]) 136 136-145 SODIUM LEVEL eCW1 ([facility]) 104 98-107 CHLORIDE LEVEL eCW1 ([facility]) 4.9 3.5-5.1 POTASSIUM SERUM eCW1 ([facility]) 47.0 >49 GLOMERULAR FILTRATION RATE eCW 1 ([facility]) 10.0 8.8-10.2 CALCIUM LEVEL eCW1 ([facility]) 25 21-32 CARBON DIOXIDE LEVEL eCW1 ([facility]) ID Date Data Source CPK CREATINE PHOSPHOKINASE 02/12/2020 12:00:00 AM EST eCW1 ( [facility]) Name Value Range Interpretation Code Description Data Maria Guadalupe rce(s) Supporting Document(s) [phone] CPK CREATINE PHOSPHOKINASE eCW 1 ([facility]) ID Date Data Source [id number] 02/05/2020 01:00:00 PM EST [facility] Name Value Range Interpretation Code Description Data Maria Guadalupe rce(s) Supporting Document(s) SARS coronavirus 2 RNA [facility] This lab was ordered by [facility] and reported by [facility]. ID Date Data Source Coronavirus 2019 Nasopharygeal (Send Out) COVID 01/04/2020 0 3:11:19 AM EST eCW1 ([facility]) Name Value Range Interpretation Code Description Data Maria Guadalupe rce(s) Supporting Document(s) This nucleic acid amplification test was developed and its CORONAVIRUS 2019 NASOPHARYGEAL eCW1 ([facility]) ID Date Data Source [id number] 01/01/2020 02:30:00 PM EST [facility] Name Value Range Interpretation Code Description Data Maria Gudaalupe rce(s) Supporting Document(s) SARS coronavirus 2 RNA [facility] This lab was ordered by [facility] and reported by [facility]. ID Date Data Source Comprehensive Metabolic Profile (CMP) 11/20/2019 06:10:05 AM EDT eCW1 ([facility]) Name Value Range Interpretation Code Description Data Maria Guadalupe rce(s) Supporting Document(s) 192 GLUCOSE, FASTING eCW1 (Formerly [facility]) 49 BLOOD UREA NITROGEN eCW1 ([facility]) 2.07 CREATININE FOR GFR eCW1 (Formerly [facility]) 35.0 GLOMERULAR FILTRATION RATE eCW 1 ([facility]) 133 SODIUM LEVEL eCW1 ([facility]) 9.2 CALCIUM LEVEL eCW1 ([facility]) 23 CARBON DIOXIDE LEVEL eCW1 ([facility]) 104 CHLORIDE LEVEL eCW1 ([facility]) 5.2 POTASSIUM SERUM eCW1 ([facility]) 57 AST/SGOT eCW1 (Pending sale to [facility]) 101 ALKALINE PHOSPHATASE eCW1 ([facility]) 0.4 BILIRUBIN,TOTAL eCW1 ([facility]) 56 ALT/SGPT eCW1 (Pending sale to [facility]) 7.6 TOTAL PROTEIN eCW1 ([facility]) 3.9 ALBUMIN eCW1 (Pending sale to [facility]) 1.1 ALBUMIN/GLOBULIN RATIO eCW1 ([facility]) Procedure Social History Code Duration Value Status Description Data Source(s ) Smoking 12/06/2020 12:00:00 AM EDT Never Smoker completed Never S moker eCW1 ([facility]) Alcohol intake 12/03/2020 12:00:00 AM EDT Current non-d brandee of alcohol (finding) completed Current non-drinker of alcohol (finding) [facility] Smoking 11/26/2020 12:00:00 AM EDT Non Smoker completed Non Smoke r MEDENT ([facility], ) Smoking 10/22/2020 12:00:00 AM EDT Never Smoker completed Never S moker eCW1 ([facility]) Smoking 10/22/2020 12:00:00 AM EDT Never Smoker completed Never S moker eCW1 ([facility]) Smoking 10/22/2020 12:00:00 AM EDT Never Smoker completed Never S moker eCW1 ([facility]) Smoking 10/22/2020 12:00:00 AM EDT Never Smoker completed Never S moker eCW1 ([facility]) Smoking 10/22/2020 12:00:00 AM EDT Never Smoker completed Never S moker eCW1 ([facility]) Smoking 10/22/2020 12:00:00 AM EDT Never Smoker completed Never S moker eCW1 ([facility]) Alcohol intake 08/06/2020 12:00:00 AM EDT Current non-d brandee of alcohol (finding) completed Current non-drinker of alcohol (finding) [facility] Smoking 05/22/2020 12:00:00 AM EDT Never Smoker completed Never S moker eCW1 ([facility]) Smoking 05/22/2020 12:00:00 AM EDT Never Smoker completed Never S moker eCW1 ([facility]) Smoking 05/22/2020 12:00:00 AM EDT Never Smoker completed Never S moker eCW1 ([facility]) Smoking 05/22/2020 12:00:00 AM EDT Never Smoker completed Never S moker eCW1 ([facility]) Smoking 05/22/2020 12:00:00 AM EDT Never Smoker completed Never S moker eCW1 ([facility]) Smoking 04/15/2020 12:00:00 AM EST Unknown if ever smoked comp leted Unknown if ever smoked [facility] ([facility]) Alcohol intake 04/09/2020 12:00:00 AM EST No completed [facility] Smoking 04/09/2020 12:00:00 AM EST Never smoker completed Never s moker [facility] Smoking 03/28/2020 12:00:00 AM EST Unknown if ever smoked comp leted Unknown if ever smoked [facility] ([facility]) Smoking 03/11/2020 12:00:00 AM EST Unknown if ever smoked comp leted Unknown if ever smoked [facility] ([facility]) Smoking 02/26/2020 12:00:00 AM EST Unknown if ever smoked comp leted Unknown if ever smoked [facility] ([facility]) Smoking 02/13/2020 12:00:00 AM EST Never Smoker completed Never S moker eCW1 ([facility]) Smoking 02/13/2020 12:00:00 AM EST Never Smoker completed Never S moker eCW1 ([facility]) Smoking 02/13/2020 12:00:00 AM EST Never Smoker completed Never S moker eCW1 ([facility]) Smoking 02/13/2020 12:00:00 AM EST Never Smoker completed Never S moker eCW1 ([facility]) Smoking 02/13/2020 12:00:00 AM EST Never Smoker completed Never S moker eCW1 ([facility]) Smoking 02/13/2020 12:00:00 AM EST Never Smoker completed Never S moker eCW1 ([facility]) Smoking 02/13/2020 12:00:00 AM EST Never Smoker completed Never S moker eCW1 ([facility]) Smoking 02/12/2020 12:00:00 AM EST Never Smoker completed Never S moker eCW1 ([facility]) Smoking 01/25/2020 12:00:00 AM EST Never Smoker completed Never S moker eCW1 ([facility]) Smoking 01/25/2020 12:00:00 AM EST Never Smoker completed Never S moker eCW1 ([facility]) Smoking 01/25/2020 12:00:00 AM EST Never Smoker completed Never S moker eCW1 ([facility]) Smoking 01/25/2020 12:00:00 AM EST Never Smoker completed Never S moker eCW1 ([facility]) Smoking 01/01/2020 12:00:00 AM EST Never Smoker completed Never S moker eCW1 ([facility]) Smoking 01/01/2020 12:00:00 AM EST Never Smoker completed Never S moker eCW1 ([facility]) Smoking 01/01/2020 12:00:00 AM EST Never Smoker completed Never S moker eCW1 ([facility]) Smoking 11/30/2019 12:00:00 AM EDT Never Smoker completed Never S moker eCW1 ([facility]) Smoking 11/30/2019 12:00:00 AM EDT Never Smoker completed Never S moker eCW1 ([facility]) Smoking 11/30/2019 12:00:00 AM EDT Never Smoker completed Never S moker eCW1 ([facility]) Smoking 11/30/2019 12:00:00 AM EDT Never Smoker completed Never S moker eCW1 ([facility]) Smoking 11/30/2019 12:00:00 AM EDT Never Smoker completed Never S moker eCW1 ([facility]) Smoking 11/30/2019 12:00:00 AM EDT Never Smoker completed Never S moker eCW1 ([facility]) Vital Signs ID Date Data Source UNK Name Value Range Interpretation Code Description Data Source(s) Systolic blood pressure 135 mm[Hg] 135 mm[Hg] [facility] Diastolic blood pressure 80 mm[Hg] 80 mm[Hg] [facility] Heart rate 63 /min 63 /min [facility] Body height 180.3 cm 180.3 cm [facility] Body weight 144.697 kg 144.697 kg [facility] Body mass index (BMI) [Ratio] 44.49 kg/m2 44.49 kg/m2 [facility] Oxygen saturation in Arterial blood by Pulse oximetry 98 % 98 % [facility] Body mass index (BMI) [Ratio] 45.3 kg/m2 45.3 k g/m2 [facility] [place] body weight 166 [lb_av] 166 [lb_av] MEDEN T ([facility], ) Body weight 143.338 kg 143.338 kg [facility] ([facility], ) Body surface area Derived from formula 2.54 m2 2.54 m2 [facility] ([facility], ) Systolic blood pressure 138 mm[Hg] 138 mm[Hg] M EDENT ([facility], ) Body weight 316.00 [lb_av] 316.00 [lb_av] MEDEN T ([facility], ) Diastolic blood pressure 74 mm[Hg] 74 mm[Hg] [facility] ([facility], ) Heart rate 64 /min 64 /min [facility] ([facility], ) Oxygen saturation in Arterial blood by Pulse oximetry 96 % 96 % [facility] ([facility], ) Body height 70 [in_i] 70 [in_i] [facility], ) 5'10" Body temperature 97.6 [degF] 97.6 [degF] eCW1 ( [facility]) Body weight 316 [lb_av] 316 [lb_av] eCW1 ([facility]) Body height 70 [in_i] 70 [in_i] eCW1 ([facility]) Body mass index (BMI) [Ratio] 45.34 kg/m2 45.34 kg/m2 W1 ([facility]) Heart rate 72 /min 72 /min eCW1 ([facility]) Respiratory rate 18 /min 18 /min eCW1 ([facility]) Systolic blood pressure 140 mm[Hg] 140 mm[Hg] e CW1 ([facility]) Diastolic blood pressure 78 mm[Hg] 78 mm[Hg] eCW1 ([facility]) Systolic blood pressure 138 mm[Hg] 138 mm[Hg] [facility] Diastolic blood pressure 80 mm[Hg] 80 mm[Hg] [facility] Body weight 144.97 kg 144.97 kg [facility] Body height 180.3 cm 180.3 cm [facility] Oxygen saturation in Arterial blood by Pulse oximetry 98 % 98 % [facility] Heart rate 68 /min 68 /min [facility] Body mass index (BMI) [Ratio] 44.58 kg/m2 44.58 kg/m2 [facility] Body weight 316.2 [lb_av] 316.2 [lb_av] eCW1 ([facility]) Body height 70 [in_i] 70 [in_i] eCW1 ([facility]) Body mass index (BMI) [Ratio] 45.37 kg/m2 45.37 kg/m2 W1 ([facility]) Heart rate 71 /min 71 /min eCW1 ([facility]) Respiratory rate 18 /min 18 /min W1 ([facility]) Body temperature 96.9 [degF] 96.9 [degF] eCW1 ( [facility]) Systolic blood pressure 132 mm[Hg] 132 mm[Hg] e CW1 ([facility]) Diastolic blood pressure 84 mm[Hg] 84 mm[Hg] eCW1 ([facility]) Systolic blood pressure 128 mm[Hg] 128 mm[Hg] [facility] Diastolic blood pressure 80 mm[Hg] 80 mm[Hg] [facility] Heart rate 70 /min 70 /min [facility] Body height 180.3 cm 180.3 cm [facility] Body weight 142.883 kg 142.883 kg [facility] Body mass index (BMI) [Ratio] 43.93 kg/m2 43.93 kg/m2 [facility] Oxygen saturation in Arterial blood by Pulse oximetry 99 % 99 % [facility] Body mass index (BMI) [Ratio] 44.91 kg/m2 44.91 kg/m2 eCW1 ([facility]) Body height 70 [in_i] 70 [in_i] eCW1 ([facility]) Respiratory rate 18 /min 18 /min eCW1 ([facility]) Body temperature 97.5 [degF] 97.5 [degF] eCW1 ( [facility]) Systolic blood pressure 130 mm[Hg] 130 mm[Hg] e CW1 ([facility]) Body weight 313 [lb_av] 313 [lb_av] eCW1 ([facility]) Heart rate 77 /min 77 /min eCW1 ([facility]) Diastolic blood pressure 70 mm[Hg] 70 mm[Hg] eCW1 ([facility]) Body weight 317 [lb_av] 317 [lb_av] eCW1 ([facility]) Body height 70 [in_i] 70 [in_i] eCW1 ([facility]) Body mass index (BMI) [Ratio] 45.48 kg/m2 45.48 kg/m2 eCW1 ([facility]) Heart rate 81 /min 81 /min eCW1 ([facility]) Respiratory rate 18 /min 18 /min eCW1 ([facility]) Body temperature 97.6 [degF] 97.6 [degF] eCW1 ( [facility]) Systolic blood pressure 124 mm[Hg] 124 mm[Hg] e CW1 ([facility]) Diastolic blood pressure 60 mm[Hg] 60 mm[Hg] eCW1 ([facility]) Body height 70 [in_i] 70 [in_i] eCW1 ([facility]) Body weight 317.4 [lb_av] 317.4 [lb_av] eCW1 ([facility]) Body mass index (BMI) [Ratio] 45.54 kg/m2 45.54 kg/m2 eCW1 ([facility]) Heart rate 72 /min 72 /min eCW1 ([facility]) Respiratory rate 18 /min 18 /min eCW1 ([facility]) Body temperature 97.2 [degF] 97.2 [degF] eCW1 ( [facility]) Systolic blood pressure 140 mm[Hg] 140 mm[Hg] e CW1 ([facility]) Diastolic blood pressure 78 mm[Hg] 78 mm[Hg] eCW1 ([facility]) Body weight 141.977 kg 141.977 kg [facility] ) [place] body weight 166 [lb_av] 166 [lb_av] MEDEN T ([facility], ) Body surface area Derived from formula 2.52 m2 2.52 m2 [facility] ([facility], ) Systolic blood pressure 132 mm[Hg] 132 mm[Hg] M EDENT ([facility], ) Diastolic blood pressure 84 mm[Hg] 84 mm[Hg] [facility]) Heart rate 78 /min 78 /min [facility] ([facility]) Oxygen saturation in Arterial blood by Pulse oximetry 96 % 96 % [facility] ([facility]) Body temperature 97.2 [degF] 97.2 [degF] [facility] ([facility], ) Body height 70 [in_i] 70 [in_i] [facility], ) 5'10" Body weight 313.00 [lb_av] 313.00 [lb_av] MEDEN T ([facility]) Body mass index (BMI) [Ratio] 44.9 kg/m2 44.9 k g/m2 [facility] ([facility]) Patient Treatment Plan of Care Planned Activity Planned Date Details Description Data Source (s) Amiodarone hydrochloride 100 MG Oral Tablet 12/03/2020 12:00:00 AM EDT [facility] ezetimibe 10 MG Oral Tablet 11/26/2020 12:00:00 AM EDT [facility] 3 ML Insulin Glargine 100 UNT/ML Pen Injector [Lantus] 11/07/2020 12:00:00 AM EDT [facility] ezetimibe 10 MG Oral Tablet 08/06/2020 12:00:00 AM EDT [facility] ezetimibe 10 MG Oral Tablet 08/06/2020 12:00:00 AM EDT [facility] 1 ML evolocumab 140 MG/ML Prefilled Syringe [Repatha] 07/17/2020 12:00:00 AM EDT [facility] Warfarin Sodium 5 MG Oral Tablet 06/11/2020 12:00:00 AM EDT [facility] Warfarin Sodium 2.5 MG Oral Tablet 06/06/2020 12:00:00 AM EDT [facility] Amiodarone hydrochloride 100 MG Oral Tablet 04/09/2020 12:00:00 AM EST [facility] doxycycline hyclate 100 MG Oral Capsule 02/12/2020 12:00:00 AM EST eCW1 ([facility]) doxycycline hyclate 100 MG Oral Tablet 01/01/2020 12:00:00 AM EST eCW1 ([facility]) Prednisone 20 MG Oral Tablet 01/01/2020 12:00:00 AM EST eCW1 ([facility]) doxycycline hyclate 100 MG Oral Tablet 01/01/2020 12:00:00 AM EST eCW1 ([facility]) Prednisone 20 MG Oral Tablet 01/01/2020 12:00:00 AM EST eCW1 ([facility]) Prednisone 20 MG Oral Tablet 01/01/2020 12:00:00 AM EST eCW1 ([facility]) doxycycline hyclate 100 MG Oral Tablet 01/01/2020 12:00:00 AM EST eCW1 ([facility]) Furosemide 40 MG Oral Tablet 11/20/2019 12:00:00 AM EDT [facility] Amiodarone hydrochloride 200 MG Oral Tablet 02/16/2019 12:00:00 AM EST [facility] Losartan Potassium 50 MG Oral Tablet 01/25/2019 12:00:00 AM EST [facility] Insulin Glargine 100 UNT/ML Injectable Solution 08/10/2017 12:00:00 AM EDT [facility]
--- OUTSIDE RECORDS SUMMARY | 2020-12-31 09:00 | CCD ---
Author Author [facility] Organization [facility] Address Unknown Phone Unavailable Care Team Providers Care Electromedical Equipment Repairer Name Role Phone Hemant Wooten Unavailable PROBLEMS Type Condition ICD9-CM Code [id number] Code Onset Dates Condition S tatus W/U Status Risk SNOMED Code Notes Problem Mixed hyperlipidemia E78.2 Active confirmed 240003915 Problem Chronic diastolic (congestive) heart failure I50.3 2 Active confirmed 092488253 Problem Atherosclerotic heart diseas e of [place] coronary artery without angina pectoris I25.10 Active confirmed 272542107857544 Problem Hypertensive heart disease with heart failure I11. 0 Active confirmed 70795943 Problem Vitamin D deficiency, unspecified E55.9 Active con firmed 14222545 Problem Encounter for screening for malignant neoplasm of prostate Z12.5 Active confirmed 700112065 Problem Morbid (severe) obesity due to excess calories E66 .01 Active confirmed 795151733 Problem Type 2 diabetes mellitus with diabetic autonomic (poly)neuropathy E11.43 Active confirmed 131564995 Problem BMI 40.0-44.9, adult Z68.41 Active confirmed 606666469 Problem Encounter for therapeutic drug level monitoring Z5 1.81 Active confirmed 720389339 Problem Type 2 diabetes mellitus with hyperglycemia E11.65 Active confirmed 737630445591109 Problem Gout, unspecified M10.9 Active confirmed 90 021225 Problem Anxiety F41.9 Active confirmed 89933972 Problem Daytime somnolence R40.0 Active confirmed 1 55984846432 Problem History of coronary artery bypass graft x 3 Z95.1 Active confirmed 075161629 Problem Anemia, unspecified type D64.9 Active confirmed 199228894 Problem PAF (paroxysmal atrial fibrillation) I48.0 Act jesus confirmed 50303692 Problem History of aortic valve replacement with bioprosthetic carlo ve Z95.3 Active confirmed 689507747 Problem 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 A ctive confirmed 942726399 Problem 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 Active confirmed 76033334 Problem Gastroparesis K31.84 Active confirmed 685558 006 Problem De Quervain thyroiditis E06.1 Active confirmed 356538010 Problem Non-traumatic rhabdomyolysis M62.82 Active confirme d 016910069 Problem Left sided sciatica M54.32 Active confirmed 32982310 Problem Depression F32.9 Active confirmed 410728401 Problem Chronic kidney disease, stage 3b N18.32 Active confirmed 063026824 Problem Mattson's esophagus without dysplasia K22.70 Ac tive confirmed 644710398 Problem Status post left hip replacement Z96.642 Active confirmed 744441552 Problem [facility] (current) use of insulin Z79.4 Activ e confirmed 324120810 Problem Type 2 diabetes mellitus with diabetic nephropathy E11.21 Active confirmed 847983698 Problem Essential (primary) hypertension I10 Active conf irmed 74358143 Problem Medicare annual wellness visit, subsequent Z00.00 Active confirmed 047317074 ALLERGIES Allergen (clinical drug ingredient) Drug/Non Drug Allergy do cumented on EMR Reaction Allergy Type Onset Date Status Altace 5 Cough Drug Allergy Active lovastatin Lovastatin(NDC Code:[address]-43) Increased CPK Drug Guy rgy Active metoprolol/beta blockers wheezing (admitted 12/08) Non Ronny g Allergy Active Crestor rhabdo (02/09) Non Drug Allergy Acti ve Statins (for Allergy Use Only) rhabdomyolysis Drug Allergy Active piperacillin / tazobactam Zosyn(ND Code:[address]-32) hives Dr ug Allergy Active ENCOUNTERS from 1960 to 2020-11-07 Encounter Location Date Provider Diagnosis [facility] [address] [place] [id number] 16 Oct, 2020 Hemant Wooten Type 2 diabetes [...] Notes Total Score: 0 Interpretation: Alcohol Education Worship: Question Answer Notes Worship 33 None Drug and Alcohol Question Answer [...] aily for 30 day(s) June, Active Pen Hedrick 1/2" 29G X 12MM 1 needle Subcutaneous [...] parox at fib post-op CABG; dose managed [facility] Active Vitamin D (Cholecalciferol) 1000 [...] = 65%; bioprosthetic aortic valve replacement 08/08 [facility] Magns Ease 27 MM; echo 12/08 EF [...] Details Provider Name:Hemant Sugar, 2021-01 10:30:00 AM, [address], , [place], [address], Insurance Providers Payer Name Payer Address Payer Phone Insured Name Patient Relati onship to Insured Coverage Start Date Coverage End Date MEDICARE Part A and B [address] [facility] [phone] FELICIA ALVA BS [place] [facility] [address] [facility] [id number] [place]
--- OUTSIDE RECORDS SUMMARY | 2020-12-31 11:29 | CCD ---
Author Author [facility] Organization [facility] Address Unknown Phone Unavailable Care Team Providers Care Slitter Scorer Cut Off Operator Name Role Phone Hemant Wooten Unavailable PROBLEMS Type Condition ICD9-CM Code [id number] Code Onset Dates Condition S tatus W/U Status Risk SNOMED Code Notes Problem Mixed hyperlipidemia E78.2 Active confirmed 704462277 Problem Chronic diastolic (congestive) heart failure I50.3 2 Active confirmed 139957027 Problem Atherosclerotic heart diseas e of [place] coronary artery without angina pectoris I25.10 Active confirmed 201019850746875 Problem Hypertensive heart disease with heart failure I11. 0 Active confirmed 81328284 Problem Vitamin D deficiency, unspecified E55.9 Active con firmed 62003099 Problem Encounter for screening for malignant neoplasm of prostate Z12.5 Active confirmed 419292027 Problem Morbid (severe) obesity due to excess calories E66 .01 Active confirmed 544283446 Problem Type 2 diabetes mellitus with diabetic autonomic (poly)neuropathy E11.43 Active confirmed 668221228 Problem BMI 40.0-44.9, adult Z68.41 Active confirmed 905314949 Problem Encounter for therapeutic drug level monitoring Z5 1.81 Active confirmed 866039957 Problem Type 2 diabetes mellitus with hyperglycemia E11.65 Active confirmed 052836270838199 Problem Gout, unspecified M10.9 Active confirmed 90 210716 Problem Anxiety F41.9 Active confirmed 00795957 Problem Daytime somnolence R40.0 Active confirmed 1 65175769690 Problem History of coronary artery bypass graft x 3 Z95.1 Active confirmed 062926927 Problem Anemia, unspecified type D64.9 Active confirmed 849406737 Problem PAF (paroxysmal atrial fibrillation) I48.0 Act jesus confirmed 85699814 Problem History of aortic valve replacement with bioprosthetic carlo ve Z95.3 Active confirmed 912183572 Problem 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 A ctive confirmed 729495332 Problem 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 Active confirmed 64802131 Problem Gastroparesis K31.84 Active confirmed 186954 006 Problem De Quervain thyroiditis E06.1 Active confirmed 516273597 Problem Non-traumatic rhabdomyolysis M62.82 Active confirme d 161237702 Problem Left sided sciatica M54.32 Active confirmed 82782489 Problem Depression F32.9 Active confirmed 372141752 Problem Chronic kidney disease, stage 3b N18.32 Active confirmed 653278094 Problem Mattson's esophagus without dysplasia K22.70 Ac tive confirmed 489068273 Problem Status post left hip replacement Z96.642 Active confirmed 186059492 Problem alf (current) use of insulin Z79.4 Activ e confirmed 186983141 Problem Type 2 diabetes mellitus with diabetic nephropathy E11.21 Active confirmed 396090925 Problem Essential (primary) hypertension I10 Active conf irmed 27166346 Problem Medicare annual wellness visit, subsequent Z00.00 Active confirmed 488447922 ALLERGIES Allergen (clinical drug ingredient) Drug/Non Drug Allergy do cumented on EMR Reaction Allergy Type Onset Date Status Altace 5 Cough Drug Allergy Active lovastatin Lovastatin(NDC Code:[address]-96) Increased CPK Drug Guy rgy Active metoprolol/beta blockers wheezing (admitted 12/08) Non Ronny g Allergy Active Statins (for Allergy Use Only) rhabdomyolysis Drug Allergy Active rosuvastatin Crestor(NDC Code:[address]-52) rhabdo (02/09) Drug Guy rgy Active piperacillin / tazobactam Zosyn(NDC Code:[address]-37) hives Dr ug Allergy Active ENCOUNTERS from 1960 to 2020-12-11 Encounter Location Date Provider Diagnosis [facility] [address] [place] [id number] Nov, Hemant Wooten IMMUNIZATIONS Vaccine Route Administration Date [...] Notes Total Score: 0 Interpretation: Alcohol Education Sikh: Question Answer Notes Sikh 33 None Drug and Alcohol Question Answer [...] 1 tablet Orally Once a day Active Januvia 100MG 1 tablet Orally Once a day Active Pen Stamps 1/2" 29G X 12MM 1 needle Subcutaneous DX : E11.65 Daily w/Lantus pen for 90 day(s) Active Lantus SoloStar 100 UNIT/ML as directed Subcutaneous 8 0 units in am, 74 units in pm for 90 day(s) Active Glucometer as directed _ E11.65 for 99 days Nov, Active Aspirin 81 MG 1 tablet Orally Once a day Active Doxycycline Hyclate 100 MG 1 capsule Orally bid for 10 day(s) Jan, Not-Taking Omeprazole 20 MG 1 capsule Orally bid for 90 day(s) Active Coumadin 2.5 MG 5 tablet Orally Once a day for parox at fib post-op CABG; dose managed [facility] Active One touch ultra blue as directed subcutaneously DX: E11.65 d aily for 30 day(s) June, Active metFORMIN HCl 1000 mg 1 tablet with meals Orally Twice a day for 90 Active Pain Reliever 325 MG 1 tablet as needed Orally every 4 hrs Active Lancets - as directed _ Daily for 30 days Nov, Active Allopurinol 300 MG TAKE 1 TABLET BY MOUTH ONCE DAILY Orally Once a day for 90 days Active Baby Aspirin Active Losartan Potassium 50 MG 1 tablet Orally Once a day Active Cymbalta 30MG 1 capsule Orally Once a day for 90 Active Vitamin D (Cholecalciferol) 1000 UNIT 2 capsule Orally twice bri ly 17 Nov, 2015 Not-Taking Aldactone 25 mg 1 tablet Orally daily [...] Dx, 80% distal LAD CABG x 3 [facility] 08/08 (WHEELER to LAD, JERRY to obtuse [...] = 65%; bioprosthetic aortic valve replacement 08/08 [facility] Magns Ease 27 MM; echo 12/08 EF [...] Medication Name Sig Start Date Stop Date Omeprazole 20 MG 1 capsule Orally bid for 90 day(s) Cymbalta 30MG 1 capsule Orally Once a day for 90 Lantus SoloStar 100 UNIT/ML as directed Subcutaneous 8 0 units in am, 74 units in pm for 90 day(s) Next Appt Details Provider Name:Hemant Wooten, 2021-01 10:30:00 AM, [address], , [place], [address], Insurance Providers Payer Name Payer Address Payer Phone Insured Name Patient Relati onship to Insured Coverage Start Date Coverage End Date MEDICARE Part A and B [address] [facility] [phone] FELICIA ALVA BS [place] [employer] [address] [facility] [id number] FELICIA ALVA
--- OUTSIDE RECORDS SUMMARY | 2020-12-31 11:30 | CCD ---
Author Author [facility] Organization [facility] Address Unknown Phone Unavailable Care Team Providers Care Stripping Shovel Operator Name Role Phone Kocan, J Ethel DATA SCIENCES DIRECTOR Unavailable Unavailable Kocan, J Ethel DATA SCIENCES DIRECTOR Unavailable Unavailable Kocan, J Ethel DATA SCIENCES DIRECTOR Unavailable Unavailable Kocan, J Ethel DATA SCIENCES DIRECTOR Unavailable Unavailable Kocan, J Ethel DATA SCIENCES DIRECTOR Unavailable Unavailable Kocan, J Ethel DATA SCIENCES DIRECTOR Unavailable Unavailable Kocan, J Ethel DATA SCIENCES DIRECTOR Unavailable Unavailable Kocan, J Ethel DATA SCIENCES DIRECTOR Unavailable Unavailable Kocan, J Ethel DATA SCIENCES DIRECTOR Unavailable Unavailable Kocan, J Ethel DATA SCIENCES DIRECTOR Unavailable Unavailable Kocan, J Ethel DATA SCIENCES DIRECTOR Unavailable Unavailable Kocan, J Ethel DATA SCIENCES DIRECTOR Unavailable Unavailable Kocan, J Ethel DATA SCIENCES DIRECTOR Unavailable Unavailable Dayana, L Lili PIZZA DRIVER Unavailable Unavailable Dayana, L Lili PIZZA DRIVER Unavailable Unavailable Dayana, L Lili PIZZA DRIVER Unavailable Unavailable Dayana, L Lili PIZZA DRIVER Unavailable Unavailable Dayana, L Lili PIZZA DRIVER Unavailable Unavailable Dayana, L Lili PIZZA DRIVER Unavailable Unavailable Dayana, L Lili PIZZA DRIVER Unavailable Unavailable Dayana, L Lili PIZZA DRIVER Unavailable Unavailable Dayana, L Lili PIZZA DRIVER Unavailable Unavailable Dayana, L Lili PIZZA DRIVER Unavailable Unavailable Dayana, L Lili PIZZA DRIVER Unavailable Unavailable Dayana, L Lili PIZZA DRIVER Unavailable Unavailable Dayana, L Lili PIZZA DRIVER Unavailable Unavailable Dayana, L Lili PIZZA DRIVER Unavailable Unavailable Dayana, L Lili PIZZA DRIVER Unavailable Unavailable Dayana, L Lili PIZZA DRIVER Unavailable Unavailable Dayana, L Lili PIZZA DRIVER Unavailable Unavailable Dayana, L Lili PIZZA DRIVER Unavailable Unavailable Dayana, L Lili PIZZA DRIVER Unavailable Unavailable Dayana, L Lili PIZZA DRIVER Unavailable Unavailable Dayana, L Lili PIZZA DRIVER Unavailable Unavailable Dayana, L Lili PIZZA DRIVER Unavailable Unavailable Dayana, L Lili PIZZA DRIVER Unavailable Unavailable Dayana, L Lili PIZZA DRIVER Unavailable Unavailable Dayana, L Lili PIZZA DRIVER Unavailable Unavailable EVITA, KENYA ARCHER Unavailable Unavailable [...] Unavailable Ali, Ryland MD Unavailable Unavailable Ali, Ryladn MD Unavailable Unavailable Ali, Ryland MD Unavailable [...] is protected by Article 27-F of the [facility] Public Health law. If you continue you may have access to information: Regarding HIV / AIDS; Provided by facilities licensed or operated by the [facility] Office of Mental Health; or Provided by the [facility] Office for People With Developmental Disabilities. If such information is present, then the following [facility] mandated warning applies: This information has been [...] law may result in a fine or longterm sentence or both. A general authorization for the release of medical or other information is NOT sufficient authorization for further disc losure. Family History Family Member Name Family Member Gender Family Member Status Date o f Status Description Data Source(s) Unknown Unknown Problem MEDENT ([facility]) Unknown Male Problem [facility] ([facility] () Unknown Female Problem MEDENT ([facility]) Unknown Male Problem [facility] Unknown Male Problem [facility] Unknown Male Problem [facility] Encounters Encounter Providers Location Date Indications Data Source(s ) Outpatient ZOHAIB-SJP.VELIA 12/24/2020 12:00:00 AM EDT [facility] Outpatient [facility]YS[facility]-SJP.VELIA 12/17/2020 12:00:00 AM EDT [facility] [place] [address] [facility] [address] 12/11/2020 12:00:00 AM EDT eCW1 ([facility]) Outpatient Attender: Ethel SÁNCHEZ ZOHAIB-SJP 2020 08:50:56 AM EDT - 12/03/2020 10:43:38 AM EDT [facility] Outpatient Attender: Lili Bhandari/Silvia/Seun/Reindl 11/26/2020 11:00:00 AM EDT MEDENT ([facility]) Outpatient CODYVELIA 11/17/2020 12:00:00 AM EDT [facility] [place] [address] [facility] [address] 11/14/2020 12:00:00 AM EDT eCW1 ([facility]) [place] [address] [facility] [address] 11/07/2020 12:00:00 AM EDT eCW1 ([facility]) [place] [address] [facility] [address] 11/06/2020 12:00:00 AM EDT eCW1 ([facility]) [place] [address] [facility] [place] [address] 11/06/2020 12:00:00 AM EDT eCW1 ([facility]) [place] [address] [facility] [address] 11/05/2020 12:00:00 AM EDT eCW1 ([facility]) Out[place] [address] [facility] [address] 10/22/2020 12:00:00 AM EDT eCW1 ([facility]) [place] [address] [facility] [place] [address] 10/20/2020 12:00:00 AM EDT eCW1 ([facility]) Outpatient CODYVELIA 10/17/2020 12:00 :00 AM EDT - 10/17/2020 08:04:10 AM EDT [facility] Outpatient Attender: KENYA COTTO 09:45:33 AM EDT - 09/17/2020 10:12:48 AM EDT [facility] Outpatient Attender: Ethel ROSSVELIA 2020 07:56:07 AM EDT - 08/06/2020 09:00:[address] [facility] [place] [address] [facility] [address] 07/08/2020 12:00:00 AM EDT eCW1 ([facility]) Outpatient SJP.VELIA-MEAGANP.VELIA 07/02/2020 10:51:21 AM EDT [facility] Outpatient SJP.VELIA-SJP.VELIA 06/18/2020 10:48:16 AM EDT [facility] Outpatient SJP.VELIA-MEAGANP.VELIA 06/11/2020 08:47:11 AM EDT [facility] [place] [address] [facility] [address] 06/09/2020 12:00:00 AM EDT eCW1 ([facility]) [place] [address] [facility] [address] 06/05/2020 12:00:00 AM EDT eCW1 ([facility]) Office Visit, Est Pt., Level 4 PC [address] [place] [address] 05/22/2020 12:00:00 AM EDT eCW1 ([facility]) Out[place] [address] [facility] [address] 05/19/2020 12:00:00 AM EDT eCW1 ([facility]) Outpatient SJP.DAVIDP.VELIA 05/07/2020 12:00:00 AM EDT [facility] [place] [address] [facility] [address] 04/30/2020 12:00:00 AM EST eCW1 ([facility]) Outpatient SJP.DAVIDP.VELIA 04/16/2020 12:00:00 AM EST [facility] Outpatient [address] [facility] [address] 04/16/2020 12:00:00 AM EST eCW1 ([facility]) Extended Individual Psychotherapy - 45 min Att[facility]: [facility] 04/15/2020 10:00:00 AM EST - 04/15/2020 10:00:00 AM EST [facility] ([facility]) Attender: Elena Migue 04/15/2020 12:00:00 AM EST [facility] ([facility]) Outpatient Attender: Ethel SÁNCHEZ PSelamVELIA-SJP.VELIA 2020 12:00:00 AM EST - 04/09/2020 09:04:47 AM EST [facility] Extended Individual Psychotherapy - 45 min Attender: Shelly Easonoza [facility] 03/28/2020 10:00:00 AM EST - 03/28/2020 10:00:00 AM EST [facility] ([facility]) Attender: Elena Camarena 03/28/2020 12:00:00 AM EST [facility] ([facility]) Outpatient P.VELIA-SJP.VELIA 03/19/2020 12:00:00 AM EST [facility] Outpatient [address] [facility] [address] 03/18/2020 12:00:00 AM EST eCW1 ([facility]) Outpatient P.VELIA-SJP.VELIA 03/14/2020 12:00:00 AM EST [facility] Psychiatric Diagnostic Evaluation (Non-Medical) Attender: Huan aguilar Migue [facility] 03/11/2020 09:00:00 AM EST - 03/11/2020 09:00:00 AM EST [facility] ([facility]) Attender: Elena Camarena 03/11/2020 12:00:00 AM EST [facility] ([facility]) [place] [address] [facility] [address] 03/10/2020 12:00:00 AM EST eCW1 ([facility]) Extended Individual Psychotherapy - 45 min Attender: Jami French [facility] 02/26/2020 09:30:00 AM EST - 02/26/2020 09:30:00 AM EST [facility] ([facility]) Attender: Magui French 02/26/2020 12:00:00 AM EST [facility] ([facility]) Outpatient Attender: KENYA ALMAZAN.VELIA 0 12:00:00 AM EST - 02/20/2020 10:26:26 AM EST [facility] Outpatient SJP.EDIS.VELIA 02/13/2020 09:01:49 AM EST [facility] TeleMedicine Est. Pt. Level [address] [place] [address] 02/13/2020 12:00:00 AM EST eCW1 ([facility]) TeleMedicine Est. Pt. Level [address] [place] [id number] 02/12/2020 12:00:00 AM EST eCW1 ([facility]) [place] [address] [facility] [address] 02/12/2020 12:00:00 AM EST eCW1 ([facility]) Outpatient [address] [facility] [address] 02/07/2020 12:00:00 AM EST eCW1 ([facility]) Unknown [address] [facility] [address] 02/05/2020 12:00:00 AM EST eCW1 ([facility]) Outpatient SJP.EDIS.VELIA 02/01/2020 09:45 :32 AM EST - 02/01/2020 10:36:35 AM EST [facility] Outpatient SJKrystyna.EDIS.VELIA 02/01/2020 12:00:00 AM EST [facility] Office Visit, Est Pt., Level 3 PC [address] [place] [address] 01/25/2020 12:00:00 AM EST eCW1 ([facility] [place] [address] [facility] [address] 01/24/2020 12:00:00 AM EST [facility]CW1 ([facility]) [place] [address] [facility] [address] 01/02/2020 12:00:00 AM EST [facility] Outpatient [address] [facility] [address] 01/01/2020 12:00:00 AM EST eCW1 [facility]) Unknown [address] [facility] [address] 01/01/2020 12:00:00 AM EST eCW1 ([facility]) Unknown [address] [facility] [address] 12/28/2019 12:00:00 AM EST eCW1 ([facility]) Outpatient [address] [facility] [address] 12/25/2019 12:00:00 AM EST eCW1 ([facility]) Unknown [address] [facility] [address] 12/17/2019 12:00:00 AM EDT eCW1 ([facility]) Outpatient Attender: Ethel SÁNCHEZ SJP.VELIA-SJP.VELIA 2019 12:00:00 AM EDT - 12/05/2019 09:07:[address] [facility] [place] [address] [facility] [address] 11/30/2019 12:00:00 AM EDT eCW1 ([facility]) Outpatient [address] [facility] [address] 11/30/2019 12:00:00 AM EDT eCW1 ([facility]) Unknown [address] [facility] [address] 11/23/2019 12:00:00 AM EDT eCW1 ([facility]) Unknown [address] [facility] [address] 11/20/2019 12:00:00 AM EDT eCW1 ([facility]) Office Visit Attender: Ryland Kerr MD Main office - [place] 11/16/2019 09:45:00 AM EDT JOHNATHAN ([facility] ) Outpatient SJP.VELIA-SJP.VELIA 11/07/2019 12:00:00 AM EDT [facility] Immunizations Vaccine Date Status Description Data Source(s) COVID-19 VACCINE Moderna 03/26/2020 12:00:00 AM EST completed [facility] Vaccine Series Complete: YESThis Data wa s Submitted to [facility] Via [employer]. COVID-19 VACCINE Moderna 02/27/2020 12:00:00 AM EST completed [facility] Vaccine Series Complete: NOThis Data was Submitted to [facility] Via [employer]. influenza, recombinant, quadrIvalent,injectable, prese rvative free 11/30/2019 09:13:00 AM EDT completed eCW1 ([facility]) influenza, recombinant, quadrIvalent,injectable, prese rvative free 11/30/2019 09:13:00 AM EDT completed eCW1 ([facility]) influenza, recombinant, quadrIvalent,injectable, prese rvative free 11/30/2019 09:13:00 AM EDT completed eCW1 ([facility]) influenza, recombinant, quadrIvalent,injectable, prese rvative free 11/30/2019 09:13:00 AM EDT completed eCW1 ([facility]) influenza, recombinant, quadrIvalent,injectable, prese rvative free 11/30/2019 09:13:00 AM EDT completed eCW1 ([facility]) influenza, recombinant, quadrIvalent,injectable, prese rvative free 11/30/2019 09:13:00 AM EDT completed eCW1 ([facility]) influenza, recombinant, quadrIvalent,injectable, prese rvative free 11/30/2019 09:13:00 AM EDT completed eCW1 ([facility]) influenza, recombinant, quadrIvalent,injectable, prese rvative free 11/30/2019 09:13:00 AM EDT completed eCW1 ([facility]) influenza, recombinant, quadrIvalent,injectable, prese rvative free 11/30/2019 09:13:00 AM EDT completed eCW1 ([facility]) influenza, recombinant, quadrIvalent,injectable, prese rvative free 11/30/2019 09:13:00 AM EDT completed eCW1 ([facility]) influenza, recombinant, quadrIvalent,injectable, prese rvative free 11/30/2019 09:13:00 AM EDT completed eCW1 ([facility]) influenza, recombinant, quadrIvalent,injectable, prese rvative free 11/30/2019 09:13:00 AM EDT completed eCW1 ([facility]) influenza, recombinant, quadrIvalent,injectable, prese rvative free 11/30/2019 09:13:00 AM EDT completed eCW1 ([facility]) influenza, recombinant, quadrIvalent,injectable, prese rvative free 11/30/2019 09:13:00 AM EDT completed eCW1 ([facility]) influenza, recombinant, quadrIvalent,injectable, prese rvative free 11/30/2019 09:13:00 AM EDT completed eCW1 ([facility]) influenza, recombinant, quadrIvalent,injectable, prese rvative free 11/30/2019 09:13:00 AM EDT completed eCW1 ([facility]) influenza, recombinant, quadrIvalent,injectable, prese rvative free 11/30/2019 09:13:00 AM EDT completed eCW1 ([facility]) influenza, recombinant, quadrIvalent,injectable, prese rvative free 11/30/2019 09:13:00 AM EDT completed eCW1 ([facility]) influenza, recombinant, quadrIvalent,injectable, prese rvative free 11/30/2019 09:13:00 AM EDT completed eCW1 ([facility]) influenza, recombinant, quadrIvalent,injectable, prese rvative free 11/30/2019 09:13:00 AM EDT completed eCW1 ([facility]) influenza, recombinant, quadrIvalent,injectable, prese rvative free 11/30/2019 09:13:00 AM EDT completed eCW1 ([facility]) influenza, recombinant, quadrIvalent,injectable, prese rvative free 11/30/2019 09:13:00 AM EDT completed eCW1 ([facility]) influenza, recombinant, quadrIvalent,injectable, prese rvative free 11/30/2019 09:13:00 AM EDT completed eCW1 ([facility]) influenza, recombinant, quadrIvalent,injectable, prese rvative free 11/30/2019 09:13:00 AM EDT completed eCW1 ([facility]) influenza, recombinant, quadrIvalent,injectable, prese rvative free 11/30/2019 09:13:00 AM EDT completed eCW1 ([facility]) influenza, recombinant, quadrIvalent,injectable, prese rvative free 11/30/2019 09:13:00 AM EDT completed eCW1 ([facility]) influenza, recombinant, quadrIvalent,injectable, prese rvative free 11/30/2019 09:13:00 AM EDT completed eCW1 ([facility]) influenza, recombinant, quadrIvalent,injectable, prese rvative free 11/30/2019 09:13:00 AM EDT completed eCW1 ([facility]) influenza, recombinant, quadrIvalent,injectable, prese rvative free 11/30/2019 09:13:00 AM EDT completed eCW1 ([facility]) influenza, recombinant, quadrIvalent,injectable, prese rvative free 11/30/2019 09:13:00 AM EDT completed eCW1 ([facility]) influenza, recombinant, quadrIvalent,injectable, prese rvative free 11/30/2019 09:13:00 AM EDT completed eCW1 ([facility]) influenza, recombinant, quadrIvalent,injectable, prese rvative free 11/30/2019 09:13:00 AM EDT completed eCW1 ([facility]) influenza, recombinant, quadrIvalent,injectable, prese rvative free 11/30/2019 09:13:00 AM EDT completed eCW1 ([facility]) Medications Medication Brand Name Start Date Product Form Dose Route Admi nistrative Instructions Pharmacy Instructions Status Indications Reaction Description Data Source(s) Amiodarone hydrochloride 100 MG Oral Tablet amiodarone (PACERONE) 100 MG tablet amiodarone (PACERONE) 100 MG tablet 12/03/2020 12:00:00 AM EDT active Atrial fibrillation, unspecified type Take 1 tablet by mouth Tuesday, Tuesday, Tuesday [facility] Atrial fibrillation, unspecified type 60 ACTUAT Albuterol 0.09 MG/ACTUAT Metered Dose Inhaler Albu terol Sulfate HFA 11/26/2020 12:00:00 AM EDT RESPIRATORY active MEDENT ([facility] ) ezetimibe 10 MG Oral Tablet ezetimibe (ZETIA) 10 MG ta blet ezetimibe (ZETIA) 10 MG tablet 11/26/2020 12:00:00 AM EDT 10 mg Oral act jesus Hyperlipidemia, unspecified hyperlipidemia type Take 1 tablet (10 mg total) by mouth daily [facility] Hyperlipidemia, unspecified hyperlipidem ia type 3 ML Insulin Glargine 100 UNT/ML Pen Inj milo [Lantus] Lantus SoloStar 100 UNIT/ML SOPN Lantus SoloStar 100 UNIT/ML SOPN 11/07/2020 12:00:00 AM EDT active [facility] ezetimibe 10 MG Oral Tablet ezetimibe (ZETIA) 10 MG ta blet ezetimibe (ZETIA) 10 MG tablet 08/06/2020 12:00:00 AM EDT act jesus Hyperlipidemia, unspecified hyperlipidemia type TAKE 1 TABLET(10 MG) BY MOUT H DAILY [facility] Hyperlipidemia, unspecified hyperlipidem ia type ezetimibe 10 MG Oral Tablet ezetimibe (ZETIA) 10 MG ta blet ezetimibe (ZETIA) 10 MG tablet 08/06/2020 12:00:00 AM EDT 10 mg Oral act jesus Hyperlipidemia, unspecified hyperlipidemia type Take 1 tablet (10 mg total) by mouth daily [facility] Hyperlipidemia, unspecified hyperlipidem ia type 1 ML evolocumab 140 MG/ML Prefilled Syringe [Repatha] Repatha 140 MG/ML SOSY Repatha 140 MG/ML SOSY 07/17/2020 12:00:00 AM EDT aborted Type 2 diabetes mellitus with other circulatory complicationsHyperlipidemia, unspecified hyperlipidemia typeCoronary artery disease involving [place] coronary artery of [place] heart with unstable angina pectoris INJECT 140MG(1 SYRINGE) UNDER THE SKIN EVERY 14 DAYS [facility] Type 2 diabetes mellitus with other circ ulatory complications Hyperlipidemia, unspecified hyperlipidem ia type Coronary artery disease involving [place] coronary artery of [place] heart with unstable angina pectoris Warfarin Sodium 5 MG Oral Tablet warfarin (COUMADIN) 5 MG tablet warfarin (COUMADIN) 5 MG tablet 06/11/2020 12:00:00 AM EDT 5 mg Oral active Paroxysmal atrial fibrillation Take 1 tablet (5 mg total) by mouth daily [facility] Paroxysmal atrial fibrillation Warfarin Sodium 2.5 MG Oral Tablet warfarin (COUMADIN) 2.5 MG tablet warfarin (COUMADIN) 2.5 MG tablet 06/06/2020 12:00:00 AM EDT active TAKE 2 TABLETS BY MOUTH EVERY EVENING UNTIL DIRECTED OTHERWISE BY DOCTOR EVITA(MAX DAILY DOSE 7.5MG) [facility] Amiodarone hydrochloride 100 MG Oral Tablet amiodarone (PACERONE) 100 MG tablet amiodarone (PACERONE) 100 MG tablet 04/09/2020 12:00:00 AM EST 100 mg Oral aborted Paroxysmal atrial fibrillation T danielle 1 tablet (100 mg total) by mouth every other day [facility] Paroxysmal atrial fibrillation doxycycline hyclate 100 MG Oral Capsule Doxycycline Hy clate 100 MG Doxycycline Hyclate 100 MG 02/12/2020 12:00:00 AM EST 1.0 {capsule} suspended Doxycycline Hyclate 100 MG eCW1 ([facility]) doxycycline hyclate 100 MG Oral Capsule Doxycycline Hy clate 100 MG Doxycycline Hyclate 100 MG 02/12/2020 12:00:00 AM EST 1.0 {capsule} active Doxycycline Hyclate 100 MG eCW1 ([facility]) doxycycline hyclate 100 MG Oral Capsule Doxycycline Hy clate 100 MG Doxycycline Hyclate 100 MG 02/12/2020 12:00:00 AM EST 1.0 {capsule} active Doxycycline Hyclate 100 MG eCW1 ([facility]) doxycycline hyclate 100 MG Oral Capsule Doxycycline Hy clate 100 MG Doxycycline Hyclate 100 MG 02/12/2020 12:00:00 AM EST 1.0 {capsule} active Doxycycline Hyclate 100 MG eCW1 ([facility]) doxycycline hyclate 100 MG Oral Capsule Doxycycline Hy clate 100 MG Doxycycline Hyclate 100 MG 02/12/2020 12:00:00 AM EST 1.0 {capsule} active Doxycycline Hyclate 100 MG eCW1 ([facility]) doxycycline hyclate 100 MG Oral Capsule Doxycycline Hy clate 100 MG Doxycycline Hyclate 100 MG 02/12/2020 12:00:00 AM EST 1.0 {capsule} suspended Doxycycline Hyclate 100 MG eCW1 ([facility]) doxycycline hyclate 100 MG Oral Capsule Doxycycline Hy clate 100 MG Doxycycline Hyclate 100 MG 02/12/2020 12:00:00 AM EST 1.0 {capsule} active Doxycycline Hyclate 100 MG eCW1 ([facility]) doxycycline hyclate 100 MG Oral Capsule Doxycycline Hy clate 100 MG Doxycycline Hyclate 100 MG 02/12/2020 12:00:00 AM EST 1.0 {capsule} suspended Doxycycline Hyclate 100 MG eCW1 ([facility]) doxycycline hyclate 100 MG Oral Capsule Doxycycline Hy clate 100 MG Doxycycline Hyclate 100 MG 02/12/2020 12:00:00 AM EST 1.0 {capsule} suspended Doxycycline Hyclate 100 MG eCW1 ([facility]) doxycycline hyclate 100 MG Oral Capsule Doxycycline Hy clate 100 MG Doxycycline Hyclate 100 MG 02/12/2020 12:00:00 AM EST 1.0 {capsule} suspended Doxycycline Hyclate 100 MG eCW1 ([facility]) doxycycline hyclate 100 MG Oral Capsule Doxycycline Hy clate 100 MG Doxycycline Hyclate 100 MG 02/12/2020 12:00:00 AM EST 1.0 {capsule} suspended Doxycycline Hyclate 100 MG eCW1 ([facility]) doxycycline hyclate 100 MG Oral Capsule Doxycycline Hy clate 100 MG Doxycycline Hyclate 100 MG 02/12/2020 12:00:00 AM EST 1.0 {capsule} active Doxycycline Hyclate 100 MG eCW1 ([facility]) doxycycline hyclate 100 MG Oral Capsule Doxycycline Hy clate 100 MG Doxycycline Hyclate 100 MG 02/12/2020 12:00:00 AM EST 1.0 {capsule} suspended Doxycycline Hyclate 100 MG eCW1 ([facility]) doxycycline hyclate 100 MG Oral Capsule Doxycycline Hy clate 100 MG Doxycycline Hyclate 100 MG 02/12/2020 12:00:00 AM EST 1.0 {capsule} active Doxycycline Hyclate 100 MG eCW1 ([facility]) doxycycline hyclate 100 MG Oral Capsule Doxycycline Hy clate 100 MG Doxycycline Hyclate 100 MG 02/12/2020 12:00:00 AM EST 1.0 {capsule} suspended Doxycycline Hyclate 100 MG eCW1 ([facility]) doxycycline hyclate 100 MG Oral Capsule Doxycycline Hy clate 100 MG Doxycycline Hyclate 100 MG 02/12/2020 12:00:00 AM EST 1.0 {capsule} suspended Doxycycline Hyclate 100 MG eCW1 ([facility]) doxycycline hyclate 100 MG Oral Capsule Doxycycline Hy clate 100 MG Doxycycline Hyclate 100 MG 02/12/2020 12:00:00 AM EST 1.0 {capsule} suspended Doxycycline Hyclate 100 MG eCW1 ([facility]) doxycycline hyclate 100 MG Oral Capsule Doxycycline Hy clate 100 MG Doxycycline Hyclate 100 MG 02/12/2020 12:00:00 AM EST 1.0 {capsule} suspended Doxycycline Hyclate 100 MG eCW1 ([facility]) doxycycline hyclate 100 MG Oral Capsule Doxycycline Hy clate 100 MG Doxycycline Hyclate 100 MG 02/12/2020 12:00:00 AM EST 1.0 {capsule} active Doxycycline Hyclate 100 MG eCW1 ([facility]) doxycycline hyclate 100 MG Oral Capsule Doxycycline Hy clate 100 MG Doxycycline Hyclate 100 MG 02/12/2020 12:00:00 AM EST 1.0 {capsule} active Doxycycline Hyclate 100 MG eCW1 ([facility]) doxycycline hyclate 100 MG Oral Tablet Doxycycline Hyc late 100 MG Doxycycline Hyclate 100 MG 01/01/2020 12:00:00 AM EST 1.0 {tablet} active Doxycycline Hyclate 100 MG eCW1 ([facility]) doxycycline hyclate 100 MG Oral Tablet Doxycycline Hyc late 100 MG Doxycycline Hyclate 100 MG 01/01/2020 12:00:00 AM EST 1.0 {tablet} active Doxycycline Hyclate 100 MG eCW1 ([facility]) Prednisone 20 MG Oral Tablet PredniSONE 20 MG PredniSONE 20 MG 01/01/2020 12:00:00 AM EST 2.0 {tablets} active P redniSONE 20 MG eCW1 ([facility]) Prednisone 20 MG Oral Tablet PredniSONE 20 MG PredniSONE 20 MG 01/01/2020 12:00:00 AM EST 2.0 {tablets} active P redniSONE 20 MG eCW1 ([facility]) Prednisone 20 MG Oral Tablet PredniSONE 20 MG PredniSONE 20 MG 01/01/2020 12:00:00 AM EST 2.0 {tablets} active P redniSONE 20 MG eCW1 ([facility]) doxycycline hyclate 100 MG Oral Tablet Doxycycline Hyc late 100 MG Doxycycline Hyclate 100 MG 01/01/2020 12:00:00 AM EST 1.0 {tablet} active Doxycycline Hyclate 100 MG eCW1 ([facility]) Furosemide 40 MG Oral Tablet furosemide (LASIX) 40 MG tablet furosemide (LASIX) 40 MG tablet 11/20/2019 12:00:00 AM EDT 40 mg Oral activ e Take 40 mg by mouth daily [facility] Amiodarone hydrochloride 200 MG Oral Tablet amiodarone (PACERONE) 200 MG tablet amiodarone (PACERONE) 200 MG tablet 02/16/2019 12:00:00 AM EST 200 mg Oral aborted Take 200 mg by mouth every o ther day [facility] Losartan Potassium 50 MG Oral Tablet losartan (COZAAR) 50 MG tablet losartan (COZAAR) 50 MG tablet 01/25/2019 12:00:00 AM EST aborted TK 1 T PO BID [facility] Insulin Glargine 100 UNT/ML Injectable S olution insulin glargine (INSULIN GLARGINE) 100 UNIT/ML injection insulin glargine (INSULIN GLARGINE) 100 UNIT/ML injection 08/10/2017 12:00:00 AM EDT 40 U Subcutaneous ab orted Inject 40 Units under the skin 2 (two) times a day [facility] Insurance Providers Payer name Policy type / Coverage type Policy ID Covered democrat ID Covered democrat's relationship to nolan Policy Nolan Plan Information [facility] [place] Part B [id number] [facility] [id number] [facility] [id number] Self [id number] [facility] [id number] Self [id number] [facility] [id number] Self EXCELLUS BCBS [id number] Yumi [id number] EXCELLUS BCBS [id number] xxxxxxxxx 04 BCBS 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 Self [id number] BS Fed Plan Commercial .[id number] Self MEDICARE [id number] xxxxxxxxxxx [id number] MEDICARE [id number] Yumi [id number] Q68 MEDICARE [id number] Yumi [id number] Q68 MEDICARE [id number] SP [id number] Medicare - [place] Medicare Primary [id number] Self [id number] Medicare - [place] Medicare Primary [id number] Self [id number] ANSI-Commercial [id number] MEDICARE [id number] SP [id number] A ANSI-Commercial [id number] ANSI-Commercial [id number] SELF PAY ONLY [id number] SP [id number] Part B [id number] Self [id number] Medicare [place] Medicare Primary [id number] Self [id number] ANSI-Commercial [id number] ANSI-Commercial [id number] ANSI-Commercial [id number] [facility] Part B [id number] Self [id number] [facility] EMPLOYEE PROGRAM [id number] SP [id number] [facility] Hmo Blue (Yop) Health Maintenance Organization (HMO) [id number] Self [id number] ANSI-Commercial [id number] [facility] B [id number] S [id number] ANSI-Commercial [id number] ANSI-Commercial [id number] ANSI-Commercial [id number] ANSI-Commercial [id number] ANSI-Commercial [id number] ANSI-Commercial [id number] ANSI-Commercial [id number] ANSI-Commercial [id number] MEDICARE [id number] SP [id number] A ANSI-Commercial [id number] ANSI-Commercial [id number] ANSI-Commercial [id number] ANSI-Commercial [id number] ANSI-Commercial [id number] [facility] FEDERAL EMPLOYEE PROGRAM [id number] SP [id number] ANSI-Commercial [id number] ANSI-Commercial [id number] ANSI-Commercial [id number] ANSI-Commercial [id number] [facility] B [id number] Self [id number] [facility] Part B [id number] Self EXCELLUS [facility] PI PI MEDICARE PI PI EXCELLUS [facility] [id number] SP [id number] EXCELLUS [facility] [id number] SP [id number] EXCELLUS [facility] [id number] SP [id number] [facility] Part B [id number] Self [id number] [facility] EMPLOYEE PROGRAM [id number] SP [id number] Workers Comp (WC) Workers Compensation [id number] Self MEDICARE [id number] SP [id number] MEDICARE C [id number] S [id number] [facility] [facility] [id number] S [id number] [facility] EMPLOYEE PROGRAM [id number] SP [id number] [facility] [id number] ANSI-Commercial [id number] ANSI-Commercial [id number] ANSI-Medicare Part B [id number] ANSI-Medicare Part B [id number] ANSI-Commercial [id number] ANSI-Commercial [id number] ANSI-Commercial [id number] ANSI-Commercial [id number] ANSI-Commercial [id number] BS [place] [facility] [id number] Problems, Conditions, and Diagnoses Code Display Name Description Problem Type Effective Dates Data Source(s) I48.91 Unspecified atrial fibrillation Unspecified atri al fibrillation Diagnosis 12/03/2020 08:50:56 AM EDT [facility] I48.0 Paroxysmal atrial fibrillation Paroxysmal atrial fibri llation Diagnosis 12/03/2020 08:50:56 AM EDT [facility] E78.5 Hyperlipidemia, unspecified Hyperlipidemia, unspecifie d Diagnosis 12/03/2020 08:50:56 AM EDT [facility] I48.11 Longstanding persistent atrial fibrillat ion Longstanding persistent atrial fibrillat Diagnosis 09/17/2020 12:00:00 AM EDT [facility] E11.59 Type 2 diabetes mellitus with other circ ulatory complications Type 2 diabetes mellitus with other circ Diagnosis 04/09/2020 07:51:38 AM [facility] G47.33 Obstructive sleep apnea (adult) (pediatr ic) Obstructive sleep apnea (adult) (pediatr Diagnosis 04/09/2020 07:51:38 AM EST [facility] K21.9 Gastro-esophageal reflux disease without esophagitis Gastro-esophageal reflux disease without Diagnosis 04/09/2020 07:51:38 AM [facility] N18.9 Chronic kidney disease, unspecified Chronic kidn ey disease, unspecified Diagnosis 04/09/2020 07:51:[address] 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 Atherosclerotic heart disease of [place] Diagnosis 04/09/2020 07:51:38 AM [facility] R07.89 Other chest pain Other chest pain Diagnosis 02/01/2020 09 :45:32 AM [facility] E78.2 Mixed hyperlipidemia Mixed hyperlipidemia Diagnosis 02/01/2020 09:45:32 AM [facility] I10 Essential (primary) hypertension Essential (primary) h ypertension Diagnosis 02/01/2020 09:45:32 AM [facility] N18.32 [id number] Chronic kidney disease, stage 3b Problem 10/22/2020 12:00:00 AM EDT eCW1 ([facility]) M54.32 [id number] Left sided sciatica Problem 05/22/2020 12:00 :00 AM EDT eCW1 ([facility]) F43.21 Adjustment disorder with depressed mood Adjustment Disorder, With depressed mood Condition 04/15/2020 12:00:00 AM EST [facility] Z00.00 [id number] Medicare annual wellness visit, subsequen t Problem 02/12/2020 12:00:00 AM EST eCW1 ([facility]) I10 Essential hypertension Essential (primary) hypertensio n Problem 01/25/2020 12:00:00 AM EST eCW1 ([facility]) N18.31 [id number] Stage 3a chronic kidney disease Problem 01/25/2020 12:00:00 AM EST eCW1 ([facility]) E11.21 [id number] 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 Problem 11/30/2019 12:00:00 AM EDT eCW1 ([facility]) 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 11/30/2019 12:00:00 AM EDT eCW1 ([facility]) M62.82 [id number] Non-traumatic rhabdomyolysis Problem 11/30/2019 12:00:00 AM EDT eCW1 ([facility]) N18.31 [id number] Chronic kidney disease, stage 3a Problem 11/30/2019 12:00:00 AM EDT eCW1 ([facility]) 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 Problem 11/26/2019 12:00:00 AM EDT [facility] ([facility], ) R06.02 Dyspnea Dyspnea Problem 11/26/2019 12:00:00 AM ED T [facility] ([facility], ) G47.33 Obstructive sleep apnea syndrome Obstructive sle ep apnea syndrome Problem 11/26/2019 12:00:00 AM EDT [facility] ([facility] ) Surgeries/Procedures Procedure Description Date Indications Data Source(s) OFFICE OUTPATIENT VISIT 25 MINUTES 11/26/2020 12:00:00 AM EDT [facility] ([facility], ) BLOOD COUNT COMPLETE AUTO&AUTO DIFRNTL WBC COUNT <td>C BC AND DIFFERENTIAL</td><td>Routine</td><td>09/17/2020</td><td></td><td> </td> 09/17/2020 12:00:00 AM EDT [facility] BASIC METABOLIC PANEL CALCIUM TOTAL <td>BASIC METABOLI C PANEL</td><td>Routine</td><td>09/17/2020</td><td></td><td> </td> 09/17/2020 12:00:00 AM EDT [facility] PROTHROMBIN TIME <td>POCT INR</td><td>Routine </td><td>09/17/2020</td><td> Longstanding persistent atrial fibrillation</td><td> </td> 09/17/2020 12:00:00 AM EDT Longstanding persistent atrial fibrillation [facility] Longstanding persistent atrial fibrillat ion PROTHROMBIN TIME <td>POCT INR</td><td>Routine </td><td>08/06/2020</td><td> Longstanding persistent atrial fibrillation</td><td> </td> 08/06/2020 12:00:00 AM EDT Longstanding persistent atrial fibrillation [facility] Longstanding persistent atrial fibrillat ion HEMOGLOBIN GLYCOSYLATED A1C <td>HEMOGLOBIN A1C</td><td>Routine</td><td>05/19/2020</td><td></td><td> </td> 05/19/2020 12:00:00 AM EDT [facility] BASIC METABOLIC PANEL CALCIUM TOTAL <td>BASIC METABOLI C PANEL</td><td>Routine</td><td>05/19/2020</td><td></td><td> </td> 05/19/2020 12:00:00 AM EDT [facility] Extended Individual Psychotherapy - 45 min 04/15/2020 12:00:00 AM EST - 04/15/2020 12:00:00 AM EST [facility] ([facility]) Extended Individual Psychotherapy - 45 min 12:00:00 AM EST [facility] ([facility]) ECG ROUTINE ECG W/LEAST 12 LDS W/I&R <td>POCT AMB EKG</td><td>Routine</td><td>04/09/2020 9:08 AM EST</td><td> Coronary artery disease involving [place] coronary artery of [place] heart with unstable angina pectoris Paroxysmal atrial fibrillation Aortic valve disease</td><td> </td> 04/09/2020 02:08:00 PM EST Aortic valve diseaseParoxysmal atrial fi brillationCoronary artery disease involving [place] coronary artery of [place] heart with unstable angina pectoris [facility] Aortic valve disease Paroxysmal atrial fibrillation Coronary artery disease involving [place] coronary artery of [place] heart with unstable angina pectoris Extended Individual Psychotherapy - 45 min 03/28/2020 12:00:00 AM EST - 03/28/2020 12:00:00 AM EST [facility] ([facility]) Extended Individual Psychotherapy - 45 min 12:00:00 AM EST [facility] ([facility]) Psychiatric Diagnostic Evaluation (Non-Medical) 03/11/2020 12:00:00 AM EST - 03/11/2020 12:00:00 AM EST [facility] ([facility]) Psychiatric Diagnostic Evaluation (Non-Medical) 2020 12:00:00 AM EST [facility] ([facility]) Extended Individual Psychotherapy - 45 min 02/26/2020 12:00:00 AM EST - 02/26/2020 12:00:00 AM EST [facility] ([facility]) Extended Individual Psychotherapy - 45 min 12:00:00 AM EST [facility] ([facility]) Immunization: Flublok Quadrivalent (18 years & older) 0.5mL IM (Influenza) 11/30/2019 12:00:00 AM EDT eCW1 ([facility]) Results ID Date Data Source [id number] 12/17/2020 08:33:51 AM EDT [facility] INFORMATIONPatient MRN Name Date of Age Gend*PT [id number] Felicia Alva 1960 60 years M ---PT Location Admission Date/Time Visit ID Attending Provider --- --- --- --- EPI ID CSN Admitting Provider [id number] ---Addended by: ETHEL JARVIS on: 12/17/2020 08:33 AM Modules accepted: Orders Name Value Range Interpretation Code Description Data Maria Guadalupe rce(s) Supporting Document(s) ID Date Data Source Basic Metabolic Profile (BMP) 02/12/2020 12:00:00 AM EST eCW 1 ([facility]) Name Value Range Interpretation Code Description Data Maria Guadalupe rce(s) Supporting Document(s) 34 7-18 BLOOD UREA NITROGEN eCW1 ([facility]) 1.60 0.70-1.30 CREATININE FOR GFR eCW1 ([facility]) 215 70-100 GLUCOSE, FASTING eCW1 ([facility]) 136 136-145 SODIUM LEVEL eCW1 ([facility]) 104 98-107 CHLORIDE LEVEL eCW1 ([facility]) 4.9 3.5-5.1 POTASSIUM SERUM eCW1 ([facility]) 47.0 >49 GLOMERULAR FILTRATION RATE eCW 1 ([facility]) 10.0 8.8-10.2 CALCIUM LEVEL eCW1 ([facility]) 25 21-32 CARBON DIOXIDE LEVEL eCW1 ([facility]) ID Date Data Source CPK CREATINE PHOSPHOKINASE 02/12/2020 12:00:00 AM EST eCW1 ( [facility]) Name Value Range Interpretation Code Description Data Maria Guadalupe rce(s) Supporting Document(s) 903 39-308 CPK CREATINE PHOSPHOKINASE eCW 1 ([facility]) ID Date Data Source [id number] 02/05/2020 01:00:00 PM EST [facility] Name Value Range Interpretation Code Description Data Maria Guadalupe rce(s) Supporting Document(s) SARS coronavirus 2 RNA [facility] This lab was ordered by [facility] and reported by [facility]. ID Date Data Source Coronavirus 2019 Nasopharygeal (Send Out) COVID 01/04/2020 0 3:11:19 AM EST eCW1 ([facility]) Name Value Range Interpretation Code Description Data Maria Guadalupe rce(s) Supporting Document(s) This nucleic acid amplification test was developed and its CORONAVIRUS 2019 NASOPHARYGEAL eCW1 ([facility]) ID Date Data Source [id number] 01/01/2020 02:30:00 PM EST [facility] Name Value Range Interpretation Code Description Data Maria Guadalupe rce(s) Supporting Document(s) SARS coronavirus 2 RNA [facility] This lab was ordered by [facility] and reported by [facility]. ID Date Data Source Comprehensive Metabolic Profile (CMP) 11/20/2019 06:10:05 AM EDT eCW1 ([facility]) Name Value Range Interpretation Code Description Data Maria Guadalupe rce(s) Supporting Document(s) 192 GLUCOSE, FASTING eCW1 ([facility]) 49 BLOOD UREA NITROGEN eCW1 ([facility]) 2.07 CREATININE FOR GFR eCW1 ([facility]) 35.0 GLOMERULAR FILTRATION RATE eCW 1 ([facility]) 133 SODIUM LEVEL eCW1 ([facility]) 9.2 CALCIUM LEVEL eCW1 ([facility]) 23 CARBON DIOXIDE LEVEL eCW1 ([facility]) 104 CHLORIDE LEVEL eCW1 ([facility]) 5.2 POTASSIUM SERUM eCW1 ([facility]) 57 AST/SGOT eCW1 ([facility]) 101 ALKALINE PHOSPHATASE eCW1 ([facility]) 0.4 BILIRUBIN,TOTAL eCW1 ([facility]) 56 ALT/SGPT eCW1 ([facility]) 7.6 TOTAL PROTEIN eCW1 ([facility]) 3.9 ALBUMIN eCW1 ([facility]) 1.1 ALBUMIN/GLOBULIN RATIO eCW1 (Count includes the [facility]) Procedure Social History Code Duration Value Status Description Data Source(s ) Smoking 12/06/2020 12:00:00 AM EDT Never Smoker completed Never S moker eCW1 ([facility]) Alcohol intake 12/03/2020 12:00:00 AM EDT Current non-d brandee of alcohol (finding) completed Current non-drinker of alcohol (finding) [facility] Smoking 11/26/2020 12:00:00 AM EDT Non Smoker completed Non Smoke r [facility] ([facility], ) Smoking 10/22/2020 12:00:00 AM EDT Never Smoker completed Never S moker eCW1 ([facility]) Smoking 10/22/2020 12:00:00 AM EDT Never Smoker completed Never S moker eCW1 ([facility]) Smoking 10/22/2020 12:00:00 AM EDT Never Smoker completed Never S moker eCW1 ([facility]) Smoking 10/22/2020 12:00:00 AM EDT Never Smoker completed Never S moker eCW1 ([facility]) Smoking 10/22/2020 12:00:00 AM EDT Never Smoker completed Never S moker eCW1 ([facility]) Smoking 10/22/2020 12:00:00 AM EDT Never Smoker completed Never S moker eCW1 ([facility]) Alcohol intake 08/06/2020 12:00:00 AM EDT Current non-d brandee of alcohol (finding) completed Current non-drinker of alcohol (finding) [facility] Smoking 05/22/2020 12:00:00 AM EDT Never Smoker completed Never S moker eCW1 ([facility]) Smoking 05/22/2020 12:00:00 AM EDT Never Smoker completed Never S moker eCW1 ([facility]) Smoking 05/22/2020 12:00:00 AM EDT Never Smoker completed Never S moker eCW1 ([facility]) Smoking 05/22/2020 12:00:00 AM EDT Never Smoker completed Never S moker eCW1 ([facility]) Smoking 05/22/2020 12:00:00 AM EDT Never Smoker completed Never S moker eCW1 ([facility]) Smoking 04/15/2020 12:00:00 AM EST Unknown if ever smoked comp leted Unknown if ever smoked [facility] ([facility]) Alcohol intake 04/09/2020 12:00:00 AM EST No completed [facility] Smoking 04/09/2020 12:00:00 AM EST Never smoker completed Never s moker [facility] Smoking 03/28/2020 12:00:00 AM EST Unknown if ever smoked comp leted Unknown if ever smoked [facility] ([facility]) Smoking 03/11/2020 12:00:00 AM EST Unknown if ever smoked comp leted Unknown if ever smoked [facility] ([facility]) Smoking 02/26/2020 12:00:00 AM EST Unknown if ever smoked comp leted Unknown if ever smoked [facility] ([facility]) Smoking 02/13/2020 12:00:00 AM EST Never Smoker completed Never S moker eCW1 ([facility]) Smoking 02/13/2020 12:00:00 AM EST Never Smoker completed Never S moker eCW1 ([facility]) Smoking 02/13/2020 12:00:00 AM EST Never Smoker completed Never S moker eCW1 ([facility]) Smoking 02/13/2020 12:00:00 AM EST Never Smoker completed Never S moker eCW1 ([facility]) Smoking 02/13/2020 12:00:00 AM EST Never Smoker completed Never S moker eCW1 ([facility]) Smoking 02/13/2020 12:00:00 AM EST Never Smoker completed Never S moker eCW1 ([facility]) Smoking 02/13/2020 12:00:00 AM EST Never Smoker completed Never S moker eCW1 ([facility]) Smoking 02/12/2020 12:00:00 AM EST Never Smoker completed Never S moker eCW1 ([facility]) Smoking 01/25/2020 12:00:00 AM EST Never Smoker completed Never S moker eCW1 ([facility]) Smoking 01/25/2020 12:00:00 AM EST Never Smoker completed Never S moker eCW1 ([facility]) Smoking 01/25/2020 12:00:00 AM EST Never Smoker completed Never S moker eCW1 ([facility]) Smoking 01/25/2020 12:00:00 AM EST Never Smoker completed Never S moker eCW1 ([facility]) Smoking 01/01/2020 12:00:00 AM EST Never Smoker completed Never S moker eCW1 ([facility]) Smoking 01/01/2020 12:00:00 AM EST Never Smoker completed Never S moker eCW1 ([facility]) Smoking 01/01/2020 12:00:00 AM EST Never Smoker completed Never S moker eCW1 ([facility]) Smoking 11/30/2019 12:00:00 AM EDT Never Smoker completed Never S moker eCW1 ([facility]) Smoking 11/30/2019 12:00:00 AM EDT Never Smoker completed Never S moker eCW1 ([facility]) Smoking 11/30/2019 12:00:00 AM EDT Never Smoker completed Never S moker eCW1 ([facility]) Smoking 11/30/2019 12:00:00 AM EDT Never Smoker completed Never S moker eCW1 ([facility]) Smoking 11/30/2019 12:00:00 AM EDT Never Smoker completed Never S moker eCW1 ([facility]) Smoking 11/30/2019 12:00:00 AM EDT Never Smoker completed Never S moker eCW1 ([facility]) Vital Signs ID Date Data Source UNK Name Value Range Interpretation Code Description Data Source(s) Systolic blood pressure 135 mm[Hg] 135 mm[Hg] [facility] Diastolic blood pressure 80 mm[Hg] 80 mm[Hg] [facility] Heart rate 63 /min 63 /min [facility] Body height 180.3 cm 180.3 cm [facility] Body weight 144.697 kg 144.697 kg [facility] Body mass index (BMI) [Ratio] 44.49 kg/m2 44.49 kg/m2 [facility] Oxygen saturation in Arterial blood by Pulse oximetry 98 % 98 % [facility] Body mass index (BMI) [Ratio] 45.3 kg/m2 45.3 k g/m2 [facility], [facility] [place] body weight 166 [lb_av] 166 [lb_av] MEDEN T ([facility], ) Body weight 143.338 kg 143.338 kg [facility] ([facility]) Body surface area Derived from formula 2.54 m2 2.54 m2 [facility] ([facility], ) Systolic blood pressure 138 mm[Hg] 138 mm[Hg] M EDENT ([facility], ) Body weight 316.00 [lb_av] 316.00 [lb_av] MEDEN T ([facility], ) Diastolic blood pressure 74 mm[Hg] 74 mm[Hg] [facility] ([facility], ) Heart rate 64 /min 64 /min [facility] ([facility], ) Oxygen saturation in Arterial blood by Pulse oximetry 96 % 96 % [facility] ([facility], ) Body height 70 [in_i] 70 [in_i] [facility], [facility] 5'10" Body weight 316 [lb_av] 316 [lb_av] eCW1 ([facility]) Body temperature 97.6 [degF] 97.6 [degF] eCW1 ( [facility]) Systolic blood pressure 140 mm[Hg] 140 mm[Hg] e CW1 ([facility]) Diastolic blood pressure 78 mm[Hg] 78 mm[Hg] eCW1 ([facility]) Body height 70 [in_i] 70 [in_i] W1 ([facility]) Body mass index (BMI) [Ratio] 45.34 kg/m2 45.34 kg/m2 [facility] ([facility]) Heart rate 72 /min 72 /min eCW1 ([facility]) Respiratory rate 18 /min 18 /min eCW1 ([facility]) Systolic blood pressure 138 mm[Hg] 138 mm[Hg] [facility] Diastolic blood pressure 80 mm[Hg] 80 mm[Hg] [facility] Body weight 144.97 kg 144.97 kg [facility] Heart rate 68 /min 68 /min [facility] Body height 180.3 cm 180.3 cm [facility] Oxygen saturation in Arterial blood by Pulse oximetry 98 % 98 % [facility] Body mass index (BMI) [Ratio] 44.58 kg/m2 44.58 kg/m2 [facility] Body weight 316.2 [lb_av] 316.2 [lb_av] eCW1 (Count includes the [facility]) Body height 70 [in_i] 70 [in_i] eCW1 ([facility]) Body mass index (BMI) [Ratio] 45.37 kg/m2 45.37 kg/m2 eCW1 ([facility]) Heart rate 71 /min 71 /min eCW1 ([facility]) Respiratory rate 18 /min 18 /min eCW1 ([facility]) Body temperature 96.9 [degF] 96.9 [degF] eCW1 ( [facility]) Systolic blood pressure 132 mm[Hg] 132 mm[Hg] e CW1 ([facility]) Diastolic blood pressure 84 mm[Hg] 84 mm[Hg] eCW1 ([facility]) Systolic blood pressure 128 mm[Hg] 128 mm[Hg] [facility] Diastolic blood pressure 80 mm[Hg] 80 mm[Hg] [facility] Heart rate 70 /min 70 /min [facility] Body height 180.3 cm 180.3 cm [facility] Body weight 142.883 kg 142.883 kg [facility] Body mass index (BMI) [Ratio] 43.93 kg/m2 43.93 kg/m2 [facility] Oxygen saturation in Arterial blood by Pulse oximetry 99 % 99 % [facility] Body weight 313 [lb_av] 313 [lb_av] eCW1 ([facility]) Body height 70 [in_i] 70 [in_i] eCW1 ([facility]) Body mass index (BMI) [Ratio] 44.91 kg/m2 44.91 kg/m2 eCW1 ([facility]) Heart rate 77 /min 77 /min eCW1 ([facility]) Respiratory rate 18 /min 18 /min eCW1 ([facility]) Body temperature 97.5 [degF] 97.5 [degF] eCW1 ( [facility]) Systolic blood pressure 130 mm[Hg] 130 mm[Hg] e CW1 ([facility]) Diastolic blood pressure 70 mm[Hg] 70 mm[Hg] eCW1 ([facility]) Body weight 317 [lb_av] 317 [lb_av] eCW1 ([facility]) Body height 70 [in_i] 70 [in_i] eCW1 ([facility]) Body mass index (BMI) [Ratio] 45.48 kg/m2 45.48 kg/m2 eCW1 ([facility]) Heart rate 81 /min 81 /min eCW1 ([facility]) Respiratory rate 18 /min 18 /min eCW1 ([facility]) Body temperature 97.6 [degF] 97.6 [degF] eCW1 ( [facility]) Systolic blood pressure 124 mm[Hg] 124 mm[Hg] e CW1 ([facility]) Diastolic blood pressure 60 mm[Hg] 60 mm[Hg] eCW1 ([facility]) Body weight 317.4 [lb_av] 317.4 [lb_av] eCW1 (Count includes the [facility]) Body mass index (BMI) [Ratio] 45.54 kg/m2 45.54 kg/m2 eCW1 ([facility]) Heart rate 72 /min 72 /min eCW1 ([facility]) Body height 70 [in_i] 70 [in_i] eCW1 ([facility]) Respiratory rate 18 /min 18 /min eCW1 ([facility]) Body temperature 97.2 [degF] 97.2 [degF] eCW1 ( [facility]) Systolic blood pressure 140 mm[Hg] 140 mm[Hg] e CW1 ([facility]) Diastolic blood pressure 78 mm[Hg] 78 mm[Hg] eCW1 ([facility]) Body weight 141.977 kg [facility].[address] [facility] [place] body weight 166 [lb_av] 166 [lb_av] MEDEN T ([facility], ) Body surface area Derived from formula 2.52 m2 2.52 m2 [facility] ([facility], ) Systolic blood pressure 132 mm[Hg] 132 mm[Hg] M EDENT ([facility], ) Diastolic blood pressure 84 mm[Hg] 84 mm[Hg] [facility] Heart rate 78 /min 78 /min [facility] ([facility], ) Oxygen saturation in Arterial blood by Pulse oximetry 96 % 96 % [facility] ([facility]) Body temperature 97.2 [degF] 97.2 [degF] [facility] ([facility], ) Body height 70 [in_i] 70 [in_i] [facility] 5'10" Body weight 313.00 [lb_av] 313.00 [lb_av] MEDEN T ([facility], ) Body mass index (BMI) [Ratio] 44.9 kg/m2 44.9 k g/m2 [facility] ([facility]) Patient Treatment Plan of Care Planned Activity Planned Date Details Description Data Source (s) Amiodarone hydrochloride 100 MG Oral Tablet 12/03/2020 12:00:00 AM EDT [facility] ezetimibe 10 MG Oral Tablet 11/26/2020 12:00:00 AM EDT [facility] 3 ML Insulin Glargine 100 UNT/ML Pen Injector [Lantus] 11/07/2020 12:00:00 AM EDT [facility] ezetimibe 10 MG Oral Tablet 08/06/2020 12:00:00 AM EDT [facility] ezetimibe 10 MG Oral Tablet 08/06/2020 12:00:00 AM EDT [facility] 1 ML evolocumab 140 MG/ML Prefilled Syringe [Repatha] 07/17/2020 12:00:00 AM EDT [facility] Warfarin Sodium 5 MG Oral Tablet 06/11/2020 12:00:00 AM EDT [facility] Warfarin Sodium 2.5 MG Oral Tablet 06/06/2020 12:00:00 AM EDT [facility] Amiodarone hydrochloride 100 MG Oral Tablet 04/09/2020 12:00:00 AM EST [facility] doxycycline hyclate 100 MG Oral Capsule 02/12/2020 12:00:00 AM EST eCW1 ([facility]) doxycycline hyclate 100 MG Oral Tablet 01/01/2020 12:00:00 AM EST eCW1 ([facility]) Prednisone 20 MG Oral Tablet 01/01/2020 12:00:00 AM EST eCW1 ([facility]) doxycycline hyclate 100 MG Oral Tablet 01/01/2020 12:00:00 AM EST eCW1 ([facility]) Prednisone 20 MG Oral Tablet 01/01/2020 12:00:00 AM EST eCW1 ([facility]) Prednisone 20 MG Oral Tablet 01/01/2020 12:00:00 AM EST eCW1 ([facility]) doxycycline hyclate 100 MG Oral Tablet 01/01/2020 12:00:00 AM EST eCW1 ([facility]) Furosemide 40 MG Oral Tablet 11/20/2019 12:00:00 AM EDT [facility] Amiodarone hydrochloride 200 MG Oral Tablet 02/16/2019 12:00:00 AM EST [facility] Losartan Potassium 50 MG Oral Tablet 01/25/2019 12:00:00 AM EST [facility] Insulin Glargine 100 UNT/ML Injectable Solution 08/10/2017 12:00:00 AM EDT [facility]
[2020-12-31 13:08] LABS: PROTHROMBIN TIME 76.1 SECONDS (12.7-14.5)
[2020-12-31 13:11] LABS: INR 9.54
[2020-12-31] MEDS ORDERED: PHYTONADIONE 5 MG TAB PO ONE (13:35)
== END 2020-12-31 13:50 | disposition home or self-care (01) ==
LOC: M ED 08:50
DX: R79.89 Other specified abnormal findings of blood chemistry (principal); I50.9 Heart failure, unspecified; I48.91 Unspecified atrial fibrillation; I25.10 Atherosclerotic heart disease of native coronary artery without angina pectoris; I25.2 Old myocardial infarction; E11.9 Type 2 diabetes mellitus without complications; I10 Essential (primary) hypertension; E78.5 Hyperlipidemia, unspecified; E55.9 Vitamin D deficiency, unspecified; G47.30 Sleep apnea, unspecified; N18.30 Chronic kidney disease, stage 3 unspecified; K21.9 Gastro-esophageal reflux disease without esophagitis; K22.70 Barrett's esophagus without dysplasia; F41.9 Anxiety disorder, unspecified; F32.9 Major depressive disorder, single episode, unspecified; Z95.1 Presence of aortocoronary bypass graft; Z95.5 Presence of coronary angioplasty implant and graft; Z95.2 Presence of prosthetic heart valve; Z79.4 Long term (current) use of insulin; Z79.01 Long term (current) use of anticoagulants; Z79.82 Long term (current) use of aspirin; Z79.899 Other long term (current) drug therapy; Z88.8 Allergy status to other drugs, medicaments and biological substances

== ENCOUNTER → 2021-02-12 | Outpatient (REF) | payer MEDICARE, BC ==
[~2021-02-12] MED LIST changes: -AMIO200T3 PO; +AMIO200T49 PO; -CEFD1CAP8 PO; +CEFD300C41 PO; +LOSA50TA28 PO; -LOSA50TA88 PO
[2021-02-12 14:51] LABS: HEMATOCRIT 41.4 % (42.0-52.0); HEMOGLOBIN 13.5 g/dl (13.5-17.5); MEAN CORPUSCULAR HEMOGLOBIN 29.3 pg (27.0-33.0); MEAN CORPUSCULAR HGB CONC 32.6 g/dl (32.0-36.5); PLATELET COUNT, AUTOMATED 194 10^3/uL (150-450); WHITE BLOOD COUNT 8.6 10^3/uL (4.0-10.0)
[2021-02-12 15:06] LABS: HEMOGLOBIN A1c 9.2 %
[2021-02-12 15:13] LABS: ALBUMIN 3.6 GM/DL (3.2-5.2); BILIRUBIN,TOTAL 0.3 MG/DL (0.2-1.0); CALCIUM LEVEL 9.3 MG/DL (8.8-10.2); CHOLESTEROL RISK RATIO 5.875 (<5); CREATININE FOR GFR 1.67 MG/DL (0.70-1.30); GLOMERULAR FILTRATION RATE 44.6 (>49); TOTAL PROTEIN 7.5 GM/DL (6.4-8.2)
== END ==
LOC: M SFHCADAM 11:28
PROVIDERS: ATTEND Family Medicine
DX: E11.65 Type 2 diabetes mellitus with hyperglycemia (principal); E78.2 Mixed hyperlipidemia; N18.32 Chronic kidney disease, stage 3b; Z23 Encounter for immunization
CPT/HCPCS: 80053; 80061; 83036; 85027; 90682; G0008; G0463

== ENCOUNTER 2021-04-27 20:46 | Inpatient (IN) | payer MEDICARE, BC ==
[~2021-04-27] VITALS: Ht 177.8 cm; Wt 140.1 kg
[~2021-04-27 20:46] MED LIST changes: -D31000TA2 PO; +VITA100093 PO
[2021-04-27 22:46] LABS: HEMATOCRIT 41.1 % (42.0-52.0); HEMOGLOBIN 13.8 g/dl (13.5-17.5); MEAN CORPUSCULAR HEMOGLOBIN 29.1 pg (27.0-33.0); MEAN CORPUSCULAR HGB CONC 33.6 g/dl (32.0-36.5); MEAN CORPUSCULAR VOLUME 86.7 fl (80.0-96.0); PLATELET COUNT, AUTOMATED 161 10^3/uL (150-450); RED BLOOD COUNT 4.74 10^6/uL (4.30-6.10); WHITE BLOOD COUNT 19.2 10^3/uL (4.0-10.0)
[2021-04-27 22:52] LABS: ALBUMIN 3.6 GM/DL (3.2-5.2); BILIRUBIN,DIRECT 0.2 MG/DL (0.0-0.2); BILIRUBIN,TOTAL 0.7 MG/DL (0.2-1.0); CALCIUM LEVEL 9.1 MG/DL (8.8-10.2); CREATININE FOR GFR 2.01 MG/DL (0.70-1.30); POTASSIUM SERUM 4.4 MEQ/L (3.5-5.1); TOTAL PROTEIN 7.7 GM/DL (6.4-8.2)
[2021-04-27 23:06] LABS: LYMPHOCYTES 4 % (16-44); MONOCYTES 9 % (0-5); NEUTROPHILS 82 % (28-66); PLATELET ESTIMATE NORMAL (NORMAL)
[2021-04-27 23:07] LABS: ANISOCYTOSIS 1+; POIKILOCYTOSIS 1+
[2021-04-27 23:18] LABS: RSV AMPLIFICATION NEGATIVE (NEGATIVE)
[2021-04-27 23:21] LABS: CK-MB VALUE MASS 4.8 NG/ML (<3.6); MB/CK RELATIVE INDEX 0.5 (< OR =4)
[2021-04-28] MEDS ORDERED: MAALOX 30 ML SUSP *UDC PO PRN (02:20)
[2021-04-28] MEDS ORDERED: MOM 30ML SUSPENSION UDC PO PRN (02:20)
[2021-04-28] MEDS ORDERED: COMBIVENT RESPIMAT 100-20MCG INHALER 4GM INH PRN (02:20)
[2021-04-28] MEDS ORDERED: GLUCAGON INJ 1MG VIAL SC PRN (03:45)
[2021-04-28] MEDS ORDERED: GLUCOSE 4GM CHEW TABLET PO PRN (03:45)
[2021-04-28] MEDS ORDERED: DEXTROSE 50% 50 ML SYRINGE IV PRN (03:45)
[2021-04-28 03:50] VITALS: BP 166/78
[2021-04-28] MEDS ORDERED: LevoFLOXacin 750 MG TABLET PO ONE (04:00)
[2021-04-28] MEDS: ACETAMINOPHEN TAB 650MG DOSE (2X325MG) PO PRN ×2 (04:09→16:33)
[2021-04-28] MEDS ORDERED: AMIO0.1T PO (05:00)
[2021-04-28] MEDS ORDERED: ALLO300T2 PO (05:00)
[2021-04-28] MEDS ORDERED: PROAAER10 INH (05:00)
[2021-04-28] MEDS ORDERED: PATIENT COMMENT (05:00)
[2021-04-28] MEDS ORDERED: HOME MED LIST COMPLETE! XX SCH (05:00)
[2021-04-28] MEDS ORDERED: WARF-23 PO (05:00)
[2021-04-28] MEDS ORDERED: REPA140I2 SC (05:02)
[2021-04-28] MEDS ORDERED: VASC1CAP2 PO (05:02)
[2021-04-28] MEDS ORDERED: REMDESIVIR 200 MG in NS 250 ML IV ONE (06:00)
[2021-04-28 06:13] LABS: INR 1.68; PROTHROMBIN TIME 20.2 SECONDS (12.7-14.5)
[2021-04-28 06:14] LABS: PARTIAL THROMBOPLASTIN TIME 37.1 SECONDS (25.9-37.0)
[2021-04-28 06:17] LABS: D-DIMER QUANT 3196.03 ng/ml (<500)
[2021-04-28 06:35] LABS: C REACTIVE PROTEIN QUANTITATIV 13.2 MG/DL (0.00-0.30)
[2021-04-28 07:31] LABS: HEMATOCRIT 37.5 % (42.0-52.0); HEMOGLOBIN 12.7 g/dl (13.5-17.5); MEAN CORPUSCULAR HEMOGLOBIN 29.1 pg (27.0-33.0); MEAN CORPUSCULAR HGB CONC 33.9 g/dl (32.0-36.5); MEAN CORPUSCULAR VOLUME 85.8 fl (80.0-96.0); PLATELET COUNT, AUTOMATED 127 10^3/uL (150-450); RED BLOOD COUNT 4.37 10^6/uL (4.30-6.10); WHITE BLOOD COUNT 15.3 10^3/uL (4.0-10.0)
[2021-04-28 07:37] LABS: BILIRUBIN,TOTAL 0.8 MG/DL (0.2-1.0); CALCIUM LEVEL 8.4 MG/DL (8.8-10.2); CREATININE FOR GFR 2.1 MG/DL (0.70-1.30); GLOMERULAR FILTRATION RATE 34.2 (>49); MAGNESIUM LEVEL 1.4 MG/DL (1.8-2.4); POTASSIUM SERUM 3.7 MEQ/L (3.5-5.1); TOTAL PROTEIN 6.8 GM/DL (6.4-8.2)
[2021-04-28] MEDS ORDERED: SODIUM CHLORIDE 0.9% INJ 10 ML SYR IV ONE (08:00)
[2021-04-28 08:01] LABS: METAMYELOCYTES 1 % (0-0); MONOCYTES 3 % (0-5); NEUTROPHILS 84 % (28-66)
[2021-04-28 08:02] LABS: OVALOCYTES 2+; PLATELET ESTIMATE DECREASED (NORMAL)
[2021-04-28] MEDS: HumaLOG INSULIN (NovoLOG) PER UNIT SC SCH ×4 (08:22→20:38)
[2021-04-28] MEDS ORDERED: dexameTHASONE 4 MG/ML 1ML VIAL (J1100 PER 1MG) IV SCH (09:00)
[2021-04-28] MEDS ORDERED: MAG SULF 1GM/100ML (MAG RUN) 1 GM in IV 1 EA IV ONE (09:00)
[2021-04-28] MEDS ORDERED: BARICITINIB 2MG TABLET (OLUMIANT) FOR EUA PO SCH (09:00)
[2021-04-28] MEDS ORDERED: ONDANSETRON 4MG/2ML VIAL IV ONE (09:15)
[2021-04-28] MEDS: NS 1,000 ML IV SCH (09:37)
[2021-04-28] MEDS: MAG SULF 1GM/100ML (MAG RUN) 1 GM in IV 1 EA IV SCH ×2 (10:47→12:07)
[2021-04-28] MEDS ORDERED: VANCOMYCIN HCL 1,000 MG, VIAL MATE ADAPTER 1 EACH in NS 250 ML IV ONE (12:00)
[2021-04-28 13:22] VITALS: BP 123/56
[2021-04-28] MEDS: ENOXAPARIN 150MG/ML SYRINGE (J1650 PER 10MG) SC SCH (14:46)
[2021-04-28] MEDS: WARFARIN SOD 5MG TAB PO SCH (16:28)
[2021-04-28 19:47] VITALS: BP 105/55
[2021-04-28] MEDS: VANCOMYCIN HCL 750 MG, VIAL MATE ADAPTER 1 EACH in NS 250 ML IV SCH (20:38)
[2021-04-29] MEDS: NS 1,000 ML IV SCH ×2 (03:02→03:03)
[2021-04-29] MEDS: REMDESIVIR 100 MG in NS 250 ML IV SCH (05:29)
[2021-04-29 05:50] VITALS: BP 100/55
[2021-04-29] MEDS: SODIUM CHLORIDE 0.9% INJ 10 ML SYR IV SCH (07:00)
[2021-04-29 08:25] LABS: HEMATOCRIT 39.2 % (42.0-52.0); MEAN CORPUSCULAR HGB CONC 33.2 g/dl (32.0-36.5); MEAN CORPUSCULAR VOLUME 87.3 fl (80.0-96.0); PLATELET COUNT, AUTOMATED 100 10^3/uL (150-450); RED BLOOD COUNT 4.49 10^6/uL (4.30-6.10); WHITE BLOOD COUNT 12.4 10^3/uL (4.0-10.0)
[2021-04-29 08:35] LABS: INR 1.58; PROTHROMBIN TIME 19.3 SECONDS (12.7-14.5)
[2021-04-29] MEDS: HumaLOG INSULIN (NovoLOG) PER UNIT SC SCH ×4 (08:37→20:21)
[2021-04-29] MEDS: ENOXAPARIN 150MG/ML SYRINGE (J1650 PER 10MG) SC SCH (08:38)
[2021-04-29] MEDS: VANCOMYCIN HCL 750 MG, VIAL MATE ADAPTER 1 EACH in NS 250 ML IV SCH ×2 (08:43→20:21)
[2021-04-29 08:46] LABS: ERYTHROCYTE SEDIMENTATION RATE 14 mm/hr (0-20)
[2021-04-29 08:50] LABS: ATYPICAL LYMPH 1 % (0-5); EOSINOPHILS 1 % (0-3); LYMPHOCYTES 2 % (16-44); MONOCYTES 5 % (0-5); NEUTROPHILS 82 % (28-66)
[2021-04-29 08:52] LABS: OVALOCYTES 2+; PLATELET ESTIMATE DECREASED (NORMAL)
[2021-04-29] MEDS ORDERED: LevoFLOXacin 750 MG TABLET PO SCH (09:00)
[2021-04-29 09:17] LABS: ALBUMIN 2.7 GM/DL (3.2-5.2); BILIRUBIN,TOTAL 0.4 MG/DL (0.2-1.0); C REACTIVE PROTEIN QUANTITATIV 15.8 MG/DL (0.00-0.30); CALCIUM LEVEL 8.4 MG/DL (8.8-10.2); CREATININE FOR GFR 1.76 MG/DL (0.70-1.30); MAGNESIUM LEVEL 2.6 MG/DL (1.8-2.4); POTASSIUM SERUM 4.5 MEQ/L (3.5-5.1); TOTAL PROTEIN 6.6 GM/DL (6.4-8.2); VANCOMYCIN LEVEL TROUGH 9.1 UG/ML (10.0-20.0)
[2021-04-29] MEDS ORDERED: SENNA 8.6 MG TAB (SENOKOT) PO PRN (10:05)
[2021-04-29] MEDS ORDERED: BISACODYL 10 MG SUPP PR ONE (10:15)
[2021-04-29] MEDS: SENNA 8.6 MG TAB (SENOKOT) PO SCH (10:41)
[2021-04-29] MEDS ORDERED: WARFARIN SOD 2.5MG TAB PO SCH (17:00)
[2021-04-29] MEDS: WARFARIN SOD 5MG TAB PO SCH (18:17)
[2021-04-29] MEDS: ACETAMINOPHEN TAB 650MG DOSE (2X325MG) PO PRN (18:21)
[2021-04-29 18:43] VITALS: BP 149/68
[2021-04-29 20:14] VITALS: BP 137/72
[2021-04-30] MEDS: REMDESIVIR 100 MG in NS 250 ML IV SCH (05:41)
[2021-04-30] MEDS: SODIUM CHLORIDE 0.9% INJ 10 ML SYR IV SCH ×2 (05:42→16:22)
[2021-04-30] MEDS: ACETAMINOPHEN TAB 650MG DOSE (2X325MG) PO PRN ×3 (05:53→20:37)
[2021-04-30 05:54] VITALS: BP 141/64
[2021-04-30] MEDS: HumaLOG INSULIN (NovoLOG) PER UNIT SC SCH ×4 (08:28→20:38)
[2021-04-30] MEDS: ENOXAPARIN 150MG/ML SYRINGE (J1650 PER 10MG) SC SCH (08:29)
[2021-04-30] MEDS: SENNA 8.6 MG TAB (SENOKOT) PO SCH (08:29)
[2021-04-30 08:49] LABS: BASO % 0.2 % (0.0-1.0); EOS % 0.3 % (0.0-3.0); HEMATOCRIT 38.9 % (42.0-52.0); HEMOGLOBIN 13.1 g/dl (13.5-17.5); LYMPH # 1.2 10^3/uL (1.5-5.0); LYMPH % 11.4 % (24.0-44.0); MEAN CORPUSCULAR HEMOGLOBIN 28.6 pg (27.0-33.0); MEAN CORPUSCULAR HGB CONC 33.7 g/dl (32.0-36.5); MEAN CORPUSCULAR VOLUME 84.9 fl (80.0-96.0); MONO % 9.4 % (2.0-8.0); NEUTROPHILS # 8.4 10^3/uL (1.5-8.5); NEUTROPHILS % 77.8 % (36.0-66.0); PLATELET COUNT, AUTOMATED 103 10^3/uL (150-450); RED BLOOD COUNT 4.58 10^6/uL (4.30-6.10); WHITE BLOOD COUNT 10.8 10^3/uL (4.0-10.0)
[2021-04-30 09:11] LABS: ALBUMIN 2.8 GM/DL (3.2-5.2); BILIRUBIN,TOTAL 0.4 MG/DL (0.2-1.0); C REACTIVE PROTEIN QUANTITATIV 9.72 MG/DL (0.00-0.30); CALCIUM LEVEL 8.5 MG/DL (8.8-10.2); CREATININE FOR GFR 1.79 MG/DL (0.70-1.30); GLOMERULAR FILTRATION RATE 41.2 (>49); MAGNESIUM LEVEL 2.2 MG/DL (1.8-2.4); POTASSIUM SERUM 4.5 MEQ/L (3.5-5.1); TOTAL PROTEIN 6.5 GM/DL (6.4-8.2)
[2021-04-30] MEDS: ceFAZolin SOD 2 GM in IV 1 EA IV SCH ×2 (09:14→16:53)
[2021-04-30 09:15] LABS: INR 1.48; PROTHROMBIN TIME 18.3 SECONDS (12.7-14.5)
[2021-04-30 11:06] LABS: APPEARANCE, URINE HAZY (CLEAR); BACTERIA, URINE AUTO 1+ (NEGATIVE); BILIRUBIN, URINE AUTO NEGATIVE (NEGATIVE); BLOOD, URINE BLOOD 3+ (NEGATIVE); COLOR, URINE YELLOW (YELLOW); GLUCOSE, URINE (UA) AUTO 3+ mg/dL (NEGATIVE); KETONE, URINE AUTO NEGATIVE (NEGATIVE); LEUKOCYTE ESTERASE, URINE AUTO NEGATIVE (NEGATIVE); NITRITE, URINE AUTO NEGATIVE (NEGATIVE); PROTEIN, URINE AUTO 1+ mg/dL (NEGATIVE); RBC, URINE AUTO 148 /HPF (0-3); SPECIFIC GRAVITY URINE AUTO 1.012 (1.002-1.035); SQUAMOUS EPITHELIAL CELL UR AU 0 /HPF (0-6); UROBILINOGEN, URINE AUTO 0.2 mg/dL (0.0-2.0); WBC, URINE AUTO 3 /HPF (0-3)
[2021-04-30] MEDS: NS 1,000 ML IV SCH (13:55)
[2021-04-30 13:56] VITALS: BP 168/78
[2021-04-30] MEDS: TAMSULOSIN 0.4 MG CAP PO SCH (13:56)
[2021-04-30] MEDS ORDERED: LIDOCAINE 1% MDV 20ML VIAL As Ordered ONE (14:09)
[2021-04-30] MEDS ORDERED: SODIUM CHLORIDE 0.9% INJ 10 ML SYR IV PRN (16:20)
[2021-04-30] MEDS: WARFARIN SOD 5MG TAB PO SCH (16:53)
[2021-04-30] MEDS ORDERED: WARFARIN SOD 2.5MG TAB PO ONE (17:00)
[2021-04-30 20:07] VITALS: BP 145/67
[2021-04-30] MEDS: RAMELTEON 8 MG TAB (ROZEREM) PO PRN (20:37)
[2021-04-30 22:04] VITALS: BP 145/67
[2021-05-01] MEDS: ceFAZolin SOD 2 GM in IV 1 EA IV SCH ×3 (01:46→17:49)
[2021-05-01] MEDS: NS 1,000 ML IV SCH (01:46)
[2021-05-01 06:00] VITALS: BP 156/75
[2021-05-01] MEDS: SODIUM CHLORIDE 0.9% INJ 10 ML SYR IV SCH ×3 (06:00→19:05)
[2021-05-01] MEDS: REMDESIVIR 100 MG in NS 250 ML IV SCH (06:20)
[2021-05-01] MEDS: ACETAMINOPHEN TAB 650MG DOSE (2X325MG) PO PRN ×3 (06:21→20:06)
[2021-05-01 06:50] LABS: BASO % 0.2 % (0.0-1.0); EOS % 0.2 % (0.0-3.0); HEMATOCRIT 37.6 % (42.0-52.0); HEMOGLOBIN 12.7 g/dl (13.5-17.5); LYMPH # 1.3 10^3/uL (1.5-5.0); LYMPH % 13.9 % (24.0-44.0); MEAN CORPUSCULAR HEMOGLOBIN 28.7 pg (27.0-33.0); MEAN CORPUSCULAR HGB CONC 33.8 g/dl (32.0-36.5); MEAN CORPUSCULAR VOLUME 85.1 fl (80.0-96.0); MONO % 10.1 % (2.0-8.0); NEUTROPHILS # 7.1 10^3/uL (1.5-8.5); NEUTROPHILS % 74.3 % (36.0-66.0); PLATELET COUNT, AUTOMATED 105 10^3/uL (150-450); RED BLOOD COUNT 4.42 10^6/uL (4.30-6.10); WHITE BLOOD COUNT 9.6 10^3/uL (4.0-10.0)
[2021-05-01 06:59] LABS: INR 1.52; PROTHROMBIN TIME 18.7 SECONDS (12.7-14.5)
[2021-05-01 07:07] LABS: ALBUMIN 2.6 GM/DL (3.2-5.2); BILIRUBIN,TOTAL 0.5 MG/DL (0.2-1.0); C REACTIVE PROTEIN QUANTITATIV 8.97 MG/DL (0.00-0.30); CALCIUM LEVEL 8.2 MG/DL (8.8-10.2); CREATININE FOR GFR 1.76 MG/DL (0.70-1.30); MAGNESIUM LEVEL 2.1 MG/DL (1.8-2.4); POTASSIUM SERUM 4.7 MEQ/L (3.5-5.1); TOTAL PROTEIN 6.2 GM/DL (6.4-8.2)
[2021-05-01] MEDS: ENOXAPARIN 150MG/ML SYRINGE (J1650 PER 10MG) SC SCH (08:48)
[2021-05-01] MEDS: TAMSULOSIN 0.4 MG CAP PO SCH (08:49)
[2021-05-01] MEDS: SENNA 8.6 MG TAB (SENOKOT) PO SCH (08:49)
[2021-05-01] MEDS: HumaLOG INSULIN (NovoLOG) PER UNIT SC SCH ×4 (08:50→20:05)
[2021-05-01] MEDS: LEVEMIR (INSULIN DETEMIR) 1 UNITS/0.01ML SC SCH ×2 (11:39→20:05)
[2021-05-01 14:00] VITALS: BP 132/68
[2021-05-01] MEDS ORDERED: WARFARIN SOD 2.5MG TAB PO ONE (17:00)
[2021-05-01] MEDS: WARFARIN SOD 7.5MG TAB PO SCH (17:49)
[2021-05-01 19:42] VITALS: BP 146/78
[2021-05-01] MEDS: **NOTE PATIENT COMMENT** MISC XX SCH (20:06)
[2021-05-01] MEDS: RAMELTEON 8 MG TAB (ROZEREM) PO PRN (20:06)
[2021-05-01] MEDS ORDERED: LEVEMIR (INSULIN DETEMIR) 1 UNITS/0.01ML SC SCH (21:00)
[2021-05-02] MEDS: ceFAZolin SOD 2 GM in IV 1 EA IV SCH ×3 (00:54→17:56)
[2021-05-02 04:08] VITALS: BP 129/61
[2021-05-02] MEDS: REMDESIVIR 100 MG in NS 250 ML IV SCH (05:40)
[2021-05-02 06:00] LABS: BASO % 0.3 % (0.0-1.0); EOS # 0.1 10^3/uL (0.0-0.5); EOS % 0.6 % (0.0-3.0); HEMATOCRIT 35.7 % (42.0-52.0); LYMPH # 1.8 10^3/uL (1.5-5.0); LYMPH % 15.7 % (24.0-44.0); MEAN CORPUSCULAR HEMOGLOBIN 29.1 pg (27.0-33.0); MEAN CORPUSCULAR HGB CONC 33.6 g/dl (32.0-36.5); MEAN CORPUSCULAR VOLUME 86.7 fl (80.0-96.0); MONO # 1.1 10^3/uL (0.0-0.8); MONO % 9.2 % (2.0-8.0); NEUTROPHILS # 8.3 10^3/uL (1.5-8.5); NEUTROPHILS % 72.5 % (36.0-66.0); PLATELET COUNT, AUTOMATED 113 10^3/uL (150-450); RED BLOOD COUNT 4.12 10^6/uL (4.30-6.10); WHITE BLOOD COUNT 11.4 10^3/uL (4.0-10.0)
[2021-05-02 06:11] LABS: INR 1.58; PROTHROMBIN TIME 19.3 SECONDS (12.7-14.5)
[2021-05-02 06:26] LABS: ALBUMIN 2.4 GM/DL (3.2-5.2); BILIRUBIN,TOTAL 0.3 MG/DL (0.2-1.0); C REACTIVE PROTEIN QUANTITATIV 10.4 MG/DL (0.00-0.30); CALCIUM LEVEL 8.2 MG/DL (8.8-10.2); CREATININE FOR GFR 1.82 MG/DL (0.70-1.30); GLOMERULAR FILTRATION RATE 40.4 (>49); MAGNESIUM LEVEL 2.1 MG/DL (1.8-2.4); POTASSIUM SERUM 4.5 MEQ/L (3.5-5.1); TOTAL PROTEIN 5.8 GM/DL (6.4-8.2)
[2021-05-02] MEDS: SODIUM CHLORIDE 0.9% INJ 10 ML SYR IV SCH ×3 (07:27→17:56)
[2021-05-02] MEDS: SENNA 8.6 MG TAB (SENOKOT) PO SCH (07:28)
[2021-05-02] MEDS: TAMSULOSIN 0.4 MG CAP PO SCH (07:28)
[2021-05-02] MEDS: ENOXAPARIN 150MG/ML SYRINGE (J1650 PER 10MG) SC SCH (07:28)
[2021-05-02] MEDS: HumaLOG INSULIN (NovoLOG) PER UNIT SC SCH ×4 (07:32→20:02)
[2021-05-02] MEDS: LEVEMIR (INSULIN DETEMIR) 1 UNITS/0.01ML SC SCH ×2 (07:32→20:02)
[2021-05-02] MEDS: LIDOCAINE 5% (LIDODERM) PATCH TD PRN (09:44)
[2021-05-02] MEDS ORDERED: NS 1,000 ML IV SCH (11:15)
[2021-05-02 14:00] VITALS: BP 128/60
[2021-05-02] MEDS ORDERED: WARFARIN SOD 2.5MG TAB PO ONE (17:00)
[2021-05-02] MEDS: WARFARIN SOD 7.5MG TAB PO SCH (17:54)
[2021-05-02] MEDS: traMADol 50 MG TAB PO PRN (18:53)
[2021-05-02 19:27] VITALS: BP 127/51
[2021-05-02] MEDS: ACETAMINOPHEN TAB 650MG DOSE (2X325MG) PO PRN (20:02)
[2021-05-02] MEDS: **NOTE PATIENT COMMENT** MISC XX SCH (20:03)
[2021-05-03] MEDS: ceFAZolin SOD 2 GM in IV 1 EA IV SCH ×3 (00:05→17:50)
[2021-05-03 04:53] VITALS: BP 159/77
[2021-05-03] MEDS: SODIUM CHLORIDE 0.9% INJ 10 ML SYR IV SCH ×2 (05:11→17:51)
[2021-05-03] MEDS: traMADol 50 MG TAB PO PRN ×2 (05:12→19:53)
[2021-05-03 08:06] LABS: BASO % 0.4 % (0.0-1.0); EOS # 0.1 10^3/uL (0.0-0.5); HEMOGLOBIN 11.6 g/dl (13.5-17.5); LYMPH # 1.9 10^3/uL (1.5-5.0); LYMPH % 16.8 % (24.0-44.0); MEAN CORPUSCULAR HEMOGLOBIN 29.1 pg (27.0-33.0); MEAN CORPUSCULAR HGB CONC 34.1 g/dl (32.0-36.5); MEAN CORPUSCULAR VOLUME 85.4 fl (80.0-96.0); MONO # 0.8 10^3/uL (0.0-0.8); MONO % 7.1 % (2.0-8.0); PLATELET COUNT, AUTOMATED 144 10^3/uL (150-450); RED BLOOD COUNT 3.98 10^6/uL (4.30-6.10); WHITE BLOOD COUNT 11.1 10^3/uL (4.0-10.0)
[2021-05-03] MEDS: TAMSULOSIN 0.4 MG CAP PO SCH (08:20)
[2021-05-03] MEDS: SENNA 8.6 MG TAB (SENOKOT) PO SCH (08:20)
[2021-05-03] MEDS: ENOXAPARIN 150MG/ML SYRINGE (J1650 PER 10MG) SC SCH (08:20)
[2021-05-03] MEDS: LEVEMIR (INSULIN DETEMIR) 1 UNITS/0.01ML SC SCH ×2 (08:21→19:53)
[2021-05-03] MEDS: LIDOCAINE 5% (LIDODERM) PATCH TD PRN (08:21)
[2021-05-03] MEDS: HumaLOG INSULIN (NovoLOG) PER UNIT SC SCH ×4 (08:21→19:53)
[2021-05-03 08:22] LABS: INR 1.61; PROTHROMBIN TIME 19.6 SECONDS (12.7-14.5)
[2021-05-03 08:28] LABS: ALBUMIN 2.4 GM/DL (3.2-5.2); BILIRUBIN,TOTAL 0.3 MG/DL (0.2-1.0); C REACTIVE PROTEIN QUANTITATIV 9.64 MG/DL (0.00-0.30); CALCIUM LEVEL 8.2 MG/DL (8.8-10.2); CREATININE FOR GFR 1.79 MG/DL (0.70-1.30); GLOMERULAR FILTRATION RATE 41.2 (>49); MAGNESIUM LEVEL 2.1 MG/DL (1.8-2.4); POTASSIUM SERUM 4.7 MEQ/L (3.5-5.1); TOTAL PROTEIN 6.1 GM/DL (6.4-8.2)
[2021-05-03] MEDS: bisoproloL fumarate 10 MG TAB PO SCH (12:41)
[2021-05-03] MEDS: allopurinoL 300 MG TAB PO SCH (12:42)
[2021-05-03] MEDS: OMEPRAZOLE 20MG CAP PO SCH ×2 (12:42→19:52)
[2021-05-03 14:00] VITALS: BP 112/53
[2021-05-03] MEDS ORDERED: WARFARIN SOD 2.5MG TAB PO ONE (17:00)
[2021-05-03] MEDS: WARFARIN SOD 7.5MG TAB PO SCH (17:51)
[2021-05-03 19:48] VITALS: BP 119/54
[2021-05-03] MEDS: ASPIRIN 81MG ENTERIC TABLET PO SCH (19:52)
[2021-05-03] MEDS: DULoxetine 30MG CAPSULE (CYMBALTA) PO SCH (19:52)
[2021-05-03] MEDS: **NOTE PATIENT COMMENT** MISC XX SCH (20:45)
[2021-05-04] MEDS: ceFAZolin SOD 2 GM in IV 1 EA IV SCH ×3 (00:57→16:13)
[2021-05-04] MEDS: SODIUM CHLORIDE 0.9% INJ 10 ML SYR IV SCH ×2 (06:08→16:13)
[2021-05-04 06:13] VITALS: BP 113/56
[2021-05-04] MEDS: traMADol 50 MG TAB PO PRN ×2 (06:13→16:19)
[2021-05-04] MEDS: ENOXAPARIN 150MG/ML SYRINGE (J1650 PER 10MG) SC SCH (08:41)
[2021-05-04] MEDS: OMEPRAZOLE 20MG CAP PO SCH ×2 (08:41→22:59)
[2021-05-04] MEDS: TAMSULOSIN 0.4 MG CAP PO SCH (08:41)
[2021-05-04] MEDS: AMIODARONE 100MG TABLET (PACERONE) PO SCH (08:41)
[2021-05-04] MEDS: allopurinoL 300 MG TAB PO SCH (08:41)
[2021-05-04] MEDS: SENNA 8.6 MG TAB (SENOKOT) PO SCH (08:41)
[2021-05-04] MEDS: LEVEMIR (INSULIN DETEMIR) 1 UNITS/0.01ML SC SCH ×2 (08:42→22:59)
[2021-05-04] MEDS: HumaLOG INSULIN (NovoLOG) PER UNIT SC SCH ×4 (08:43→22:28)
[2021-05-04 09:01] VITALS: BP 133/60
[2021-05-04] MEDS ORDERED: AMIODARONE HCL 150 MG in IV 1 EA IV ONE (09:10)
[2021-05-04 09:33] VITALS: BP 133/60
[2021-05-04] MEDS: bisoproloL fumarate 10 MG TAB PO SCH (09:33)
[2021-05-04 09:59] LABS: BASO # 0.1 10^3/uL (0.0-0.2); BASO % 0.5 % (0.0-1.0); EOS # 0.2 10^3/uL (0.0-0.5); EOS % 1.6 % (0.0-3.0); HEMATOCRIT 33.6 % (42.0-52.0); HEMOGLOBIN 11.4 g/dl (13.5-17.5); LYMPH # 1.8 10^3/uL (1.5-5.0); LYMPH % 18.2 % (24.0-44.0); MEAN CORPUSCULAR HEMOGLOBIN 28.9 pg (27.0-33.0); MEAN CORPUSCULAR HGB CONC 33.9 g/dl (32.0-36.5); MEAN CORPUSCULAR VOLUME 85.1 fl (80.0-96.0); MONO # 0.7 10^3/uL (0.0-0.8); MONO % 7.1 % (2.0-8.0); NEUTROPHILS # 6.7 10^3/uL (1.5-8.5); NEUTROPHILS % 67.6 % (36.0-66.0); PLATELET COUNT, AUTOMATED 176 10^3/uL (150-450); RED BLOOD COUNT 3.95 10^6/uL (4.30-6.10)
[2021-05-04 10:16] LABS: INR 1.86; PROTHROMBIN TIME 21.8 SECONDS (12.7-14.5)
[2021-05-04 10:28] LABS: ALBUMIN 2.4 GM/DL (3.2-5.2); BILIRUBIN,TOTAL 0.3 MG/DL (0.2-1.0); C REACTIVE PROTEIN QUANTITATIV 7.6 MG/DL (0.00-0.30); CALCIUM LEVEL 8.3 MG/DL (8.8-10.2); CREATININE FOR GFR 1.81 MG/DL (0.70-1.30); GLOMERULAR FILTRATION RATE 40.6 (>49); POTASSIUM SERUM 4.8 MEQ/L (3.5-5.1); TOTAL PROTEIN 6.1 GM/DL (6.4-8.2)
[2021-05-04 13:46] VITALS: BP 104/54
[2021-05-04] MEDS: WARFARIN SOD 7.5MG TAB PO SCH (16:13)
[2021-05-04 22:10] VITALS: BP 144/58
[2021-05-04] MEDS: DULoxetine 30MG CAPSULE (CYMBALTA) PO SCH (22:59)
[2021-05-04] MEDS: ASPIRIN 81MG ENTERIC TABLET PO SCH (22:59)
[2021-05-04] MEDS: **NOTE PATIENT COMMENT** MISC XX SCH (23:00)
[2021-05-05] VITALS (7 sets, daily range): BP systolic 109–148; BP diastolic 55–68
[2021-05-05] MEDS: ceFAZolin SOD 2 GM in IV 1 EA IV SCH ×3 (01:57→16:09)
[2021-05-05] MEDS: SODIUM CHLORIDE 0.9% INJ 10 ML SYR IV SCH ×2 (06:43→16:09)
[2021-05-05 06:51] LABS: HEMATOCRIT 33.6 % (42.0-52.0); HEMOGLOBIN 11.3 g/dl (13.5-17.5); MEAN CORPUSCULAR HGB CONC 33.6 g/dl (32.0-36.5); MEAN CORPUSCULAR VOLUME 86.2 fl (80.0-96.0); PLATELET COUNT, AUTOMATED 212 10^3/uL (150-450); WHITE BLOOD COUNT 9.8 10^3/uL (4.0-10.0)
[2021-05-05 07:04] LABS: INR 1.93; PROTHROMBIN TIME 22.5 SECONDS (12.7-14.5)
[2021-05-05 07:19] LABS: EOSINOPHILS 1 % (0-3); LYMPHOCYTES 18 % (16-44); METAMYELOCYTES 1 % (0-0); MONOCYTES 7 % (0-5); NEUTROPHILS 72 % (28-66); PLATELET ESTIMATE NORMAL (NORMAL)
[2021-05-05 07:20] LABS: OVALOCYTES 1+
[2021-05-05 07:22] LABS: ALBUMIN 2.3 GM/DL (3.2-5.2); BILIRUBIN,TOTAL 0.3 MG/DL (0.2-1.0); C REACTIVE PROTEIN QUANTITATIV 6.32 MG/DL (0.00-0.30); CALCIUM LEVEL 8.3 MG/DL (8.8-10.2); CREATININE FOR GFR 1.71 MG/DL (0.70-1.30); GLOMERULAR FILTRATION RATE 43.4 (>49); MAGNESIUM LEVEL 2.1 MG/DL (1.8-2.4); POTASSIUM SERUM 4.6 MEQ/L (3.5-5.1)
[2021-05-05] MEDS: HumaLOG INSULIN (NovoLOG) PER UNIT SC SCH ×4 (07:30→21:00)
[2021-05-05] MEDS: ENOXAPARIN 150MG/ML SYRINGE (J1650 PER 10MG) SC SCH (08:16)
[2021-05-05] MEDS: OMEPRAZOLE 20MG CAP PO SCH ×2 (08:24→21:20)
[2021-05-05] MEDS: TAMSULOSIN 0.4 MG CAP PO SCH (08:24)
[2021-05-05] MEDS: SENNA 8.6 MG TAB (SENOKOT) PO SCH (08:24)
[2021-05-05] MEDS: LEVEMIR (INSULIN DETEMIR) 1 UNITS/0.01ML SC SCH ×3 (08:25→21:20)
[2021-05-05] MEDS: bisoproloL fumarate 10 MG TAB PO SCH (09:00)
[2021-05-05] MEDS: allopurinoL 300 MG TAB PO SCH (10:40)
[2021-05-05] MEDS: WARFARIN SOD 7.5MG TAB PO SCH (16:09)
[2021-05-05] MEDS ORDERED: MIDAZOLAM INJ 2MG/2ML VIAL (J2250 PER 1MG) As Ordered ONE (17:59)
[2021-05-05] MEDS ORDERED: propofoL 200 MG/20 ML VIAL As Ordered ONE (17:59)
[2021-05-05] MEDS ORDERED: fentaNYL 100 MCG/2 ML INJECTION As Ordered ONE (17:59)
[2021-05-05] MEDS ORDERED: LIDOCAINE 2% 100MG/5ML SDV (FOR ANES.) As Ordered ONE (17:59)
[2021-05-05] MEDS ORDERED: LIDOCAINE VISCOUS 2% SOLN 15ML UDC As Ordered ONE (18:03)
[2021-05-05] MEDS ORDERED: CETACAINE SPRAY 5GM As Ordered ONE (18:03)
[2021-05-05] MEDS ORDERED: ONDANSETRON 4MG/2ML VIAL As Ordered ONE (18:27)
[2021-05-05] MEDS: DULoxetine 30MG CAPSULE (CYMBALTA) PO SCH (21:20)
[2021-05-05] MEDS: ASPIRIN 81MG ENTERIC TABLET PO SCH (21:20)
[2021-05-05] MEDS: ACETAMINOPHEN TAB 650MG DOSE (2X325MG) PO PRN (21:20)
[2021-05-05] MEDS: **NOTE PATIENT COMMENT** MISC XX SCH (21:21)
[2021-05-06] VITALS: BP 129/59
[2021-05-06] MEDS: ceFAZolin SOD 2 GM in IV 1 EA IV SCH ×2 (01:05→07:55)
[2021-05-06 01:06] VITALS: BP 128/57
[2021-05-06] MEDS: SODIUM CHLORIDE 0.9% INJ 10 ML SYR IV SCH (02:19)
[2021-05-06 05:00] VITALS: BP 138/64
[2021-05-06] MEDS: LEVEMIR (INSULIN DETEMIR) 1 UNITS/0.01ML SC SCH (07:55)
[2021-05-06] MEDS: SENNA 8.6 MG TAB (SENOKOT) PO SCH (07:56)
[2021-05-06] MEDS: TAMSULOSIN 0.4 MG CAP PO SCH (07:56)
[2021-05-06] MEDS: OMEPRAZOLE 20MG CAP PO SCH (07:56)
[2021-05-06] MEDS: HumaLOG INSULIN (NovoLOG) PER UNIT SC SCH ×2 (07:56→12:00)
[2021-05-06] MEDS: AMIODARONE 100MG TABLET (PACERONE) PO SCH (07:56)
[2021-05-06] MEDS: bisoproloL fumarate 10 MG TAB PO SCH (07:57)
[2021-05-06] MEDS: ENOXAPARIN 150MG/ML SYRINGE (J1650 PER 10MG) SC SCH (07:57)
[2021-05-06] MEDS: allopurinoL 300 MG TAB PO SCH (07:57)
[2021-05-06 09:41] LABS: HEMATOCRIT 31.9 % (42.0-52.0); HEMOGLOBIN 10.8 g/dl (13.5-17.5); MEAN CORPUSCULAR HEMOGLOBIN 29.3 pg (27.0-33.0); MEAN CORPUSCULAR HGB CONC 33.9 g/dl (32.0-36.5); MEAN CORPUSCULAR VOLUME 86.4 fl (80.0-96.0); PLATELET COUNT, AUTOMATED 202 10^3/uL (150-450); RED BLOOD COUNT 3.69 10^6/uL (4.30-6.10); WHITE BLOOD COUNT 9.7 10^3/uL (4.0-10.0)
[2021-05-06 09:53] LABS: INR 2.31; PROTHROMBIN TIME 25.8 SECONDS (12.7-14.5)
[2021-05-06 09:54] LABS: PARTIAL THROMBOPLASTIN TIME 62.4 SECONDS (25.9-37.0)
[2021-05-06 10:15] LABS: ALBUMIN 2.2 GM/DL (3.2-5.2); BILIRUBIN,TOTAL 0.2 MG/DL (0.2-1.0); CALCIUM LEVEL 8.2 MG/DL (8.8-10.2); CREATININE FOR GFR 1.77 MG/DL (0.70-1.30); GLOMERULAR FILTRATION RATE 41.7 (>49); POTASSIUM SERUM 4.8 MEQ/L (3.5-5.1); TOTAL PROTEIN 5.9 GM/DL (6.4-8.2)
== END 2021-05-06 13:45 | disposition home or self-care (01) | DRG 178 ==
LOC: M ED 20:46 → EEVIPCON 04-28 02:20 → M ED INP 04-28 02:20 → M 4MAIN 04-28 03:50 → M MS5PR 05-04 18:25
PROVIDERS: ADMIT Family Medicine; ATTEND Family Medicine
PROC: 02HV33Z Insertion of Infusion Device into Superior Vena Cava, Percutaneous Approach (ICD-10-PCS; principal; 2021-05-01)
PROC: B246ZZ4 Ultrasonography of Right and Left Heart, Transesophageal (ICD-10-PCS; 2021-05-05)
DX: U07.1 COVID-19 (principal); N17.9 Acute kidney failure, unspecified; R78.81 Bacteremia; E87.1 Hypo-osmolality and hyponatremia; Z68.41 Body mass index [BMI] 40.0-44.9, adult; E66.01 Morbid (severe) obesity due to excess calories; N18.30 Chronic kidney disease, stage 3 unspecified; I48.0 Paroxysmal atrial fibrillation; E11.22 Type 2 diabetes mellitus with diabetic chronic kidney disease; Z95.2 Presence of prosthetic heart valve; I25.10 Atherosclerotic heart disease of native coronary artery without angina pectoris; K21.9 Gastro-esophageal reflux disease without esophagitis; G47.33 Obstructive sleep apnea (adult) (pediatric); E78.5 Hyperlipidemia, unspecified; M10.9 Gout, unspecified; Z95.1 Presence of aortocoronary bypass graft; F32.A Depression, unspecified; Z79.899 Other long term (current) drug therapy; Z79.82 Long term (current) use of aspirin; Z88.8 Allergy status to other drugs, medicaments and biological substances; Z96.643 Presence of artificial hip joint, bilateral; E83.42 Hypomagnesemia; B95.61 Methicillin susceptible Staphylococcus aureus infection as the cause of diseases classified elsewhere

== ENCOUNTER → 2021-05-11 | Outpatient (REF) | payer MEDICARE, BC ==
[~2021-05-11] MED LIST changes: +ALLO300T2 PO; +AMIO0.1T PO; +PATIENT COMMENT; +PROAAER10 INH; +REPA140I2 SC; +VASC1CAP2 PO
[2021-05-11 13:00] LABS: HEMATOCRIT 32.7 % (42.0-52.0); HEMOGLOBIN 10.7 g/dl (13.5-17.5); MEAN CORPUSCULAR HGB CONC 32.7 g/dl (32.0-36.5); MEAN CORPUSCULAR VOLUME 88.6 fl (80.0-96.0); PLATELET COUNT, AUTOMATED 334 10^3/uL (150-450); RED BLOOD COUNT 3.69 10^6/uL (4.30-6.10); WHITE BLOOD COUNT 12.1 10^3/uL (4.0-10.0)
[2021-05-11 13:43] LABS: ERYTHROCYTE SEDIMENTATION RATE 67 mm/hr (0-20)
[2021-05-11 13:51] LABS: ALBUMIN 2.5 GM/DL (3.2-5.2); BILIRUBIN,TOTAL 0.3 MG/DL (0.2-1.0); CALCIUM LEVEL 9.4 MG/DL (8.8-10.2); CREATININE FOR GFR 1.88 MG/DL (0.70-1.30); GLOMERULAR FILTRATION RATE 38.9 (>49); POTASSIUM SERUM 5.3 MEQ/L (3.5-5.1); TOTAL PROTEIN 7.3 GM/DL (6.4-8.2)
== END ==
LOC: M SHH 12:05
PROVIDERS: ATTEND Internal Medicine Infectious Disease
DX: R78.81 Bacteremia (principal); A49.01 Methicillin susceptible Staphylococcus aureus infection, unspecified site; I10 Essential (primary) hypertension

== ENCOUNTER → 2021-05-12 | Outpatient (REF) | payer MEDICARE, BC ==
[~2021-05-12] MED LIST changes: +EZET10TA21; +LASI80TA3 PO
[2021-05-12 13:08] LABS: CREATININE FOR GFR 1.97 MG/DL (0.70-1.30); GLOMERULAR FILTRATION RATE 36.9 (>49); POTASSIUM SERUM 5.3 MEQ/L (3.5-5.1)
[2021-05-12 13:09] LABS: CALCIUM LEVEL 9.7 MG/DL (8.8-10.2); HEMOGLOBIN A1c 10.1 %
== END ==
LOC: M SFHCADAM 07:54
PROVIDERS: ATTEND Family Medicine
DX: E11.65 Type 2 diabetes mellitus with hyperglycemia (principal)

== ENCOUNTER → 2021-05-19 | Outpatient (REF) | payer MEDICARE, BC ==
[~2021-05-19] MED LIST changes: -EZET10TA21; -LASI80TA3 PO
[2021-05-19 17:06] LABS: BASO % 0.4 % (0.0-1.0); EOS # 0.1 10^3/uL (0.0-0.5); EOS % 1.3 % (0.0-3.0); HEMATOCRIT 35.8 % (42.0-52.0); HEMOGLOBIN 11.5 g/dl (13.5-17.5); LYMPH % 20.7 % (24.0-44.0); MEAN CORPUSCULAR HEMOGLOBIN 28.3 pg (27.0-33.0); MEAN CORPUSCULAR HGB CONC 32.1 g/dl (32.0-36.5); MEAN CORPUSCULAR VOLUME 88.2 fl (80.0-96.0); MONO # 0.8 10^3/uL (0.0-0.8); MONO % 8.7 % (2.0-8.0); NEUTROPHILS # 6.6 10^3/uL (1.5-8.5); NEUTROPHILS % 67.7 % (36.0-66.0); PLATELET COUNT, AUTOMATED 299 10^3/uL (150-450); RED BLOOD COUNT 4.06 10^6/uL (4.30-6.10); WHITE BLOOD COUNT 9.7 10^3/uL (4.0-10.0)
[2021-05-19 17:36] LABS: ERYTHROCYTE SEDIMENTATION RATE 65 mm/hr (0-20)
== END ==
LOC: M SHH 16:15
PROVIDERS: ATTEND Internal Medicine Infectious Disease
DX: R78.81 Bacteremia (principal); B95.61 Methicillin susceptible Staphylococcus aureus infection as the cause of diseases classified elsewhere

== ENCOUNTER → 2021-05-25 | Outpatient (REF) | payer MEDICARE, BC ==
[2021-05-25 15:43] LABS: HEMATOCRIT 32.9 % (42.0-52.0); HEMOGLOBIN 10.3 g/dl (13.5-17.5); MEAN CORPUSCULAR HEMOGLOBIN 28.2 pg (27.0-33.0); MEAN CORPUSCULAR HGB CONC 31.3 g/dl (32.0-36.5); MEAN CORPUSCULAR VOLUME 90.1 fl (80.0-96.0); PLATELET COUNT, AUTOMATED 251 10^3/uL (150-450); RED BLOOD COUNT 3.65 10^6/uL (4.30-6.10)
[2021-05-25 16:11] LABS: ALBUMIN 2.6 GM/DL (3.2-5.2); BILIRUBIN,TOTAL 0.2 MG/DL (0.2-1.0); CALCIUM LEVEL 8.7 MG/DL (8.8-10.2); CREATININE FOR GFR 1.74 MG/DL (0.70-1.30); GLOMERULAR FILTRATION RATE 42.5 (>49); POTASSIUM SERUM 4.8 MEQ/L (3.5-5.1); TOTAL PROTEIN 7.7 GM/DL (6.4-8.2)
[2021-05-25 16:40] LABS: ERYTHROCYTE SEDIMENTATION RATE 65 mm/hr (0-20)
== END ==
LOC: M SHH 15:24
PROVIDERS: ATTEND Internal Medicine Infectious Disease
DX: R78.81 Bacteremia (principal); A49.01 Methicillin susceptible Staphylococcus aureus infection, unspecified site; I10 Essential (primary) hypertension

== ENCOUNTER → 2021-06-01 | Outpatient (REF) | payer MEDICARE, BC ==
[2021-06-01 10:47] LABS: BASO % 0.5 % (0.0-1.0); EOS # 0.2 10^3/uL (0.0-0.5); EOS % 1.9 % (0.0-3.0); HEMATOCRIT 32.6 % (42.0-52.0); HEMOGLOBIN 10.8 g/dl (13.5-17.5); LYMPH # 1.6 10^3/uL (1.5-5.0); LYMPH % 17.6 % (24.0-44.0); MEAN CORPUSCULAR HEMOGLOBIN 28.9 pg (27.0-33.0); MEAN CORPUSCULAR HGB CONC 33.1 g/dl (32.0-36.5); MEAN CORPUSCULAR VOLUME 87.2 fl (80.0-96.0); MONO # 0.7 10^3/uL (0.0-0.8); MONO % 8.4 % (2.0-8.0); NEUTROPHILS # 6.2 10^3/uL (1.5-8.5); NEUTROPHILS % 70.5 % (36.0-66.0); PLATELET COUNT, AUTOMATED 200 10^3/uL (150-450); RED BLOOD COUNT 3.74 10^6/uL (4.30-6.10); WHITE BLOOD COUNT 8.8 10^3/uL (4.0-10.0)
[2021-06-01 11:24] LABS: ERYTHROCYTE SEDIMENTATION RATE 62 mm/hr (0-20)
== END ==
LOC: M SHH 09:59
PROVIDERS: ATTEND Internal Medicine Infectious Disease
DX: R78.81 Bacteremia (principal); B95.61 Methicillin susceptible Staphylococcus aureus infection as the cause of diseases classified elsewhere

== ENCOUNTER → 2021-06-20 | Outpatient (CLI) | payer MEDICARE, BC | LOC: M LABSMTC 08:44 | PROVIDERS: ATTEND Anesthesiology | DX: Z01.812 Encounter for preprocedural laboratory examination (principal); Z20.822 Contact with and (suspected) exposure to COVID-19 ==

== ENCOUNTER → 2021-06-25 | Day surgery (SDC) | payer MEDICARE, BC ==
[~2021-06-25] VITALS: Ht 177.8 cm; Wt 136.4 kg
[~2021-06-25] MED LIST changes: +HumuLIN R (REGULAR) INSULIN (NovoLIN R) **100U/ML** PER UNIT SQ ONE; +KETOROLAC 60MG 2ML VIAL As Ordered ONE; +LIDOCAINE 2% 100MG/5ML SDV (FOR ANES.) As Ordered ONE; +LR 1,000 ML IV ONE; +MIDAZOLAM INJ 2MG/2ML VIAL (J2250 PER 1MG) As Ordered ONE; +ceFAZolin SOD 1 GM in D5W MINI-BAG PLUS 50 ML IV ONE; +ceFAZolin SOD 2 GM in IV 1 EA IV ONE; +fentaNYL 100 MCG/2 ML INJECTION As Ordered ONE; +propofoL 200 MG/20 ML VIAL As Ordered ONE
[2021-06-25 07:33] VITALS: BP 134/67
[2021-06-25 08:19] LABS: INR 1.49; PROTHROMBIN TIME 18.4 SECONDS (12.7-14.5)
== END | disposition home or self-care (01) ==
LOC: M SDC 06:42
PROVIDERS: ATTEND Urology
DX: N20.0 Calculus of kidney (principal); Z53.09 Procedure and treatment not carried out because of other contraindication; R79.1 Abnormal coagulation profile
CPT/HCPCS: 36415; 74018; 85610; J1815; J1885; J2250; J3010

== ENCOUNTER 2021-07-08 04:45 | Emergency (ER) | payer MEDICARE, BC ==
[~2021-07-08] VITALS: Ht 177.8 cm; Wt 140.7 kg
[~2021-07-08 04:45] MED LIST changes: -HumuLIN R (REGULAR) INSULIN (NovoLIN R) **100U/ML** PER UNIT SQ ONE; -KETOROLAC 60MG 2ML VIAL As Ordered ONE; -LIDOCAINE 2% 100MG/5ML SDV (FOR ANES.) As Ordered ONE; -LR 1,000 ML IV ONE; -MIDAZOLAM INJ 2MG/2ML VIAL (J2250 PER 1MG) As Ordered ONE; -ceFAZolin SOD 1 GM in D5W MINI-BAG PLUS 50 ML IV ONE; -ceFAZolin SOD 2 GM in IV 1 EA IV ONE; -fentaNYL 100 MCG/2 ML INJECTION As Ordered ONE; -propofoL 200 MG/20 ML VIAL As Ordered ONE
[2021-07-08 05:22] LABS: BASO % 0.5 % (0.0-1.0); EOS # 0.1 10^3/uL (0.0-0.5); EOS % 1.5 % (0.0-3.0); HEMATOCRIT 32.7 % (42.0-52.0); HEMOGLOBIN 10.9 g/dl (13.5-17.5); LYMPH # 1.5 10^3/uL (1.5-5.0); LYMPH % 16.4 % (24.0-44.0); MEAN CORPUSCULAR HEMOGLOBIN 28.2 pg (27.0-33.0); MEAN CORPUSCULAR HGB CONC 33.3 g/dl (32.0-36.5); MEAN CORPUSCULAR VOLUME 84.5 fl (80.0-96.0); MONO # 0.6 10^3/uL (0.0-0.8); MONO % 6.4 % (2.0-8.0); NEUTROPHILS # 6.5 10^3/uL (1.5-8.5); NEUTROPHILS % 73.7 % (36.0-66.0); PLATELET COUNT, AUTOMATED 195 10^3/uL (150-450); RED BLOOD COUNT 3.87 10^6/uL (4.30-6.10); WHITE BLOOD COUNT 8.8 10^3/uL (4.0-10.0)
[2021-07-08 05:33] LABS: INR 1.7; PROTHROMBIN TIME 20.4 SECONDS (12.7-14.5)
[2021-07-08 05:48] LABS: BILIRUBIN,DIRECT 0.1 MG/DL (0.0-0.2); BILIRUBIN,TOTAL 0.4 MG/DL (0.2-1.0); CREATININE FOR GFR 1.95 MG/DL (0.70-1.30); GLOMERULAR FILTRATION RATE 37.3 (>49); TOTAL PROTEIN 7.8 GM/DL (6.4-8.2)
[2021-07-08 05:49] LABS: CK-MB VALUE MASS 17.6 NG/ML (<3.6); MB/CK RELATIVE INDEX 2.08 (< OR =4)
[2021-07-08 06:00] LABS: PARTIAL THROMBOPLASTIN TIME 31.2 SECONDS (25.9-37.0)
[2021-07-08] MEDS ORDERED: FUROSEMIDE 100MG/10ML VIAL (J1940) IV ONE (06:10)
[2021-07-08 07:03] LABS: MB/CK RELATIVE INDEX 2.08 (< OR =4)
[2021-07-08 08:52] LABS: CK-MB VALUE MASS 17.1 NG/ML (<3.6); MB/CK RELATIVE INDEX 2.31 (< OR =4)
[2021-07-08] MEDS ORDERED: EZET10TA21 (10:32)
[2021-07-08] MEDS ORDERED: LASI80TA3 PO (10:42)
[2021-07-08 10:55] VITALS: BP 113/57
== END 2021-07-08 11:05 | disposition home or self-care (01) ==
LOC: M ED 04:45
DX: I50.9 Heart failure, unspecified (principal); I44.0 Atrioventricular block, first degree; I51.7 Cardiomegaly; I25.10 Atherosclerotic heart disease of native coronary artery without angina pectoris; E11.9 Type 2 diabetes mellitus without complications; E78.5 Hyperlipidemia, unspecified; N18.30 Chronic kidney disease, stage 3 unspecified; Z95.5 Presence of coronary angioplasty implant and graft; Z95.1 Presence of aortocoronary bypass graft; Z79.82 Long term (current) use of aspirin; Z79.4 Long term (current) use of insulin; Z79.899 Other long term (current) drug therapy; Z88.8 Allergy status to other drugs, medicaments and biological substances
CPT/HCPCS: 71045; 80048; 80076; 82550; 82553; 83880; 84484; 85025; 85610; 85730; 87486; 87581; 87633; 87798; 93005; 93041; 94760; 96374; 99285; J1940

== ENCOUNTER → 2021-07-18 | Outpatient (CLI) | payer MEDICARE, BC ==
[~2021-07-18] MED LIST changes: +EZET10TA21; +LASI80TA3 PO
== END ==
LOC: M LABSMTC 08:46
PROVIDERS: ATTEND Anesthesiology
DX: Z01.812 Encounter for preprocedural laboratory examination (principal); Z20.822 Contact with and (suspected) exposure to COVID-19

== ENCOUNTER → 2021-07-22 | Outpatient (CLI) | payer MEDICARE, BC ==
[2021-07-22 10:47] LABS: INR 1.2; PROTHROMBIN TIME 15.6 SECONDS (12.7-14.5)
== END ==
LOC: M PLALAB 08:04
PROVIDERS: ATTEND Urology
DX: N20.0 Calculus of kidney (principal); Z79.01 Long term (current) use of anticoagulants

== ENCOUNTER 2021-07-23 06:02 | Day surgery (SDC) | payer MEDICARE, BC ==
[~2021-07-23] VITALS: Ht 177.8 cm; Wt 137.4 kg
[~2021-07-23 06:02] MED LIST changes: +ceFAZolin SOD 1 GM in D5W MINI-BAG PLUS 50 ML IV ONE; +ceFAZolin SOD 2 GM in IV 1 EA IV ONE
[2021-07-23] MEDS ORDERED: INSULIN LISPRO (NovoLOG) PER UNIT SC PRN (06:40)
[2021-07-23] MEDS ORDERED: LR 1,000 ML IV SCH ×2 (06:40→08:40)
[2021-07-23 06:58] LABS: INR 1.1; PARTIAL THROMBOPLASTIN TIME 25.9 SECONDS (25.9-37.0); PROTHROMBIN TIME 14.6 SECONDS (12.7-14.5)
[2021-07-23] MEDS ORDERED: ACETAMINOPHEN 1000MG 100ML IV BTL (OFIRMEV) (J0131 PER 10MG) As Ordered ONE (07:57)
[2021-07-23] MEDS ORDERED: fentaNYL 100 MCG/2 ML INJECTION As Ordered ONE (07:57)
[2021-07-23] MEDS ORDERED: MIDAZOLAM INJ 2MG/2ML VIAL (J2250 PER 1MG) As Ordered ONE (07:57)
[2021-07-23] MEDS ORDERED: LIDOCAINE 2% 100MG/5ML SDV (FOR ANES.) As Ordered ONE (07:57)
[2021-07-23] MEDS ORDERED: ePHEDrine SULFATE 25 MG/5 ML(5MG/ML) SYRINGE As Ordered ONE (07:57)
[2021-07-23] MEDS ORDERED: GLYCOPYRROLATE INJ 0.2 MG/ML 2 ML VIAL As Ordered ONE (07:57)
[2021-07-23] MEDS ORDERED: KETAMINE HCL 200 MG/20 ML VIAL As Ordered ONE (07:57)
[2021-07-23] MEDS ORDERED: propofoL 200 MG/20 ML VIAL As Ordered ONE (07:57)
[2021-07-23] MEDS ORDERED: oxyCODONE 5MG TAB PO PRN (08:40)
[2021-07-23] MEDS ORDERED: ONDANSETRON 4MG/2ML VIAL IV PRN (08:40)
[2021-07-23 09:50] VITALS: BP 153/67
[2021-07-23] MEDS ORDERED: ONDANSETRON 4MG/2ML VIAL As Ordered ONE (10:25)
== END 2021-07-23 09:50 | disposition home or self-care (01) ==
LOC: M SDC 06:02
PROVIDERS: ATTEND Urology
DX: N20.0 Calculus of kidney (principal); E11.9 Type 2 diabetes mellitus without complications; K21.9 Gastro-esophageal reflux disease without esophagitis; I25.10 Atherosclerotic heart disease of native coronary artery without angina pectoris; I25.2 Old myocardial infarction; E78.5 Hyperlipidemia, unspecified; M10.9 Gout, unspecified; Z88.0 Allergy status to penicillin; Z88.8 Allergy status to other drugs, medicaments and biological substances; Z79.01 Long term (current) use of anticoagulants; Z79.4 Long term (current) use of insulin; Z98.61 Coronary angioplasty status; Z79.899 Other long term (current) drug therapy; Z86.16 Personal history of COVID-19; G47.33 Obstructive sleep apnea (adult) (pediatric); Z79.82 Long term (current) use of aspirin
CPT/HCPCS: 36415; 50590; 74018; 85610; 85730; 93005; J0131; J0690; J1815; J2250; J2405; J3010

== ENCOUNTER → 2021-08-06 | Outpatient (REF) | payer MEDICARE, BC ==
[~2021-08-06] MED LIST changes: -ceFAZolin SOD 1 GM in D5W MINI-BAG PLUS 50 ML IV ONE; -ceFAZolin SOD 2 GM in IV 1 EA IV ONE
[2021-08-06 13:57] LABS: HEMOGLOBIN 11.2 g/dl (13.5-17.5); MEAN CORPUSCULAR HEMOGLOBIN 27.8 pg (27.0-33.0); MEAN CORPUSCULAR VOLUME 86.8 fl (80.0-96.0); PLATELET COUNT, AUTOMATED 204 10^3/uL (150-450); RED BLOOD COUNT 4.03 10^6/uL (4.30-6.10)
[2021-08-06 14:09] LABS: HEMOGLOBIN A1c 12.1 %
[2021-08-06 14:38] LABS: ALBUMIN 3.1 GM/DL (3.2-5.2); BILIRUBIN,TOTAL 0.2 MG/DL (0.2-1.0); CALCIUM LEVEL 8.8 MG/DL (8.8-10.2); CHOLESTEROL RISK RATIO 5.592 (<5); CREATININE FOR GFR 1.8 MG/DL (0.70-1.30); GLOMERULAR FILTRATION RATE 40.9 (>49); MAGNESIUM LEVEL 2.1 MG/DL (1.8-2.4); POTASSIUM SERUM 4.5 MEQ/L (3.5-5.1); TOTAL PROTEIN 7.2 GM/DL (6.4-8.2)
== END ==
LOC: M SFHCADAM 09:01
PROVIDERS: ATTEND Family Medicine
DX: I48.91 Unspecified atrial fibrillation (principal); B95.61 Methicillin susceptible Staphylococcus aureus infection as the cause of diseases classified elsewhere; E11.65 Type 2 diabetes mellitus with hyperglycemia; E78.2 Mixed hyperlipidemia

== ENCOUNTER → 2021-08-11 | Outpatient (CLI) | payer MEDICARE, BC | LOC: M RAD 08:45 | PROVIDERS: ATTEND Urology | DX: N20.0 Calculus of kidney (principal) ==

== ENCOUNTER → 2021-08-13 | Outpatient (REF) | payer MEDICARE, BC | LOC: M SMT 12:47 | PROVIDERS: ATTEND Physician Assistant | DX: N20.0 Calculus of kidney (principal) ==

== ENCOUNTER → 2021-12-09 | Outpatient (REF) | payer MEDICARE, BC ==
[~2021-12-09] MED LIST changes: +ALBU6.7H6 INH; -PROV108A INH
[2021-12-09 13:48] LABS: CALCIUM LEVEL 9.5 MG/DL (8.8-10.2); CREATININE FOR GFR 1.75 MG/DL (0.70-1.30); GLOMERULAR FILTRATION RATE 42.1 (>49); POTASSIUM SERUM 4.5 MEQ/L (3.5-5.1)
[2021-12-09 14:28] LABS: HEMOGLOBIN A1c 11.2 %
== END ==
LOC: M SFHCADAM 07:59
PROVIDERS: ATTEND Family Medicine
DX: E11.65 Type 2 diabetes mellitus with hyperglycemia (principal)

== ENCOUNTER 2022-02-10 14:10 | Inpatient (IN) | payer MEDICARE, BC ==
[~2022-02-10] VITALS: Ht 177.8 cm; Wt 137.7 kg
[~2022-02-10 14:10] MED LIST changes: -DOXY-350 PO; +DOXY-444 PO
[2022-02-10 18:19] LABS: BASO # 0.1 10^3/uL (0.0-0.2); BASO % 0.5 % (0.0-1.0); EOS # 0.4 10^3/uL (0.0-0.5); EOS % 3.8 % (0.0-3.0); HEMATOCRIT 37.2 % (42.0-52.0); LYMPH # 1.6 10^3/uL (1.5-5.0); LYMPH % 15.4 % (24.0-44.0); MEAN CORPUSCULAR HEMOGLOBIN 29.1 pg (27.0-33.0); MEAN CORPUSCULAR HGB CONC 32.3 g/dl (32.0-36.5); MEAN CORPUSCULAR VOLUME 90.1 fl (80.0-96.0); MONO # 0.5 10^3/uL (0.0-0.8); MONO % 5.4 % (2.0-8.0); NEUTROPHILS # 7.5 10^3/uL (1.5-8.5); NEUTROPHILS % 74.3 % (36.0-66.0); PLATELET COUNT, AUTOMATED 169 10^3/uL (150-450); RED BLOOD COUNT 4.13 10^6/uL (4.30-6.10); WHITE BLOOD COUNT 10.1 10^3/uL (4.0-10.0)
[2022-02-10 18:29] LABS: INR 2.05; PROTHROMBIN TIME 23.5 SECONDS (12.5-14.5)
[2022-02-10] MEDS ORDERED: GLIP5TAB20 PO (18:35)
[2022-02-10 18:42] LABS: ALBUMIN 3.5 G/DL (3.2-5.2); ALKALINE PHOSPHATASE 99 U/L (46-116); ALT/SGPT 54 U/L (7.0-40); AST/SGOT 67 U/L (<34); BILIRUBIN,DIRECT < 0.1 MG/DL (<0.4); BILIRUBIN,TOTAL 0.2 MG/DL (0.3-1.2); BLOOD UREA NITROGEN 40 MG/DL (9-23); CALCIUM LEVEL 9.1 MG/DL (8.3-10.6); CARBON DIOXIDE LEVEL 24 MMOL/L (20-31); CHLORIDE LEVEL 104 MMOL/L (98-107); CREATININE FOR GFR 1.99 MG/DL (0.70-1.30); GLOMERULAR FILTRATION RATE 36.3 (>49); GLUCOSE, FASTING 202 MG/DL (74-106); POTASSIUM SERUM 4.6 MMOL/L (3.5-5.1); SODIUM LEVEL 138 MMOL/L (136-145)
[2022-02-10 18:44] LABS: THYROID STIMULATING HORMONE 9.102 uIU/ML (0.55-4.78); THYROXINE (T4) 3.9 UG/DL (4.5-10.9)
[2022-02-10 18:54] LABS: RSV AMPLIFICATION NEGATIVE (NEGATIVE)
[2022-02-10] MEDS ORDERED: FUROSEMIDE 40MG/4ML VIAL IV ONE (19:05)
[2022-02-10] MEDS ORDERED: IPRATROPIUM 0.5MG/ALBUTEROL 2.5MG INH SOL UD 3ML (DUONEB) NEB ONE (19:05)
[2022-02-10] MEDS ORDERED: methylPREDNISolone 125MG 2ML VIAL IV ONE (19:05)
[2022-02-10] MEDS ORDERED: FUROSEMIDE 100MG/10ML VIAL IV ONE (19:05)
[2022-02-10] MEDS ORDERED: HYDR-3910 PO (22:36)
[2022-02-10] MEDS ORDERED: LOVA1CAP17 PO (22:36)
[2022-02-10] MEDS ORDERED: ISOS1TAB35 PO (22:36)
[2022-02-10] MEDS ORDERED: EZET10TA21 PO (22:36)
[2022-02-10] MEDS ORDERED: VASC1CAP2 PO (22:36)
[2022-02-10] MEDS ORDERED: GLIP5TAB8 PO (22:36)
[2022-02-10] MEDS ORDERED: ALBU8.5H INH (22:36)
[2022-02-10] MEDS ORDERED: DOXY100C3 PO (22:36)
[2022-02-10] MEDS ORDERED: WARF-23 PO ×2 (22:39)
[2022-02-10] MEDS ORDERED: ASPI-161 PO (22:39)
[2022-02-10] MEDS ORDERED: MUCI600T31 PO (22:39)
[2022-02-10] MEDS ORDERED: ACETAMINOPHEN TAB 650MG DOSE (2X325MG) PO PRN (22:40)
[2022-02-10] MEDS ORDERED: ALBUTEROL SULFATE 2.5MG/0.5ML INH NEB SOLN NEB PRN (22:40)
[2022-02-10] MEDS ORDERED: HOME MED LIST COMPLETE! XX SCH (22:40)
[2022-02-11] MEDS: IPRATROPIUM 0.5MG/ALBUTEROL 2.5MG INH SOL UD 3ML (DUONEB) NEB SCH ×4 (01:46→20:53)
[2022-02-11 06:02] LABS: HEMATOCRIT 40.2 % (42.0-52.0); HEMOGLOBIN 13.1 g/dl (13.5-17.5); MEAN CORPUSCULAR HGB CONC 32.6 g/dl (32.0-36.5); MEAN CORPUSCULAR VOLUME 89.1 fl (80.0-96.0); PLATELET COUNT, AUTOMATED 179 10^3/uL (150-450); RED BLOOD COUNT 4.51 10^6/uL (4.30-6.10); WHITE BLOOD COUNT 10.2 10^3/uL (4.0-10.0)
[2022-02-11 06:19] LABS: INR 1.84; PROTHROMBIN TIME 21.6 SECONDS (12.5-14.5)
[2022-02-11 06:23] LABS: MAGNESIUM LEVEL 1.6 MG/DL (1.8-2.4)
[2022-02-11 06:25] LABS: CALCIUM LEVEL 9.2 MG/DL (8.3-10.6); CREATININE FOR GFR 2.09 MG/DL (0.70-1.30); GLOMERULAR FILTRATION RATE 34.3 (>49); POTASSIUM SERUM 4.9 MMOL/L (3.5-5.1)
[2022-02-11] MEDS: SPIRONOLACTONE 12.5MG PER 1/2 TABLET PO SCH (06:47)
[2022-02-11] MEDS: EZETIMIBE 10MG TABLET (ZETIA) PO SCH (06:47)
[2022-02-11] MEDS: methylPREDNISolone 125MG 2ML VIAL IV SCH ×2 (06:47→17:59)
[2022-02-11] MEDS: ISOSORBIDE MON. (IMDUR) 30MG XR TAB PO SCH (06:48)
[2022-02-11] MEDS: allopurinoL 300 MG TAB PO SCH (06:48)
[2022-02-11] MEDS ORDERED: MAG SULF 1GM/100ML (MAG RUN) 1 GM in IV 1 EA IV ONE (08:00)
[2022-02-11] MEDS: ASPIRIN 81MG ENTERIC TABLET PO SCH (09:24)
[2022-02-11] MEDS: guaiFENesin ER 600 MG TAB PO SCH ×2 (09:25→22:24)
[2022-02-11] MEDS: **hydrALAZINE HCL** 25 MG TAB PO SCH ×2 (09:29→22:26)
[2022-02-11] MEDS: OMEPRAZOLE 20MG CAP PO SCH ×2 (09:32→22:24)
[2022-02-11] MEDS: LEVEMIR (INSULIN DETEMIR) 1 UNITS/0.01ML SC SCH ×2 (09:33→22:25)
[2022-02-11] MEDS ORDERED: GLUCOSE 4GM CHEW TABLET PO PRN (10:00)
[2022-02-11] MEDS ORDERED: GLUCAGON INJ 1MG VIAL SC PRN (10:00)
[2022-02-11] MEDS ORDERED: DEXTROSE 50% 50ML SYRINGE IV PRN (10:00)
[2022-02-11] MEDS ORDERED: TORSEMIDE 20 MG TAB PO ONE (11:15)
[2022-02-11 12:15] VITALS: BP 160/70
[2022-02-11] MEDS: INSULIN LISPRO (NovoLOG) PER UNIT SC SCH ×2 (13:03→18:00)
[2022-02-11] MEDS ORDERED: FLUBLOK(EGG FREE)(QUAD)INFLUENZA VACC 0.5ML SYRINGE 18YRS & OLDER IM.IMMUN ONE (15:00)
[2022-02-11] MEDS: WARFARIN SOD 5MG TAB PO SCH (17:59)
[2022-02-11 21:00] VITALS: BP 128/62
[2022-02-11] MEDS ORDERED: INSULIN LISPRO (NovoLOG) PER UNIT SC SCH (21:00)
[2022-02-11] MEDS: DULoxetine 30MG CAPSULE (CYMBALTA) PO SCH (22:24)
[2022-02-11] MEDS ORDERED: NITROGLYCERIN 0.4MG SUBL TABLET SL STA (22:41)
[2022-02-11 23:00] VITALS: BP 154/68
[2022-02-11] MEDS ORDERED: MORPHINE 2 MG/ML 1ML VIAL IV ONE (23:15)
[2022-02-12 00:35] LABS: CK-MB VALUE MASS 12.6 NG/ML (<3.6)
[2022-02-12 00:42] LABS: MB/CK RELATIVE INDEX 2.18 (< OR =4)
[2022-02-12] MEDS: IPRATROPIUM 0.5MG/ALBUTEROL 2.5MG INH SOL UD 3ML (DUONEB) NEB SCH ×4 (01:32→20:14)
[2022-02-12 05:01] VITALS: BP 148/74
[2022-02-12] MEDS ORDERED: AMIODARONE 100MG TABLET (PACERONE) PO SCH (06:30)
[2022-02-12] MEDS ORDERED: bisoproloL fumarate 10 MG TAB PO SCH (06:30)
[2022-02-12] MEDS: methylPREDNISolone 125MG 2ML VIAL IV SCH (06:36)
[2022-02-12] MEDS: EZETIMIBE 10MG TABLET (ZETIA) PO SCH (06:38)
[2022-02-12] MEDS: SPIRONOLACTONE 12.5MG PER 1/2 TABLET PO SCH (06:38)
[2022-02-12] MEDS: allopurinoL 300 MG TAB PO SCH (06:39)
[2022-02-12] MEDS: ISOSORBIDE MON. (IMDUR) 30MG XR TAB PO SCH (06:39)
[2022-02-12 06:46] LABS: HEMATOCRIT 36.6 % (42.0-52.0); HEMOGLOBIN 12.2 g/dl (13.5-17.5); MEAN CORPUSCULAR HEMOGLOBIN 29.4 pg (27.0-33.0); MEAN CORPUSCULAR HGB CONC 33.3 g/dl (32.0-36.5); MEAN CORPUSCULAR VOLUME 88.2 fl (80.0-96.0); PLATELET COUNT, AUTOMATED 185 10^3/uL (150-450); RED BLOOD COUNT 4.15 10^6/uL (4.30-6.10); WHITE BLOOD COUNT 18.7 10^3/uL (4.0-10.0)
[2022-02-12 07:06] LABS: CALCIUM LEVEL 9.2 MG/DL (8.3-10.6); CREATININE FOR GFR 2.15 MG/DL (0.70-1.30); GLOMERULAR FILTRATION RATE 33.2 (>49); POTASSIUM SERUM 4.8 MMOL/L (3.5-5.1)
[2022-02-12 07:15] LABS: INR 1.68; PROTHROMBIN TIME 20.1 SECONDS (12.5-14.5)
[2022-02-12] MEDS ORDERED: INSULIN LISPRO (NovoLOG) PER UNIT SC STA ×3 (07:44→12:57)
[2022-02-12] MEDS: guaiFENesin ER 600 MG TAB PO SCH ×2 (08:34→20:59)
[2022-02-12] MEDS: ASPIRIN 81MG ENTERIC TABLET PO SCH (08:34)
[2022-02-12] MEDS: ISOSORBIDE DIN. (ISORDIL) 30 MG TAB PO SCH ×2 (08:35→20:58)
[2022-02-12] MEDS: **hydrALAZINE HCL** 25 MG TAB PO SCH ×2 (08:35→20:59)
[2022-02-12] MEDS: OMEPRAZOLE 20MG CAP PO SCH ×2 (08:35→20:58)
[2022-02-12] MEDS: FUROSEMIDE 40MG/4ML VIAL IV SCH ×3 (08:35→20:59)
[2022-02-12] MEDS ORDERED: LEVEMIR (INSULIN DETEMIR) 1 UNITS/0.01ML SC SCH (09:00)
[2022-02-12] MEDS ORDERED: TORSEMIDE 20 MG TAB PO SCH (09:00)
[2022-02-12 09:34] LABS: HEMOGLOBIN A1c 8.4 % (4.0-6.0)
[2022-02-12 10:56] VITALS: O2SAT 91
[2022-02-12] MEDS ORDERED: INSULIN LISPRO (NovoLOG) PER UNIT SC SCH ×3 (12:00→21:00)
[2022-02-12 12:34] LABS: CALCIUM LEVEL 9.5 MG/DL (8.3-10.6); CREATININE FOR GFR 2.21 MG/DL (0.70-1.30); GLOMERULAR FILTRATION RATE 32.2 (>49); POTASSIUM SERUM 4.6 MMOL/L (3.5-5.1)
[2022-02-12] MEDS ORDERED: LEVEMIR (INSULIN DETEMIR) 1 UNITS/0.01ML SC ONE (12:55)
[2022-02-12 14:28] VITALS: BP 152/82
[2022-02-12] MEDS ORDERED: DEXTROSE 50% 50ML SYRINGE IV PRN (15:00)
[2022-02-12] MEDS ORDERED: GLUCOSE 4GM CHEW TABLET PO PRN (15:00)
[2022-02-12] MEDS ORDERED: INSULIN LISPRO (NovoLOG) PER UNIT SC ONE (15:00)
[2022-02-12] MEDS ORDERED: GLUCAGON INJ 1MG VIAL SC PRN (15:00)
[2022-02-12 16:42] LABS: CALCIUM LEVEL 9.4 MG/DL (8.3-10.6); CREATININE FOR GFR 2.37 MG/DL (0.70-1.30); GLOMERULAR FILTRATION RATE 29.7 (>49); POTASSIUM SERUM 4.3 MMOL/L (3.5-5.1)
[2022-02-12] MEDS ORDERED: methylPREDNISolone 40MG 1ML VIAL IV SCH (18:00)
[2022-02-12] MEDS: WARFARIN SOD 5MG TAB PO SCH (18:10)
[2022-02-12] MEDS: INSULIN LISPRO (NovoLOG) PER UNIT SC SCH (18:11)
[2022-02-12 20:00] VITALS: BP 150/79
[2022-02-12 20:38] LABS: CALCIUM LEVEL 9.4 MG/DL (8.3-10.6); CREATININE FOR GFR 2.35 MG/DL (0.70-1.30); POTASSIUM SERUM 4.2 MMOL/L (3.5-5.1)
[2022-02-12] MEDS: DULoxetine 30MG CAPSULE (CYMBALTA) PO SCH (20:59)
[2022-02-12] MEDS: LEVEMIR (INSULIN DETEMIR) 1 UNITS/0.01ML SC SCH (21:44)
[2022-02-13] MEDS: IPRATROPIUM 0.5MG/ALBUTEROL 2.5MG INH SOL UD 3ML (DUONEB) NEB SCH ×2 (03:01→08:00)
[2022-02-13] MEDS: FUROSEMIDE 40MG/4ML VIAL IV SCH ×2 (03:48→08:17)
[2022-02-13] MEDS: allopurinoL 300 MG TAB PO SCH (05:34)
[2022-02-13] MEDS: EZETIMIBE 10MG TABLET (ZETIA) PO SCH (05:34)
[2022-02-13] MEDS: SPIRONOLACTONE 12.5MG PER 1/2 TABLET PO SCH (05:34)
[2022-02-13 06:00] VITALS: BP 150/79
[2022-02-13 06:43] LABS: HEMATOCRIT 37.1 % (42.0-52.0); HEMOGLOBIN 12.2 g/dl (13.5-17.5); MEAN CORPUSCULAR HGB CONC 32.9 g/dl (32.0-36.5); MEAN CORPUSCULAR VOLUME 88.1 fl (80.0-96.0); PLATELET COUNT, AUTOMATED 196 10^3/uL (150-450); RED BLOOD COUNT 4.21 10^6/uL (4.30-6.10); WHITE BLOOD COUNT 18.9 10^3/uL (4.0-10.0)
[2022-02-13 06:55] LABS: INR 1.88; PROTHROMBIN TIME 21.9 SECONDS (12.5-14.5)
[2022-02-13 07:01] LABS: CALCIUM LEVEL 8.9 MG/DL (8.3-10.6); CREATININE FOR GFR 1.76 MG/DL (0.70-1.30); GLOMERULAR FILTRATION RATE 41.8 (>49); POTASSIUM SERUM 4.1 MMOL/L (3.5-5.1)
[2022-02-13] MEDS: LEVEMIR (INSULIN DETEMIR) 1 UNITS/0.01ML SC SCH (08:17)
[2022-02-13] MEDS: ISOSORBIDE DIN. (ISORDIL) 30 MG TAB PO SCH (08:18)
[2022-02-13] MEDS: INSULIN LISPRO (NovoLOG) PER UNIT SC SCH (08:18)
[2022-02-13] MEDS: OMEPRAZOLE 20MG CAP PO SCH (08:18)
[2022-02-13 08:19] VITALS: BP 150/79
[2022-02-13] MEDS: **hydrALAZINE HCL** 25 MG TAB PO SCH (08:19)
[2022-02-13] MEDS: guaiFENesin ER 600 MG TAB PO SCH (08:19)
[2022-02-13] MEDS: ASPIRIN 81MG ENTERIC TABLET PO SCH (08:19)
[2022-02-13] MEDS ORDERED: predniSONE 20 MG TAB PO SCH (09:00)
[2022-02-13] MEDS ORDERED: ISOS30TAB PO (09:03)
[2022-02-13] MEDS ORDERED: INSUDET SC (09:03)
[2022-02-13] MEDS ORDERED: PRED10TA2 PO (09:03)
[2022-02-13] MEDS ORDERED: LEVO1TAB39 PO (09:03)
[2022-02-13] MEDS ORDERED: TORS20TA2 PO (09:03)
[2022-02-13] MEDS ORDERED: VENTAER INH (09:03)
[2022-02-13 10:58] VITALS: O2SAT 93
[2022-02-13] MEDS ORDERED: PRIL20TA2 PO (11:11)
[2022-02-13] MEDS ORDERED: NITR0.4S14 SL (11:11)
[2022-02-16] MEDS ORDERED: WARFARIN SOD 7.5MG TAB PO SCH (17:00)
== END 2022-02-13 13:11 | disposition home or self-care (01) | DRG 291 ==
LOC: M ED 14:10 → M ED INP 14:11 → ENRESERV 02-11 11:04 → M MSPAV 02-11 11:38 → OBSVTOIN 02-12 09:41
PROVIDERS: ADMIT Internal Medicine; ATTEND General Practice
PROC: B246ZZZ Ultrasonography of Right and Left Heart (ICD-10-PCS; principal; 2022-02-10)
DX: I13.0 Hypertensive heart and chronic kidney disease with heart failure and stage 1 through stage 4 chronic kidney disease, or unspecified chronic kidney disease (principal); I50.33 Acute on chronic diastolic (congestive) heart failure; E87.1 Hypo-osmolality and hyponatremia; N17.9 Acute kidney failure, unspecified; J44.1 Chronic obstructive pulmonary disease with (acute) exacerbation; Z68.41 Body mass index [BMI] 40.0-44.9, adult; I48.20 Chronic atrial fibrillation, unspecified; I25.10 Atherosclerotic heart disease of native coronary artery without angina pectoris; Z95.5 Presence of coronary angioplasty implant and graft; Z96.641 Presence of right artificial hip joint; I35.0 Nonrheumatic aortic (valve) stenosis; E78.5 Hyperlipidemia, unspecified; G47.33 Obstructive sleep apnea (adult) (pediatric); K21.9 Gastro-esophageal reflux disease without esophagitis; N18.30 Chronic kidney disease, stage 3 unspecified; E11.65 Type 2 diabetes mellitus with hyperglycemia; M10.9 Gout, unspecified; E11.22 Type 2 diabetes mellitus with diabetic chronic kidney disease; I27.20 Pulmonary hypertension, unspecified; Z20.822 Contact with and (suspected) exposure to COVID-19; Z79.82 Long term (current) use of aspirin; Z79.4 Long term (current) use of insulin; Z79.01 Long term (current) use of anticoagulants; Z79.2 Long term (current) use of antibiotics; Z88.1 Allergy status to other antibiotic agents; Z88.8 Allergy status to other drugs, medicaments and biological substances; Z91.199 Patient's noncompliance with other medical treatment and regimen due to unspecified reason; D64.9 Anemia, unspecified; R07.89 Other chest pain; T49.0X5A Adverse effect of local antifungal, anti-infective and anti-inflammatory drugs, initial encounter; E66.01 Morbid (severe) obesity due to excess calories; Z95.2 Presence of prosthetic heart valve

== ENCOUNTER → 2022-02-19 | Outpatient (CLI) | payer MEDICARE, BC ==
[~2022-02-19] MED LIST changes: +ALBU8.5H INH; +ASPI-161 PO; +DOXY100C3 PO; +EZET10TA21 PO; +GLIP5TAB20 PO; +HYDR-3910 PO; +ISOS1TAB35 PO; +ISOS30TAB PO; +LEVO1TAB39 PO; +LOVA1CAP17 PO; +MUCI600T31 PO; +NITR0.4S14 SL; +PRIL20TA2 PO; +TORS20TA2 PO
[2022-02-19 15:56] LABS: CALCIUM LEVEL 8.8 MG/DL (8.3-10.6); CREATININE FOR GFR 1.67 MG/DL (0.70-1.30); GLOMERULAR FILTRATION RATE 44.5 (>49); POTASSIUM SERUM 5.2 MMOL/L (3.5-5.1)
[2022-02-19 16:27] LABS: HEMOGLOBIN A1c 8.6 % (4.0-6.0)
== END ==
LOC: M PLALAB 12:46
PROVIDERS: ATTEND Family Medicine
DX: E11.65 Type 2 diabetes mellitus with hyperglycemia (principal)

== ENCOUNTER → 2022-03-02 | Outpatient (CLI) | payer MEDICARE, BC ==
[~2022-03-02] MED LIST changes: +BASA100I SQ; +FLOM0.4C39 PO; +JARD1TAB PO; +TORS10TA3 PO
== END ==
LOC: M ADAMS 11:11
PROVIDERS: ATTEND Family Medicine
DX: M79.674 Pain in right toe(s) (principal); M19.071 Primary osteoarthritis, right ankle and foot

== ENCOUNTER → 2022-03-09 | Outpatient (REF) | payer MEDICARE, BC ==
[~2022-03-09] MED LIST changes: -BASA100I SQ; -FLOM0.4C39 PO; -JARD1TAB PO; -TORS10TA3 PO
[2022-03-09 18:16] LABS: CREATININE, URINE 49.8 MG/DL; MAU/CREAT RATIO 114.4 MCG/MG (0.0-30.0)
== END ==
LOC: M LAB REF 16:50
PROVIDERS: ATTEND Internal Medicine Nephrology
DX: E11.22 Type 2 diabetes mellitus with diabetic chronic kidney disease (principal); N18.9 Chronic kidney disease, unspecified

== ENCOUNTER → 2022-03-22 | Outpatient (CLI) | payer MEDICARE, BC | LOC: M WHC 08:09 | PROVIDERS: ATTEND Physician Assistant | DX: N20.0 Calculus of kidney (principal); Z87.442 Personal history of urinary calculi ==

== ENCOUNTER → 2022-04-21 | Outpatient (CLI) | payer MEDICARE, BC ==
[~2022-04-21] MED LIST changes: +BASA100I SQ; +JARD1TAB PO; +TORS10TA3 PO
[2022-04-21 10:52] LABS: HEMATOCRIT 42.2 % (42.0-52.0); HEMOGLOBIN 13.7 g/dl (13.5-17.5); MEAN CORPUSCULAR HEMOGLOBIN 29.1 pg (27.0-33.0); MEAN CORPUSCULAR HGB CONC 32.5 g/dl (32.0-36.5); MEAN CORPUSCULAR VOLUME 89.8 fl (80.0-96.0); PLATELET COUNT, AUTOMATED 196 10^3/uL (150-450); WHITE BLOOD COUNT 9.2 10^3/uL (4.0-10.0)
[2022-04-21 11:23] LABS: ALBUMIN 3.6 G/DL (3.2-5.2); BILIRUBIN,TOTAL 0.3 MG/DL (0.3-1.2); CALCIUM LEVEL 9.4 MG/DL (8.3-10.6); CHOLESTEROL RISK RATIO 5.44 (<5); CREATININE FOR GFR 1.94 MG/DL (0.70-1.30); GLOMERULAR FILTRATION RATE 37.4 (>49); HDL CHOLESTEROL 31.6 MG/DL (>40); LDL CHOLESTEROL 83.2 MG/DL (<100); POTASSIUM SERUM 4.2 MMOL/L (3.5-5.1); TOTAL PROTEIN 7.5 G/DL (5.7-8.2)
== END ==
LOC: M PLALAB 07:39
PROVIDERS: ATTEND Physician Assistant
DX: N20.0 Calculus of kidney (principal); I50.32 Chronic diastolic (congestive) heart failure; N18.32 Chronic kidney disease, stage 3b; I25.10 Atherosclerotic heart disease of native coronary artery without angina pectoris

== ENCOUNTER → 2022-04-26 | Outpatient (CLI) | payer MEDICARE, BC | LOC: M LABSMTC 08:06 | PROVIDERS: ATTEND Anesthesiology | DX: Z01.812 Encounter for preprocedural laboratory examination (principal) ==

== ENCOUNTER → 2022-04-28 | Outpatient (REF) | payer MEDICARE, BC ==
[~2022-04-28] MED LIST changes: +FLOM0.4C39 PO
[2022-04-28 13:56] LABS: APPEARANCE, URINE CLEAR (CLEAR); BACTERIA, URINE AUTO NEGATIVE (NEGATIVE); BILIRUBIN, URINE AUTO NEGATIVE (NEGATIVE); BLOOD, URINE BLOOD 2+ (NEGATIVE); COLOR, URINE STRAW (YELLOW); GLUCOSE, URINE (UA) AUTO 3+ mg/dL (NEGATIVE); KETONE, URINE AUTO NEGATIVE (NEGATIVE); LEUKOCYTE ESTERASE, URINE AUTO NEGATIVE (NEGATIVE); NITRITE, URINE AUTO NEGATIVE (NEGATIVE); PROTEIN, URINE AUTO NEGATIVE (NEGATIVE); RBC, URINE AUTO 0 /HPF (0-3); SPECIFIC GRAVITY URINE AUTO 1.008 (1.002-1.035); SQUAMOUS EPITHELIAL CELL UR AU 0 /HPF (0-6); UROBILINOGEN, URINE AUTO 0.2 mg/dL (0.0-2.0); WBC, URINE AUTO 0 /HPF (0-3)
== END ==
LOC: M SMT 13:04
PROVIDERS: ATTEND Urology
DX: Z01.818 Encounter for other preprocedural examination (principal)

== ENCOUNTER 2022-04-29 06:03 | Day surgery (SDC) | payer MEDICARE, BC ==
[~2022-04-29] VITALS: Ht 177.8 cm; Wt 138.3 kg
[~2022-04-29 06:03] MED LIST changes: -FLOM0.4C39 PO
[2022-04-29] MEDS ORDERED: ceFAZolin SOD 2 GM in IV 1 EA IV ONE (06:30)
[2022-04-29] MEDS ORDERED: propofoL 200 MG/20 ML VIAL As Ordered ONE (06:57)
[2022-04-29] MEDS ORDERED: LIDOCAINE 2% 100MG/5ML SDV (FOR ANES.) As Ordered ONE (06:57)
[2022-04-29] MEDS ORDERED: LR 1,000 ML IV SCH ×2 (07:10→08:20)
[2022-04-29 07:35] LABS: INR 1.24; PROTHROMBIN TIME 15.9 SECONDS (12.5-14.5)
[2022-04-29] MEDS ORDERED: ceFAZolin 1GM VIAL As Ordered ONE (07:42)
[2022-04-29] MEDS ORDERED: ceFAZolin SOD 1 GM in D5W MINI-BAG PLUS 50 ML IV ONE (07:45)
[2022-04-29] MEDS ORDERED: ACETAMINOPHEN 1000MG 100ML IV BAG As Ordered ONE (07:52)
[2022-04-29] MEDS ORDERED: ONDANSETRON 4MG 2ML VIAL As Ordered ONE (07:52)
[2022-04-29] MEDS ORDERED: FLOM0.4C39 PO (07:54)
[2022-04-29] MEDS ORDERED: OXYC1TAB23 PO (07:54)
[2022-04-29] MEDS ORDERED: MORPHINE 2 MG/ML 1ML VIAL IV PRN (08:20)
[2022-04-29] MEDS ORDERED: ONDANSETRON 4MG 2ML VIAL IV PRN (08:20)
[2022-04-29] MEDS: oxyCODONE 5MG TAB PO PRN ×2 (08:34→10:00)
[2022-04-29] MEDS ORDERED: PERCOCET 5MG/325MG TAB PO PRN (08:35)
[2022-04-29 10:45] VITALS: BP 141/68
[2022-04-29] MEDS ORDERED: KETOROLAC 30 MG/ML 1ML VIAL IV ONE (10:50)
[2022-04-30] MEDS ORDERED: UNRESOLVED CLARIFICATION ENTRY XX SCH (00:01)
== END 2022-04-29 11:25 | disposition home or self-care (01) ==
LOC: M SDC 06:03
PROVIDERS: ATTEND Urology
DX: N20.0 Calculus of kidney (principal); I10 Essential (primary) hypertension; E78.5 Hyperlipidemia, unspecified; D64.9 Anemia, unspecified; F41.9 Anxiety disorder, unspecified; F32.A Depression, unspecified; K21.9 Gastro-esophageal reflux disease without esophagitis; G47.33 Obstructive sleep apnea (adult) (pediatric); Z79.82 Long term (current) use of aspirin; Z88.0 Allergy status to penicillin; Z88.8 Allergy status to other drugs, medicaments and biological substances; Z98.61 Coronary angioplasty status; I25.10 Atherosclerotic heart disease of native coronary artery without angina pectoris; Z95.1 Presence of aortocoronary bypass graft
CPT/HCPCS: 36415; 50590; 74018; 85610; J0131; J0690; J1885; J2405

== ENCOUNTER → 2022-05-20 | Outpatient (CLI) | payer MEDICARE, BC ==
[~2022-05-20] MED LIST changes: +FLOM0.4C39 PO
== END ==
LOC: M PLAIMG 12:14
PROVIDERS: ATTEND Urology
DX: N20.0 Calculus of kidney (principal); K59.00 Constipation, unspecified

== ENCOUNTER 2022-05-24 23:50 | Emergency (ER) | payer MEDICARE, BC ==
[~2022-05-24] VITALS: Ht 177.8 cm; Wt 140.9 kg
[2022-05-24 23:50] VITALS: BP 152/71
[~2022-05-24 23:50] MED LIST changes: -BENZ200C70 PO
[2022-05-25 00:35] LABS: VENOUS BASE EXCESS -1.8 (-2.0-2.0); VENOUS HCO3 23.8 MEQ/L (23.0-27.0); VENOUS O2 SATURATION 97.9 % (60.0-80.0); VENOUS PARTIAL PRESSURE CO2 43.5 mmHg (38.0-50.0); VENOUS PARTIAL PRESSURE O2 111.2 mmHg (30.0-50.0); VENOUS PH 7.356 UNITS (7.330-7.430); VENOUS TOTAL CO2 25.1 MEQ/L (24.0-28.0)
[2022-05-25 00:37] LABS: BASO # 0.1 10^3/uL (0.0-0.2); BASO % 0.5 % (0.0-1.0); EOS # 0.5 10^3/uL (0.0-0.5); EOS % 4.8 % (0.0-3.0); HEMATOCRIT 38.6 % (42.0-52.0); HEMOGLOBIN 13.1 g/dl (13.5-17.5); LYMPH # 3.2 10^3/uL (1.5-5.0); MEAN CORPUSCULAR HEMOGLOBIN 29.4 pg (27.0-33.0); MEAN CORPUSCULAR HGB CONC 33.9 g/dl (32.0-36.5); MEAN CORPUSCULAR VOLUME 86.7 fl (80.0-96.0); MONO # 0.7 10^3/uL (0.0-0.8); MONO % 6.7 % (2.0-8.0); NEUTROPHILS # 6.1 10^3/uL (1.5-8.5); NEUTROPHILS % 57.2 % (36.0-66.0); PLATELET COUNT, AUTOMATED 196 10^3/uL (150-450); RED BLOOD COUNT 4.45 10^6/uL (4.30-6.10); WHITE BLOOD COUNT 10.8 10^3/uL (4.0-10.0)
[2022-05-25] MEDS ORDERED: IPRATROPIUM 0.5MG/ALBUTEROL 2.5MG INH SOL UD 3ML (DUONEB) NEB ONE (00:45)
[2022-05-25] MEDS ORDERED: methylPREDNISolone 125MG 2ML VIAL IV ONE (00:45)
[2022-05-25 01:00] LABS: CK-MB VALUE MASS 22.9 NG/ML (<3.6)
[2022-05-25 01:01] LABS: ALBUMIN 3.5 G/DL (3.2-5.2); BILIRUBIN,DIRECT 0.1 MG/DL (<0.4); BILIRUBIN,TOTAL 0.3 MG/DL (0.3-1.2); CALCIUM LEVEL 8.9 MG/DL (8.3-10.6); CREATININE FOR GFR 2.3 MG/DL (0.70-1.30); GLOMERULAR FILTRATION RATE 30.7 (>49); POTASSIUM SERUM 4.1 MMOL/L (3.5-5.1); TOTAL PROTEIN 7.1 G/DL (5.7-8.2)
[2022-05-25 01:40] LABS: MB/CK RELATIVE INDEX 1.5 (< OR =4)
[2022-05-25 02:13] LABS: CK-MB VALUE MASS 19.2 NG/ML (<3.6)
[2022-05-25 02:27] LABS: MB/CK RELATIVE INDEX 1.32 (< OR =4)
[2022-05-25] MEDS ORDERED: BENZONATATE 100MG CAPSULE PO ONE (02:40)
[2022-05-25] MEDS ORDERED: BENZ200C70 PO (02:41)
[2022-05-25] MEDS ORDERED: PRED20TA PO (02:41)
== END 2022-05-25 02:55 | disposition home or self-care (01) ==
LOC: M ED 23:50
DX: J44.1 Chronic obstructive pulmonary disease with (acute) exacerbation (principal); I51.7 Cardiomegaly; I48.91 Unspecified atrial fibrillation; I25.10 Atherosclerotic heart disease of native coronary artery without angina pectoris; E11.9 Type 2 diabetes mellitus without complications; E78.5 Hyperlipidemia, unspecified; K21.9 Gastro-esophageal reflux disease without esophagitis; Z95.1 Presence of aortocoronary bypass graft; Z79.4 Long term (current) use of insulin; Z79.01 Long term (current) use of anticoagulants; Z79.82 Long term (current) use of aspirin; Z79.899 Other long term (current) drug therapy; Z88.8 Allergy status to other drugs, medicaments and biological substances
CPT/HCPCS: 71045; 80048; 80076; 82550; 82553; 82803; 83605; 83880; 84484; 85025; 87040; 87486; 87581; 87633; 87798; 93005; 93041; 94640; 94760; 96374; 99284; J2930

== ENCOUNTER → 2022-05-24 | Outpatient (REF) | payer MEDICARE, BC ==
[~2022-05-24] MED LIST changes: +BENZ200C70 PO
[2022-05-24 14:45] LABS: HEMATOCRIT 42.2 % (42.0-52.0); HEMOGLOBIN 13.8 g/dl (13.5-17.5); MEAN CORPUSCULAR HEMOGLOBIN 29.3 pg (27.0-33.0); MEAN CORPUSCULAR HGB CONC 32.7 g/dl (32.0-36.5); MEAN CORPUSCULAR VOLUME 89.6 fl (80.0-96.0); PLATELET COUNT, AUTOMATED 196 10^3/uL (150-450); RED BLOOD COUNT 4.71 10^6/uL (4.30-6.10); WHITE BLOOD COUNT 10.6 10^3/uL (4.0-10.0)
[2022-05-24 19:09] LABS: ALBUMIN 3.5 G/DL (3.2-5.2); BILIRUBIN,TOTAL 0.4 MG/DL (0.3-1.2); CALCIUM LEVEL 9.4 MG/DL (8.3-10.6); CHOLESTEROL RISK RATIO 4.74 (<5); CREATININE FOR GFR 1.98 MG/DL (0.70-1.30); GLOMERULAR FILTRATION RATE 36.5 (>49); HDL CHOLESTEROL 36.7 MG/DL (>40); LDL CHOLESTEROL 88.9 MG/DL (<100); NON-HDL-C 137.3 MG/DL; POTASSIUM SERUM 4.9 MMOL/L (3.5-5.1); TOTAL PROTEIN 7.3 G/DL (5.7-8.2)
== END ==
LOC: M SFHCADAM 08:19
PROVIDERS: ATTEND Family Medicine
DX: E11.65 Type 2 diabetes mellitus with hyperglycemia (principal); I50.32 Chronic diastolic (congestive) heart failure; N18.32 Chronic kidney disease, stage 3b; I25.10 Atherosclerotic heart disease of native coronary artery without angina pectoris

== ENCOUNTER → 2022-09-21 | Outpatient (CLI) | payer MEDICARE, BC ==
[~2022-09-21] MED LIST changes: +BENZ200C70 PO
== END ==
LOC: M RAD 10:45
PROVIDERS: ATTEND Internal Medicine Cardiovascular Disease
DX: I65.29 Occlusion and stenosis of unspecified carotid artery (principal)

== ENCOUNTER 2022-10-23 20:09 | Emergency (ER) | payer MEDICARE, BC ==
[~2022-10-23] VITALS: Ht 177.8 cm; Wt 137.7 kg
[2022-10-23 20:10] VITALS: BP 151/73; TEMP 97; O2SAT 97
[2022-10-23 23:15] LABS: BASO % 0.3 % (0.0-1.0); EOS # 0.2 10^3/uL (0.0-0.5); EOS % 2.6 % (0.0-3.0); HEMATOCRIT 39.4 % (42.0-52.0); HEMOGLOBIN 13.2 g/dl (13.5-17.5); LYMPH # 2.8 10^3/uL (1.5-5.0); LYMPH % 30.8 % (24.0-44.0); MEAN CORPUSCULAR HEMOGLOBIN 28.7 pg (27.0-33.0); MEAN CORPUSCULAR HGB CONC 33.5 g/dl (32.0-36.5); MEAN CORPUSCULAR VOLUME 85.7 fl (80.0-96.0); MONO # 0.7 10^3/uL (0.0-0.8); MONO % 7.6 % (2.0-8.0); NEUTROPHILS # 5.3 10^3/uL (1.5-8.5); PLATELET COUNT, AUTOMATED 193 10^3/uL (150-450); WHITE BLOOD COUNT 9.2 10^3/uL (4.0-10.0)
[2022-10-23 23:23] LABS: ERYTHROCYTE SEDIMENTATION RATE 28 mm/hr (0-20)
[2022-10-23] MEDS ORDERED: traMADol 50 MG TAB PO ONE (23:25)
[2022-10-23 23:35] LABS: C REACTIVE PROTEIN QUANTITATIV 1.1 MG/DL (<1.0)
[2022-10-23 23:36] LABS: CALCIUM LEVEL 8.8 MG/DL (8.3-10.6); CREATININE FOR GFR 2.15 MG/DL (0.70-1.30); GLOMERULAR FILTRATION RATE 33.2 (>49); POTASSIUM SERUM 4.3 MMOL/L (3.5-5.1)
[2022-10-23 23:44] LABS: URIC ACID 4.4 MG/DL (3.7-9.2)
[2022-10-24] MEDS ORDERED: TRAM50TA2 PO (00:37)
== END 2022-10-24 01:00 | disposition home or self-care (01) ==
LOC: M ED 20:09
DX: S63.501A Unspecified sprain of right wrist, initial encounter (principal); W19.XXXA Unspecified fall, initial encounter; E11.9 Type 2 diabetes mellitus without complications; E78.5 Hyperlipidemia, unspecified; I10 Essential (primary) hypertension; N18.30 Chronic kidney disease, stage 3 unspecified; Z86.79 Personal history of other diseases of the circulatory system; Y92.009 Unspecified place in unspecified non-institutional (private) residence as the place of occurrence of the external cause; Z88.8 Allergy status to other drugs, medicaments and biological substances; Z79.52 Long term (current) use of systemic steroids; Z79.4 Long term (current) use of insulin; Z79.01 Long term (current) use of anticoagulants; Z79.899 Other long term (current) drug therapy
CPT/HCPCS: 36415; 73110; 80048; 84550; 85025; 85652; 86140; 99283; G0480

== ENCOUNTER 2022-12-14 17:58 | Emergency (ER) | payer MEDICARE, BC ==
[~2022-12-14] VITALS: Ht 177.8 cm; Wt 132.5 kg
[~2022-12-14 17:58] MED LIST changes: -CEFD300C41 PO; +CEFD300C42 PO; +GLIP5TAB17 PO; -GLIP5TAB8 PO
[2022-12-14] MEDS ORDERED: HYDR-3910 PO (19:48)
[2022-12-14] MEDS ORDERED: ROSU5TAB5 PO (19:48)
[2022-12-14 20:05] LABS: BASO % 0.2 % (0.0-1.0); EOS # 0.2 10^3/uL (0.0-0.5); EOS % 2.1 % (0.0-3.0); HEMOGLOBIN 14.7 g/dl (13.5-17.5); LYMPH # 2.6 10^3/uL (1.5-5.0); LYMPH % 25.8 % (24.0-44.0); MEAN CORPUSCULAR HEMOGLOBIN 29.3 pg (27.0-33.0); MEAN CORPUSCULAR HGB CONC 33.4 g/dl (32.0-36.5); MEAN CORPUSCULAR VOLUME 87.6 fl (80.0-96.0); MONO # 0.7 10^3/uL (0.0-0.8); MONO % 6.6 % (2.0-8.0); NEUTROPHILS # 6.6 10^3/uL (1.5-8.5); NEUTROPHILS % 64.5 % (36.0-66.0); PLATELET COUNT, AUTOMATED 191 10^3/uL (150-450); RED BLOOD COUNT 5.02 10^6/uL (4.30-6.10); WHITE BLOOD COUNT 10.2 10^3/uL (4.0-10.0)
[2022-12-14 20:20] LABS: INR 2.19; PROTHROMBIN TIME 23.8 SECONDS (12.5-14.5)
[2022-12-14 20:27] LABS: CALCIUM LEVEL 9.3 MG/DL (8.3-10.6); CREATININE FOR GFR 1.94 MG/DL (0.70-1.30); GLOMERULAR FILTRATION RATE 37.3 (>49); MAGNESIUM LEVEL 2.1 MG/DL (1.8-2.4); POTASSIUM SERUM 4.4 MMOL/L (3.5-5.1)
[2022-12-14 20:45] VITALS: BP 136/78; TEMP 98.3; O2SAT 98
== END 2022-12-14 21:06 | disposition home or self-care (01) ==
LOC: M ED 17:58
DX: E87.5 Hyperkalemia (principal); I44.0 Atrioventricular block, first degree; E11.9 Type 2 diabetes mellitus without complications; J44.9 Chronic obstructive pulmonary disease, unspecified; N18.30 Chronic kidney disease, stage 3 unspecified; Z86.79 Personal history of other diseases of the circulatory system; Z79.52 Long term (current) use of systemic steroids; Z79.82 Long term (current) use of aspirin; Z79.4 Long term (current) use of insulin; Z79.01 Long term (current) use of anticoagulants; Z79.899 Other long term (current) drug therapy; Z88.0 Allergy status to penicillin; Z88.8 Allergy status to other drugs, medicaments and biological substances

== ENCOUNTER → 2023-02-23 | Outpatient (CLI) | payer MEDICARE, BC ==
[~2023-02-23] MED LIST changes: +CEFD1CAP9 PO; -CEFD300C42 PO; +ROSU5TAB5 PO
[2023-02-23 14:14] LABS: HEMATOCRIT 41.8 % (42.0-52.0); HEMOGLOBIN 13.8 g/dl (13.5-17.5); MEAN CORPUSCULAR HEMOGLOBIN 29.7 pg (27.0-33.0); MEAN CORPUSCULAR VOLUME 90.1 fl (80.0-96.0); PLATELET COUNT, AUTOMATED 210 10^3/uL (150-450); RED BLOOD COUNT 4.64 10^6/uL (4.30-6.10); WHITE BLOOD COUNT 9.8 10^3/uL (4.0-10.0)
[2023-02-23 14:47] LABS: CREATININE, URINE 64.6 MG/DL; MAU/CREAT RATIO 26.3 MCG/MG (0.0-30.0)
[2023-02-23 14:50] LABS: ALBUMIN 3.5 G/DL (3.2-5.2); BILIRUBIN,TOTAL 0.3 MG/DL (0.3-1.2); CALCIUM LEVEL 9.1 MG/DL (8.3-10.6); CHOLESTEROL RISK RATIO 4.34 (<5); CREATININE FOR GFR 1.7 MG/DL (0.70-1.30); GLOMERULAR FILTRATION RATE 43.4 (>49); HDL CHOLESTEROL 30.4 MG/DL (>40); LDL CHOLESTEROL 53.2 MG/DL (<100); NON-HDL-C 101.6 MG/DL; POTASSIUM SERUM 4.5 MMOL/L (3.5-5.1)
[2023-02-23 14:51] LABS: FREE T4 0.89 NG/DL (0.89-1.76); THYROID STIMULATING HORMONE 2.418 uIU/ML (0.55-4.78)
[2023-02-23 15:20] LABS: HEMOGLOBIN A1c 9.4 % (4.0-6.0)
== END ==
LOC: M PLALAB 10:19
PROVIDERS: ATTEND Family Medicine
DX: E11.65 Type 2 diabetes mellitus with hyperglycemia (principal); E11.22 Type 2 diabetes mellitus with diabetic chronic kidney disease; N18.32 Chronic kidney disease, stage 3b; Z79.01 Long term (current) use of anticoagulants; E78.2 Mixed hyperlipidemia; I48.91 Unspecified atrial fibrillation; M10.9 Gout, unspecified

== ENCOUNTER → 2023-03-24 | Outpatient (CLI) | payer MEDICARE, BC | LOC: M ADAMS 14:38 | PROVIDERS: ATTEND Physician Assistant Medical | DX: R05.1 Acute cough (principal) ==

== ENCOUNTER → 2023-04-22 | Outpatient (CLI) | payer MEDICARE, BC ==
[~2023-04-22] MED LIST changes: -ASPI-161 PO; +ASPI-615 PO; -HYDR-3910 PO; +HYDR25TA87 PO
== END ==
LOC: M PLAIMG 14:16
PROVIDERS: ATTEND Nurse Practitioner Adult Health
DX: R06.02 Shortness of breath (principal); J98.11 Atelectasis

== ENCOUNTER → 2023-06-28 | Outpatient (CLI) | payer MEDICARE, BC ==
[~2023-06-28] MED LIST changes: +DOXY-440 PO; -DOXY-444 PO; +ROSU5TAB40 PO; -ROSU5TAB5 PO
[2023-06-28 14:40] LABS: CALCIUM LEVEL 8.5 MG/DL (8.3-10.6); CREATININE FOR GFR 2.02 MG/DL (0.70-1.30); GLOMERULAR FILTRATION RATE 35.6 (>49); POTASSIUM SERUM 4.4 MMOL/L (3.5-5.1)
[2023-06-28 14:54] LABS: HEMATOCRIT 41.1 % (42.0-52.0); HEMOGLOBIN 13.6 g/dl (13.5-17.5); MEAN CORPUSCULAR HEMOGLOBIN 29.8 pg (27.0-33.0); MEAN CORPUSCULAR HGB CONC 33.1 g/dl (32.0-36.5); MEAN CORPUSCULAR VOLUME 90.1 fl (80.0-96.0); PLATELET COUNT, AUTOMATED 183 10^3/uL (150-450); RED BLOOD COUNT 4.56 10^6/uL (4.30-6.10); WHITE BLOOD COUNT 8.7 10^3/uL (4.0-10.0)
[2023-06-28 15:19] LABS: HEMOGLOBIN A1c 9.5 % (4.0-6.0)
== END ==
LOC: M PLALAB 09:21
PROVIDERS: ATTEND Family Medicine
DX: E11.65 Type 2 diabetes mellitus with hyperglycemia (principal); N18.32 Chronic kidney disease, stage 3b; E11.22 Type 2 diabetes mellitus with diabetic chronic kidney disease

== ENCOUNTER 2023-07-22 07:08 | Day surgery (SDC) | payer MEDICARE, BC ==
[~2023-07-22] VITALS: Ht 177.8 cm; Wt 140.3 kg
[~2023-07-22 07:08] MED LIST changes: +IBUP200C90 PO
[2023-07-22] MEDS ORDERED: MIDAZOLAM INJ 2MG/2ML VIAL As Ordered ONE (07:24)
[2023-07-22] MEDS ORDERED: KETAMINE HCL 200MG/20ML VIAL As Ordered ONE (07:24)
[2023-07-22] MEDS ORDERED: fentaNYL 100 MCG/2 ML INJECTION As Ordered ONE (07:25)
[2023-07-22] MEDS ORDERED: LIDOCAINE 2% 100MG/5ML SDV (FOR ANES.) As Ordered ONE (07:27)
[2023-07-22] MEDS ORDERED: ONDANSETRON 4MG 2ML VIAL As Ordered ONE (07:27)
[2023-07-22] MEDS ORDERED: KETOROLAC 60MG 2ML VIAL As Ordered ONE (07:27)
[2023-07-22] MEDS ORDERED: propofoL 200 MG/20 ML VIAL As Ordered ONE (07:27)
[2023-07-22] MEDS ORDERED: GLYCOPYRROLATE INJ 0.2 MG/ML 2 ML VIAL As Ordered ONE (07:27)
[2023-07-22] MEDS ORDERED: ACETAMINOPHEN 1000MG 100ML IV BAG As Ordered ONE (07:27)
[2023-07-22] MEDS ORDERED: LR 1,000 ML IV SCH (08:00)
[2023-07-22] MEDS: INSULIN LISPRO (NovoLOG) PER UNIT SC PRN (08:30)
[2023-07-22 10:04] VITALS: BP 136/73; TEMP 97; O2SAT 97
== END 2023-07-22 11:06 | disposition home or self-care (01) ==
LOC: M SDC 07:08
PROVIDERS: ATTEND Orthopaedic Surgery Hand Surgery
DX: G56.02 Carpal tunnel syndrome, left upper limb (principal); I25.10 Atherosclerotic heart disease of native coronary artery without angina pectoris; I25.2 Old myocardial infarction; I10 Essential (primary) hypertension; E78.00 Pure hypercholesterolemia, unspecified; E11.9 Type 2 diabetes mellitus without complications; K21.9 Gastro-esophageal reflux disease without esophagitis; Z95.5 Presence of coronary angioplasty implant and graft; Z79.899 Other long term (current) drug therapy; Z79.4 Long term (current) use of insulin; Z88.8 Allergy status to other drugs, medicaments and biological substances; Z88.0 Allergy status to penicillin; Z79.82 Long term (current) use of aspirin; M10.9 Gout, unspecified
CPT/HCPCS: 29848; J0131; J0665; J1815; J2250; J2405; J3010

== ENCOUNTER → 2023-10-25 | Outpatient (CLI) | payer MEDICARE, BC ==
[2023-10-25 15:32] LABS: CALCIUM LEVEL 9.5 MG/DL (8.3-10.6); CREATININE FOR GFR 1.95 MG/DL (0.70-1.30); GLOMERULAR FILTRATION RATE 37.1 (>49); POTASSIUM SERUM 4.7 MMOL/L (3.5-5.1)
== END ==
LOC: M PLALAB 10:06
PROVIDERS: ATTEND Family Medicine
DX: E11.65 Type 2 diabetes mellitus with hyperglycemia (principal)

== ENCOUNTER → 2023-11-29 | Outpatient (CLI) | payer MEDICARE, BC | LOC: M PLAIMG 10:17 | PROVIDERS: ATTEND Physician Assistant | DX: N20.0 Calculus of kidney (principal) ==

== ENCOUNTER → 2024-01-26 | Outpatient (CLI) | payer MEDICARE, BC ==
[~2024-01-26] MED LIST changes: +ATOR-398 PO; -LIPI80TA PO; -ROSU5TAB40 PO; +ROSU5TAB49 PO
[2024-01-26 10:58] LABS: CALCIUM LEVEL 9.7 MG/DL (8.3-10.6); CREATININE FOR GFR 1.9 MG/DL (0.70-1.30); GLOMERULAR FILTRATION RATE 38.1 (>49); POTASSIUM SERUM 4.9 MMOL/L (3.5-5.1)
[2024-01-26 11:03] LABS: HEMOGLOBIN A1c 6.8 % (4.0-6.0)
== END ==
LOC: M PLALAB 08:48
PROVIDERS: ATTEND Family Medicine
DX: E11.65 Type 2 diabetes mellitus with hyperglycemia (principal)

== ENCOUNTER 2024-04-24 08:53 | Day surgery (SDC) | payer MEDICARE, BC ==
[~2024-04-24] VITALS: Ht 177.8 cm; Wt 142.0 kg
[~2024-04-24 08:53] MED LIST changes: +JARD1TAB3 PO; +OMEP-173 PO; +RAME8TAB2 PO; +SITA50TAB PO
[2024-04-24] MEDS ORDERED: LIDOCAINE 2% 100MG/5ML SDV (FOR ANES.) As Ordered ONE (09:12)
[2024-04-24] MEDS ORDERED: propofoL 200 MG/20 ML VIAL As Ordered ONE (09:12)
[2024-04-24 11:24] VITALS: TEMP 97.2
[2024-04-24 11:41] VITALS: BP 112/59; O2SAT 99
== END 2024-04-24 11:58 | disposition home or self-care (01) ==
LOC: M OPP 08:53
PROVIDERS: ATTEND Surgery
DX: Z12.11 Encounter for screening for malignant neoplasm of colon (principal); D12.2 Benign neoplasm of ascending colon; K64.0 First degree hemorrhoids; K22.89 Other specified disease of esophagus; K22.70 Barrett's esophagus without dysplasia; I25.10 Atherosclerotic heart disease of native coronary artery without angina pectoris; Z88.1 Allergy status to other antibiotic agents; Z88.8 Allergy status to other drugs, medicaments and biological substances; Z79.82 Long term (current) use of aspirin; Z79.4 Long term (current) use of insulin; Z95.5 Presence of coronary angioplasty implant and graft; I50.9 Heart failure, unspecified; Z79.84 Long term (current) use of oral hypoglycemic drugs; Z79.01 Long term (current) use of anticoagulants; Z79.899 Other long term (current) drug therapy; J44.9 Chronic obstructive pulmonary disease, unspecified; Z95.2 Presence of prosthetic heart valve; Z95.1 Presence of aortocoronary bypass graft; G47.30 Sleep apnea, unspecified

== ENCOUNTER → 2024-05-23 | Outpatient (REF) | payer MEDICARE, BC ==
[~2024-05-23] MED LIST changes: +GLIP-318 PO; -GLIP5TAB20 PO
[2024-05-23 17:23] LABS: HEMATOCRIT 43.1 % (42.0-52.0); HEMOGLOBIN 14.2 g/dl (13.5-17.5); MEAN CORPUSCULAR HEMOGLOBIN 29.5 pg (27.0-33.0); MEAN CORPUSCULAR HGB CONC 32.9 g/dl (32.0-36.5); MEAN CORPUSCULAR VOLUME 89.4 fl (80.0-96.0); PLATELET COUNT, AUTOMATED 174 10^3/uL (150-450); RED BLOOD COUNT 4.82 10^6/uL (4.30-6.10)
[2024-05-23 17:29] LABS: ALBUMIN 3.8 G/DL (3.2-5.2); BILIRUBIN,TOTAL 0.3 MG/DL (0.3-1.2); CALCIUM LEVEL 9.1 MG/DL (8.3-10.6); CHOLESTEROL RISK RATIO 5.52 (<5); CREATININE FOR GFR 2.18 MG/DL (0.70-1.30); GLOMERULAR FILTRATION RATE 32.5 (>49); HDL CHOLESTEROL 30.6 MG/DL (>40); LDL CHOLESTEROL 69.4 MG/DL (<100); NON-HDL-C 138.4 MG/DL; POTASSIUM SERUM 4.9 MMOL/L (3.5-5.1); TOTAL PROTEIN 7.5 G/DL (5.7-8.2)
[2024-05-23 17:44] LABS: HEMOGLOBIN A1c 7.1 % (4.0-6.0)
== END ==
LOC: M SFHCADAM 11:25
PROVIDERS: ATTEND Family Medicine
DX: I25.10 Atherosclerotic heart disease of native coronary artery without angina pectoris (principal); N18.32 Chronic kidney disease, stage 3b; E78.2 Mixed hyperlipidemia; E11.65 Type 2 diabetes mellitus with hyperglycemia; I11.0 Hypertensive heart disease with heart failure

== ENCOUNTER 2024-05-30 22:49 | Emergency (ER) | payer MEDICARE, BC ==
[~2024-05-30] VITALS: Ht 177.8 cm; Wt 146.4 kg
[2024-05-30 22:52] VITALS: TEMP 97.2
[2024-05-31 00:30] LABS: CALCIUM LEVEL 8.6 MG/DL (8.3-10.6); CREATININE FOR GFR 2.13 MG/DL (0.70-1.30); GLOMERULAR FILTRATION RATE 33.7 (>49)
[2024-05-31 01:30] LABS: BASO % 0.5 % (0.0-1.0); EOS # 0.2 10^3/uL (0.0-0.5); EOS % 2.5 % (0.0-3.0); HEMATOCRIT 40.1 % (42.0-52.0); HEMOGLOBIN 13.4 g/dl (13.5-17.5); LYMPH # 2.9 10^3/uL (1.5-5.0); MEAN CORPUSCULAR HEMOGLOBIN 29.3 pg (27.0-33.0); MEAN CORPUSCULAR HGB CONC 33.4 g/dl (32.0-36.5); MEAN CORPUSCULAR VOLUME 87.7 fl (80.0-96.0); MONO # 0.6 10^3/uL (0.0-0.8); MONO % 7.4 % (2.0-8.0); NEUTROPHILS # 4.9 10^3/uL (1.5-8.5); NEUTROPHILS % 55.7 % (36.0-66.0); PLATELET COUNT, AUTOMATED 172 10^3/uL (150-450); RED BLOOD COUNT 4.57 10^6/uL (4.30-6.10); WHITE BLOOD COUNT 8.7 10^3/uL (4.0-10.0)
[2024-05-31 01:54] VITALS: BP 151/74; O2SAT 97
== END 2024-05-31 01:55 | disposition home or self-care (01) ==
LOC: M ED 22:49
DX: S90.821A Blister (nonthermal), right foot, initial encounter (principal); E11.9 Type 2 diabetes mellitus without complications; I25.2 Old myocardial infarction; I10 Essential (primary) hypertension; J44.9 Chronic obstructive pulmonary disease, unspecified; N18.9 Chronic kidney disease, unspecified; Z86.79 Personal history of other diseases of the circulatory system; Z88.8 Allergy status to other drugs, medicaments and biological substances; Z79.52 Long term (current) use of systemic steroids; Z79.4 Long term (current) use of insulin; Z79.01 Long term (current) use of anticoagulants; Z79.899 Other long term (current) drug therapy; Y93.89 Activity, other specified; Y92.9 Unspecified place or not applicable; Y99.9 Unspecified external cause status

== ENCOUNTER → 2024-10-01 | Outpatient (CLI) | payer MEDICARE, BC ==
[~2024-10-01] MED LIST changes: -AMIO200T49 PO; +AMIO200T54 PO; -FLOM0.4C39 PO; +ISOS-18 PO; -ISOS30TAB PO; +SENN-225 PO; -SENO8.6T5 PO; +TAMS-18 PO
[2024-10-01 11:10] LABS: CALCIUM LEVEL 9.0 MG/DL (8.3-10.6); CARBON DIOXIDE LEVEL 27.0 MMOL/L (20-31); CHLORIDE LEVEL 104.0 MMOL/L (98-107); CREATININE FOR GFR 1.95 MG/DL (0.70-1.30); GLOMERULAR FILTRATION RATE 37.5 (>49); POTASSIUM SERUM 4.6 MMOL/L (3.5-5.1); SODIUM LEVEL 141.0 MMOL/L (136-145)
[2024-10-01 11:49] LABS: ESTIMATED AVERAGE GLUCOSE 169.0 MG/DL (60-110)
== END ==
LOC: M PLALAB 08:08
PROVIDERS: ATTEND Family Medicine
DX: E11.65 Type 2 diabetes mellitus with hyperglycemia (principal); E78.2 Mixed hyperlipidemia

== ENCOUNTER → 2025-01-04 | Outpatient (REF) | payer MEDICARE, BC ==
[~2025-01-04] MED LIST changes: -EZET10TA21; -EZET10TA21 PO; +EZET10TA57; +EZET10TA57 PO
[2025-01-04 19:41] LABS: ESTIMATED AVERAGE GLUCOSE 209.0 MG/DL (60-110)
== END ==
LOC: M SFHCWOUN 17:23
PROVIDERS: ATTEND Physician Assistant
DX: E11.621 Type 2 diabetes mellitus with foot ulcer (principal)

== ENCOUNTER → 2025-01-31 | Outpatient (CLI) | payer MEDICARE, BC ==
[2025-01-31 10:56] LABS: PLATELET COUNT, AUTOMATED 190 10^3/uL (150-450)
[2025-01-31 11:03] LABS: ALT/SGPT 42.0 U/L (7.0-40); AST/SGOT 61.0 U/L (<34); CALCIUM LEVEL 9.1 MG/DL (8.3-10.6); CARBON DIOXIDE LEVEL 25.0 MMOL/L (20-31); CHLORIDE LEVEL 102.0 MMOL/L (98-107); CHOLESTEROL LEVEL 155.0 MG/DL (<200); CHOLESTEROL RISK RATIO 5.3 (<5); CREATININE FOR GFR 2.01 MG/DL (0.70-1.30); GLOMERULAR FILTRATION RATE 35.9 (>49); LDL CHOLESTEROL 71.0 MG/DL (<100); MAGNESIUM LEVEL 1.9 MG/DL (1.8-2.4); NON-HDL-C 125.8 MG/DL; POTASSIUM SERUM 4.0 MMOL/L (3.5-5.1); SODIUM LEVEL 137.0 MMOL/L (136-145); TRIGLYCERIDES LEVEL 274.0 MG/DL (<150)
[2025-01-31 11:05] LABS: FREE T4 1.03 NG/DL (0.89-1.76)
[2025-01-31 12:09] LABS: ESTIMATED AVERAGE GLUCOSE 180.0 MG/DL (60-110)
== END ==
LOC: M PLALAB 08:11
PROVIDERS: ATTEND Family Medicine
DX: N18.32 Chronic kidney disease, stage 3b (principal); I48.91 Unspecified atrial fibrillation; E78.2 Mixed hyperlipidemia; E11.65 Type 2 diabetes mellitus with hyperglycemia

== ENCOUNTER → 2025-01-31 | Outpatient (CLI) | payer MEDICARE, BC | LOC: M PLALAB 08:18 | PROVIDERS: ATTEND Physician Assistant | DX: Z87.442 Personal history of urinary calculi (principal); Z12.5 Encounter for screening for malignant neoplasm of prostate | CPT/HCPCS: 36415; 74018; G0103 ==

== ENCOUNTER 2025-02-07 08:55 | Emergency (ER) | payer MEDICARE, BC ==
[~2025-02-07] VITALS: Ht 177.8 cm; Wt 143.8 kg
[2025-02-07 12:57] VITALS: BP 119/58; TEMP 97.7; O2SAT 94
== END 2025-02-07 13:24 | disposition home or self-care (01) ==
LOC: M ED 08:55
DX: S70.01XA Contusion of right hip, initial encounter (principal); S93.401A Sprain of unspecified ligament of right ankle, initial encounter; W01.0XXA Fall on same level from slipping, tripping and stumbling without subsequent striking against object, initial encounter; K21.9 Gastro-esophageal reflux disease without esophagitis; N18.30 Chronic kidney disease, stage 3 unspecified; E11.9 Type 2 diabetes mellitus without complications; G47.30 Sleep apnea, unspecified; J44.9 Chronic obstructive pulmonary disease, unspecified; Z96.643 Presence of artificial hip joint, bilateral; Z79.01 Long term (current) use of anticoagulants; Z86.79 Personal history of other diseases of the circulatory system; Y92.9 Unspecified place or not applicable; Y93.89 Activity, other specified; Y99.9 Unspecified external cause status; Z88.8 Allergy status to other drugs, medicaments and biological substances

== ENCOUNTER 2025-02-18 08:51 | Emergency (ER) | payer MEDICARE, BC ==
[~2025-02-18] VITALS: Ht 177.8 cm; Wt 142.6 kg
[2025-02-18] MEDS ORDERED: TIRZ2.5P (09:23)
[2025-02-18] MEDS ORDERED: ISOVUE-370 76% 100 ML VIAL As Ordered ONE (10:26)
[2025-02-18] MEDS ORDERED: OXYC-517 PO (13:24)
[2025-02-18 13:49] VITALS: BP 157/77; TEMP 97.1; O2SAT 96
== END 2025-02-18 13:52 | disposition home or self-care (01) ==
LOC: M ED 08:51
DX: S76.011A Strain of muscle, fascia and tendon of right hip, initial encounter (principal); S93.402A Sprain of unspecified ligament of left ankle, initial encounter; K40.91 Unilateral inguinal hernia, without obstruction or gangrene, recurrent; M77.32 Calcaneal spur, left foot; M19.072 Primary osteoarthritis, left ankle and foot; W19.XXXA Unspecified fall, initial encounter; E11.9 Type 2 diabetes mellitus without complications; F32.A Depression, unspecified; F41.9 Anxiety disorder, unspecified; J44.9 Chronic obstructive pulmonary disease, unspecified; N18.30 Chronic kidney disease, stage 3 unspecified; Z98.890 Other specified postprocedural states; Z88.0 Allergy status to penicillin; Z88.8 Allergy status to other drugs, medicaments and biological substances; Z79.899 Other long term (current) drug therapy; E78.5 Hyperlipidemia, unspecified; M54.9 Dorsalgia, unspecified; Z79.82 Long term (current) use of aspirin; Z79.4 Long term (current) use of insulin; Y92.9 Unspecified place or not applicable; Y93.9 Activity, unspecified; Y99.9 Unspecified external cause status